=== PATIENT | female | born 1945 | race Caucasian/White ===

== ENCOUNTER 2018-02-26 21:07 | Inpatient (IN) ==
--- NOTE | 2018-02-26 21:30 | Emergency Department Note ---
Disposition Clinical Impression: Atrial fibrillation with RVR, Diaphoresis, Weakness Vomiting Qualifiers: Vomiting type: unspecified Vomiting Intractability: non-intractable Nausea presence: with nausea Qualified Code(s): R11.2 - Nausea with vomiting, unspecified Disposition: Admitted As Inpatient Condition: Fair Time of Disposition: 22:34 General Adult HPI - General Time Seen by Provider: 02/26/18 21:10 Source: EMS Nursing Notes Reviewed: Yes Vital Signs Reviewed: Yes - History of Present Illness HPI Narrative: 72-year-old female presents from home via EMS for evaluation of weakness, dizziness, and palpitations. Symptom onset 17:30. Associated with diaphoresis and vomiting. On EMS arrival, patient had a heart rate in the 180s. Patient has no history of atrial fibrillation. PMH: Hypertension, hyperlipidemia, COPD, history of aortic graft Anticoagulant: None Antiplatelet: Aspirin, Plavix ROS: Excellent positive: As above Negative: Fever, chills, vomiting, chest pains, unusual back pains, abdominal pain, upper extremity weakness/numbness/tingling, changes in vision Pain Scale: 0 - Related Data Home Medications Medication Instructions Recorded Confirmed Albuterol Sulfate [Proair Hfa] 2 puff IH Q6H PRN 02/26/18 02/26/18 Aspirin [Lo-Dose Aspirin EC] 81 mg PO DAILY 02/26/18 02/26/18 Buspirone HCl [Buspar] 5 mg PO BID 02/26/18 02/26/18 Cholecalciferol (D-3) [Vitamin D] 2,000 unit PO DAILY 02/26/18 02/26/18 Clopidogrel [Plavix] 75 mg PO DAILY 02/26/18 02/26/18 Docusate Sodium [Dok] 100 mg PO BID 02/26/18 02/26/18 Estradiol 1.5 mg PO DAILY 02/26/18 02/26/18 Fluticasone/Salmeterol [Advair 1 puff IH BID 02/26/18 02/26/18 250-50 Diskus] Lisinopril [Zestril] 10 mg PO DAILY 02/26/18 02/26/18 Loratadine [Allergy Relief] 10 mg PO DAILY 02/26/18 02/26/18 Meloxicam [Mobic] 15 mg PO DAILY PRN 02/26/18 02/26/18 Metoprolol [Lopressor] 12.5 mg PO DAILY 02/26/18 02/26/18 Montelukast [Singulair] 10 mg PO DAILY 02/26/18 02/26/18 Nitroglycerin [Nitrostat] 0.4 mg SL Q5M PRN 02/26/18 02/26/18 Ranitidine HCl [Zantac] 300 mg PO DAILY 02/26/18 02/26/18 Sertraline [Zoloft] 200 mg PO DAILY 02/26/18 02/26/18 Simvastatin [Zocor] 40 mg PO HS 02/26/18 02/26/18 Umeclidinium [place] [Incruse 62.5 mcg IH DAILY 02/26/18 02/26/18 Ellipta] hydroCHLOROthiazide 25 mg PO DAILY PRN 02/26/18 02/26/18 [Hydrochlorothiazide] Allergies Allergy/AdvReac Type Severity Reaction Status Date / Time ciprofloxacin [From Cipro] Allergy Rash Verified 02/26/18 21:21 codeine Allergy Fatigued Verified 02/26/18 21:21 diphenhydramine Allergy Rash Verified 02/26/18 21:21 [From Benadryl] egg Allergy Nausea Verified 02/26/18 21:21 gabapentin Allergy Anxiety Verified 02/26/18 21:21 Iodinated Contrast- Oral and Allergy Rash Verified 02/26/18 21:21 IV Dye [Iodinated Contrast Media - IV Dye] Penicillins Allergy Rash Verified 02/26/18 21:21 propoxyphene Allergy Rash Verified 02/26/18 21:21 Sulfa (Sulfonamide Allergy Rash Verified 02/26/18 21:21 Antibiotics) All systems ED: reviewed and negative except as stated. Review of Systems: As Per HPI Past Medical History - Past Medical History Medical history: Reports: COPD, DVT, hyperlipidemia, hypertension Psychiatric history: Reports: anxiety - Social History Smoking Status: Current every day smoker Alcohol use: Reports: none Drug use: Reports: none Physical Exam Vital Signs Reviewed General: Patient is alert, oriented, and in no acute distress. Head: atraumatic, normocephalic Eye: normal appearance, no scleral icterus, no conjunctival injection ENT: mucous membranes moist, normal external ear exam Neck: normal inspection, trachea midline, full ROM Chest: normal inspection, symmetric chest rise Respiratory: Good respiratory effort. Bilateral breath sounds are clear without wheezing, crackles, or rhonchi. Cardiovascular: Tachycardic rate and irregular rhythm. No clicks, rubs, gallops , or murmors. Normal heart sounds. Bilateral posterior tibial pulses 2/4 and irregular. Abdomen: Bowel sounds present normoactive x-4 quadrants. Abdomen is soft, nondistended, and nontender. No guarding or rebound. No organomegaly noted. Musculoskeletal: Spontaneously moving all extremities. Skin: warm, dry, intact. Neuro: Alert and oriented x4. Sensation light touch intact. Psych: Patient's affect is appropriate for situation. - General General appearance: alert, in no apparent distress Course Course Narrative: Patient presents atrophic fibrillation with rapid ventricular rate 190. Blood Pressure 130s systolic. Concern as she was diaphoretic, vomiting, and has new onset A. Fib. Will provide 10 mg Cardizem bolus with drip starting at 10 mg/h. 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 All of her medications are managed by her primary care physician. EKG #1 EKG dated at 21:19 interpreted as atrial fibrillation with rapid ventricular rate; rate of 190. QTC 404. Normal axis. Nonspecific ST-T changes. Compared to previous EKG dated 01/16/2013 showing A. fib RVR is new. EKG #2 EKG dated 02/26/18 at 21:46 shows atrial fibrillation with RVR with a heart rate of 126. Concerning with ST depressions in leads V2 and V3 ST elevations in leads 3 and aVR. EKG #3 EKG dated 02/26/18 at 22:07 interpreted as atrial fibrillation with RVR; rate of 121. Redemonstrates concerning findings of leads V2 and V3 ST depression with leads [address] elevation. Discussed the patient with on-call cardiology, Dr. Fabian. Discussed the patient's clinical presentation, history, EKG findings, laboratory workup. In addition to rate control, he recommends a speak with on-call interventional cardiology. Discussed the patient with on-call interventional cardiology, Dr. Joshi. Discussed the patient's clinical presentation, history, EKG findings, laboratory workup. He suspect this is demand ischemia. Recommends starting ACS heparin given that patient's A. fib is been ongoing for an unknown duration. He anticipates that it will take some additional time for her heart rate to settle below 100. Will provide IV bolus to maintain blood pressure greater than 100. Discussed the patient with the admitting hospitalist. He agrees to accept the patient for A. fib RVR with cardiology following. Vital Signs Temperature 98.3 F 02/26/18 21:13 Pulse Rate 183 02/26/18 21:13 Respiratory Rate 24 02/26/18 21:13 Blood Pressure 133/102 02/26/18 21:13 O2 Sat by Pulse Oximetry 94 02/26/18 21:13 Temperature 98.3 F 02/26/18 21:13 Pulse Rate 124 02/26/18 22:08 Respiratory Rate 22 02/26/18 22:08 Blood Pressure 99/80 02/26/18 22:08 O2 Sat by Pulse Oximetry 97 02/26/18 22:08 Oxygen Delivery Oxygen Delivery Nasal Cannula Medical Decision Making - Lab Data Result diagrams: 02/26/18 21:30 02/26/18 21:30 Lab Results 02/26/18 02/26/18 02/26/18 Range/Units 21:30 21:30 21:30 WBC 9.2 (4.3-11.1) K/mcL RBC 4.49 (3.82-4.97) M/mcL Hgb 13.4 (11.5-15.4) g/dL Hct 41.4 (35.3-44.9) % MCV 92.2 (83.0-100.0) fL MCH 29.8 (28.0-33.3) pg MCHC 32.4 (31.6-35.5) g/dL RDW 12.7 (11.5-14.5) % Plt Count 206 (140-400) K/mcL MPV 11.0 (9.4-12.4) fL Immature Gran % 0.3 (0-4) % Seg Neutrophils % 54.2 % Lymphocytes % 33.2 % Monocytes % 7.7 % Eosinophils % 3.6 % Basophils % 1.0 % Neutrophils # 5.0 (1.6-8.9) K/mcL Lymphocytes # 3.1 (0.6-4.6) K/mcL Monocytes # 0.7 (0.0-1.3) K/mcL Eosinophils # 0.3 (0.0-0.6) K/mcL Basophils # 0.1 (0.0-0.2) K/mcL PT 11.1 (9.4-12.1) Seconds INR 1.0 APTT 30.5 (26.0-36.0) Seconds D-Dimer 235 (0-500) ng/mLFEU Heparin Anti-Xa, Unfract 0.02 L (0.30-0.70) IU/mL Sodium 140 (136-145) mEq/L Potassium 3.5 (3.5-5.1) mEq/L Chloride 109 H (98-107) mEq/L Carbon Dioxide 20 L (23-29) mEq/L BUN 13 (8-23) mg/dL Creatinine 0.79 (0.60-1.20) mg/dL Est GFR ( Amer) > 60 (> 60) Est GFR (Non-Af Amer) > 60 (> 60) BUN/Creatinine Ratio 16 (6-26) Glucose 118 H (70-105) mg/dL Calculated Osmolality 291 (280-300) Calcium 9.3 (8.6-10.3) mg/dL Magnesium 1.7 (1.6-2.6) mg/dL Troponin I < 0.03 (< 0.04) ng/mL TSH 4.362 (0.340-5.600) mcIU/mL
[2018-02-26] MEDS ORDERED: 0.9 % Sodium Chloride 1,000 ML ONE (21:33)
[2018-02-26] MEDS ORDERED: Ondansetron 4 MG/2 ML VIAL IVP ONE (21:34)
[2018-02-26 21:40] LABS: Basophils # 0.1 K/mcL (0.0-0.2); Eosinophils # 0.3 K/mcL (0.0-0.6); Eosinophils % 3.6 %; Hematocrit 41.4 % (35.3-44.9); Hemoglobin 13.4 g/dL (11.5-15.4); Immature Granulocytes % 0.3 % (0-4); Lymphocytes # 3.1 K/mcL (0.6-4.6); Lymphocytes % 33.2 %; Mean Corpuscular HGB Conc 32.4 g/dL (31.6-35.5); Mean Corpuscular Hemoglobin 29.8 pg (28.0-33.3); Mean Corpuscular Volume 92.2 fL (83.0-100.0); Monocytes # 0.7 K/mcL (0.0-1.3); Monocytes % 7.7 %; Platelet Count 206 K/mcL (140-400); Red Blood Count 4.49 M/mcL (3.82-4.97); Red Cell Distribution Width 12.7 % (11.5-14.5); Segmented Neutrophils % 54.2 %
[2018-02-26 21:49] LABS: Prothrombin Time 11.1 Seconds (9.4-12.1)
[2018-02-26 21:51] LABS: Activated Partial Thrombo Time 30.5 Seconds (26.0-36.0)
[2018-02-26 22:01] LABS: BUN/Creatinine Ratio 16 (6-26); Blood Urea Nitrogen 13 mg/dL (8-23); Calcium 9.3 mg/dL (8.6-10.3); Carbon Dioxide 20 mEq/L (23-29); Chloride 109 mEq/L (98-107); Glucose 118 mg/dL (70-105); Magnesium 1.7 mg/dL (1.6-2.6); Osmolality,Calculated 291 (280-300); Potassium 3.5 mEq/L (3.5-5.1); Sodium 140 mEq/L (136-145); eGFR For Non-African Americans > 60 (> 60)
[2018-02-26 22:02] LABS: Troponin I < 0.03 ng/mL (< 0.04)
[2018-02-26] MEDS ORDERED: 0.9 % Sodium Chloride 1,000 ML IVC ONE (22:12)
[2018-02-26 22:15] LABS: Thyroid Stimulating Hormone 4.362 mcIU/mL (0.340-5.600)
[2018-02-26] MEDS ORDERED: *HR* Heparin 5,000 UNIT/ML VIAL IVP PRN ×2 (22:15)
[2018-02-26] MEDS ORDERED: *HR* Heparin 5,000 UNIT/ML VIAL IVP ONE (22:15)
[2018-02-26 22:25] LABS: Heparin anti-factor XA UFH 0.02 IU/mL (0.30-0.70)
--- NOTE | 2018-02-26 22:37 | Emergency Department Note ---
Disposition Clinical Impression: Atrial fibrillation with RVR, Diaphoresis, Weakness Vomiting Qualifiers: Vomiting type: unspecified Vomiting Intractability: non-intractable Nausea presence: with nausea Qualified Code(s): R11.2 - Nausea with vomiting, unspecified Disposition: Admitted As Inpatient Referrals: Cynthia Woo MD [Primary Care Provider] - General Adult HPI - General Chief complaint: ED Arrhythmia/Palpitations Stated complaint: AFIB Time Seen by Provider: 02/26/18 21:10 Source: EMS - History of Present Illness Pain Scale: 0 - Related Data Home Medications Medication Instructions Recorded Confirmed Albuterol Sulfate [Proair Hfa] 2 puff IH Q6H PRN 02/26/18 02/26/18 Aspirin [Lo-Dose Aspirin EC] 81 mg PO DAILY 02/26/18 02/26/18 Buspirone HCl [Buspar] 5 mg PO BID 02/26/18 02/26/18 Cholecalciferol (D-3) [Vitamin D] 2,000 unit PO DAILY 02/26/18 02/26/18 Clopidogrel [Plavix] 75 mg PO DAILY 02/26/18 02/26/18 Docusate Sodium [Dok] 100 mg PO BID 02/26/18 02/26/18 Estradiol 1.5 mg PO DAILY 02/26/18 02/26/18 Fluticasone/Salmeterol [Advair 1 puff IH BID 02/26/18 02/26/18 250-50 Diskus] Lisinopril [Zestril] 10 mg PO DAILY 02/26/18 02/26/18 Loratadine [Allergy Relief] 10 mg PO DAILY 02/26/18 02/26/18 Meloxicam [Mobic] 15 mg PO DAILY PRN 02/26/18 02/26/18 Metoprolol [Lopressor] 12.5 mg PO DAILY 02/26/18 02/26/18 Montelukast [Singulair] 10 mg PO DAILY 02/26/18 02/26/18 Nitroglycerin [Nitrostat] 0.4 mg SL Q5M PRN 02/26/18 02/26/18 Ranitidine HCl [Zantac] 300 mg PO DAILY 02/26/18 02/26/18 Sertraline [Zoloft] 200 mg PO DAILY 02/26/18 02/26/18 Simvastatin [Zocor] 40 mg PO HS 02/26/18 02/26/18 Umeclidinium [place] [Incruse 62.5 mcg IH DAILY 02/26/18 02/26/18 Ellipta] hydroCHLOROthiazide 25 mg PO DAILY PRN 02/26/18 02/26/18 [Hydrochlorothiazide] Allergies Allergy/AdvReac Type Severity Reaction Status Date / Time ciprofloxacin [From Cipro] Allergy Rash Verified 02/26/18 21:21 codeine Allergy Fatigued Verified 02/26/18 21:21 diphenhydramine Allergy Rash Verified 02/26/18 21:21 [From Benadryl] egg Allergy Nausea Verified 02/26/18 21:21 gabapentin Allergy Anxiety Verified 02/26/18 21:21 Iodinated Contrast- Oral and Allergy Rash Verified 02/26/18 21:21 IV Dye [Iodinated Contrast Media - IV Dye] Penicillins Allergy Rash Verified 02/26/18 21:21 propoxyphene Allergy Rash Verified 02/26/18 21:21 Sulfa (Sulfonamide Allergy Rash Verified 02/26/18 21:21 Antibiotics) Past Medical History - Past Medical History Medical history: Reports: COPD, DVT, hyperlipidemia, hypertension Psychiatric history: Reports: anxiety - Social History Smoking Status: Current every day smoker Alcohol use: Reports: none Drug use: Reports: none Physical Exam - General General appearance: alert, in no apparent distress Course Vital Signs Temperature 98.3 F 02/26/18 21:13 Pulse Rate 183 02/26/18 21:13 Respiratory Rate 24 02/26/18 21:13 Blood Pressure 133/102 02/26/18 21:13 O2 Sat by Pulse Oximetry 94 02/26/18 21:13 Temperature 98.3 F 02/26/18 21:13 Pulse Rate 124 02/26/18 22:08 Respiratory Rate 22 02/26/18 22:08 Blood Pressure 99/80 02/26/18 22:08 O2 Sat by Pulse Oximetry 97 02/26/18 22:08 Oxygen Delivery Oxygen Delivery Nasal Cannula Medical Decision Making - Lab Data Result diagrams: 02/26/18 21:30 02/26/18 21:30 Lab Results 02/26/18 02/26/18 02/26/18 Range/Units 21:30 21:30 21:30 WBC 9.2 (4.3-11.1) K/mcL RBC 4.49 (3.82-4.97) M/mcL Hgb 13.4 (11.5-15.4) g/dL Hct 41.4 (35.3-44.9) % MCV 92.2 (83.0-100.0) fL MCH 29.8 (28.0-33.3) pg MCHC 32.4 (31.6-35.5) g/dL RDW 12.7 (11.5-14.5) % Plt Count 206 (140-400) K/mcL MPV 11.0 (9.4-12.4) fL Immature Gran % 0.3 (0-4) % Seg Neutrophils % 54.2 % Lymphocytes % 33.2 % Monocytes % 7.7 % Eosinophils % 3.6 % Basophils % 1.0 % Neutrophils # 5.0 (1.6-8.9) K/mcL Lymphocytes # 3.1 (0.6-4.6) K/mcL Monocytes # 0.7 (0.0-1.3) K/mcL Eosinophils # 0.3 (0.0-0.6) K/mcL Basophils # 0.1 (0.0-0.2) K/mcL PT 11.1 (9.4-12.1) Seconds INR 1.0 APTT 30.5 (26.0-36.0) Seconds D-Dimer 235 (0-500) ng/mLFEU Heparin Anti-Xa, Unfract 0.02 L (0.30-0.70) IU/mL Sodium 140 (136-145) mEq/L Potassium 3.5 (3.5-5.1) mEq/L Chloride 109 H (98-107) mEq/L Carbon Dioxide 20 L (23-29) mEq/L BUN 13 (8-23) mg/dL Creatinine 0.79 (0.60-1.20) mg/dL Est GFR ( Amer) > 60 (> 60) Est GFR (Non-Af Amer) > 60 (> 60) BUN/Creatinine Ratio 16 (6-26) Glucose 118 H (70-105) mg/dL Calculated Osmolality 291 (280-300) Calcium 9.3 (8.6-10.3) mg/dL Magnesium 1.7 (1.6-2.6) mg/dL Troponin I < 0.03 (< 0.04) ng/mL TSH 4.362 (0.340-5.600) mcIU/mL Critical Care Time Critical Care Time: Yes Total Critical Care Time: 35 Attestation: Total critical care time 35 minutes spent in medical management of A. fib with RVR Attestation Statement - Attestation Attestation: I examined this patient and my medical decision-making was reviewed with the Resident Physician. I agree with the documented findings, disposition and treatment plan as described except to the extent set forth below. 72-year-old female in presented to the emergency room with nausea vomiting diaphoresis shortness of breath and palpitations. She was brought in via EMS. She was found to be in A. fib with RVR. Her heart rate was running in the 180s. Initial EKG showed A. fib with RVR. It appeared as though she had rate demand ischemia. We gave her a bolus of 10 mg of Cardizem. This did bring her heart rate down slightly. She started feel better. We will start her on a Cardizem drip. She was also given a liter fluid bolus. She improved after these measures. We consulted with cardiology in regards to her psychiatric EKG which showed a possible ST elevation in aVR as well as in lead 3. She still was in A. fib with RVR. She had some ST depressions in the anterior septal leads. She remained chest pain-free her entire ER stay. We consulted with interventional cardiology as well. Okay with a Cardizem drip and start her on a heparin drip. Her troponin came back negative. Chest x-ray shows possible early pulmonary edema. I feel this is likely secondary to her heart rate being so elevated. I feel that this will likely improve after her heart rate improves. patient will be admitted. Critical care time of 35 minutes spent in medical management of A. fib with RVR.
[2018-02-26] MEDS ORDERED: Nitroglycerin 0.4 MG TAB.SUBL SL PRN (23:48)
[2018-02-26] MEDS: Heparin 25,000 UNIT/500 ML D5W 25,000 UNIT/500 ML BAG IVC SCH (23:50)
--- NOTE | 2018-02-27 00:25 | Internal Med History&Physical ---
Date of Encounter: 02/27/18 Time of Encounter: 23:15 Internal Medicine - H&P: HPI Chief complaint: palpitations Admitted From: Home Plans for Post Hospital Care: Home History of present illness: Ms. Maloney is a 72 year old woman with a history of hypertension, hyperlipidemia, anxiety disorder and COPD who presents to the ER with the complaint of acute onset palpitations accompanied by diaphoresis, nausea and vomiting. She states that it commenced while at rest and has not happened to her before. She denies illicit drug use but she continues to smoke. She denies having chest pain at any time. On arrival to the ER she was seen to have Afib with RVR to the 190s and systolic BP 130s. She was diaphoretic and vomiting with what appeared to be new onset afib. 10 mg bolus of diltiazem was administered with a subsequent drip at 10 mg per hour. As reported by the ER her EKG showed A. fib with RVR at a rate of [address] T-segment changes and a repeat EKG with the heart rate of [address] depressions in V2 and V3 leading to suspicion for ACS. Discussion was held cardiology based on the clinical presentation, history, EKG findings and lab workup and recommended rate control only and likely due to demand ischemia due to the elevated heart rate. Cardiology has been consulted and will be seen in the morning but recommend starting heparin therapy in the interim while continuing the diltiazem drip to control heart rate. Her initial troponin came back negative. He remained chest pain-free during her entire ER stay. On my assessment the patient was sitting up in bed but notably anxious and fidgety. She states that she has an anxiety issue and takes medications for this. She will just states that she continues to smoke and she is somewhat wheezy. On my review of the telemetry strip and a subsequent EKG done the patient had reverted to normal sinus rhythm with a heart rate in the 70s. Of note, the patient states that she is on dual antiplatelet therapy because of a stent placed through her groin into her aorta for a blockage some years ago although she cannot specify where. Past Med Surg Social Fam HX - Past Medical History Medical history: COPD, DVT, hyperlipidemia, hypertension Psychiatric history: anxiety - Past Surgical History Additional surgical history: cardiac stent x 1 - Social History Smoking Status: Current every day smoker Alcohol use: none Drug use: none Internal Medicine - H&P: Meds Albuterol Sulfate [Proair Hfa] 2 puff IH Q6H PRN 02/26/18 [History] Aspirin [Lo-Dose Aspirin EC] 81 mg PO DAILY 02/26/18 [History] Buspirone HCl [Buspar] 5 mg PO BID 02/26/18 [History] Cholecalciferol (D-3) [Vitamin D] 2,000 unit PO DAILY 02/26/18 [History] Clopidogrel [Plavix] 75 mg PO DAILY 02/26/18 [History] Docusate Sodium [Dok] 100 mg PO BID 02/26/18 [History] Estradiol 1.5 mg PO DAILY 02/26/18 [History] Fluticasone/Salmeterol [Advair 250-50 Diskus] 1 puff IH BID 02/26/18 [History] Lisinopril [Zestril] 10 mg PO DAILY 02/26/18 [History] Loratadine [Allergy Relief] 10 mg PO DAILY 02/26/18 [History] Meloxicam [Mobic] 15 mg PO DAILY PRN 02/26/18 [History] Metoprolol [Lopressor] 12.5 mg PO DAILY 02/26/18 [History] Montelukast [Singulair] 10 mg PO DAILY 02/26/18 [History] Nitroglycerin [Nitrostat] 0.4 mg SL Q5M PRN 02/26/18 [History] Ranitidine HCl [Zantac] 300 mg PO DAILY 02/26/18 [History] Sertraline [Zoloft] 200 mg PO DAILY 02/26/18 [History] Simvastatin [Zocor] 40 mg PO HS 02/26/18 [History] Umeclidinium [place] [Incruse Ellipta] 62.5 mcg IH DAILY 02/26/18 [History] hydroCHLOROthiazide [Hydrochlorothiazide] 25 mg PO DAILY PRN 02/26/18 [History] 3 Allergy/AdvReac Type Severity Reaction Status Date / Time ciprofloxacin [From Cipro] Allergy Rash Verified 02/26/18 21:21 codeine Allergy Fatigued Verified 02/26/18 21:21 diphenhydramine Allergy Rash Verified 02/26/18 21:21 [From Benadryl] egg Allergy Nausea Verified 02/26/18 21:21 gabapentin Allergy Anxiety Verified 02/26/18 21:21 Iodinated Contrast- Oral and Allergy Rash Verified 02/26/18 21:21 IV Dye [Iodinated Contrast Media - IV Dye] Penicillins Allergy Rash Verified 02/26/18 21:21 propoxyphene Allergy Rash Verified 02/26/18 21:21 Sulfa (Sulfonamide Allergy Rash Verified 02/26/18 21:21 Antibiotics) All Systems PM: A 10-system review of systems was performed and is negative for pertinent findings except as documented above in the HPI. - Constitutional Vitals: Temp Pulse Resp BP Pulse Ox 98.3 F 68 16 105/92 94 02/26/18 21:13 02/26/18 23:52 02/26/18 23:52 02/26/18 23:52 02/26/18 23:52 Exam: Vitals: Reviewed General: Well developed, NAD Skin: Warm and supple HEENT: Moist mucous membranes. No conjunctivae pallor. Neck: No lymphadenopathy. No JVD. No carotid bruits. No palpable thyroid. Chest: Normal thoracic expansion. Scattered wheezes in both lung butcher. Heart: Normal S1 & S2; rhythmic. No rubs or murmurs. Abdomen: Non-distended, soft and non-tender to palpation. No peritoneal reaction. Extremities: No clubbing, cyanosis or edema. No calf tenderness. Normal distal pulses. Neurological: Awake, alert and oriented to person, place and time. No focal deficits. Psych: Affect appropriate. Internal Med - H&P Results - Labs CBC & Chem 7: 02/26/18 21:30 02/26/18 21:30 - Assessment and plan (1) Atrial fibrillation with RVR Current Visit: Yes Status: Acute Assessment and plan: New onset however appears to have reverted to sinus rhythm with adequate rate control. [id number] score of 3 which indicates need for anticoagulation. The patient is currently on dual antiplatelet therapy with ASA and clopidogrel for a "stent placed somewhere in her aorta". -Will keep on heparin and diltiazem gtt overnight. -Can transition to PO rate control agents once stable. -Discussion on form of anticoagulation once cardiology has evaluated. -Obtain TSH and another troponin. -Monitor on telemetry. (2) COPD (chronic obstructive pulmonary disease) Current Visit: Yes Status: Acute Assessment and plan: Mild symptoms for now. Complicated by ongoing tobacco use. Will place on levalbuterol prn and continue LABA/ICS daily. Qualifiers: COPD type: emphysema Emphysema type: panlobular Qualified Code(s): J43.1 - Panlobular emphysema (3) Hypertension Current Visit: Yes Status: Chronic Assessment and plan: Will continue home medications. Currently well controlled. Qualifiers: Hypertension type: essential hypertension Qualified Code(s): I10 - Essential (primary) hypertension (4) Hyperlipidemia Current Visit: Yes Status: Acute Assessment and plan: Currently on simvastatin 40mg daily. Will continue. Qualifiers: Hyperlipidemia type: mixed hyperlipidemia Qualified Code(s): E78.2 - Mixed hyperlipidemia (5) Anxiety Current Visit: Yes Status: Chronic Assessment and plan: Notable on physical assessment. Will continue daily sertraline. - Time Spent With Patient Total time spent is greater than 50% in coordination of care (as documented) at patient's floor/unit and/or counseling patient: Greater than 35 minutes
[2018-02-27] MEDS ORDERED: Levalbuterol Neb 0.63 MG/3 ML IH PRN (00:43)
[2018-02-27 04:34] LABS: Basophils # 0.1 K/mcL (0.0-0.2); Basophils % 0.9 %; Eosinophils # 0.2 K/mcL (0.0-0.6); Hematocrit 38.6 % (35.3-44.9); Hemoglobin 12.5 g/dL (11.5-15.4); Immature Granulocytes % 0.3 % (0-4); Lymphocytes # 3.2 K/mcL (0.6-4.6); Lymphocytes % 36.5 %; Mean Corpuscular HGB Conc 32.4 g/dL (31.6-35.5); Mean Corpuscular Hemoglobin 30.6 pg (28.0-33.3); Mean Corpuscular Volume 94.4 fL (83.0-100.0); Mean Platelet Volume 11.1 fL (9.4-12.4); Monocytes # 0.5 K/mcL (0.0-1.3); Monocytes % 5.7 %; Neutrophils # 4.7 K/mcL (1.6-8.9); Platelet Count 192 K/mcL (140-400); Red Blood Count 4.09 M/mcL (3.82-4.97); Red Cell Distribution Width 12.7 % (11.5-14.5); Segmented Neutrophils % 54.6 %
[2018-02-27 04:52] LABS: Alanine Aminotransferase 8 Units/L (7-52); Albumin 3.4 g/dL (3.5-5.7); Albumin/Globulin Ratio 1.7 (1.1-2.2); Alkaline Phosphatase 44 Units/L (34-104); Aspartate Amino Transferase 13 Units/L (13-39); BUN/Creatinine Ratio 13 (6-26); Bilirubin,Direct 0.1 mg/dL (0.0-0.2); Bilirubin,Indirect 0.3 mg/dL (0.0-1.2); Bilirubin,Total 0.4 mg/dL (0.3-1.0); Blood Urea Nitrogen 10 mg/dL (8-23); Calcium 8.8 mg/dL (8.6-10.3); Carbon Dioxide 25 mEq/L (23-29); Chloride 110 mEq/L (98-107); Glucose 120 mg/dL (70-105); Osmolality,Calculated 290 (280-300); Potassium 4.1 mEq/L (3.5-5.1); Sodium 140 mEq/L (136-145); Total Protein 5.4 g/dL (6.4-8.9); eGFR For Non-African Americans > 60 (> 60)
[2018-02-27 04:55] LABS: Troponin I 0.05 ng/mL (< 0.04)
[2018-02-27] MEDS: Budesonide/Formoterol 80/4.5 MDI IH SCH ×2 (08:43→20:34)
[2018-02-27] MEDS: hydroCHLOROthiazide 25 MG TABLET PO SCH (09:00)
[2018-02-27] MEDS: Famotidine 20 MG TABLET PO SCH (09:00)
[2018-02-27] MEDS: Aspirin Enteric Coated 81 MG Tablet PO SCH (09:00)
[2018-02-27] MEDS: Loratadine 10 MG TABLET PO SCH (09:00)
[2018-02-27] MEDS: Cholecalciferol (D-3) 1,000 UNIT TABLET PO SCH (09:00)
--- NOTE | 2018-02-27 11:49 | Cardiology Consult Note ---
Date of Encounter: 02/27/18 Time of Encounter: 11:47 Assessment and Plan (1) PAF (paroxysmal atrial fibrillation) Current Visit: Yes Status: Acute Paroxysmal atrial fibrillation, currently in sinus rhythm. Elevated CHADS-VASc score. Currently on heparin drip. We will need transition to oral anticoagulation prior to discharge. Remote PCI , still on Plavix, which can be discontinued to avoid triple therapy. Home Lopressor increased to 25 mg twice daily. Okay to stop Cardizem drip. We will continue to increase beta tiffany as needed. TTE pending. Given history of CAD, poor risk factor modification, and newly diagnosed atrial fibrillation - recommend ischemic evaluation. We will plan for stress test. (2) CAD in [place] artery Current Visit: Yes Status: Acute History of CAD, describes remote PCI. No recent cardiac testing. She is not currently following with a accounts payables clerk. Recommend continue aspirin, beta tiffany therapy. Start low-dose statin. Risk factor modification, especially tobacco cessation emphasized. Discussion w patient/family: The assessment and plan as outlined above was discussed with the patient and/or family members who expressed understanding and agreement. All questions were answered. Thank you for involving us in the care of your patient. Please call with any questions. History of Present Illness Consult date: 02/27/18 Requesting physician: Kyung Santizo Consult reason: AF Chief complaint: AF History of present illness: Ms. Maloney is a 72 year old female with a remote history of CAD, prior PCI per patient report. She has not recently seen a accounts payables clerk. Presents with complaints of palpitations. Also reported nausea, vomiting, and diaphoresis. ER ECG demonstrated atrial fibrillation. Patient started on Cardizem and heparin drip. She spontaneously converted to sinus rhythm overnight. No recent cardiac testing. Troponin 0.03, 0.05. TSH normal. Past Med Surg Social Fam HX - Past Medical History Medical history: COPD, DVT, hyperlipidemia, hypertension Psychiatric history: anxiety, depression - Past Surgical History Surgical History: angioplasty/stent, , cholecystectomy, hysterectomy Additional surgical history: cardiac stent x 1. c section x2 - Social History Smoking Status: Current every day smoker Packs per day: 1/2 Alcohol use: none Drug use: none - Family History Mother Living Status: Age at : 73 Hx Family Cardiac Disorders: Yes Hx Family Respiratory Disorders: Yes (COPD, Trach) Hx Family Musculoskeletal Disorders: Yes (arthritis) Father Living Status: Age at : 81 Hx Family Cardiac Disorders: Yes (stroke x2) Medications and Allergies Albuterol Sulfate [Proair Hfa] 2 puff IH Q6H PRN 02/26/18 [History] Aspirin [Lo-Dose Aspirin EC] 81 mg PO DAILY 02/26/18 [History] Buspirone HCl [Buspar] 5 mg PO BID 02/26/18 [History] Cholecalciferol (D-3) [Vitamin D] 2,000 unit PO DAILY 02/26/18 [History] Clopidogrel [Plavix] 75 mg PO DAILY 02/26/18 [History] Docusate Sodium [Dok] 100 mg PO BID 02/26/18 [History] Estradiol 1.5 mg PO DAILY 02/26/18 [History] Fluticasone/Salmeterol [Advair 250-50 Diskus] 1 puff IH BID 02/26/18 [History] Lisinopril [Zestril] 10 mg PO DAILY 02/26/18 [History] Loratadine [Allergy Relief] 10 mg PO DAILY 02/26/18 [History] Meloxicam [Mobic] 15 mg PO DAILY PRN 02/26/18 [History] Metoprolol [Lopressor] 12.5 mg PO DAILY 02/26/18 [History] Montelukast [Singulair] 10 mg PO DAILY 02/26/18 [History] Nitroglycerin [Nitrostat] 0.4 mg SL Q5M PRN 02/26/18 [History] Ranitidine HCl [Zantac] 300 mg PO DAILY 02/26/18 [History] Sertraline [Zoloft] 200 mg PO DAILY 02/26/18 [History] Simvastatin [Zocor] 40 mg PO HS 02/26/18 [History] Umeclidinium [place] [Incruse Ellipta] 62.5 mcg IH DAILY 02/26/18 [History] hydroCHLOROthiazide [Hydrochlorothiazide] 25 mg PO DAILY PRN 02/26/18 [History] 3 Allergy/AdvReac Type Severity Reaction Status Date / Time ciprofloxacin [From Cipro] Allergy Rash Verified 02/26/18 21:21 codeine Allergy Fatigued Verified 02/26/18 21:21 diphenhydramine Allergy Rash Verified 02/26/18 21:21 [From Benadryl] egg Allergy Nausea Verified 02/26/18 21:21 gabapentin Allergy Anxiety Verified 02/26/18 21:21 Iodinated Contrast- Oral and Allergy Rash Verified 02/26/18 21:21 IV Dye [Iodinated Contrast Media - IV Dye] Penicillins Allergy Rash Verified 02/26/18 21:21 propoxyphene Allergy Rash Verified 02/26/18 21:21 Sulfa (Sulfonamide Allergy Rash Verified 02/26/18 21:21 Antibiotics) All Systems Review: The remainder of the systems were reviewed and are negative Physical Examination Vital Signs, Last 4 Hours Temp Pulse Resp BP Pulse Ox 02/27/18 07:55 98.9 F 62 18 117/65 95 General: Conversant, No Apparent Distress HEENT: Atraumatic, Normocephaly, Mucus Membranes Moist Neck: No JVD, Normal carotid pulses Cardiac: Reg Rate and Rhythm, Normal S1 and S2, No Murmur Lungs: Normal Breath Sounds, No Wheeze, Rales, Rhonchi Neuro: Alert and responsive, No focal deficits noted Abdomen: Soft, Non-Tender Skin: No rashes noted on visualized skin Musculoskeletal: No Chest Wall Tenderness Extremities: No Clubbing, No Cyanosis, No Edema Results 02/27/18 04:00 02/27/18 04:00 Lab Results 02/27/18 02/27/18 04:00 04:00 WBC 8.6 Hgb 12.5 Hct 38.6 Plt Count 192 Sodium 140 Potassium 4.1 Chloride 110 H Carbon Dioxide 25 BUN 10 Creatinine 0.76 Glucose 120 H Calcium 8.8 Total Bilirubin 0.4 AST 13 ALT 8 Alkaline Phosphatase 44 Troponin I 0.05 H* - EKG Interpretation EKG results cardiology: personally reviewed Consult Discharge Plan - Plan Referrals: Cynthia Woo MD [Primary Care Provider] -
[2018-02-27] MEDS: (Incruse Ellipta] 62.5 MCG) IH SCH (13:42)
--- NOTE | 2018-02-27 14:54 | Event Note ---
Date of Encounter: 02/27/18 Time of Encounter: 14:44 Ms. Maloney is a 72 year old woman with a history of hypertension, hyperlipidemia, anxiety disorder and COPD who presents to the ER with the complaint of acute onset palpitations accompanied by diaphoresis, nausea and vomiting. She states that it commenced while at rest and has not happened to her before. She denies illicit drug use but she continues to smoke. She denies having chest pain at any time. On arrival to the ER she was seen to have Afib with RVR to the 190s and systolic BP 130s. She was diaphoretic and vomiting with what appeared to be new onset afib. 10 mg bolus of diltiazem was administered with a subsequent drip at 10 mg per hour. Patient HR converted to sinus She is off cardiazem drip, add BB. cardiology is going to do stress test tomorrow. she has COPD on 2 L NC at home she wants to have nicotine patch, but has to wait for tomorrow after stress test.
[2018-02-28] MEDS: Heparin 25,000 UNIT/500 ML D5W 25,000 UNIT/500 ML BAG IVC SCH (01:33)
[2018-02-28] MEDS ORDERED: Regadenoson 0.4 MG/5 ML SYRINGE IVP ONE (06:21)
[2018-02-28 06:56] LABS: Basophils # 0.1 K/mcL (0.0-0.2); Basophils % 1.1 %; Eosinophils # 0.3 K/mcL (0.0-0.6); Eosinophils % 4.3 %; Hematocrit 39.2 % (35.3-44.9); Hemoglobin 12.4 g/dL (11.5-15.4); Immature Granulocytes % 0.2 % (0-4); Lymphocytes # 2.2 K/mcL (0.6-4.6); Lymphocytes % 33.4 %; Mean Corpuscular HGB Conc 31.6 g/dL (31.6-35.5); Mean Corpuscular Hemoglobin 29.8 pg (28.0-33.3); Mean Corpuscular Volume 94.2 fL (83.0-100.0); Monocytes # 0.5 K/mcL (0.0-1.3); Monocytes % 6.9 %; Neutrophils # 3.5 K/mcL (1.6-8.9); Platelet Count 188 K/mcL (140-400); Red Blood Count 4.16 M/mcL (3.82-4.97); Red Cell Distribution Width 12.8 % (11.5-14.5); Segmented Neutrophils % 54.1 %
[2018-02-28] MEDS ORDERED: Nicotine 21 MG PATCH.TD24 TD SCH (09:00)
[2018-02-28 09:27] LABS: BUN/Creatinine Ratio 11 (6-26); Blood Urea Nitrogen 8 mg/dL (8-23); Calcium 9.1 mg/dL (8.6-10.3); Carbon Dioxide 29 mEq/L (23-29); Chloride 105 mEq/L (98-107); Glucose 103 mg/dL (70-105); Osmolality,Calculated 291 (280-300); Potassium 4.1 mEq/L (3.5-5.1); Sodium 141 mEq/L (136-145); eGFR For Non-African Americans > 60 (> 60)
[2018-02-28] MEDS: Cholecalciferol (D-3) 1,000 UNIT TABLET PO SCH (11:09)
[2018-02-28] MEDS: Aspirin Enteric Coated 81 MG Tablet PO SCH (11:10)
[2018-02-28] MEDS: Loratadine 10 MG TABLET PO SCH (11:11)
[2018-02-28] MEDS: hydroCHLOROthiazide 25 MG TABLET PO SCH (11:11)
[2018-02-28] MEDS: Famotidine 20 MG TABLET PO SCH (11:11)
[2018-02-28] MEDS: (Incruse Ellipta] 62.5 MCG) IH SCH (11:19)
[2018-02-28] MEDS: Budesonide/Formoterol 80/4.5 MDI IH SCH (11:51)
[2018-02-28 11:52] VITALS: BP 94/50
--- NOTE | 2018-02-28 14:04 | Internal Med Progress Note ---
Hospitalist Progress Note - Encounter Date of Encounter: 02/28/18 Time of Encounter: 14:01 - Subjective Interval History: Ms. Maloney is a 72 year old woman with a history of hypertension, hyperlipidemia, anxiety disorder and COPD who presents to the ER with the complaint of acute onset palpitations accompanied by diaphoresis, nausea and vomiting. She states that it commenced while at rest and has not happened to her before. She denies illicit drug use but she continues to smoke. She denies having chest pain at any time. On arrival to the ER she was seen to have Afib with RVR to the 190s and systolic BP 130s. She was diaphoretic and vomiting with what appeared to be new onset afib. 10 mg bolus of diltiazem was administered with a subsequent drip at 10 mg per hour. Patient HR converted to sinus. She is off cardiazem drip, add BB. had negative stress test today with EF 70%. she has COPD on 2 L NC at home she wants to have nicotine patch Patient is doing well, denies palpation chest pain. She torn to stress test. Currently still heparin drip. Await for intervention nurse further recommendations - Exam Vitals: Temp Pulse Resp BP Pulse Ox 98.6 F 56 16 94/50 95 02/28/18 11:42 02/28/18 11:42 02/28/18 11:53 02/28/18 11:42 02/28/18 11:53 Exam: CONSTITUTIONAL: patient appears as an age appropriate female in no acute distress. EYES Clear sclerae, bilateral pupils are equal, reactive to light. EMOI. RESPIRATORY: No accessory muscle use, bilateral diminished breath sounds to auscultation, no wheezing, no crackles/rales. CARDIOVASCULAR: Regular heart rate, normal S1 and S2, no murmurs GASTROINTESTINAL: bowel sounds present, soft, no tenderness. MUSCULOSKELETAL: Joints in normal range of motion, no clubbing, no edema, no cyanosis. Bilateral peripheral pulses 2+. NEUROLOGIC: CN II to XII are grossly intact, no focal neurological deficit. - Assessment and Plan (1) Atrial fibrillation with RVR Current Visit: Yes Status: Acute Assessment and Plan: New onset a-fib with RVR, converted to sinus rhythma [id number] score of 3 , on heparin drip now will need transition to oral anticoagulation prior to discharge. Remote PCI, still on Plavix, which can be discontinued to avoid triple therapy. Home Lopressor increased to 25 mg twice daily. pending TTE await for cardiology further recommendation (2) COPD (chronic obstructive pulmonary disease) Current Visit: Yes Status: Acute Assessment and Plan: stable, on 2 l NC at home (3) Hypertension Current Visit: Yes Status: Chronic (4) Hyperlipidemia Current Visit: Yes Status: Chronic (5) CAD in [place] artery Current Visit: Yes Status: Chronic Assessment and Plan: conitinue ASA, plavix, statin - Time Spent with Patient Total time spent is greater than 50% in coordination of care (as documented) at patient's floor/unit and/or counseling patient: 25 - 35 minutes Internal Medicine: Result - Labs CBC & Chem 7: 02/28/18 06:41 02/28/18 06:41 Labs: Short CBC 02/28/18 Range/Units 06:41 WBC 6.5 (4.3-11.1) K/mcL Hgb 12.4 (11.5-15.4) g/dL Hct 39.2 (35.3-44.9) % Plt Count 188 (140-400) K/mcL Neutrophils # 3.5 (1.6-8.9) K/mcL BMP 02/28/18 06:41 Sodium 141 Potassium 4.1 Chloride 105 Carbon Dioxide 29 BUN 8 Creatinine 0.74 Glucose 103 Calcium 9.1 - ABG Interpretation ABG results: PT/INR, D-dimer PT 11.1 Seconds (9.4-12.1) 02/26/18 21:30 D-Dimer 235 ng/mLFEU (0-500) 02/26/18 21:30 Consult Discharge Plan - Plan Referrals: Cynthia Woo MD [Primary Care Provider] - (2) COPD (chronic obstructive pulmonary disease) Qualifiers: COPD type: emphysema Emphysema type: panlobular Qualified Code(s): J43.1 - Panlobular emphysema (3) Hypertension Qualifiers: Hypertension type: essential hypertension Qualified Code(s): I10 - Essential (primary) hypertension (4) Hyperlipidemia Qualifiers: Hyperlipidemia type: mixed hyperlipidemia Qualified Code(s): E78.2 - Mixed hyperlipidemia
--- NOTE | 2018-02-28 14:29 | Cardiology Progress Note ---
Date of Encounter: 02/28/18 Time of Encounter: 14:26 Assessment and Plan (1) PAF (paroxysmal atrial fibrillation) Current Visit: Yes Status: Acute Paroxysmal atrial fibrillation, currently in sinus rhythm. Elevated CHADS-VASc score. Stress test negative. LVEF normal. Stop Heparin drip. Start Xarelto 20 mg daily. Continue BB therapy. Outpatient followup. No further inpatient cardiology recommendations necessary at this time. Message sent to office to call her and arrange followup. Thanks. (2) CAD in [place] artery Current Visit: Yes Status: Chronic History of CAD, describes remote PCI. Plavix stopped given need for full anticoagulation for AF. Recommend continue aspirin, beta tiffany therapy. Start low-dose statin. Risk factor modification, especially tobacco cessation emphasized. Discussion w patient/family: The assessment and plan as outlined above was discussed with the patient and/or family members who expressed understanding and agreement. All questions were answered. Thank you for involving us in the care of your patient. Please call with any questions. Subjective Interval history: Overall, doing well. No further palpitations reported. No further AF. Stress test performed today - negative for ischemia. LVEF normal. Objective Vital Signs, Last 4 Hours Temp Pulse Resp BP Pulse Ox 02/28/18 11:53 16 95 02/28/18 11:42 98.6 F 56 18 94/50 93 General: Conversant, No Apparent Distress HEENT: Atraumatic, Normocephaly, Mucus Membranes Moist Neck: No JVD, Normal carotid pulses Cardiac: Reg Rate and Rhythm, Normal S1 and S2, No Murmur Lungs: Normal Breath Sounds, No Wheeze, Rales, Rhonchi Neuro: Alert and responsive, No focal deficits noted Abdomen: Soft, Non-Tender Skin: No rashes noted on visualized skin Musculoskeletal: No Chest Wall Tenderness Extremities: No Clubbing, No Cyanosis, No Edema Results 02/28/18 06:41 02/28/18 06:41 Lab Results 02/28/18 02/28/18 06:41 06:41 WBC 6.5 Hgb 12.4 Hct 39.2 Plt Count 188 Sodium 141 Potassium 4.1 Chloride 105 Carbon Dioxide 29 BUN 8 Creatinine 0.74 Glucose 103 Calcium 9.1 - Imaging and Cardiology Stress Test: report reviewed Echo: report reviewed - EKG Interpretation EKG results cardiology: personally reviewed Consult Discharge Plan - Plan Referrals: Cynthia Woo MD [Primary Care Provider] -
--- NOTE | 2018-02-28 15:36 | Discharge Summary ---
Orders not resulted at time of discharge: Pending orders 03/01/18 04:00 Chem 7 [Basic Metabolic Panel] AM 0400 Magnesium AM 0400 Date of Encounter: 02/28/18 Time of Encounter: 15:29 - Discharge Diagnosis (1) Atrial fibrillation with RVR Priority: Primary Status: Resolved (2) COPD (chronic obstructive pulmonary disease) Priority: Secondary Status: Acute Qualifiers: COPD type: emphysema Emphysema type: panlobular Qualified Code(s): J43.1 - Panlobular emphysema (3) Hypertension Priority: Secondary Status: Chronic Qualifiers: Hypertension type: essential hypertension Qualified Code(s): I10 - Essential (primary) hypertension (4) Hyperlipidemia Priority: Secondary Status: Chronic Qualifiers: Hyperlipidemia type: mixed hyperlipidemia Qualified Code(s): E78.2 - Mixed hyperlipidemia (5) CAD in [place] artery Priority: Secondary Status: Chronic Hospital course: Ms. Maloney is a 72 year old woman with a history of hypertension, hyperlipidemia , anxiety disorder and COPD who presents to the ER with the complaint of acute onset palpitations accompanied by diaphoresis, nausea and vomiting. She states that it commenced while at rest and has not happened to her before. She denies illicit drug use but she continues to smoke. She denies having chest pain at any time. On arrival to the ER she was seen to have Afib with RVR to the 190s and systolic BP 130s. She was diaphoretic and vomiting with what appeared to be new onset afib. 10 mg bolus of diltiazem was administered with a subsequent drip at 10 mg per hour. Patient HR converted to sinus. She is off cardiazem drip, add BB. had negative stress test today with EF 70%. she has COPD on 2 L NC at home she wants to have nicotine patch Patient is doing well, denies palpation chest pain. cardiology recommended Elevated CHADS-VASc score. Start Xarelto 20 mg daily, stop plavix Continue BB therapy. Outpatient followup. No further inpatient cardiology recommendations necessary at this time. Discharge discussed with: patient Time spent discussing smoking cessation with patient: more than 10 minutes - Time Spent with Patient Total time spent providing and/or coordinating discharge services: Greater than 30 minutes - Discharge Medications Prescriptions: Metoprolol [Lopressor] 25 mg PO BID 30 Days #30 tablet Rivaroxaban [Xarelto] 20 mg PO 1700 90 Days #90 tablet Home Medications: Albuterol Sulfate [Proair Hfa] 2 puff IH Q6H PRN 02/26/18 [History] Aspirin [Lo-Dose Aspirin EC] 81 mg PO DAILY 02/26/18 [History] Buspirone HCl [Buspar] 5 mg PO BID 02/26/18 [History] Cholecalciferol (D-3) [Vitamin D] 2,000 unit PO DAILY 02/26/18 [History] Docusate Sodium [Dok] 100 mg PO BID 02/26/18 [History] Estradiol 1.5 mg PO DAILY 02/26/18 [History] Fluticasone/Salmeterol [Advair 250-50 Diskus] 1 puff IH BID 02/26/18 [History] Lisinopril [Zestril] 10 mg PO DAILY 02/26/18 [History] Loratadine [Allergy Relief] 10 mg PO DAILY 02/26/18 [History] Meloxicam [Mobic] 15 mg PO DAILY PRN 02/26/18 [History] Montelukast [Singulair] 10 mg PO DAILY 02/26/18 [History] Nitroglycerin [Nitrostat] 0.4 mg SL Q5M PRN 02/26/18 [History] Ranitidine HCl [Zantac] 300 mg PO DAILY 02/26/18 [History] Sertraline [Zoloft] 200 mg PO DAILY 02/26/18 [History] Simvastatin [Zocor] 40 mg PO HS 02/26/18 [History] Umeclidinium [place] [Incruse Ellipta] 62.5 mcg IH DAILY 02/26/18 [History] hydroCHLOROthiazide [Hydrochlorothiazide] 25 mg PO DAILY PRN 02/26/18 [History] Metoprolol [Lopressor] 25 mg PO BID 30 Days #30 tablet 02/28/18 [Rx] Rivaroxaban [Xarelto] 20 mg PO 1700 90 Days #90 tablet 02/28/18 [Rx] Allergies/Adverse Reactions: 3 Allergy/AdvReac Type Severity Reaction Status Date / Time ciprofloxacin [From Cipro] Allergy Rash Verified 02/26/18 21:21 codeine Allergy Fatigued Verified 02/26/18 21:21 diphenhydramine Allergy Rash Verified 02/26/18 21:21 [From Benadryl] egg Allergy Nausea Verified 02/26/18 21:21 gabapentin Allergy Anxiety Verified 02/26/18 21:21 Iodinated Contrast- Oral and Allergy Rash Verified 02/26/18 21:21 IV Dye [Iodinated Contrast Media - IV Dye] Penicillins Allergy Rash Verified 02/26/18 21:21 propoxyphene Allergy Rash Verified 02/26/18 21:21 Sulfa (Sulfonamide Allergy Rash Verified 02/26/18 21:21 Antibiotics) Date of admission: 02/27/18 18:53 Primary care physician: Cynthia Woo MD Anticipated date of discharge: 02/28/18 - Constitutional Vitals: Temp Pulse Resp BP Pulse Ox 98.6 F 56 16 94/50 95 02/28/18 11:42 02/28/18 11:42 02/28/18 11:53 02/28/18 11:42 02/28/18 11:53 General appearance: Present: A&O X 3, pleasant Exam: CONSTITUTIONAL: patient appears as an age appropriate female in no acute distress. EYES Clear sclerae, bilateral pupils are equal, reactive to light. EMOI. RESPIRATORY: No accessory muscle use, bilateral diminished breath sounds to auscultation, no wheezing, no crackles/rales. CARDIOVASCULAR: Regular heart rate, normal S1 and S2, no murmurs GASTROINTESTINAL: bowel sounds present, soft, no tenderness. MUSCULOSKELETAL: Joints in normal range of motion, no clubbing, no edema, no cyanosis. Bilateral peripheral pulses 2+. NEUROLOGIC: CN II to XII are grossly intact, no focal neurological deficit. - Patient Status Disposition: Home, Self-Care Condition: Good Overall status at discharge: patient is back to baseline - Discharge Instructions Follow Up With: Cynthia Woo MD [Primary Care Provider] -
[2018-02-28] MEDS ORDERED: *HR* Rivaroxaban 10 MG TABLET PO SCH (17:00)
--- NOTE | 2018-03-02 09:16 | Electrocardiograph Report ---
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
--- NOTE | 2018-03-02 21:22 | Electrocardiograph Report ---
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
== END 2018-02-28 17:07 | disposition home or self-care (01) | DRG 309 ==
LOC: 2NNU 21:07 → EMEROOARM 21:07 → SUATTDRO 22:42 → 2NNU 02-27 00:48
PROVIDERS: ADMIT Internal Medicine; ATTEND Hospitalist

== ENCOUNTER 2018-05-21 08:49 | Inpatient (IN) ==
[2018-05-21] MEDS ORDERED: Aspirin 81 MG TAB.CHEW PO ONE (08:58)
[2018-05-21] MEDS ORDERED: Isovue-370 500 ML INFUS..BTL IV ONE (08:58)
[2018-05-21] MEDS ORDERED: dilTIAZem HCl 60 MG TABLET PO STA (09:00)
[2018-05-21] MEDS ORDERED: 0.9 % Sodium Chloride 1,000 ML IVC ONE (09:01)
[2018-05-21] MEDS ORDERED: Ondansetron 4 MG/2 ML VIAL IVP ONE (09:03)
[2018-05-21 09:12] LABS: Basophils # 0.1 K/mcL (0.0-0.2); Basophils % 1.2 %; Eosinophils # 0.3 K/mcL (0.0-0.6); Eosinophils % 3.2 %; Hematocrit 45.2 % (35.3-44.9); Hemoglobin 14.5 g/dL (11.5-15.4); Immature Granulocytes % 0.3 % (0-4); Immature Platelets 3.7 % (1.1-6.1); Lymphocytes # 2.2 K/mcL (0.6-4.6); Lymphocytes % 28.7 %; Mean Corpuscular HGB Conc 32.1 g/dL (31.6-35.5); Mean Corpuscular Hemoglobin 29.4 pg (28.0-33.3); Mean Corpuscular Volume 91.5 fL (83.0-100.0); Mean Platelet Volume 10.7 fL (9.4-12.4); Monocytes # 0.6 K/mcL (0.0-1.3); Monocytes % 7.7 %; Neutrophils # 4.5 K/mcL (1.6-8.9); Platelet Count 272 K/mcL (140-400); Red Blood Count 4.94 M/mcL (3.82-4.97); Segmented Neutrophils % 58.9 %
--- NOTE | 2018-05-21 09:13 | Emergency Department Note ---
Disposition Clinical Impression: Atrial fibrillation Qualifiers: Atrial fibrillation type: unspecified Qualified Code(s): I48.91 - Unspecified atrial fibrillation Disposition: Admitted As Inpatient Referrals: Cynthia Woo MD [Primary Care Provider] - General Adult HPI - General Chief complaint: ED Chest Pain Stated complaint: Chest Pain Time Seen by Provider: 05/21/18 08:58 Source: patient, EMS Limitations: no limitations - History of Present Illness Pain Scale: 9 - Related Data Home Medications Medication Instructions Recorded Confirmed Albuterol Sulfate [Proair Hfa] 2 puff IH Q6H PRN 02/26/18 02/26/18 Aspirin [Lo-Dose Aspirin EC] 81 mg PO DAILY 02/26/18 02/26/18 Buspirone HCl [Buspar] 5 mg PO BID 02/26/18 02/26/18 Cholecalciferol (D-3) [Vitamin D] 2,000 unit PO DAILY 02/26/18 02/26/18 Docusate Sodium [Dok] 100 mg PO BID 02/26/18 02/26/18 Estradiol 1.5 mg PO DAILY 02/26/18 02/26/18 Fluticasone/Salmeterol [Advair 1 puff IH BID 02/26/18 02/26/18 250-50 Diskus] Lisinopril [Zestril] 10 mg PO DAILY 02/26/18 02/26/18 Loratadine [Allergy Relief] 10 mg PO DAILY 02/26/18 02/26/18 Meloxicam [Mobic] 15 mg PO DAILY PRN 02/26/18 02/26/18 Montelukast [Singulair] 10 mg PO DAILY 02/26/18 02/26/18 Nitroglycerin [Nitrostat] 0.4 mg SL Q5M PRN 02/26/18 02/26/18 Ranitidine HCl [Zantac] 300 mg PO DAILY 02/26/18 02/26/18 Sertraline [Zoloft] 200 mg PO DAILY 02/26/18 02/26/18 Simvastatin [Zocor] 40 mg PO HS 02/26/18 02/26/18 Umeclidinium [place] [Incruse 62.5 mcg IH DAILY 02/26/18 02/26/18 Ellipta] hydroCHLOROthiazide 25 mg PO DAILY PRN 02/26/18 02/26/18 [Hydrochlorothiazide] Previous Rx's Medication Instructions Recorded Metoprolol [Lopressor] 25 mg PO BID 30 Days #30 tablet 02/28/18 Rivaroxaban [Xarelto] 20 mg PO 1700 90 Days #90 tablet 02/28/18 Allergies Allergy/AdvReac Type Severity Reaction Status Date / Time ciprofloxacin [From Cipro] Allergy Rash Verified 02/26/18 21:21 codeine Allergy Fatigued Verified 02/26/18 21:21 diphenhydramine Allergy Rash Verified 02/26/18 21:21 [From Benadryl] egg Allergy Nausea Verified 02/26/18 21:21 gabapentin Allergy Anxiety Verified 02/26/18 21:21 Iodinated Contrast- Oral and Allergy Rash Verified 02/26/18 21:21 IV Dye [Iodinated Contrast Media - IV Dye] Penicillins Allergy Rash Verified 02/26/18 21:21 propoxyphene Allergy Rash Verified 02/26/18 21:21 Sulfa (Sulfonamide Allergy Rash Verified 02/26/18 21:21 Antibiotics) Past Medical History - Past Medical History Medical history: Reports: atrial fibrillation, COPD, coronary artery disease, DVT, hyperlipidemia, hypertension Surgical history: Reports: angioplasty/stent, , cholecystectomy, hysterectomy Psychiatric history: Reports: anxiety, depression - Social History Smoking Status: Current every day smoker Alcohol use: Reports: none Drug use: Reports: none Physical Exam - General Limitations: no limitations General appearance: alert, in no apparent distress Course Vital Signs Temperature 98.0 F 05/21/18 08:51 Pulse Rate 163 05/21/18 08:51 Respiratory Rate 20 05/21/18 08:51 Blood Pressure 115/75 05/21/18 08:51 O2 Sat by Pulse Oximetry 93 05/21/18 08:51 Temperature 98.0 F 05/21/18 08:51 Pulse Rate 163 05/21/18 08:51 Respiratory Rate 20 05/21/18 08:51 Blood Pressure 115/75 05/21/18 08:51 O2 Sat by Pulse Oximetry 95 05/21/18 09:05 Oxygen Delivery Oxygen Delivery Nasal Cannula Attestation Statement - Attestation Attestation: I examined this patient and my medical decision-making was reviewed with the Resident Physician. I agree with the documented findings, disposition and treatment plan as described except to the extent set forth below. 72 year old female with history of atrial fibrillation wokeup from sleep today with chest pain and hypoxia with a inital pulse of 88% and a HR of 180 per EMS. Sarkis on our initial EKG appears to be aitral fibrillation with RVR in 160s and she is hypoxic to 90% on RA and placed on 2LNC she is now 94%. Sarkis will be treated with cardizem and evlauted for a PE with D-dimer. We will contineu with CT chest without contrast and VQ scan as necessary although I do believe that this is lkely due to her atrial firillation and we will likley consult cards in addition if it is diffiult to bring the heart rate down as she transittiosn between 120-160s
--- NOTE | 2018-05-21 09:16 | Emergency Department Note ---
Disposition Clinical Impression: Abnormal CT of the chest Atrial fibrillation Qualifiers: Atrial fibrillation type: unspecified Qualified Code(s): I48.91 - Unspecified atrial fibrillation Disposition: Admitted As Inpatient Condition: Fair Referrals: Cynthia Woo MD [Primary Care Provider] - Forms: ED Satisfaction Letter Time of Disposition: 11:07 General Adult HPI - General Chief complaint: ED Chest Pain Stated complaint: Chest Pain Time Seen by Provider: 05/21/18 08:58 Source: patient, EMS Mode of arrival: EMS Limitations: no limitations Nursing Notes Reviewed: Yes Vital Signs Reviewed: Yes - History of Present Illness HPI Narrative: 72-year-old female with significant past medical history of atrial fibrillation currently on Eliquis presenting to the emergency department chief complaint of chest pain and high heart rate. According to the patient she woke up this morning and felt palpitations in her chest. She then started having pinpoint chest pain in her substernal area. She became concerned and called EMS. When EMS arrived she was extremely tachycardic in the 180s. Patient states she takes metoprolol for her atrial fibrillation. When EMS arrived they state she was also hypoxic at 76%. They placed on 2 L nasal cannula which brought her up to upper 90s. Patient states she is post were 2 L nasal cannula at night but does not like it because it barnett her nose. Patient denies any chest pain at this time. Pain Scale: 3 - Related Data Home Medications Medication Instructions Recorded Confirmed Albuterol Sulfate [Proair Hfa] 2 puff IH Q6H PRN 02/26/18 02/26/18 Aspirin [Lo-Dose Aspirin EC] 81 mg PO DAILY 02/26/18 02/26/18 Buspirone HCl [Buspar] 5 mg PO BID 02/26/18 02/26/18 Cholecalciferol (D-3) [Vitamin D] 2,000 unit PO DAILY 02/26/18 02/26/18 Docusate Sodium [Dok] 100 mg PO BID 02/26/18 02/26/18 Estradiol 1.5 mg PO DAILY 02/26/18 02/26/18 Fluticasone/Salmeterol [Advair 1 puff IH BID 02/26/18 02/26/18 250-50 Diskus] Lisinopril [Zestril] 10 mg PO DAILY 02/26/18 02/26/18 Loratadine [Allergy Relief] 10 mg PO DAILY 02/26/18 02/26/18 Meloxicam [Mobic] 15 mg PO DAILY PRN 02/26/18 02/26/18 Montelukast [Singulair] 10 mg PO DAILY 02/26/18 02/26/18 Nitroglycerin [Nitrostat] 0.4 mg SL Q5M PRN 02/26/18 02/26/18 Ranitidine HCl [Zantac] 300 mg PO DAILY 02/26/18 02/26/18 Sertraline [Zoloft] 200 mg PO DAILY 02/26/18 02/26/18 Simvastatin [Zocor] 40 mg PO HS 02/26/18 02/26/18 Umeclidinium [place] [Incruse 62.5 mcg IH DAILY 02/26/18 02/26/18 Ellipta] hydroCHLOROthiazide 25 mg PO DAILY PRN 02/26/18 02/26/18 [Hydrochlorothiazide] Clopidogrel [Plavix] 75 mg PO DAILY 05/21/18 Previous Rx's Medication Instructions Recorded Metoprolol [Lopressor] 25 mg PO BID 30 Days #30 tablet 02/28/18 Rivaroxaban [Xarelto] 20 mg PO 1700 90 Days #90 tablet 02/28/18 Allergies Allergy/AdvReac Type Severity Reaction Status Date / Time ciprofloxacin [From Cipro] Allergy Rash Verified 02/26/18 21:21 codeine Allergy Fatigued Verified 02/26/18 21:21 diphenhydramine Allergy Rash Verified 02/26/18 21:21 [From Benadryl] egg Allergy Nausea Verified 02/26/18 21:21 gabapentin Allergy Anxiety Verified 02/26/18 21:21 Iodinated Contrast- Oral and Allergy Rash Verified 02/26/18 21:21 IV Dye [Iodinated Contrast Media - IV Dye] Penicillins Allergy Rash Verified 02/26/18 21:21 propoxyphene Allergy Rash Verified 02/26/18 21:21 Sulfa (Sulfonamide Allergy Rash Verified 02/26/18 21:21 Antibiotics) All systems ED: reviewed and negative except as stated. Constitutional: Denies: fever, chills Eyes: Reports: as per HPI ENT ED: Reports: as per HPI Cardiovascular: Reports: chest pain, palpitations Respiratory: Reports: dyspnea. Denies: wheezes, hemoptysis Gastrointestinal: Reports: nausea. Denies: abdominal pain, vomiting Genitourinary: Reports: as per HPI Musculoskeletal: Reports: as per HPI Integumentary: Reports: as per HPI Neurological: Denies: numbness, paresthesias Psychiatric: Reports: as per HPI Endocrine: Reports: as per HPI Hematological/Lymphatic: Reports: as per HPI Allergic/Immunologic: Reports: as per HPI Past Medical History - Past Medical History Attestation: Yes The following information was validated with the patient. Medical history: Reports: atrial fibrillation, COPD, coronary artery disease, DVT, hyperlipidemia, hypertension Surgical history: Reports: angioplasty/stent, , cholecystectomy, hysterectomy Psychiatric history: Reports: anxiety, depression - Social History Smoking Status: Current every day smoker Alcohol use: Reports: none Drug use: Reports: none Physical Exam - General Limitations: no limitations General appearance: alert, in no apparent distress - Head Head exam: atraumatic, normocephalic, normal inspection - Eye Eye exam: Present: normal appearance. Absent: scleral icterus, conjunctival injection - ENT ENT exam: normal exam, mucous membranes moist - Neck Neck exam: Present: normal inspection, full ROM. Absent: tenderness, meningismus - Chest Chest inspection: Present: normal inspection, symmetric chest wall rise. Absent: tenderness, rash - Respiratory Respiratory exam: Present: normal lung sounds bilaterally. Absent: respiratory distress, wheezes - Cardiovascular Cardiovascular exam: Present: tachycardia, irregular rhythm - Abdominal Exam Abdominal exam: Present: soft, Non-Tender. Absent: distention, guarding, rebound - Extremities Exam Extremities exam: Present: normal inspection, full ROM - Neurological Exam Neurological exam: Present: alert, oriented X3 - Psychiatric Psychiatric exam: Present: anxious - Skin Skin exam: Present: warm Course Course Narrative: 72-year-old female presenting for tachycardia and chest pain. When patient first arrived she was placed on cardiac monitors an EKG was obtained. This show ed patient was in atrial fibrillation with RVR. Patient's oxygen saturation in the upper 90s on 2 L nasal cannula. Systolic blood pressure 108 upon arrival. At this time will obtain basic laboratory analysis along with providing the patient with 10 mg of IV Cardizem and oral Cardizem. We will provide the patient with a liter of fluids and reassess. Disposition will be admission pending laboratory results and patient's stabilization. Patient agrees with this plan. - Reevaluation(s) Reevaluation #1: Patient's laboratory analysis shows no acute abnormality. Age-adjusted d-dimer within normal limits. CT of the chest does show mediastinal lymph nodes. Concern for malignancy. Patient responded appropriately to oral and IV Cardizem. At this time will plan to admit the patient for A. fib with RVR along with further workup for her mediastinal lymph nodes. Patient remains alert and oriented 3 and hemodynamically stable. Patient agrees with this plan. I spoke with the hospitalist on-call who agrees to accept the patient at this time. Vital Signs Temperature 98.0 F 05/21/18 08:51 Pulse Rate 163 05/21/18 08:51 Respiratory Rate 20 05/21/18 08:51 Blood Pressure 115/75 05/21/18 08:51 O2 Sat by Pulse Oximetry 93 05/21/18 08:51 Temperature 98.0 F 05/21/18 08:51 Pulse Rate 111 05/21/18 09:30 Respiratory Rate 22 05/21/18 09:10 Blood Pressure 102/70 05/21/18 09:30 O2 Sat by Pulse Oximetry 95 05/21/18 09:10 Oxygen Delivery Oxygen Delivery Nasal Cannula Medical Decision Making - Lab Data Result diagrams: 05/21/18 08:52 05/21/18 Unknown Lab Results 05/21/18 05/21/18 05/21/18 Range/Units 08:52 08:58 Unknown WBC 7.7 (4.3-11.1) K/mcL RBC 4.94 (3.82-4.97) M/mcL Hgb 14.5 (11.5-15.4) g/dL Hct 45.2 H (35.3-44.9) % MCV 91.5 (83.0-100.0) fL MCH 29.4 (28.0-33.3) pg MCHC 32.1 (31.6-35.5) g/dL RDW 13.0 (11.5-14.5) % Plt Count 272 (140-400) K/mcL MPV 10.7 (9.4-12.4) fL Immature Gran % 0.3 (0-4) % Seg Neutrophils % 58.9 % Lymphocytes % 28.7 % Monocytes % 7.7 % Eosinophils % 3.2 % Basophils % 1.2 % Neutrophils # 4.5 (1.6-8.9) K/mcL Lymphocytes # 2.2 (0.6-4.6) K/mcL Monocytes # 0.6 (0.0-1.3) K/mcL Eosinophils # 0.3 (0.0-0.6) K/mcL Basophils # 0.1 (0.0-0.2) K/mcL Immature Plt Fraction 3.7 (1.1-6.1) % PT 14.6 H (9.4-12.1) Seconds INR 1.3 APTT 36.7 H (26.0-36.0) Seconds D-Dimer 540 H (0-500) ng/mLFEU Sodium 136 (136-145) mEq/L Potassium 4.0 (3.5-5.1) mEq/L Chloride 100 (98-107) mEq/L Carbon Dioxide 27 (23-29) mEq/L BUN 10 (8-23) mg/dL Creatinine 0.82 (0.60-1.20) mg/dL Est GFR ( Amer) > 60 (> 60) Est GFR (Non-Af Amer) > 60 (> 60) BUN/Creatinine Ratio 12 (6-26) Glucose 108 H (70-105) mg/dL Calculated Osmolality 282 (280-300) Calcium 9.6 (8.6-10.3) mg/dL Troponin I < 0.03 (< 0.04) ng/mL - EKG Data EKG #1 EKG attestation: Yes I reviewed and interpreted this EKG. EKG results narrative: Itchy fibrillation with RVR. 169 beats for minute. QRS 90, QTC 502. Compared to previous EKG completed on 02/26/2018 new atrial fibrillation with RVR.
[2018-05-21 09:23] LABS: INR 1.3; Prothrombin Time 14.6 Seconds (9.4-12.1)
[2018-05-21 09:25] LABS: Activated Partial Thrombo Time 36.7 Seconds (26.0-36.0)
[2018-05-21 09:34] LABS: BUN/Creatinine Ratio 12 (6-26); Blood Urea Nitrogen 10 mg/dL (8-23); Calcium 9.6 mg/dL (8.6-10.3); Carbon Dioxide 27 mEq/L (23-29); Chloride 100 mEq/L (98-107); Glucose 108 mg/dL (70-105); Osmolality,Calculated 282 (280-300); Sodium 136 mEq/L (136-145); eGFR For Non-African Americans > 60 (> 60)
[2018-05-21 09:45] LABS: Troponin I < 0.03 ng/mL (< 0.04)
--- NOTE | 2018-05-21 10:07 | Electrocardiograph Report ---
[address] [place], [place] [address] Test Date: 2018-05-21 Pat Name: Briseida Maloney Department: [id number] Room: Gender: F Physical Therapist: : [id number] Requested By: Shayla Xiong Order Number: [id number] Reading MD: Burt Lanza Measurements Intervals [place] Rate: 169 P: ME: QRS: 71 QRSD: 90 T: -38 QT: 299 QTc: 502 Interpretive Statements Atrial fibrillation with rapid V-rate NONSPECIFIC ST CHANGES Electronically Signed On 05-21-2018 10:05:42 EST by Burt Lanza
--- NOTE | 2018-05-21 11:02 | Internal Med History&Physical ---
<Tono Martinez - Last Filed: 05/21/18 11:19> Date of Encounter: 05/21/18 Time of Encounter: 11:02 Internal Medicine - H&P: HPI Chief complaint: chest pain and palpitations Admitted From: Home Plans for Post Hospital Care: Home History of present illness: Ms. Maloney is a 72 year old female with known hx of copd, HTN, A-fib (diagnosed 02/2018) on Xarelto presented to the emergency department this morning with palpitations bilateral chest pain and increasing shortness of breath. She says that since her diagnosis of atrial fibrillation she has had episodes of racing heart but takes her medications as prescribed. She has known COPD and is supposed to use oxygen at night when sleeping but usually does not because of irritation. She notes that over the past 3 weeks she has had episodes of coughin g up blood but not frequent enough to have evaluated. She noted that her shortness of breath continued to worsen from her baseline and her heart rate increased early this morning without resolution. This was associated with chest pain described as sharp and localized to the upper chest on either side of her sternum. She presented to the emergency department and with control of her heart rate her chest pain resolved and slight improvement in her breathing. She had similar symptoms in February and was diagnosed with a-fib for which she was started on rate control and anticoagulation. She denies any recent illness, fevers, chills or GI symptoms. Past Med Surg Social Fam HX - Past Medical History Medical history: atrial fibrillation, COPD, coronary artery disease, DVT, hyperlipidemia, hypertension Psychiatric history: anxiety, depression - Past Surgical History Surgical History: angioplasty/stent, , cholecystectomy, hysterectomy Additional surgical history: cardiac stent x 1. c section x2. partial hysterectomy - Social History Smoking Status: Current every day smoker Alcohol use: none Drug use: none - Family History Mother Living Status: Hx Family Cardiac Disorders: Yes Hx Family Respiratory Disorders: Yes (COPD, Trach) Father Living Status: Hx Family Cardiac Disorders: Yes (stroke x2) Son Cause of : colon cancer Hx Family Cancer: Yes Internal Medicine - H&P: Meds Albuterol Sulfate [Proair Hfa] 2 puff IH Q6H PRN 02/26/18 [History] Aspirin [Lo-Dose Aspirin EC] 81 mg PO DAILY 02/26/18 [History] Buspirone HCl [Buspar] 5 mg PO BID 02/26/18 [History] Cholecalciferol (D-3) [Vitamin D] 2,000 unit PO DAILY 02/26/18 [History] Docusate Sodium [Dok] 100 mg PO BID PRN 02/26/18 [History] Estradiol 1.5 mg PO DAILY 02/26/18 [History] Fluticasone/Salmeterol [Advair 250-50 Diskus] 1 puff IH BID 02/26/18 [History] Lisinopril [Zestril] 10 mg PO DAILY 02/26/18 [History] Loratadine [Allergy Relief] 10 mg PO DAILY 02/26/18 [History] Meloxicam [Mobic] 15 mg PO DAILY PRN 02/26/18 [History] Montelukast [Singulair] 10 mg PO DAILY 02/26/18 [History] Nitroglycerin [Nitrostat] 0.4 mg SL Q5M PRN 02/26/18 [History] Ranitidine HCl [Zantac] 300 mg PO DAILY 02/26/18 [History] Sertraline [Zoloft] 200 mg PO DAILY 02/26/18 [History] Simvastatin [Zocor] 40 mg PO HS 02/26/18 [History] Umeclidinium Orgas [Incruse Ellipta] 1 puff IH DAILY 02/26/18 [History] hydroCHLOROthiazide [Hydrochlorothiazide] 25 mg PO DAILY PRN 02/26/18 [History] Metoprolol [Lopressor] 25 mg PO BID 30 Days #30 tablet 02/28/18 [Rx] Rivaroxaban [Xarelto] 20 mg PO 1700 90 Days #90 tablet 02/28/18 [Rx] Allergy/AdvReac Type Severity Reaction Status Date / Time ciprofloxacin [From Cipro] Allergy Rash Verified 05/21/18 11:58 codeine Allergy Fatigued Verified 05/21/18 11:58 diphenhydramine Allergy Rash Verified 05/21/18 11:58 [From Benadryl] egg Allergy Nausea Verified 05/21/18 11:58 gabapentin Allergy Anxiety Verified 05/21/18 11:58 Iodinated Contrast- Oral and Allergy Rash Verified 05/21/18 11:58 IV Dye [Iodinated Contrast Media - IV Dye] Penicillins Allergy Rash Verified 05/21/18 11:58 propoxyphene Allergy Rash Verified 05/21/18 11:58 Sulfa (Sulfonamide Allergy Rash Verified 05/21/18 11:58 Antibiotics) All Systems PM: A 10-system review of systems was performed and is negative for pertinent findings except as documented above in the HPI. - Constitutional Constitutional: fatigue, no chills, no excessive sweating, no night sweats, no weight gain, no weight loss - EENT Eyes: no change in vision, no loss of vision Nose, mouth and throat: no mouth lesions, no neck mass, no neck pain, no nose pain - Cardiovascular Cardiovascular ROS IM: chest pain, dyspnea, dyspnea on exertion, irregular heart rhythm, palpitations, no diaphoresis, no lightheadedness, no orthopnea - Respiratory Respiratory: cough, dyspnea, hemoptysis, dyspnea on exertion, wheezing - Gastrointestinal Gastrointestinal: no belching, no constipation, no cramping, no diarrhea, no dyspepsia, no fecal incontinence, no melena, no nausea, no vomiting - Genitourinary Genitourinary: no dysuria, no flank pain - Neurological Neurological ROS: no confusion, no dizziness - Constitutional Vitals: Temp Pulse Resp BP Pulse Ox 98.0 F 111 22 102/70 95 05/21/18 08:51 05/21/18 09:30 05/21/18 09:10 05/21/18 09:30 05/21/18 09:10 Internal Med - H&P Results - Labs CBC & Chem 7: 05/21/18 08:52 05/21/18 Unknown Labs: Short CBC 05/21/18 Range/Units 08:52 WBC 7.7 (4.3-11.1) K/mcL Hgb 14.5 (11.5-15.4) g/dL Hct 45.2 H (35.3-44.9) % Plt Count 272 (140-400) K/mcL Neutrophils # 4.5 (1.6-8.9) K/mcL BMP 05/21/18 Unknown Sodium 136 Potassium 4.0 Chloride 100 Carbon Dioxide 27 BUN 10 Creatinine 0.82 Glucose 108 H Calcium 9.6 Cardiac Enzymes 05/21/18 Range/Units Unknown Troponin I < 0.03 (< 0.04) ng/mL - Impressions ITS Impressions Chest CT 05/21/18 09:11 IMPRESSION: 1. Obstructive pneumonitis of the left lower lobe with abrupt cut off of the left lower lobe bronchus. Possible causes include endobronchial lesion versus extrinsic compression by left hilar adenopathy. 2. Extensive mediastinal and left hilar lymphadenopathy. This is a malignancy until proven otherwise. Recommend PET-CT and/or tissue diagnosis. 3. Small left pleural effusion. 4. Enlarged pulmonary artery suggestive of pulmonary hypertension. 5. Coronary artery disease. 6. Mild cardiomegaly. D/ / 05/21/2018 10:08:12 Bo Hunt MD / sophia Interpreting Provider: Bo Hunt MD - Assessment and plan (1) Atrial fibrillation with RVR Current Visit: No Status: Resolved Assessment and plan: Patient presented with A-fib RVR while on home regement of Metoprolol 25mg BID. She was treated with Cardizem in the emergency department with conversion to Sinus Rhythm. - With current lung pathology and COPD exacerbation as likely contributing exacerbation of her RVR. Troponin x1 <0.03 [id number]: 4 points Plan: - Increase Metoprolol to 50mg PO BID - Echocardiogram - Treat COPDE - continue cardiac monitoring during observation - Hold patients Xarelto as she requires broncoscopy and possible EBUS per pulmonology. (2) Chest pain at rest Current Visit: Yes Status: Acute Assessment and plan: Patient presented with atypical Chest pain with A-fib RVR. Recent work up for chest pain in February this year. ER work up: EKG with a-fib RVR with ST depression in leads V4 and V5 which resolved with rate control and conversion to SR. Initial Trop <0.03 Heart Score: 6 [id number]: 4 points Hx of CAD and remote hx of PCI with stent, Plavix held in February as no longer necessary and patient starting Xarelto for A-fib, Stress test negative in February Echocardiogram: LVEF normal. No pulmonary HTN Suspect secondary to A-Fib RVR, COPDE and lung pathology - Patient has risk factors for PE, patient has allergies for contrast Dye and non contrast dye CT did not show PE, lung pathology and condition would not give adequate VQ scan. Will obtain Echo. Plan: - Telemetry - Trend Troponins - Lipid panel - Echocardiogram (repeat after discussion with driller and broacher) (3) Lung mass Current Visit: Yes Status: Acute Assessment and plan: lung mass and extensive lymphadenopathy found on Chest CT this morning in the emergency department. Obstructive pneumonitis of the left lower lobe with abrupt cut off of the left lower lobe bronchus. Extensive mediastinal and left hilar lymphadenopathy. - Possibly contributing to patients shortness of breath and may have been initiating cause or exacerbation of patients Atrial Fibrillation. - Patient has an extensive smoking history and current smoker, COPD and denies any lung cancer screening prior. Plan: - Pulmonary Consultation: Discussed with examination grader driller and broacher. Possible EBUS on Thursday if patient stays inpatient or Thursday if discharged prior to procedure - Holding Xarelto prior to procedure. Risks discussed with patient. - IV Solu-medrol and Doxycycline on board for possible COPD exacerbation. (4) Tobacco abuse Current Visit: Yes Status: Acute Assessment and plan: Long standing hx of Tobacco abuse, now presenting with lung mass and lymphadenopathy - Recommend smoking cessation (5) Pleural effusion Current Visit: Yes Status: Acute Assessment and plan: Small left sided pleural effusion, secondary to lung process (obstuctive mass) - may benefit from Thorocentesis for diagnosis but patient to be stabilized first. (6) COPD (chronic obstructive pulmonary disease) Current Visit: No Status: Acute Assessment and plan: COPD exacerbation with increased oxygen demands and hypoxia in ED - IV solu-medrol 125mg once - Solu-medrol 60mg Q8hrs - Duo-nebs PRN - Starting Doxycycline PO 100mg BID - Continue with oxygen and wean as tolerated. Qualifiers: COPD type: emphysema Emphysema type: panlobular Qualified Code(s): J43.1 - Panlobular emphysema (7) Hypertension Current Visit: No Status: Chronic Assessment and plan: Known hx of HTN. Blood pressure stable. Will continue Beta tiffany - hold other meds at this time. Qualifiers: Hypertension type: essential hypertension Qualified Code(s): I10 - Essential (primary) hypertension (8) DVT prophylaxis Current Visit: Yes Status: Acute Assessment and plan: SCDs Holding patients Xarelto - Time Spent With Patient Total time spent is greater than 50% in coordination of care (as documented) at patient's floor/unit and/or counseling patient: <Boubacar Washington - Last Filed: 05/24/18 19:46> Date of Encounter: 05/24/18 Internal Medicine - H&P: [facility] History of present illness: Ms. Maloney is a 72 year old female All Systems PM: A 10-system review of systems was performed and is negative for pertinent findings except as documented above in the HPI. - Constitutional Vitals: Temp Pulse Resp BP Pulse Ox 98.2 F 63 16 150/80 92 05/22/18 07:11 05/22/18 07:11 05/22/18 07:11 05/22/18 07:11 05/22/18 07:11 Exam: As above Internal Med - H&P Results - Labs CBC & Chem 7: 05/24/18 04:31 05/24/18 04:31 Labs: Short CBC 05/22/18 Range/Units 03:39 WBC 5.6 (4.3-11.1) K/mcL Hgb 13.3 (11.5-15.4) g/dL Hct 42.2 (35.3-44.9) % Plt Count 206 (140-400) K/mcL Neutrophils # 4.7 (1.6-8.9) K/mcL BMP 05/21/18 05/22/18 Unknown 03:39 Sodium 136 138 Potassium 4.0 4.1 Chloride 100 105 Carbon Dioxide 27 26 BUN 10 15 Creatinine 0.82 0.72 Glucose 108 H 148 H Calcium 9.6 9.4 Cardiac Enzymes 05/21/18 05/21/18 05/21/18 Range/Units 15:33 21:33 Unknown Troponin I < 0.03 < 0.03 < 0.03 (< 0.04) ng/mL 05/22/18 Range/Units 03:39 Troponin I < 0.03 (< 0.04) ng/mL Liver Function 05/22/18 Range/Units 03:39 Total Bilirubin 0.5 (0.3-1.0) mg/dL AST 11 L (13-39) Units/L ALT 8 (7-52) Units/L Alkaline Phosphatase 50 (34-104) Units/L Albumin 4.2 (3.5-5.7) g/dL - Impressions ITS Impressions Chest CT 05/21/18 09:11 IMPRESSION: 1. Obstructive pneumonitis of the left lower lobe with abrupt cut off of the left lower lobe bronchus. Possible causes include endobronchial lesion versus extrinsic compression by left hilar adenopathy. 2. Extensive mediastinal and left hilar lymphadenopathy. This is a malignancy until proven otherwise. Recommend PET-CT and/or tissue diagnosis. 3. Small left pleural effusion. 4. Enlarged pulmonary artery suggestive of pulmonary hypertension. 5. Coronary artery disease. 6. Mild cardiomegaly. D/ / 05/21/2018 10:08:12 Bo Hunt MD / sophia Interpreting Provider: Bo Hunt MD Echocardiogram 05/21/18 11:03 Impressions: LVEF 60-65%. Normal LV chamber size, wall thickness and function. Mild left ventricular diastolic dysfunction. Normal right ventricular structure and function. No evidence of pulmonary hypertension. No significant valvular dysfunction. Left Ventricular Wall Motion: Rest Echo Findings All wall segments showed normal motion. Findings: Study Quality * Technically adequate exam. ECG Findings * Sinus bradycardia. Left Ventricle * LVEF 60-65%. * Normal LV chamber size, wall thickness and function. * Mild left ventricular diastolic dysfunction. Right Ventricle * Normal right ventricular structure and function. Left Atrium * Mildly dilated left atrium. Right Atrium * Normal right atrial size. Aortic Valve * Aortic valve not well visualized. * No aortic regurgitation. * No aortic stenosis. Mitral Valve * Mild mitral annular calcification. * Normal mitral valve structure and function. * No mitral regurgitation. * No mitral stenosis. Tricuspid Valve * Normal tricuspid valve structure and function. * Trace tricuspid regurgitation. * No evidence of pulmonary hypertension. Pulmonic Valve * Pulmonic valve is not well visualized. * No pulmonic regurgitation. Aorta * Normally sized aortic root. Pericardium * There is a trivial pericardial effusion present. IVC * Normal IVC dimensions and inspiratory collapse. Pulmonary Artery * Normal visualized portions of the main pulmonary artery. Brain MRI 05/21/18 14:08 IMPRESSION: 1. No evidence of intracranial metastases. 2. No evidence of acute intracranial ischemia, edema, or hemorrhage. D/ / Edwardo Marrero / Edwardo Marrero Interpreting Provider: Edwardo Marrero - Assessment and plan (1) COPD (chronic obstructive pulmonary disease) Current Visit: No Status: Chronic Qualifiers: COPD type: emphysema Emphysema type: panlobular Qualified Code(s): J43.1 - Panlobular emphysema (2) Hypertension Current Visit: No Status: Chronic Qualifiers: Hypertension type: essential hypertension Qualified Code(s): I10 - Essential (primary) hypertension (3) Lung mass Current Visit: Yes Status: Acute (4) Tobacco abuse Current Visit: Yes Status: Chronic (5) Pleural effusion Current Visit: Yes Status: Acute (6) DVT prophylaxis Current Visit: Yes Status: Acute (7) Chest pain at rest Current Visit: Yes Status: Acute - Time Spent With Patient Total time spent is greater than 50% in coordination of care (as documented) at patient's floor/unit and/or counseling patient: - Attending Attestation Discussed with resident and agree with assessment and plan as above. Patient is a 72-year-old female who presented with chest pain and palpitations found to have atrial fibrillation with RVR in addition to lung mass with extensive lymphadenopathy on chest CT. Atrial fibrillation resolved after arriving to the floor and first set of troponins negative; will monitor on telemetry. Pulmonology consulted with plans for possible bronchoscopy or CT chest findings; holding oral anticoagulation for A. fib for potential bronchoscopy. Patient also with acute on chronic hypoxic respiratory failure suspect secondary to COPD exacerbation with management as above.
[2018-05-21] MEDS ORDERED: Naloxone 0.4 MG/ML INJ IVP PRN (11:03)
--- NOTE | 2018-05-21 11:05 | Pulmonology Consult Note ---
<ConnorVictorino S - Last Filed: 05/21/18 12:44> Date of Encounter: 05/21/18 Time of Encounter: 11:04 Assessment and Plan (1) Lung mass Current Visit: Yes Status: Acute Chest CT on admission (05/21) showed extensive LAD of the mediastinal/left hilar area - obstructive pneumonitis of the left lower lobe with abrupt cut off of the LLL bronchus - Possibly contributing to patients shortness of breath and may have been initiating cause or exacerbation of patients Atrial Fibrillation. - Patient has an extensive smoking history and current smoker, COPD and denies any lung cancer screening prior. Plan: - Discussed plan with Dr. Albarado If pt stays through until Thursday, EBUS with Dr. Martinez. If discharged then EBUS as outpatient for tissue diagnosis of lung cancer - xarelto held for procedure - continue IV solumedrol - continue doxycycline PO BID day 1 - continue duonebs (2) COPD (chronic obstructive pulmonary disease) Current Visit: No Status: Acute Acute exacerbation of COPD - was given solumedrol 125mg IVP in the ER CT scan - Obstructive pneumonitis of the left lower lobe with abrupt cut off of the left lower lobe bronchus. - Possible causes include endobronchial lesion versus extrinsic compression by left hilar adenopathy. - Extensive mediastinal and left hilar lymphadenopathy Plan: - solumedrol 60mg q8hr - duonebs prn - doxycycline 100mg PO BID to cover atypicals - keep O2 sat >88% Qualifiers: COPD type: emphysema Emphysema type: panlobular Qualified Code(s): J43.1 - Panlobular emphysema (3) Tobacco abuse Current Visit: Yes Status: Acute Smoker almost 60 yrs - recommend smoking cessation (4) Atrial fibrillation with RVR Current Visit: No Status: Resolved Pt presented in A fib RVR, was recently diagnosed and started on Xarelto - on home dose of Lopressor 25mg PO BID - in the ER, the pt was given cardizem and converted to NSR EKG showed A fi with RVR, ST depression Troponin <0.03 ECHO (02/2018) showed LVEF 65-70%, mild LV diastolic dysfxn, no significant valvular dysfxn Stress test negative in Feb 2018 A fib RVR episode likely secondary to underlying lung pathology Plan: - telemetry monitoring - trend troponins - ECHO pending - Xarelto held for procedure next week, possible EBUS with bx - Lopressor increased to 50mg PO BID as per primary (5) Pleural effusion Current Visit: Yes Status: Acute Small left sided pleural effusion, most likely secondary to lung mass - will defer thoracentesis at this time , not needed for diagnosis as most likely will do EBUS History of Present Illness Consult date: 05/21/18 Requesting physician: Tono Martinez Reason for consult: COPD, abnormal CXR/CT Chief complaint: "SOB" History of present illness: Ms. Maloney is a 72yo female with PMH a fib on anticoagulation, COPD on oxygen, CHF, HTN, and depression. She presents with SOB that has worsened from baseline over the last few days but has had SOB for months. She states there has been some bloody sputum when she coughs but has been putting it off because she wa sn't very concerned. She states she is unable to complete her ADL's and cannot walk from the couch to the bathroom without getting SOB. She states she is supposed to be on home oxygen at night but she isn't compliant. She denies any recent weight loss, fevers/chills, or night sweats. She does have some chest pain and palpiltations, which is why she presented to the hospital. She had one episode of emesis in the ER. 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 She states that she is a jail smoker for almost 60 yrs but currently smokes 5 cigs/day. In the ER the pt was found to be in A fib with RVR, she was given cardizem and converted to NSR. The pt had a D-dimer of 540. CT scan of the chest showed obstructive pneumonitis of the LLL, mediastinal/left hilar adenopathy, and an enlarged pulmonary artery secondary to pHTN. The pt is consulted for abnormal CT scan, likely showing lung cancer. Past Med Surg Social Fam HX - Past Medical History Medical history: atrial fibrillation, COPD, coronary artery disease, DVT, hyperlipidemia, hypertension Psychiatric history: anxiety, depression - Past Surgical History Surgical History: angioplasty/stent, , cholecystectomy, hysterectomy Additional surgical history: cardiac stent x 1. c section x2. partial hysterectomy - Social History Smoking Status: Current every day smoker Alcohol use: none Drug use: none - Family History Mother Living Status: Hx Family Cardiac Disorders: Yes Hx Family Respiratory Disorders: Yes (COPD, Trach) Father Living Status: Hx Family Cardiac Disorders: Yes (stroke x2) Son Cause of : colon cancer Hx Family Cancer: Yes Medications and Allergies Albuterol Sulfate [Proair Hfa] 2 puff IH Q6H PRN 02/26/18 [History] Aspirin [Lo-Dose Aspirin EC] 81 mg PO DAILY 02/26/18 [History] Buspirone HCl [Buspar] 5 mg PO BID 02/26/18 [History] Cholecalciferol (D-3) [Vitamin D] 2,000 unit PO DAILY 02/26/18 [History] Docusate Sodium [Dok] 100 mg PO BID PRN 02/26/18 [History] Estradiol 1.5 mg PO DAILY 02/26/18 [History] Fluticasone/Salmeterol [Advair 250-50 Diskus] 1 puff IH BID 02/26/18 [History] Lisinopril [Zestril] 10 mg PO DAILY 02/26/18 [History] Loratadine [Allergy Relief] 10 mg PO DAILY 02/26/18 [History] Meloxicam [Mobic] 15 mg PO DAILY PRN 02/26/18 [History] Montelukast [Singulair] 10 mg PO DAILY 02/26/18 [History] Nitroglycerin [Nitrostat] 0.4 mg SL Q5M PRN 02/26/18 [History] Ranitidine HCl [Zantac] 300 mg PO DAILY 02/26/18 [History] Sertraline [Zoloft] 200 mg PO DAILY 02/26/18 [History] Simvastatin [Zocor] 40 mg PO HS 02/26/18 [History] Umeclidinium Sunspot [Incruse Ellipta] 1 puff IH DAILY 02/26/18 [History] hydroCHLOROthiazide [Hydrochlorothiazide] 25 mg PO DAILY PRN 02/26/18 [History] Metoprolol [Lopressor] 25 mg PO BID 30 Days #30 tablet 02/28/18 [Rx] Rivaroxaban [Xarelto] 20 mg PO 1700 90 Days #90 tablet 02/28/18 [Rx] Allergy/AdvReac Type Severity Reaction Status Date / Time ciprofloxacin [From Cipro] Allergy Rash Verified 05/21/18 11:58 codeine Allergy Fatigued Verified 05/21/18 11:58 diphenhydramine Allergy Rash Verified 05/21/18 11:58 [From Benadryl] egg Allergy Nausea Verified 05/21/18 11:58 gabapentin Allergy Anxiety Verified 05/21/18 11:58 Iodinated Contrast- Oral and Allergy Rash Verified 05/21/18 11:58 IV Dye [Iodinated Contrast Media - IV Dye] Penicillins Allergy Rash Verified 05/21/18 11:58 propoxyphene Allergy Rash Verified 05/21/18 11:58 Sulfa (Sulfonamide Allergy Rash Verified 05/21/18 11:58 Antibiotics) All Systems: The remainder of the systems were reviewed and are negative - Constitutional Constitutional: fever(s), no chills, no fatigue, no weight loss - Cardiovascular Cardiovascular: chest pain, chest pain at rest, dyspnea, dyspnea on exertion, palpitations - Respiratory Respiratory: cough, dyspnea, hemoptysis, dyspnea on exertion - Gastrointestinal Gastrointestinal: no diarrhea, no melena, no vomiting - Musculoskeletal Musculoskeletal: no arthralgias, no numbness, no tingling - Integumentary Integumentary: no erythema, no rash - Neurological Neurological: no dizziness, no focal weakness, no syncope, no weakness Physical Examination Vital Signs: Vital Signs, Last 4 Hours Temp Pulse Resp BP Pulse Ox 05/21/18 09:30 111 102/70 05/21/18 09:12 97 108/58 05/21/18 09:10 173 22 122/72 95 05/21/18 09:05 95 05/21/18 08:51 98.0 F 163 20 115/75 93 General appearance: no acute distress Eyes: nonicteric Mallampati (class): 3 Neck: supple, no lymphadenopathy Effort: mildly labored Auscultation: bilateral: diminished breath sounds, wheezes Cardiovascular: irregular rhythm Gastrointestinal: normoactive bowel sounds, soft, non-tender, non-distended Integumentary: normal Extremities: no cyanosis Musculoskeletal: no deformities Gait: normal gait normal mental status, non-focal exam mood appropriate, affect normal Results - Laboratory Findings CBC and BMP: 05/21/18 08:52 05/21/18 Unknown PT/INR, D-dimer PT 14.6 Seconds (9.4-12.1) H 05/21/18 08:58 D-Dimer 540 ng/mLFEU (0-500) H 05/21/18 08:58 Abnormal lab findings: Abnormal lab results Hct 45.2 % (35.3-44.9) H 05/21/18 08:52 PT 14.6 Seconds (9.4-12.1) H 05/21/18 08:58 APTT 36.7 Seconds (26.0-36.0) H 05/21/18 08:58 D-Dimer 540 ng/mLFEU (0-500) H 05/21/18 08:58 Glucose 108 mg/dL (70-105) H 05/21/18 Unknown - Clinical Findings Intake & Output: Intake & Output 05/20/18 05/21/18 05/21/18 23:59 07:59 15:59 Weight 85.956 kg Consult Discharge Plan - Plan Referrals: Cynthia Woo MD [Primary Care Provider] - <Hiro Albarado - Last Filed: 05/21/18 15:04> Date of Encounter: 05/21/18 All Systems: The remainder of the systems were reviewed and are negative Physical Examination Vital Signs: Vital Signs, Last 4 Hours Temp Pulse Resp BP Pulse Ox 05/21/18 11:45 97.5 F L 61 18 97/63 95 05/21/18 11:12 61 18 96 Results - Laboratory Findings CBC and BMP: 05/21/18 08:52 05/21/18 Unknown PT/INR, D-dimer PT 14.6 Seconds (9.4-12.1) H 05/21/18 08:58 D-Dimer 540 ng/mLFEU (0-500) H 05/21/18 08:58 Abnormal lab findings: Abnormal lab results Hct 45.2 % (35.3-44.9) H 05/21/18 08:52 PT 14.6 Seconds (9.4-12.1) H 05/21/18 08:58 APTT 36.7 Seconds (26.0-36.0) H 05/21/18 08:58 D-Dimer 540 ng/mLFEU (0-500) H 05/21/18 08:58 Glucose 108 mg/dL (70-105) H 05/21/18 Unknown - Clinical Findings Intake & Output: Intake & Output 05/20/18 05/21/18 05/21/18 23:59 07:59 15:59 Intake Total 1000 / 1000 Balance 1000 / 1000 Weight 85.389 kg - Attending Attestation I saw and evaluated this patient and my medical decision-making was reviewed with the Resident Physician. I agree with the documented findings, disposition and treatment plan as described except to the extent set forth below. We independently had [id number] contact with the patient Patient seen and examined at bedside Labs, radiology, chart personally reviewed. Patient presenting with chest pain and atrial fibrillation with rapid ventricular response CTA showed negative for pulmonary embolism but showed extensive mediastinal lymphadenopathy possible left lower lobe mass with postobstructive pneumonia. We will start her on broad-spectrum antibiotics will add vancomycin and Cefepime to Doxycycline . Explained to the patient high suspicion for lung malignancy we will need endobronchial ultrasound under genera l anesthesia will Schedule him Thursday once her atrial fibrillation with RVR and COPD exacerbations is adequately controlled . Patient is complaining of headache need to rule out brain metastasis order MRI brain with contrast.
[2018-05-21] MEDS ORDERED: methylPREDNISolone 125 MG/2 ML VIAL IVP ONE (11:17)
[2018-05-21 11:34] LABS: Chol/HDL Ratio 2.3 (0-4.9); Cholesterol 118 mg/dL (< 200); HDL Cholesterol 52 mg/dL (40-59); LDL Cholesterol,Calculated 46 mg/dL (0-99); Triglycerides 102 mg/dL (< 150)
[2018-05-21] MEDS ORDERED: Ipratropium/Albuterol Neb 3 ML IH PRN (11:39)
[2018-05-21] MEDS: Doxycycline 100 MG CAPSULE PO SCH ×2 (12:16→21:30)
[2018-05-21] MEDS: MethylPREDNISolone 40 MG/ML VIAL IVP SCH ×3 (12:16→23:49)
[2018-05-21] MEDS ORDERED: Perflutren Lipid Microsphere 1.3 ML in 0.9 % Sodium Chloride 8.7 ML IVP ONE (12:30)
[2018-05-21] MEDS ORDERED: Gadolinium Contrast Agent (WT Based) IV PRN (14:08)
[2018-05-21] MEDS: Cefepime HCl 2,000 MG in 0.9 % Sodium Chloride Mini Bag 100 ML IVPB SCH ×2 (16:08→23:49)
[2018-05-21] MEDS: Acetaminophen 325 MG TABLET PO PRN ×2 (16:09→21:29)
[2018-05-22 04:34] LABS: Basophils % 0.2 %; Hematocrit 42.2 % (35.3-44.9); Hemoglobin 13.3 g/dL (11.5-15.4); Immature Granulocytes % 0.9 % (0-4); Lymphocytes # 0.8 K/mcL (0.6-4.6); Lymphocytes % 13.9 %; Mean Corpuscular HGB Conc 31.5 g/dL (31.6-35.5); Mean Corpuscular Hemoglobin 29.2 pg (28.0-33.3); Mean Corpuscular Volume 92.5 fL (83.0-100.0); Mean Platelet Volume 12.1 fL (9.4-12.4); Monocytes # 0.1 K/mcL (0.0-1.3); Monocytes % 1.1 %; Neutrophils # 4.7 K/mcL (1.6-8.9); Platelet Count 206 K/mcL (140-400); Red Blood Count 4.56 M/mcL (3.82-4.97); Red Cell Distribution Width 12.7 % (11.5-14.5); Segmented Neutrophils % 83.9 %
[2018-05-22 04:55] LABS: Alanine Aminotransferase 8 Units/L (7-52); Albumin 4.2 g/dL (3.5-5.7); Albumin/Globulin Ratio 1.6 (1.1-2.2); Alkaline Phosphatase 50 Units/L (34-104); Aspartate Amino Transferase 11 Units/L (13-39); BUN/Creatinine Ratio 21 (6-26); Bilirubin,Total 0.5 mg/dL (0.3-1.0); Blood Urea Nitrogen 15 mg/dL (8-23); Calcium 9.4 mg/dL (8.6-10.3); Carbon Dioxide 26 mEq/L (23-29); Chloride 105 mEq/L (98-107); Globulin 2.6 g/dL (2.4-3.5); Glucose 148 mg/dL (70-105); Osmolality,Calculated 290 (280-300); Potassium 4.1 mEq/L (3.5-5.1); Sodium 138 mEq/L (136-145); Total Protein 6.8 g/dL (6.4-8.9); eGFR For Non-African Americans > 60 (> 60)
[2018-05-22] MEDS: Doxycycline 100 MG CAPSULE PO SCH ×2 (07:18→21:25)
[2018-05-22] MEDS: Cefepime HCl 2,000 MG in 0.9 % Sodium Chloride Mini Bag 100 ML IVPB SCH ×3 (07:19→23:57)
[2018-05-22] MEDS: MethylPREDNISolone 40 MG/ML VIAL IVP SCH ×3 (07:19→23:53)
[2018-05-22] MEDS: Aspirin Enteric Coated 81 MG Tablet PO SCH (07:19)
[2018-05-22] MEDS ORDERED: Aminoglycoside Consult 1 EACH MC ONE (09:12)
--- NOTE | 2018-05-22 10:10 | Pulmonology Progress Note ---
Date of Encounter: 05/22/18 Time of Encounter: 09:30 Assessment and Plan (1) Lung mass Current Visit: Yes Status: Acute Most likely looks like a primary lung malignancy with hilar lymphadenopathy admitted mediastinal lymphadenopathy with some volume loss due to endobronchial lesion or hilar lymphadenopathy obstructing left lower lobe bronchus. Patient agreed for tissue biopsy patient on schedule for Thursday for EBUS with keep NPO after midnight tomorrow . (2) Mediastinal lymphadenopathy Current Visit: Yes Status: Acute More consistent with metastatic lung cancer awaiting for EBUS on Thursday keep NPO after midnight. (3) Atrial fibrillation with RVR Current Visit: No Status: Resolved Rate is controlled management according to primary team please dont anticoagulate till EBUS patient can be anticoagulated after that . (4) Tobacco abuse Current Visit: Yes Status: Acute Nicotine patch ordered (5) Pneumonia Current Visit: Yes Status: Acute Post obstructive pneumonia to continue broad spectrum antibiotics will descalate antibiotics according to clinical response Qualifiers: Pneumonia type: due to unspecified organism Laterality: left Lung location: lower lobe of lung Qualified Code(s): J18.1 - Lobar pneumonia, unspecified organism Subjective Principal diagnosis: Lung mass with mediatinal LN with pneumonia Interval history: Patient is feeling a lot better denies any chest pain, chest tightness shortness of breath is lot better yesterday she had MRI with brain which did not show any evidence of intracranial metastasis. Her cough is lot better. Objective PUL Vital signs: Last Vital Signs Temp 98.2 F 05/22/18 07:11 Pulse 63 05/22/18 07:11 Resp 16 05/22/18 07:11 BP 150/80 05/22/18 07:11 Pulse Ox 92 05/22/18 07:11 Auscultation: bilateral: diminished breath sounds (more on the left side) Cardiovascular: regular rate and rhythm, irregular rhythm Results - Laboratory Findings CBC and BMP: 05/22/18 03:39 05/22/18 03:39 PT/INR, D-dimer PT 14.6 Seconds (9.4-12.1) H 05/21/18 08:58 D-Dimer 540 ng/mLFEU (0-500) H 05/21/18 08:58 Abnormal lab findings: Abnormal lab results MCHC 31.5 g/dL (31.6-35.5) L 05/22/18 03:39 PT 14.6 Seconds (9.4-12.1) H 05/21/18 08:58 APTT 36.7 Seconds (26.0-36.0) H 05/21/18 08:58 D-Dimer 540 ng/mLFEU (0-500) H 05/21/18 08:58 Glucose 148 mg/dL (70-105) H 05/22/18 03:39 AST 11 Units/L (13-39) L 05/22/18 03:39 - Clinical Findings Intake & Output: Intake & Output 05/21/18 05/22/18 05/22/18 23:59 07:59 15:59 Intake Total 350 / 350 1050 / 1050 360 / 360 Output Total 400 / 400 Balance 350 / 350 650 / 650 360 / 360 Weight 84.8 kg - VTE Documentation of Mechanical Device: Intermittent pneumatic compression device Consult Discharge Plan - Plan Referrals: Cynthia Woo MD [Primary Care Provider] -
--- NOTE | 2018-05-22 13:33 | Internal Med Progress Note ---
Hospitalist Progress Note - Encounter Date of Encounter: 05/22/18 Time of Encounter: 13:33 - Subjective Interval History: Patient was seen and examined at bedside currently states that her breathing is much improved however continues to have shortness of breath on exertion. Denies any hemoptysis at this time continues to have nonproductive cough - Exam Vitals: Temp Pulse Resp BP Pulse Ox 98.4 F 74 16 116/69 90 05/22/18 10:44 05/22/18 10:44 05/22/18 10:44 05/22/18 10:44 05/22/18 10:44 Exam: CONSTITUTIONAL: patient appears as an age appropriate female in no acute distress. EYES Clear sclerae, bilateral pupils are equal, reactive to light. EMOI. RESPIRATORY: No accessory muscle use, bilateral diminished breath sounds to auscultation, no wheezing, no crackles/rales. CARDIOVASCULAR: Regular heart rate, normal S1 and S2, no murmurs GASTROINTESTINAL: bowel sounds present, soft, no tenderness. MUSCULOSKELETAL: Joints in normal range of motion, no clubbing, no edema, no cyanosis. Bilateral peripheral pulses 2+. NEUROLOGIC: CN II to XII are grossly intact, no focal neurological deficit. - Assessment and Plan (1) COPD (chronic obstructive pulmonary disease) Current Visit: No Status: Acute Assessment and Plan: COPD exacerbation with increased oxygen demands and hypoxia in ED - IV solu-medrol 125mg once - Solu-medrol 60mg Q8hrs - Duo-nebs PRN - Starting Doxycycline PO 100mg BID - Continue with oxygen and wean as tolerated. 05/22 Patient continues to experience dyspnea on exertion-continue with oxygen titrated maintain SPO2 greater than 88% We will stepdown Solu-Medrol 40 mg IV Continue with DuoNeb's Continue with doxycycline 100 mg twice a day vancomycin and cefepime day 2 (2) Hypertension Current Visit: No Status: Chronic Assessment and Plan: Known hx of HTN. Blood pressure stable. Will continue Beta tiffany - hold other meds at this time. 05/22 Blood pressure continues to remain stable continue with home medications (3) Lung mass Current Visit: Yes Status: Acute Assessment and Plan: lung mass and extensive lymphadenopathy found on Chest CT this morning in the emergency department. Obstructive pneumonitis of the left lower lobe with abrupt cut off of the left lower lobe bronchus. Extensive mediastinal and left hilar lymphadenopathy. - Possibly contributing to patients shortness of breath and may have been initiating cause or exacerbation of patients Atrial Fibrillation. - Patient has an extensive smoking history and current smoker, COPD and denies any lung cancer screening prior. Plan: - Pulmonary Consultation: Discussed with operations boardman reclaimer. Possible EBUS on Thursday if patient stays inpatient or Thursday if discharged prior to procedure - Holding Xarelto prior to procedure. Risks discussed with patient. - IV Solu-medrol and Doxycycline on board for possible COPD exacerbation. 05/22 Continue IV Solu-Medrol/doxycycline/vancomycin and cefepime -If patient stays through until Thursday, E BUS with Dr. Martinez-discharged in E BUS as outpatient for tissue diagnosis of lung cancer -Hold Xarelto prior procedure (4) Tobacco abuse Current Visit: Yes Status: Acute Assessment and Plan: Long standing hx of Tobacco abuse, now presenting with lung mass and lymphadenopathy - Recommend smoking cessation 05/22 Nicotine patch (5) Pleural effusion Current Visit: Yes Status: Acute Assessment and Plan: Small left sided pleural effusion, secondary to lung process (obstuctive mass) - may benefit from Thorocentesis for diagnosis but patient to be stabilized first. 05/22 -Thoracentesis once stable, for diagnosis continue with oxygen (6) DVT prophylaxis Current Visit: Yes Status: Acute Assessment and Plan: SCDs Holding patients Xarelto (7) Chest pain at rest Current Visit: Yes Status: Acute Assessment and Plan: Patient presented with atypical Chest pain with A-fib RVR. Recent work up for chest pain in February this year. ER work up: EKG with a-fib RVR with ST depression in leads V4 and V5 which resolved with rate control and conversion to SR. Initial Trop <0.03 Heart Score: 6 [id number]: 4 points Hx of CAD and remote hx of PCI with stent, Plavix held in February as no longer necessary and patient starting Xarelto for A-fib, Stress test negative in February Echocardiogram: LVEF normal. No pulmonary HTN Suspect secondary to A-Fib RVR, COPDE and lung pathology - Patient has risk factors for PE, patient has allergies for contrast Dye and non contrast dye CT did not show PE, lung pathology and condition would not give adequate VQ scan. Will obtain Echo. Plan: - Telemetry - Trend Troponins - Lipid panel - Echocardiogram (repeat after discussion with reclaimer) 05/22 No chest pain at this time Continue cardiac monitoring Troponins are negative 3 Echo pending -Stress test was negative in February history of CAD remote history of PCI with stent started on Xarelto for A. fib - Time Spent with Patient Total time spent is greater than 50% in coordination of care (as documented) at patient's floor/unit and/or counseling patient: Internal Medicine: Result - Labs CBC & Chem 7: 05/22/18 03:39 05/22/18 03:39 Labs: Short CBC 05/22/18 Range/Units 03:39 WBC 5.6 (4.3-11.1) K/mcL Hgb 13.3 (11.5-15.4) g/dL Hct 42.2 (35.3-44.9) % Plt Count 206 (140-400) K/mcL Neutrophils # 4.7 (1.6-8.9) K/mcL BMP 05/22/18 03:39 Sodium 138 Potassium 4.1 Chloride 105 Carbon Dioxide 26 BUN 15 Creatinine 0.72 Glucose 148 H Calcium 9.4 Cardiac Enzymes 05/21/18 05/21/18 05/22/18 Range/Units 15:33 21:33 03:39 Troponin I < 0.03 < 0.03 < 0.03 (< 0.04) ng/mL Liver Function 05/22/18 Range/Units 03:39 Total Bilirubin 0.5 (0.3-1.0) mg/dL AST 11 L (13-39) Units/L ALT 8 (7-52) Units/L Alkaline Phosphatase 50 (34-104) Units/L Albumin 4.2 (3.5-5.7) g/dL - ABG Interpretation ABG results: PT/INR, D-dimer PT 14.6 Seconds (9.4-12.1) H 05/21/18 08:58 D-Dimer 540 ng/mLFEU (0-500) H 05/21/18 08:58 - Impressions Impressions Chest CT 05/21/18 09:11 IMPRESSION: 1. Obstructive pneumonitis of the left lower lobe with abrupt cut off of the left lower lobe bronchus. Possible causes include endobronchial lesion versus extrinsic compression by left hilar adenopathy. 2. Extensive mediastinal and left hilar lymphadenopathy. This is a malignancy until proven otherwise. Recommend PET-CT and/or tissue diagnosis. 3. Small left pleural effusion. 4. Enlarged pulmonary artery suggestive of pulmonary hypertension. 5. Coronary artery disease. 6. Mild cardiomegaly. D/ / 05/21/2018 10:08:12 Bo Hunt MD / sophia Interpreting Provider: Bo Hunt MD Echocardiogram 05/21/18 11:03 Impressions: LVEF 60-65%. Normal LV chamber size, wall thickness and function. Mild left ventricular diastolic dysfunction. Normal right ventricular structure and function. No evidence of pulmonary hypertension. No significant valvular dysfunction. Left Ventricular Wall Motion: Rest Echo Findings All wall segments showed normal motion. Findings: Study Quality * Technically adequate exam. ECG Findings * Sinus bradycardia. Left Ventricle * LVEF 60-65%. * Normal LV chamber size, wall thickness and function. * Mild left ventricular diastolic dysfunction. Right Ventricle * Normal right ventricular structure and function. Left Atrium * Mildly dilated left atrium. Right Atrium * Normal right atrial size. Aortic Valve * Aortic valve not well visualized. * No aortic regurgitation. * No aortic stenosis. Mitral Valve * Mild mitral annular calcification. * Normal mitral valve structure and function. * No mitral regurgitation. * No mitral stenosis. Tricuspid Valve * Normal tricuspid valve structure and function. * Trace tricuspid regurgitation. * No evidence of pulmonary hypertension. Pulmonic Valve * Pulmonic valve is not well visualized. * No pulmonic regurgitation. Aorta * Normally sized aortic root. Pericardium * There is a trivial pericardial effusion present. IVC * Normal IVC dimensions and inspiratory collapse. Pulmonary Artery * Normal visualized portions of the main pulmonary artery. Brain MRI 05/21/18 14:08 IMPRESSION: 1. No evidence of intracranial metastases. 2. No evidence of acute intracranial ischemia, edema, or hemorrhage. D/ / Edwardo Marrero / Edwardo Marrero Interpreting Provider: Edwardo Marrero - VTE Documentation of Mechanical Device: Intermittent pneumatic compression device Consult Discharge Plan - Plan Referrals: Cynthia Woo MD [Primary Care Provider] - (1) COPD (chronic obstructive pulmonary disease) Qualifiers: COPD type: emphysema Emphysema type: panlobular Qualified Code(s): J43.1 - Panlobular emphysema (2) Hypertension Qualifiers: Hypertension type: essential hypertension Qualified Code(s): I10 - Essential (primary) hypertension
[2018-05-22] MEDS: Nicotine 21 MG PATCH.TD24 TD SCH (13:56)
[2018-05-22] MEDS: Acetaminophen 325 MG TABLET PO PRN ×2 (17:29→23:51)
[2018-05-23] MEDS ORDERED: Ondansetron 4 MG/2 ML VIAL IVP PRN (00:09)
[2018-05-23 02:02] LABS: Basophils % 0.1 %; Eosinophils % 0.2 %; Hematocrit 37.1 % (35.3-44.9); Hemoglobin 11.8 g/dL (11.5-15.4); Immature Granulocytes % 0.5 % (0-4); Lymphocytes % 9.2 %; Mean Corpuscular HGB Conc 31.8 g/dL (31.6-35.5); Mean Corpuscular Hemoglobin 29.4 pg (28.0-33.3); Mean Corpuscular Volume 92.5 fL (83.0-100.0); Mean Platelet Volume 10.7 fL (9.4-12.4); Monocytes # 0.4 K/mcL (0.0-1.3); Monocytes % 3.3 %; Neutrophils # 9.6 K/mcL (1.6-8.9); Platelet Count 245 K/mcL (140-400); Red Blood Count 4.01 M/mcL (3.82-4.97); Red Cell Distribution Width 12.7 % (11.5-14.5); Segmented Neutrophils % 86.7 %
[2018-05-23 02:21] LABS: BUN/Creatinine Ratio 28 (6-26); Blood Urea Nitrogen 20 mg/dL (8-23); Calcium 9.3 mg/dL (8.6-10.3); Carbon Dioxide 25 mEq/L (23-29); Chloride 106 mEq/L (98-107); Glucose 160 mg/dL (70-105); Osmolality,Calculated 290 (280-300); Potassium 4.2 mEq/L (3.5-5.1); Sodium 137 mEq/L (136-145); eGFR For Non-African Americans > 60 (> 60)
[2018-05-23] MEDS: MethylPREDNISolone 40 MG/ML VIAL IVP SCH ×2 (08:15→16:33)
[2018-05-23] MEDS: Cefepime HCl 2,000 MG in 0.9 % Sodium Chloride Mini Bag 100 ML IVPB SCH ×3 (08:15→23:59)
[2018-05-23] MEDS: Doxycycline 100 MG CAPSULE PO SCH ×2 (08:20→21:14)
[2018-05-23] MEDS: Aspirin Enteric Coated 81 MG Tablet PO SCH (08:21)
--- NOTE | 2018-05-23 10:07 | Pulmonology Progress Note ---
Date of Encounter: 05/23/18 Time of Encounter: 10:00 Assessment and Plan (1) Lung mass Current Visit: Yes Status: Acute Most likely looks like a primary lung malignancy with hilar lymphadenopathy admitted mediastinal lymphadenopathy with some volume loss due to endobronchial lesion or hilar lymphadenopathy obstructing left lower lobe bronchus. Patient agreed for tissue biopsy patient on schedule for Thursday for EBUS with Dr. Baker . NPO after Midnight to start on oral anticoagulation before discharge after biopsy . (2) Mediastinal lymphadenopathy Current Visit: Yes Status: Acute More consistent with metastatic lung cancer awaiting for EBUS on Thursday keep NPO after midnight. (3) Atrial fibrillation with RVR Current Visit: No Status: Resolved Patient is in Sinus Rhythm management according to primary team please dont anticoagulate till EBUS patient can be anticoagulated after that . (4) Tobacco abuse Current Visit: Yes Status: Acute Nicotine patch ordered (5) Pneumonia Current Visit: Yes Status: Acute Post obstructive pneumonia to continue broad spectrum antibiotics will descalate antibiotics on discharge to Doxycycline for 10 days . Qualifiers: Pneumonia type: due to unspecified organism Laterality: left Lung location: lower lobe of lung Qualified Code(s): J18.1 - Lobar pneumonia, unspecified organism Subjective Principal diagnosis: Lung mass with mediatinal LN with pneumonia Interval history: Patient is feeling a lot better denies any chest pain, chest tightness shortness of breath is lot better yesterday she had MRI with brain which did not show any evidence of intracranial metastasis. Her cough is lot better. Objective PUL Vital signs: Last Vital Signs Temp 97.9 F 05/23/18 06:57 Pulse 62 05/23/18 06:57 Resp 18 05/23/18 06:57 BP 133/97 05/23/18 06:57 Pulse Ox 94 05/23/18 06:57 Auscultation: left: wheezes (minimal scattered wheezes ) Cardiovascular: regular rate and rhythm Results - Laboratory Findings CBC and BMP: 05/23/18 01:48 05/23/18 01:48 PT/INR, D-dimer PT 14.6 Seconds (9.4-12.1) H 05/21/18 08:58 D-Dimer 540 ng/mLFEU (0-500) H 05/21/18 08:58 Abnormal lab findings: Abnormal lab results Neutrophils # 9.6 K/mcL (1.6-8.9) H 05/23/18 01:48 PT 14.6 Seconds (9.4-12.1) H 05/21/18 08:58 APTT 36.7 Seconds (26.0-36.0) H 05/21/18 08:58 D-Dimer 540 ng/mLFEU (0-500) H 05/21/18 08:58 BUN/Creatinine Ratio 28 (6-26) H 05/23/18 01:48 Glucose 160 mg/dL (70-105) H 05/23/18 01:48 AST 11 Units/L (13-39) L 05/22/18 03:39 Vancomycin Trough 16 mcg/mL (5-10) H 05/23/18 01:48 - Clinical Findings Intake & Output: Intake & Output 05/22/18 05/23/18 05/23/18 23:59 07:59 15:59 Intake Total 250 / 250 100 / 100 360 / 360 Output Total 400 / 400 Balance 250 / 250 100 / 100 -40 / -40 Weight 85 kg - VTE Documentation of Mechanical Device: Intermittent pneumatic compression device Consult Discharge Plan - Plan Referrals: Cynthia Woo MD [Primary Care Provider] - Tono Mccoy MD [Partnered Physician] - 05/25/18 9:00 am
--- NOTE | 2018-05-23 11:21 | Internal Med Progress Note ---
Hospitalist Progress Note - Encounter Date of Encounter: 05/23/18 Time of Encounter: 11:21 - Subjective Interval History: Patient was seen and examined at bedside currently states breathing has improved however does have dyspnea on exertion does not appear to be respiratory distress. - Exam Vitals: Temp Pulse Resp BP Pulse Ox 97.9 F 62 18 133/97 94 05/23/18 06:57 05/23/18 06:57 05/23/18 06:57 05/23/18 06:57 05/23/18 06:57 Exam: CONSTITUTIONAL: patient appears as an age appropriate female in no acute distress. EYES Clear sclerae, bilateral pupils are equal, reactive to light. EMOI. RESPIRATORY: Lung sounds are clear No accessory muscle use, bilateral diminished breath sounds to auscultation, no wheezing, no crackles/rales. CARDIOVASCULAR: Regular heart rate, normal S1 and S2, no murmurs GASTROINTESTINAL: bowel sounds present, soft, no tenderness. MUSCULOSKELETAL: Joints in normal range of motion, no clubbing, no edema, no cyanosis. Bilateral peripheral pulses 2+. NEUROLOGIC: CN II to XII are grossly intact, no focal neurological deficit. - Assessment and Plan (1) COPD (chronic obstructive pulmonary disease) Current Visit: No Status: Acute Assessment and Plan: COPD exacerbation with increased oxygen demands and hypoxia in ED - IV solu-medrol 125mg once - Solu-medrol 60mg Q8hrs - Duo-nebs PRN - Starting Doxycycline PO 100mg BID - Continue with oxygen and wean as tolerated. 05/22 Patient continues to experience dyspnea on exertion-continue with oxygen titrated maintain SPO2 greater than 88% We will stepdown Solu-Medrol 40 mg IV Continue with DuoNeb's Continue with doxycycline 100 mg twice a day vancomycin and cefepime day 2 05/23 Continue with oxygen titrated maintain SPO2 greater than 88% Continue with Solu-Medrol 40 mg IV-we will decrease to every 12 hours Continue duo nebs Continue with doxycycline vancomycin and cefepime day 3-per pulmonology's recommendations (2) Hypertension Current Visit: No Status: Chronic Assessment and Plan: Known hx of HTN. Blood pressure stable. Will continue Beta tiffany - hold other meds at this time. 05/22 Blood pressure continues to remain stable continue with home medications 05/23 Blood pressure stable cont to home meds (3) Lung mass Current Visit: Yes Status: Acute Assessment and Plan: lung mass and extensive lymphadenopathy found on Chest CT this morning in the emergency department. Obstructive pneumonitis of the left lower lobe with abrupt cut off of the left lower lobe bronchus. Extensive mediastinal and left hilar lymphadenopathy. - Possibly contributing to patients shortness of breath and may have been initiating cause or exacerbation of patients Atrial Fibrillation. - Patient has an extensive smoking history and current smoker, COPD and denies any lung cancer screening prior. Plan: - Pulmonary Consultation: Discussed with continuous improvement facilitator quality control representative. Possible EBUS on Thursday if patient stays inpatient or Thursday if discharged prior to procedure - Holding Xarelto prior to procedure. Risks discussed with patient. - IV Solu-medrol and Doxycycline on board for possible COPD exacerbation. 05/22 Continue IV Solu-Medrol/doxycycline/vancomycin and cefepime -If patient stays through until Thursday, E BUS with Dr. Martinez-discharged in E BUS as outpatient for tissue diagnosis of lung cancer -Hold Xarelto prior procedure 05/23 Continue IV Solu-Medrol doxycycline become I's and cefepime per pulmonology recommendations She will undergo E BUS on Thursday patient will be nothing by mouth after midnight continue to hold Xarelto until after procedure (4) Tobacco abuse Current Visit: Yes Status: Acute Assessment and Plan: Long standing hx of Tobacco abuse, now presenting with lung mass and lymphadenopathy - Recommend smoking cessation 05/22 Nicotine patch 05/23 Cont with nicotine patch (5) Pleural effusion Current Visit: Yes Status: Acute Assessment and Plan: Small left sided pleural effusion, secondary to lung process (obstuctive mass) - may benefit from Thorocentesis for diagnosis but patient to be stabilized first. 05/22 -Thoracentesis once stable, for diagnosis continue with oxygen 05/23 Thoracentesis once stable continue with oxygen (6) DVT prophylaxis Current Visit: Yes Status: Acute Assessment and Plan: SCDs Holding patients Xarelto (7) Chest pain at rest Current Visit: Yes Status: Acute Assessment and Plan: Patient presented with atypical Chest pain with A-fib RVR. Recent work up for chest pain in February this year. ER work up: EKG with a-fib RVR with ST depression in leads V4 and V5 which resolved with rate control and conversion to SR. Initial Trop <0.03 Heart Score: 6 [id number]: 4 points Hx of CAD and remote hx of PCI with stent, Plavix held in February as no longer necessary and patient starting Xarelto for A-fib, Stress test negative in February Echocardiogram: LVEF normal. No pulmonary HTN Suspect secondary to A-Fib RVR, COPDE and lung pathology - Patient has risk factors for PE, patient has allergies for contrast Dye and non contrast dye CT did not show PE, lung pathology and condition would not give adequate VQ scan. Will obtain Echo. Plan: - Telemetry - Trend Troponins - Lipid panel - Echocardiogram (repeat after discussion with quality control representative) 05/22 No chest pain at this time Continue cardiac monitoring Troponins are negative 3 Echo pending -Stress test was negative in February history of CAD remote history of PCI with stent started on Xarelto for A. fib 05/23 A chest pain at this time Continue cardiac monitoring Dependence are negative 3 TTE LVEF 60-65% Normal LV chamber size and function wall thickness Mild left ventricular diastolic dysfunction Normal right ventricular structure and function No evidence of pulmonary hypertension No significant valvular dysfunction - Time Spent with Patient Total time spent is greater than 50% in coordination of care (as documented) at patient's floor/unit and/or counseling patient: Internal Medicine: Result - Labs CBC & Chem 7: 05/23/18 01:48 05/23/18 01:48 Labs: Short CBC 05/23/18 Range/Units 01:48 WBC 11.1 D (4.3-11.1) K/mcL Hgb 11.8 D (11.5-15.4) g/dL Hct 37.1 (35.3-44.9) % Plt Count 245 (140-400) K/mcL Neutrophils # 9.6 H (1.6-8.9) K/mcL BMP 05/23/18 01:48 Sodium 137 Potassium 4.2 Chloride 106 Carbon Dioxide 25 BUN 20 Creatinine 0.72 Glucose 160 H Calcium 9.3 - ABG Interpretation ABG results: PT/INR, D-dimer PT 14.6 Seconds (9.4-12.1) H 05/21/18 08:58 D-Dimer 540 ng/mLFEU (0-500) H 05/21/18 08:58 - VTE Documentation of Mechanical Device: Intermittent pneumatic compression device Consult Discharge Plan - Plan Referrals: Cynthia Woo MD [Primary Care Provider] - (1) COPD (chronic obstructive pulmonary disease) Qualifiers: COPD type: emphysema Emphysema type: panlobular Qualified Code(s): J43.1 - Panlobular emphysema (2) Hypertension Qualifiers: Hypertension type: essential hypertension Qualified Code(s): I10 - Essential (primary) hypertension
[2018-05-23] MEDS: Nicotine 21 MG PATCH.TD24 TD SCH (11:53)
[2018-05-23] MEDS: Acetaminophen 325 MG TABLET PO PRN ×2 (13:46→21:12)
--- NOTE | 2018-05-23 15:21 | Internal Med Progress Note ---
Hospitalist Progress Note - Encounter Date of Encounter: 05/23/18 Time of Encounter: 15:21 - Subjective Interval History: Patient was seen and examined at bedside currently states that her breathing is much improved however continues to have shortness of breath on exertion. Denies any hemoptysis at this time continues to have nonproductive cough - Exam Vitals: Temp Pulse Resp BP Pulse Ox 98.0 F 61 16 124/70 92 05/23/18 14:34 05/23/18 14:34 05/23/18 14:34 05/23/18 14:34 05/23/18 14:34 - Assessment and Plan (1) COPD (chronic obstructive pulmonary disease) Current Visit: No Status: Acute (2) Hypertension Current Visit: No Status: Chronic (3) Lung mass Current Visit: Yes Status: Acute (4) Tobacco abuse Current Visit: Yes Status: Acute (5) Pleural effusion Current Visit: Yes Status: Acute (6) DVT prophylaxis Current Visit: Yes Status: Acute (7) Chest pain at rest Current Visit: Yes Status: Acute - Time Spent with Patient Total time spent is greater than 50% in coordination of care (as documented) at patient's floor/unit and/or counseling patient: Internal Medicine: Result - Labs CBC & Chem 7: 05/23/18 01:48 05/23/18 01:48 Labs: Short CBC 05/23/18 Range/Units 01:48 WBC 11.1 D (4.3-11.1) K/mcL Hgb 11.8 D (11.5-15.4) g/dL Hct 37.1 (35.3-44.9) % Plt Count 245 (140-400) K/mcL Neutrophils # 9.6 H (1.6-8.9) K/mcL BMP 05/23/18 01:48 Sodium 137 Potassium 4.2 Chloride 106 Carbon Dioxide 25 BUN 20 Creatinine 0.72 Glucose 160 H Calcium 9.3 - ABG Interpretation ABG results: PT/INR, D-dimer PT 14.6 Seconds (9.4-12.1) H 05/21/18 08:58 D-Dimer 540 ng/mLFEU (0-500) H 05/21/18 08:58 - VTE Documentation of Mechanical Device: Intermittent pneumatic compression device Consult Discharge Plan - Plan Referrals: Woo,Cynthia [place], MD [Primary Care Provider] - (1) COPD (chronic obstructive pulmonary disease) Qualifiers: COPD type: emphysema Emphysema type: panlobular Qualified Code(s): J43.1 - Panlobular emphysema (2) Hypertension Qualifiers: Hypertension type: essential hypertension Qualified Code(s): I10 - Essential (primary) hypertension
[2018-05-24] MEDS: MethylPREDNISolone 40 MG/ML VIAL IVP SCH ×2 (05:24→17:40)
[2018-05-24 05:45] LABS: Hematocrit 37.6 % (35.3-44.9); Hemoglobin 11.7 g/dL (11.5-15.4); Immature Granulocytes % 0.7 % (0-4); Lymphocytes # 1.3 K/mcL (0.6-4.6); Lymphocytes % 14.9 %; Mean Corpuscular HGB Conc 31.1 g/dL (31.6-35.5); Mean Corpuscular Hemoglobin 29.3 pg (28.0-33.3); Mean Platelet Volume 10.9 fL (9.4-12.4); Monocytes # 0.7 K/mcL (0.0-1.3); Monocytes % 7.4 %; Neutrophils # 6.8 K/mcL (1.6-8.9); Platelet Count 238 K/mcL (140-400); Red Cell Distribution Width 12.9 % (11.5-14.5)
[2018-05-24 05:53] LABS: Prothrombin Time 11.6 Seconds (9.4-12.1)
[2018-05-24 05:56] LABS: Activated Partial Thrombo Time 26.2 Seconds (26.0-36.0)
[2018-05-24 06:01] LABS: BUN/Creatinine Ratio 27 (6-26); Blood Urea Nitrogen 23 mg/dL (8-23); Calcium 9.1 mg/dL (8.6-10.3); Carbon Dioxide 30 mEq/L (23-29); Chloride 106 mEq/L (98-107); Glucose 112 mg/dL (70-105); Osmolality,Calculated 294 (280-300); Potassium 4.2 mEq/L (3.5-5.1); Sodium 140 mEq/L (136-145); eGFR For Non-African Americans > 60 (> 60)
[2018-05-24] MEDS: Acetaminophen 325 MG TABLET PO PRN ×2 (09:40→20:25)
[2018-05-24] MEDS: Cefepime HCl 2,000 MG in 0.9 % Sodium Chloride Mini Bag 100 ML IVPB SCH ×3 (09:41→23:17)
[2018-05-24] MEDS: Doxycycline 100 MG CAPSULE PO SCH ×3 (09:44→20:25)
[2018-05-24] MEDS: Aspirin Enteric Coated 81 MG Tablet PO SCH ×2 (09:44→12:12)
--- NOTE | 2018-05-24 11:54 | Internal Med Progress Note ---
Hospitalist Progress Note - Encounter Date of Encounter: 05/24/18 Time of Encounter: 11:52 - Subjective Interval History: Patient was seen and examined at bedside currently states breathing has improved however does have dyspnea on exertion does not appear to be respiratory distress.-Currently unchanged from yesterday assessment - Exam Vitals: Temp Pulse Resp BP Pulse Ox 98.2 F 66 16 146/72 96 05/24/18 10:29 05/24/18 10:29 05/24/18 10:29 05/24/18 10:29 05/24/18 10:29 Exam: CONSTITUTIONAL: patient appears as an age appropriate female in no acute distress. EYES Clear sclerae, bilateral pupils are equal, reactive to light. EMOI. RESPIRATORY: Lung sounds are clear No accessory muscle use, bilateral diminished breath sounds to auscultation, no wheezing, no crackles/rales. CARDIOVASCULAR: Regular heart rate, normal S1 and S2, no murmurs GASTROINTESTINAL: bowel sounds present, soft, no tenderness. MUSCULOSKELETAL: Joints in normal range of motion, no clubbing, no edema, no cyanosis. Bilateral peripheral pulses 2+. NEUROLOGIC: CN II to XII are grossly intact, no focal neurological deficit. - Assessment and Plan (1) COPD (chronic obstructive pulmonary disease) Current Visit: No Status: Acute Assessment and Plan: COPD exacerbation with increased oxygen demands and hypoxia in ED - IV solu-medrol 125mg once - Solu-medrol 60mg Q8hrs - Duo-nebs PRN - Starting Doxycycline PO 100mg BID - Continue with oxygen and wean as tolerated. 05/22 Patient continues to experience dyspnea on exertion-continue with oxygen titrated maintain SPO2 greater than 88% We will stepdown Solu-Medrol 40 mg IV Continue with DuoNeb's Continue with doxycycline 100 mg twice a day vancomycin and cefepime day 2 05/23 Continue with oxygen titrated maintain SPO2 greater than 88% Continue with Solu-Medrol 40 mg IV-we will decrease to every 12 hours Continue duo nebs Continue with doxycycline vancomycin and cefepime day 3-per pulmonology's recommendations 05/24 Continues with dyspnea on exertion continue with oxygen titrated maintain SPO2 greater than 80% No wheezing noted at this time we will be able stepped-down steroid to oral in a.m. Continue with DuoNeb's Continue with doxycycline vancomycin and cefepime day for her pulmonology recommendations (2) Hypertension Current Visit: No Status: Chronic Assessment and Plan: Known hx of HTN. Blood pressure stable. Will continue Beta tiffany - hold other meds at this time. 05/22 Blood pressure continues to remain stable continue with home medications 05/23 Blood pressure stable cont to home meds 05/24 Continue with home medications (3) Lung mass Current Visit: Yes Status: Acute Assessment and Plan: lung mass and extensive lymphadenopathy found on Chest CT this morning in the emergency department. Obstructive pneumonitis of the left lower lobe with abrupt cut off of the left lower lobe bronchus. Extensive mediastinal and left hilar lymphadenopathy. - Possibly contributing to patients shortness of breath and may have been initiating cause or exacerbation of patients Atrial Fibrillation. - Patient has an extensive smoking history and current smoker, COPD and denies any lung cancer screening prior. Plan: - Pulmonary Consultation: Discussed with in service education teacher secondary spanish teacher. Possible EBUS on Thursday if patient stays inpatient or Thursday if discharged prior to procedure - Holding Xarelto prior to procedure. Risks discussed with patient. - IV Solu-medrol and Doxycycline on board for possible COPD exacerbation. 05/22 Continue IV Solu-Medrol/doxycycline/vancomycin and cefepime -If patient stays through until Thursday, E BUS with Dr. Martinez-discharged in E BUS as outpatient for tissue diagnosis of lung cancer -Hold Xarelto prior procedure 05/23 Continue IV Solu-Medrol doxycycline become I's and cefepime per pulmonology recommendations She will undergo E BUS on Thursday patient will be nothing by mouth after midnight continue to hold Xarelto until after procedure 05/24 Continue with IV Solu-Medrol doxycycline vancomycin and cefepime per pulmonology's recommendations She is scheduled for EBUS this a.m. however Pulmonoogy report no pathology, anesthesia available to do case-pulmonology did discuss patient possible outpatient however patient would like it done while she is here she will be added on for the a.m. She will be nothing by mouth after midnight continue to hold Xarelto and resume after procedure (4) Tobacco abuse Current Visit: Yes Status: Acute Assessment and Plan: Long standing hx of Tobacco abuse, now presenting with lung mass and lymphadenopathy - Recommend smoking cessation 05/22 Nicotine patch 05/23 Cont with nicotine patch (5) Pleural effusion Current Visit: Yes Status: Acute Assessment and Plan: Small left sided pleural effusion, secondary to lung process (obstuctive mass) - may benefit from Thorocentesis for diagnosis but patient to be stabilized first. 05/22 -Thoracentesis once stable, for diagnosis continue with oxygen 05/23 Thoracentesis once stable continue with oxygen 05/24 Most likely secondary to lung mass-pulmonology deferring thoracentesis at this time does not needed for diagnosis -EBUS will be completed in the a.m. (6) DVT prophylaxis Current Visit: Yes Status: Acute Assessment and Plan: SCDs Holding patients Xarelto (7) Chest pain at rest Current Visit: Yes Status: Acute Assessment and Plan: Patient presented with atypical Chest pain with A-fib RVR. Recent work up for chest pain in February this year. ER work up: EKG with a-fib RVR with ST depression in leads V4 and V5 which resolved with rate control and conversion to SR. Initial Trop <0.03 Heart Score: 6 [id number]: 4 points Hx of CAD and remote hx of PCI with stent, Plavix held in February as no longer necessary and patient starting Xarelto for A-fib, Stress test negative in February Echocardiogram: LVEF normal. No pulmonary HTN Suspect secondary to A-Fib RVR, COPDE and lung pathology - Patient has risk factors for PE, patient has allergies for contrast Dye and non contrast dye CT did not show PE, lung pathology and condition would not give adequate VQ scan. Will obtain Echo. Plan: - Telemetry - Trend Troponins - Lipid panel - Echocardiogram (repeat after discussion with secondary spanish teacher) 05/22 No chest pain at this time Continue cardiac monitoring Troponins are negative 3 Echo pending -Stress test was negative in February history of CAD remote history of PCI with stent started on Xarelto for A. fib 05/23 A chest pain at this time Continue cardiac monitoring Dependence are negative 3 TTE LVEF 60-65% Normal LV chamber size and function wall thickness Mild left ventricular diastolic dysfunction Normal right ventricular structure and function No evidence of pulmonary hypertension No significant valvular dysfunction 05/24 No chest pain continue cardiac monitoring troponins are negative 3 TTE as above - Time Spent with Patient Total time spent is greater than 50% in coordination of care (as documented) at patient's floor/unit and/or counseling patient: Internal Medicine: Result - Labs CBC & Chem 7: 05/24/18 04:31 05/24/18 04:31 Labs: Short CBC 05/24/18 Range/Units 04:31 WBC 8.8 (4.3-11.1) K/mcL Hgb 11.7 (11.5-15.4) g/dL Hct 37.6 (35.3-44.9) % Plt Count 238 (140-400) K/mcL Neutrophils # 6.8 (1.6-8.9) K/mcL BMP 05/24/18 04:31 Sodium 140 Potassium 4.2 Chloride 106 Carbon Dioxide 30 H BUN 23 Creatinine 0.85 Glucose 112 H Calcium 9.1 - ABG Interpretation ABG results: PT/INR, D-dimer PT 11.6 Seconds (9.4-12.1) 05/24/18 04:31 D-Dimer 540 ng/mLFEU (0-500) H 05/21/18 08:58 - VTE Documentation of Mechanical Device: Intermittent pneumatic compression device Consult Discharge Plan - Plan Referrals: Cynthia Woo MD [Primary Care Provider] - Tono Mccoy MD [Partnered Physician] - 05/25/18 9:00 am (1) COPD (chronic obstructive pulmonary disease) Qualifiers: COPD type: emphysema Emphysema type: panlobular Qualified Code(s): J43.1 - Panlobular emphysema (2) Hypertension Qualifiers: Hypertension type: essential hypertension Qualified Code(s): I10 - Essential (primary) hypertension
[2018-05-24] MEDS: Nicotine 21 MG PATCH.TD24 TD SCH (12:13)
[2018-05-24] MEDS ORDERED: *HR* Midazolam HCl 5 MG/5 ML VIAL IVP ONE (12:20)
[2018-05-24] MEDS ORDERED: *HR* FentaNYL (PF) 100 MCG/2 ML VIAL ONE (12:21)
--- NOTE | 2018-05-24 16:26 | Pulmonology Progress Note ---
Date of Encounter: 05/24/18 Time of Encounter: 08:00 Assessment and Plan (1) Mediastinal lymphadenopathy Current Visit: Yes Status: Acute I have explained to patient bronchoscopy and all the risks, alternative, benefits explained to her. I have called endoscopy team, unfortunately anesthesia not available and a cold anesthesiologist and they did not have staff for that reason this is will be rescheduled for tomorrow and this is explained to the patient in the presence of the nurse and also primary team. I have offered outpatient if there is no time for tomorrow, patient preferred to stay in the hospital until the procedure done. Unfortunately pathology will not be available after 4:30 PM to have this procedure done late. I have answered all patient's questions. (2) COPD (chronic obstructive pulmonary disease) Current Visit: No Status: Chronic Continue bronchodilators. Qualifiers: COPD type: emphysema Emphysema type: panlobular Qualified Code(s): J43.1 - Panlobular emphysema (3) Tobacco abuse Current Visit: Yes Status: Chronic Advised patient to quit smoking and she has nicotine patch. Subjective Principal diagnosis: Lung mass with mediatinal LN with pneumonia Interval history: Patient is waiting for bronchoscopy and she is worried about result and this is a cancer. She denies any significant changes. Objective PUL Vital signs: Last Vital Signs Temp 98.2 F 05/24/18 10:29 Pulse 66 05/24/18 10:29 Resp 16 05/24/18 10:29 BP 146/72 05/24/18 10:29 Pulse Ox 96 05/24/18 10:29 General: Patient is in no acute distress. HEENT: Normocephalic atraumatic, pupils are equal round and reactive to light and accommodation, anicteric sclera, nares is patent, mucous membranes moist, no JVD, trachea is midline Cardiovascular: Normal sinus rhythm, S1 and S2 audible, no murmur or rubs Respiratory: Wheezing to auscultation bilaterally. No acute distress. No wheezing. Patient not using accessory muscles. Abdomen: Soft, nontender, nondistended, positive bowel sounds in all 4 quadrants Extremities: Warm, dry, trace lower extremity edema. Normal capillary refill. Neuro: Alert and oriented and follows commands. Grossly no neuro deficits. Skin: Warm to touch : No obvious abnormalities. Psych: Normal Results - Laboratory Findings CBC and BMP: 05/24/18 04:31 05/24/18 04:31 PT/INR, D-dimer PT 11.6 Seconds (9.4-12.1) 05/24/18 04:31 D-Dimer 540 ng/mLFEU (0-500) H 05/21/18 08:58 Abnormal lab findings: Abnormal lab results MCHC 31.1 g/dL (31.6-35.5) L 05/24/18 04:31 D-Dimer 540 ng/mLFEU (0-500) H 05/21/18 08:58 Carbon Dioxide 30 mEq/L (23-29) H 05/24/18 04:31 BUN/Creatinine Ratio 27 (6-26) H 05/24/18 04:31 Glucose 112 mg/dL (70-105) H 05/24/18 04:31 AST 11 Units/L (13-39) L 05/22/18 03:39 Vancomycin Trough 16 mcg/mL (5-10) H 05/23/18 01:48 - Clinical Findings Intake & Output: Intake & Output 05/24/18 05/24/18 05/24/18 07:59 15:59 23:59 Intake Total 100 / 100 100 / 100 Output Total 600 / 600 Balance -500 / -500 100 / 100 Weight 86.6 kg - VTE Documentation of Mechanical Device: Intermittent pneumatic compression device Consult Discharge Plan - Plan Referrals: Cynthia Woo MD [Primary Care Provider] - Tono Mccoy MD [Partnered Physician] - 05/25/18 9:00 am
[2018-05-24] MEDS: Budesonide/Formoterol 160/4.5 1 PUFF INH IH SCH (22:02)
--- NOTE | 2018-05-24 23:04 | Anesthesia Evaluation PreOp ---
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: Other (ANXIETY, DEPRESSION) Anesthesia History: No Prior Anesthetic Complications, Past Anesthesia Alcohol Use: none Drug use: none Medications and Allergies Albuterol Sulfate [Proair Hfa] 2 puff IH Q6H PRN 02/26/18 [History] Aspirin [Lo-Dose Aspirin EC] 81 mg PO DAILY 02/26/18 [History] Buspirone HCl [Buspar] 5 mg PO BID 02/26/18 [History] Cholecalciferol (D-3) [Vitamin D] 2,000 unit PO DAILY 02/26/18 [History] Docusate Sodium [Dok] 100 mg PO BID PRN 02/26/18 [History] Estradiol 1.5 mg PO DAILY 02/26/18 [History] Fluticasone/Salmeterol [Advair 250-50 Diskus] 1 puff IH BID 02/26/18 [History] Lisinopril [Zestril] 10 mg PO DAILY 02/26/18 [History] Loratadine [Allergy Relief] 10 mg PO DAILY 02/26/18 [History] Meloxicam [Mobic] 15 mg PO DAILY PRN 02/26/18 [History] Montelukast [Singulair] 10 mg PO DAILY 02/26/18 [History] Nitroglycerin [Nitrostat] 0.4 mg SL Q5M PRN 02/26/18 [History] Ranitidine HCl [Zantac] 300 mg PO DAILY 02/26/18 [History] Sertraline [Zoloft] 200 mg PO DAILY 02/26/18 [History] Simvastatin [Zocor] 40 mg PO HS 02/26/18 [History] Umeclidinium [place] [Incruse Ellipta] 1 puff IH DAILY 02/26/18 [History] hydroCHLOROthiazide [Hydrochlorothiazide] 25 mg PO DAILY PRN 02/26/18 [History] Metoprolol [Lopressor] 25 mg PO BID 30 Days #30 tablet 02/28/18 [Rx] Rivaroxaban [Xarelto] 20 mg PO 1700 90 Days #90 tablet 02/28/18 [Rx] Allergy/AdvReac Type Severity Reaction Status Date / Time ciprofloxacin [From Cipro] Allergy Rash Verified 05/21/18 11:58 codeine Allergy Fatigued Verified 05/21/18 11:58 diphenhydramine Allergy Rash Verified 05/21/18 11:58 [From Benadryl] egg Allergy Nausea Verified 05/21/18 11:58 gabapentin Allergy Anxiety Verified 05/21/18 11:58 Iodinated Contrast- Oral and Allergy Rash Verified 05/21/18 11:58 IV Dye [Iodinated Contrast Media - IV Dye] Penicillins Allergy Rash Verified 05/21/18 11:58 propoxyphene Allergy Rash Verified 05/21/18 11:58 Sulfa (Sulfonamide Allergy Rash Verified 05/21/18 11:58 Antibiotics) - Meds/Allergy Pre-op Review Medications Reviewed: Yes Allergies Reviewed: Yes Beta Blockers on Current Med List: Yes If Beta Blockers taken, Date/Time (Last Dose taken): SEE MAR Anesthesia Results - Labs 05/24/18 04:31 05/24/18 04:31 Laboratory Tests 05/22/18 05/24/18 05/24/18 03:39 04:31 04:31 PT 11.6 INR 1.0 APTT 26.2 Calcium 9.1 Serum Total Protein 6.8 Albumin 4.2 - Imaging Additional studies: TTE 05/21/2018: LVEF 60-65%. Normal LV chamber size, wall thickness and function. Mild left ventricular diastolic dysfunction. Normal right ventricular structure and function. No evidence of pulmonary hypertension. No significant valvular dysfunction. CHEST CT 05/21/2018: 1. Obstructive pneumonitis of the left lower lobe with abrupt cut off of the left lower lobe bronchus. Possible causes include endobronchial lesion versus extrinsic compression by left hilar adenopathy. 2. Extensive mediastinal and left hilar lymphadenopathy. This is a malignancy until proven otherwise. Recommend PET-CT and/or tissue diagnosis. 3. Small left pleural effusion. 4. Enlarged pulmonary artery suggestive of pulmonary hypertension. 5. Coronary artery disease. 6. Mild cardiomegaly. Anesthesia Exam Vital Signs/O2 Sat/Glucose, Most Recent Temp Pulse Resp BP Pulse Ox 98.6 F 56 18 138/73 96 05/24/18 19:42 05/24/18 19:42 05/24/18 22:05 05/24/18 19:42 05/24/18 22:05 Weight: 87 KG - BMI 30 NPO (# of Hours): NPO >MN - HEENT Mallampati: II Teeth: Edentulous Denture Type: Upper: Complete, Lower: Complete - Cardiac Rhythm: Irregular - Pulmonary Breath Sounds: bilateral Rhonchi Respiratory Effort: Symmetrical Anesthesia Assess/Plan ASA Score: 4 Anesthetic Plan: General Monitoring Plan: Standard Monitors Recovery Plan: PACU
[2018-05-25] MEDS: MethylPREDNISolone 40 MG/ML VIAL IVP SCH (05:30)
[2018-05-25] MEDS: Cefepime HCl 2,000 MG in 0.9 % Sodium Chloride Mini Bag 100 ML IVPB SCH ×3 (07:54→23:57)
[2018-05-25] MEDS: Doxycycline 100 MG CAPSULE PO SCH ×2 (07:55→20:33)
[2018-05-25] MEDS: Acetaminophen 325 MG TABLET PO PRN ×2 (07:55→20:33)
[2018-05-25] MEDS: Aspirin Enteric Coated 81 MG Tablet PO SCH (07:55)
[2018-05-25] MEDS: Budesonide/Formoterol 160/4.5 1 PUFF INH IH SCH ×2 (10:42→22:18)
--- NOTE | 2018-05-25 11:36 | Internal Med Progress Note ---
Hospitalist Progress Note - Encounter Date of Encounter: 05/25/18 Time of Encounter: 10:36 - Subjective Interval History: Patient seen and examined this morning. No overnight events. Breathing improving. Denies new complaints. No fevers chills nausea vomiting or diarrhea. Currently nothing by mouth. - Exam Vitals: Temp Pulse Resp BP Pulse Ox 98.1 F 63 16 159/80 93 05/25/18 07:39 05/25/18 07:39 05/25/18 10:42 05/25/18 07:39 05/25/18 10:42 Exam: General: Patient is in no acute distress. Cardiovascular: Normal sinus rhythm, S1 and S2 audible, no murmur or rubs Respiratory: Wheezing bilaterally. No acute distress. not using accessory muscles. Abdomen: Soft, nontender, nondistended, + bowel sounds in all 4 quadrants Extremities: Warm, dry, trace lower extremity edema. Normal capillary refill. Neuro: Alert and oriented and follows commands. Grossly no neuro deficits. Skin: Warm to touch - Assessment and Plan (1) COPD (chronic obstructive pulmonary disease) Current Visit: No Status: Chronic (2) Hypertension Current Visit: No Status: Chronic (3) Lung mass Current Visit: Yes Status: Acute (4) Tobacco abuse Current Visit: Yes Status: Chronic (5) Pleural effusion Current Visit: Yes Status: Acute (6) DVT prophylaxis Current Visit: Yes Status: Acute (7) Chest pain at rest Current Visit: Yes Status: Acute - Summary of Assessment and Plan Summary of Assessment and Plan: Lung mass - Plan for EBUS today - Xarelto on hold. Will resume after biopsy - NPO COPD - c/w solumedrol 40 daily - Duo-nebs PRN - c/w Doxycycline PO 100mg BID - Continue with oxygen and wean as tolerated. Hypertension - Continue with home medications Pleural effusion - Most likely secondary to lung mass - pulmonology deferring thoracentesis at this time does not needed for diagnosis Chest pain at rest - [id number] of 4 - Suspect secondary to A-Fib RVR, COPDE and lung pathology - Stress test was negative in February history of CAD remote history of PCI with stent started on Xarelto for A. fib - TTE with LVEF 60-65%, NWM, no PHTN - trop negative x3 Plan for DC once procedure completed and ok with pulm. - Time Spent with Patient Total time spent is greater than 50% in coordination of care (as documented) at patient's floor/unit and/or counseling patient: Internal Medicine: Result - Labs CBC & Chem 7: 05/24/18 04:31 05/24/18 04:31 - ABG Interpretation ABG results: PT/INR, D-dimer PT 11.6 Seconds (9.4-12.1) 05/24/18 04:31 D-Dimer 540 ng/mLFEU (0-500) H 05/21/18 08:58 - VTE Documentation of Mechanical Device: Intermittent pneumatic compression device Consult Discharge Plan - Plan Referrals: Cynthia Woo MD [Primary Care Provider] - Tono Mccoy MD [Partnered Physician] - 05/25/18 9:00 am (1) COPD (chronic obstructive pulmonary disease) Qualifiers: COPD type: emphysema Emphysema type: panlobular Qualified Code(s): J43.1 - Panlobular emphysema (2) Hypertension Qualifiers: Hypertension type: essential hypertension Qualified Code(s): I10 - Essential (primary) hypertension
[2018-05-25] MEDS ORDERED: *HR* Propofol 200 MG/20 ML VIAL IVP ONE (13:41)
[2018-05-25] MEDS ORDERED: *HR* FentaNYL (PF) 100 MCG/2 ML VIAL ONE (13:42)
[2018-05-25] MEDS ORDERED: Lidocaine -MPF 2% 2 ML VIAL ONE (13:43)
[2018-05-25] MEDS ORDERED: *HR* Succinylcholine 200 MG/10 ML VIAL IVP ONE ×2 (13:43→13:44)
[2018-05-25] MEDS ORDERED: Ondansetron 4 MG/2 ML VIAL ONE (14:21)
[2018-05-25] MEDS ORDERED: Dexamethasone 4 MG/ML VIAL ONE (14:21)
[2018-05-25] MEDS ORDERED: Albuterol 2.5 MG/3 ML NEBULIZER ONE (15:05)
[2018-05-25] MEDS ORDERED: Albuterol 2.5 MG/3 ML NEBULIZER IH ONE (15:09)
[2018-05-25] MEDS ORDERED: *HR* Promethazine 25 MG/ML VIAL ONE (15:11)
[2018-05-25] MEDS: *HR* Promethazine 25 MG/ML VIAL IVP PRN ×2 (15:11→15:21)
--- NOTE | 2018-05-25 15:36 | Anesthesia Evaluation Post Op ---
Date of Encounter: 05/25/18 Time of Encounter: 15:35 - Vital Signs Vital Signs: Vital Signs/O2 Sat/Glucose, Most Current Temp Pulse Resp BP Pulse Ox 05/25/18 15:25 65 18 136/67 92 05/25/18 15:15 78 20 142/82 94 05/25/18 15:05 76 22 148/85 94 05/25/18 14:55 100.1 F H 77 16 147/87 95 05/25/18 13:36 98.0 F 60 18 166/76 93 05/25/18 11:48 98.3 F 113 18 158/82 92 - Lungs Lungs: Clear Ascult./Percussion - Airway Airway: Non-obstructed - Cardiovascular Regular Rate - Mental Status Mental Status: Alert & Oriented, Answers Appropriately - Pain Pain Scale: 0 - Nausea Vomiting Nausea Vomiting: Not Present - Hydration Hydration: Ice chips - Discharge PostOp Status: Transfer Patient to floor
[2018-05-25] MEDS: Nicotine 21 MG PATCH.TD24 TD SCH (16:25)
[2018-05-25] MEDS ORDERED: Isovue-370 500 ML INFUS..BTL IV ONE (17:06)
--- NOTE | 2018-05-25 17:53 | Oncology Inp Consult Note ---
<Samantha Nuñez L - Last Filed: 05/26/18 15:15> Date of Encounter: 05/26/18 Time of Encounter: 17:00 Assessment and Plan (1) Mediastinal lymphadenopathy Status: Acute Assessment and plan: CT of the chest without contrast revealed obstructive pneumonitis of the left lower lobe as well as extensive mediastinal left hilar lymphadenopathy and small left pleural effusion. CT of the abdomen/pelvis with IV and oral contrast reveals suspicious enlarged gastrophepatic ligament lymph node, no other findings concerning for metastatic disease on non-contrast exam. LDH-Normal S/P Bronchoscopy 05/25/2018 with friable mucosa in the left mainstem, and narrowing of the left mainstem bronchus with a malignant appearing lesion, FRANCES is suggestive of malignancy. Final pathology is pending. Plan: We discussed radiographic imaging which is concerning for lung cancer, particularly small cell lung cancer, although non small cell subtype still remains possibility. She will need outpatient PET scan next Thursday to determine limited versus extensive stage disease, prognosis and modality of treatment. If small cell carcinoma is confirmed and patient has evidence of limited stage disease we will plan for outpatient concurrent treatment with chemoradiotherapy If small cell carcinoma is confirmed and patient has evidence of distant metastasis or extensive stage disease will plan to initiate outpatient treatment with chemotherapy. Treatment options will change if pathology results with non-small lung cancer, patient is aware that no final pathology has been confirmed At this time, it does appear that patient may have limited stage disease, PET s can will ultimately determine this Further workup up and treatment will be explored on an outpatient basis, oncology is ok with d/c when cleared by medical team Patient will plan to follow up with Dr. Maloney as well as radiation oncology on Thursday, May 09 to initiate treatment She does live alone, still drives but is worried about having assistance from others for transportation to appointments, manager social services has been consulted for information on transportation assistance Patient is requesting that I call her sister in law Ambreen with an update on the above In addition to this, patient was given verbal as well as written education materials on chemotherapy education. Extensive education on carboplatin and etoposide was reviewed with patient. Side effects may include but are not limited to nausea, vomiting, diarrhea, constipation, myelosuppression and risk for infection, neuropathy, hair loss, fatigue, mucositis and mouth sores, nephrotoxicity, risk for potential reaction/anaphylactic shock and ototoxicity, among others. Logistics on chemotherapy clinic processes were discussed. Chemotherapy calendar will be provided on first day of treatment. Safe handling of body excretions were discussed. Patient was advised on serious risk for infection and need to call the office immediately for fever 100.4 or greater. Patient will be given chemotherapy education folder which includes potential symptoms patient may experience along with supportive measures and when to call for certain symptoms. - Data of Consult Patient: new to practice Consult date: 05/26/18 Requesting Physician: Nia Jimenez MD Primary Care Provider: Cynthia Woo MD - Consult Narrative Reason for consult: Left hilar/mediastinal lymphadenopathy History of present illness: Ms. Maloney is a 72 year old female who presented to [facility] ER on 05/21/2018 with report of increasing shortness of breath from baseline. He reports that she has had shortness of breath for years secondary to smoking and COPD but over the pa st month or two this has progressively worsened. She is unable to walk from her apartment to nearby laundry station within her complex without getting significantly short of breath. Her shortness of breath worsened to the point prior to her presentation when she was unable to walk from the couch to the bathroom without getting short of breath. She has noticed hemoptysis with bright red blood over the past 2 weeks. She was recently diagnosed with A. fib in February and has been on Xarelto. In the ER she was found to be in A. fib with RVR she was given Cardizem and converted to normal sinus rhythm. She had a CT of the chest which revealed obstructive pneumonitis of the left lower lobe as well as extensive mediastinal left hilar lymphadenopathy and small left pleural effusion. Pulmonology was consulted. She underwent bronchoscopy today which revealed friable mucosa in the left mainstem, and narrowing of the left mainstem bronchus with a malignant appearing lesion, FRANCES is suggestive of malignancy. Patient reports weight loss of about 7 pounds within the past 2-3 months despite good appetite. She reports significant fatigue and shortness of breath as discussed above. She denies fever, chills, night sweats, chest pain, palpitations, abdominal pain, nausea, vomiting, headache, visual changes, focal weakness, or calf pain/edema/erythema. She uses oxygen at night. She is a long-term smoker for almost 60 years currently smokes 5-10 cigarettes per day, at most smoked one pack per day. She has no personal history of cancer. Family history of cancer which includes son who recently earlier this year at the age of 41 from colon cancer, both of her daughters were diagnosed with cervical cancer in their 20s to 30s. She lives alone in an apartment complex in [place]. She still drives but states she does not have any other close family members who do not work, she does not have other reliable friends/family for assistance with transportation. Past Med Surg Social Fam HX - Past Medical History Medical history: atrial fibrillation, COPD, coronary artery disease, DVT, hyperlipidemia, hypertension Psychiatric history: anxiety, depression - Past Surgical History Surgical History: angioplasty/stent, , cholecystectomy, hysterectomy Additional surgical history: cardiac stent x 1. c section x2. partial hysterectomy - Social History Smoking Status: Current every day smoker Alcohol use: none Drug use: none - Family History Mother Living Status: Hx Family Cardiac Disorders: Yes Hx Family Respiratory Disorders: Yes (COPD, Trach) Father Living Status: Hx Family Cardiac Disorders: Yes (stroke x2) Son Cause of : colon cancer Hx Family Cancer: Yes Medications and Allergies Albuterol Sulfate [Proair Hfa] 2 puff IH Q6H PRN 02/26/18 [History] Aspirin [Lo-Dose Aspirin EC] 81 mg PO DAILY 02/26/18 [History] Buspirone HCl [Buspar] 5 mg PO BID 02/26/18 [History] Cholecalciferol (D-3) [Vitamin D] 2,000 unit PO DAILY 02/26/18 [History] Docusate Sodium [Dok] 100 mg PO BID PRN 02/26/18 [History] Estradiol 1.5 mg PO DAILY 02/26/18 [History] Fluticasone/Salmeterol [Advair 250-50 Diskus] 1 puff IH BID 02/26/18 [History] Lisinopril [Zestril] 10 mg PO DAILY 02/26/18 [History] Loratadine [Allergy Relief] 10 mg PO DAILY 02/26/18 [History] Meloxicam [Mobic] 15 mg PO DAILY PRN 02/26/18 [History] Montelukast [Singulair] 10 mg PO DAILY 02/26/18 [History] Nitroglycerin [Nitrostat] 0.4 mg SL Q5M PRN 02/26/18 [History] Ranitidine HCl [Zantac] 300 mg PO DAILY 02/26/18 [History] Sertraline [Zoloft] 200 mg PO DAILY 02/26/18 [History] Simvastatin [Zocor] 40 mg PO HS 02/26/18 [History] Umeclidinium [place] [Incruse Ellipta] 1 puff IH DAILY 02/26/18 [History] hydroCHLOROthiazide [Hydrochlorothiazide] 25 mg PO DAILY PRN 02/26/18 [History] Metoprolol [Lopressor] 25 mg PO BID 30 Days #30 tablet 02/28/18 [Rx] Rivaroxaban [Xarelto] 20 mg PO 1700 90 Days #90 tablet 02/28/18 [Rx] Allergy/AdvReac Type Severity Reaction Status Date / Time ciprofloxacin [From Cipro] Allergy Rash Verified 05/21/18 11:58 codeine Allergy Fatigued Verified 05/21/18 11:58 diphenhydramine Allergy Rash Verified 05/21/18 11:58 [From Benadryl] egg Allergy Nausea Verified 05/21/18 11:58 gabapentin Allergy Anxiety Verified 05/21/18 11:58 Iodinated Contrast- Oral and Allergy Rash Verified 05/21/18 11:58 IV Dye [Iodinated Contrast Media - IV Dye] Penicillins Allergy Rash Verified 05/21/18 11:58 propoxyphene Allergy Rash Verified 05/21/18 11:58 Sulfa (Sulfonamide Allergy Rash Verified 05/21/18 11:58 Antibiotics) Constitutional: Present: anorexia, fatigue, weakness, weight loss. Absent: chills, fever(s), headache(s) Eyes: Absent: change in vision Nose, mouth and throat: Absent: dysphagia, mouth lesions Cardiovascular: Absent: chest pain, palpitations Respiratory: Present: as per HPI, cough, dyspnea, hemoptysis Gastrointestinal: Absent: abdominal pain, change in bowel habits, hematemesis, hematochezia, melena, nausea, vomiting Genitourinary: Absent: dysuria Musculoskeletal: Present: muscle weakness Integumentary: Absent: rash, wounds Neurological: Absent: focal weakness, frequent falls Hematologic/Lymphatic: Present: as per HPI Oncology - Exam - Constitutional General appearance: cooperative, no acute distress, no febrile - Head Head exam: Present: atraumatic - ENT ENT exam: Present: mucous membranes moist, normal oropharynx - Neck Neck exam: Absent: lymphadenopathy - Respiratory Respiratory exam: Present: decreased breath sounds. Absent: respiratory distress - Cardiovascular Cardiovascular exam: Present: RRR, +S1, +S2, systolic murmur - GI/Abdominal GI/Abdominal exam: Present: normal bowel sounds, soft. Absent: guarding, rebound, tenderness - Extremities Exam Extremities exam: Present: normal inspection. Absent: calf tenderness - Neurological Exam Neurological exam: Present: alert, oriented X3, no focal deficits, strengths equal and symetr throughout - Psychiatric Psychiatric exam: Present: normal affect, normal mood - Skin Skin exam: Present: dry, intact, normal color, warm Consult Discharge Plan - Plan Referrals: Cynthia Woo MD [Primary Care Provider] - Tono Mccoy MD [Partnered Physician] - 05/25/18 9:00 am Inpatient Charges Provider: Dr. Michaela Maloney <Floyd Maloney - Last Filed: 05/26/18 21:49> Date of Encounter: 05/26/18 - Data of Consult Requesting Physician: Nia Jimenez MD Primary Care Provider: Cynthia Woo MD - Attending Attestation I have seen and examined Ms. Maloney and agree with Ms. Nuñez's assessment. Mr. 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 She initially presented with afib with RVR which is being medically managed. She is NSR. She has atelectasis of the LLL secondary to early obsruction. She is breathing and oxygenating well. MRI brain and CT A/P wi thout obvious evidence of metastatic disease. To complete staging, PET/CT has been arranged for next Thursday. I have tentatively scheduled her to start chemotherapy as an outpatient on Thursday with me. This was d/w the patient today and the plan will be finalized pending pathology and staging. F/U scheduled for Thursday. She may d/c from our perspective. Inpatient Charges Provider: Dr. Michaela Maloney Consult - Inpatient Medicare Only: [id number]
[2018-05-26] MEDS: Acetaminophen 325 MG TABLET PO PRN ×2 (07:16→21:28)
[2018-05-26] MEDS: Budesonide/Formoterol 160/4.5 1 PUFF INH IH SCH ×2 (07:57→20:23)
[2018-05-26] MEDS ORDERED: Isovue-370 500 ML INFUS..BTL IV ONE (07:59)
[2018-05-26 08:08] LABS: Source of Body Fluid LEFT LOWER LOBE LUNG
[2018-05-26 08:55] LABS: Appearance of Body Fluid Hazy (Clear); Volume of Body Fluid 16 mL
[2018-05-26] MEDS ORDERED: methylPREDNISolone 125 MG/2 ML VIAL IVP STA (09:00)
[2018-05-26] MEDS ORDERED: MethylPREDNISolone 40 MG/ML VIAL IVP SCH (09:00)
[2018-05-26] MEDS: Doxycycline 100 MG CAPSULE PO SCH ×2 (09:17→21:27)
[2018-05-26] MEDS: Aspirin Enteric Coated 81 MG Tablet PO SCH (09:17)
--- NOTE | 2018-05-26 10:20 | Internal Med Progress Note ---
Hospitalist Progress Note - Encounter Date of Encounter: 05/26/18 Time of Encounter: 10:18 - Subjective Interval History: Patient seen and examined this morning. No overnight events. Breathing improved. Denies new complaints. No fevers chills nausea vomiting or diarrhea. Appears anxious with depressed affect. - Exam Vitals: Temp Pulse Resp BP Pulse Ox 98.6 F 68 18 155/79 92 05/26/18 06:49 05/26/18 06:49 05/26/18 07:45 05/26/18 06:49 05/26/18 07:45 Exam: General: Patient is in no acute distress. CVS: Normal sinus rhythm, S1 and S2 audible, no murmur or rubs Respiratory: CTAB. No acute distress. not using accessory muscles. Abdomen: Soft, nontender, nondistended, + bowel sounds in all 4 quadrants Extremities: Warm, dry, trace lower extremity edema. Normal capillary refill. Neuro: Alert and oriented and follows commands. Grossly no neuro deficits. Psych: depressed affect and anxious. - Assessment and Plan (1) COPD (chronic obstructive pulmonary disease) Current Visit: No Status: Chronic (2) Hypertension Current Visit: No Status: Chronic (3) Lung mass Current Visit: Yes Status: Acute (4) Tobacco abuse Current Visit: Yes Status: Chronic (5) Pleural effusion Current Visit: Yes Status: Acute (6) DVT prophylaxis Current Visit: Yes Status: Acute (7) Chest pain at rest Current Visit: Yes Status: Acute - Summary of Assessment and Plan Summary of Assessment and Plan: Lt Lung mass - Had EBUS yesterday. Finding suggesting of malignancy. Final results pending - May start inpatient treatment by oncology. Awaiting final path report. - f/u CT abdomen/pelvis for staging COPD - change solumedrol to prednisone - Duo-nebs PRN and home singulair , symbicort - c/w Doxycycline PO 100mg BID Hypertension - Continue with home medications Pleural effusion - Most likely secondary to lung mass - pulmonology deferring thoracentesis at this time does not needed for diagnosis Chest pain at rest - [id number] of 4 - Suspect secondary to A-Fib RVR, COPDE and lung pathology - Stress test was negative in February history of CAD remote history of PCI with stent started on Xarelto for A. fib - TTE with LVEF 60-65%, NWM, no PHTN - trop negative x3. Now chest pain free - Resume xarelto. c/w lopressor BID. anxiety/depression - c/w zoloft, buspirone and temazepam. - Time Spent with Patient Total time spent is greater than 50% in coordination of care (as documented) at patient's floor/unit and/or counseling patient: Internal Medicine: Result - Labs CBC & Chem 7: 05/24/18 04:31 05/24/18 04:31 - ABG Interpretation ABG results: PT/INR, D-dimer PT 11.6 Seconds (9.4-12.1) 05/24/18 04:31 D-Dimer 540 ng/mLFEU (0-500) H 05/21/18 08:58 - VTE Documentation of Mechanical Device: Intermittent pneumatic compression device Consult Discharge Plan - Plan Referrals: Cynthia Woo MD [Primary Care Provider] - Tono Mccoy MD [Partnered Physician] - 05/25/18 9:00 am (1) COPD (chronic obstructive pulmonary disease) Qualifiers: COPD type: emphysema Emphysema type: panlobular Qualified Code(s): J43.1 - Panlobular emphysema (2) Hypertension Qualifiers: Hypertension type: essential hypertension Qualified Code(s): I10 - Essential (primary) hypertension
[2018-05-26] MEDS: Nicotine 21 MG PATCH.TD24 TD SCH (12:40)
[2018-05-27] MEDS: Budesonide/Formoterol 160/4.5 1 PUFF INH IH SCH (07:42)
[2018-05-27] MEDS: Aspirin Enteric Coated 81 MG Tablet PO SCH (08:39)
[2018-05-27] MEDS: Doxycycline 100 MG CAPSULE PO SCH (08:39)
[2018-05-27] MEDS ORDERED: predniSONE 20 MG TABLET PO SCH (09:00)
--- NOTE | 2018-05-27 09:50 | Discharge Summary ---
- NOTES TO OUTPATIENT PROVIDER Notes to Outpatient Provider: Patient would need PET scan and oncology follow-up for starting chemotherapy for newly diagnosed lung cancer.(? small cell). Follow-up pathology report. Orders not resulted at time of discharge: Pending orders 05/25/18 Culture,Respiratory [RM] Routine 05/25/18 14:40 Cytology [PTH] Routine Date of Encounter: 05/27/18 Time of Encounter: 09:49 - Discharge Diagnosis (1) COPD (chronic obstructive pulmonary disease) Priority: Primary Status: Chronic Qualifiers: COPD type: emphysema Emphysema type: panlobular Qualified Code(s): J43.1 - Panlobular emphysema (2) Hypertension Priority: Secondary Status: Chronic Qualifiers: Hypertension type: essential hypertension Qualified Code(s): I10 - [place] (primary) hypertension (3) Lung mass Priority: Primary Status: Acute (4) Tobacco abuse Priority: Secondary Status: Chronic (5) Pleural effusion Priority: Secondary Status: Acute (6) DVT prophylaxis Priority: Secondary Status: Acute (7) Chest pain at rest Priority: Primary Status: Acute (8) Atrial fibrillation Priority: Primary Status: Acute Qualifiers: Atrial fibrillation type: chronic Qualified Code(s): I48.2 - Chronic atrial fibrillation (9) Lung cancer Priority: Primary Status: Acute Qualifiers: Laterality: left Qualified Code(s): C34.92 - Malignant neoplasm of unspecified part of left bronchus or lung (10) Pneumonia Priority: Primary Status: Acute Qualifiers: Pneumonia type: due to unspecified organism Laterality: left Lung location: lower lobe of lung Qualified Code(s): J18.1 - Lobar pneumonia, unspecified organism (11) Anxiety Priority: Secondary Status: Chronic Hospital course: Ms. Maloney is a 72 year old female past medical history of COPD, A. fib, hypertension came in complaining of bilateral chest pain and palpitation. Patient was found to have lung mass on CT also associated with lymphadenopathy associated with postobstructive pneumonia. Patient was also noted to have A. fib with RVR which was controlled with Cardizem and resuming her home medication along with her xarelto. Patient was also treated for COPD exacerbation and pneumonia with breathing treatment cefepime and doxycycline. Patient underwent EBUS and had biopsy taken. Patient with chest pain was likely from pulmonary process. She remained chest pain-free after. Oncology was also consulted for lung cancer based on preliminary report on endoscopy concerning for possible small cell cancer. Patient was not started on any chemotherapy while inpatient. Patient stable and would be discharged today to finish 10 day course of doxycycline as well as steroids. Patient would follow up with oncology for PET scan as well as starting chemotherapy. Discharge discussed with: patient, nurse, social work - Time Spent with Patient Total time spent providing and/or coordinating discharge services: Greater than 30 minutes (42) - Discharge Medications Prescriptions: Doxycycline 100 mg PO BID 3 Days #6 capsule predniSONE [PredniSONE] 40 mg PO DAILY 3 Days #6 tablet Home Medications: Albuterol Sulfate [Proair Hfa] 2 puff IH Q6H PRN 02/26/18 [History] Aspirin [Lo-Dose Aspirin EC] 81 mg PO DAILY 02/26/18 [History] Buspirone HCl [Buspar] 5 mg PO BID 02/26/18 [History] Cholecalciferol (D-3) [Vitamin D] 2,000 unit PO DAILY 02/26/18 [History] Docusate Sodium [Dok] 100 mg PO BID PRN 02/26/18 [History] Estradiol 1.5 mg PO DAILY 02/26/18 [History] Fluticasone/Salmeterol [Advair 250-50 Diskus] 1 puff IH BID 02/26/18 [History] Lisinopril [Zestril] 10 mg PO DAILY 02/26/18 [History] Loratadine [Allergy Relief] 10 mg PO DAILY 02/26/18 [History] Montelukast [Singulair] 10 mg PO DAILY 02/26/18 [History] Nitroglycerin [Nitrostat] 0.4 mg SL Q5M PRN 02/26/18 [History] Ranitidine HCl [Zantac] 300 mg PO DAILY 02/26/18 [History] Sertraline [Zoloft] 200 mg PO DAILY 02/26/18 [History] Simvastatin [Zocor] 40 mg PO HS 02/26/18 [History] Umeclidinium [place] [Incruse Ellipta] 1 puff IH DAILY 02/26/18 [History] hydroCHLOROthiazide [Hydrochlorothiazide] 25 mg PO DAILY PRN 02/26/18 [History] Metoprolol [Lopressor] 25 mg PO BID 30 Days #30 tablet 02/28/18 [Rx] Rivaroxaban [Xarelto] 20 mg PO 1700 90 Days #90 tablet 02/28/18 [Rx] Doxycycline 100 mg PO BID 3 Days #6 capsule 05/27/18 [Rx] predniSONE [PredniSONE] 40 mg PO DAILY 3 Days #6 tablet 05/27/18 [Rx] Allergies/Adverse Reactions: Allergy/AdvReac Type Severity Reaction Status Date / Time ciprofloxacin [From Cipro] Allergy Rash Verified 05/21/18 11:58 codeine Allergy Fatigued Verified 05/21/18 11:58 diphenhydramine Allergy Rash Verified 05/21/18 11:58 [From Benadryl] egg Allergy Nausea Verified 05/21/18 11:58 gabapentin Allergy Anxiety Verified 05/21/18 11:58 Iodinated Contrast- Oral and Allergy Rash Verified 05/21/18 11:58 IV Dye [Iodinated Contrast Media - IV Dye] Penicillins Allergy Rash Verified 05/21/18 11:58 propoxyphene Allergy Rash Verified 05/21/18 11:58 Sulfa (Sulfonamide Allergy Rash Verified 05/21/18 11:58 Antibiotics) Date of admission: 05/22/18 17:06 Primary care physician: Cynthia Woo MD Consults: 05/21/18 11:03 Consult to Pulmonology [CONS] Stat Consulting Provider: [facility] [place] Reason for Consult: mediastinal lymphnodes, broncial obstruction, likely mass Time Notified: 11:06 Call Completed: Yes 05/25/18 16:20 Consult to Oncology [CONS] Routine Consulting Provider: [facility] Reason for Consult: lung cancer Call Completed: Yes 05/26/18 15:18 Consult to [facility] [CONS] Routine Reason for SW Consult: lives alone in apartment complex, has transportation concerns-needing assistance with transportation to cancer tx appointments Discharging clinician: Nia Jimenez - Constitutional Vitals: Temp Pulse Resp BP Pulse Ox 98.6 F 63 18 159/82 91 05/27/18 06:56 05/27/18 06:56 05/27/18 07:48 05/27/18 06:56 05/27/18 07:48 Exam: General: Patient is in no acute distress. CVS: Normal sinus rhythm, S1 and S2 audible, no murmur or rubs Respiratory: CTAB. No acute distress. not using accessory muscles. Abdomen: Soft, nontender, nondistended, + bowel sounds in all 4 quadrants Extremities: Warm, dry, trace lower extremity edema. Normal capillary refill. Neuro: Alert and oriented and follows commands. Grossly no neuro deficits. Psych: depressed affect and anxious. - Patient Status Disposition: Home, Self-Care Condition: Fair - Ambulatory Orders Ambulatory Orders: PET CT skull to thigh DX/initi [PE] Time Frame: 06/02/18, Facility: [facility], Location: Radiology - Discharge Instructions Follow Up With: Cynthia Woo MD [Primary Care Provider] - Tono Mccoy MD [Partnered Physician] - 05/25/18 9:00 am - Diet and Activity Activity: increase activity as tolerated - VTE Documentation of Mechanical Device: Intermittent pneumatic compression device
[2018-05-27 11:07] VITALS: BP 104/45
[2018-05-27] MEDS: Nicotine 21 MG PATCH.TD24 TD SCH (11:45)
[2018-05-27] MEDS ORDERED: *HR* Rivaroxaban 10 MG TABLET PO SCH (17:00)
== END 2018-05-27 11:48 | disposition home or self-care (01) | DRG 166 ==
LOC: EMEROOARM 08:49 → 3BNU 08:49 → SUATTDRO 05-22 17:06 → 2ANU 05-24 17:11
PROVIDERS: ADMIT Hospitalist; ATTEND Internal Medicine

== ENCOUNTER 2018-08-04 07:44 | Observation (INO) ==
--- NOTE | 2018-08-04 07:58 | Emergency Department Note ---
Disposition Clinical Impression: Lung cancer Anemia Qualifiers: Anemia type: unspecified type Qualified Code(s): D64.9 - Anemia, unspecified Disposition: Admitted As Inpatient Referrals: NONE,PCP [Primary Care Provider] - Forms: ED Satisfaction Letter Time of Disposition: 13:04 Chest Pain HPI - General Chief Complaint: ED Chest Pain Stated Complaint: chest pain Time Seen by Provider: 08/04/18 07:48 Source: patient, EMS Mode of arrival: EMS Limitations: no limitations Vital Signs Reviewed: Yes Nursing Notes Reviewed: Yes - History of Present Illness HPI Narrative: 73 yo female with past medical history of lung cancer currently being treated by Dr. Maloney presents to the emergency department with chest pain that started this morning. She states she has been having increased shortness of breath over the last 4 days and this morning she got some right-sided chest tightness that woke her from sleep. She do not try to take anything at home to relieve this pain wishes waiting for her to go away. After a while she cannot stand the pain anymore and called EMS. She was given [address] the way over here and she said this decreased her chest tightness from an 8 out of 10 to a 6 out of 10. She states she is still feeling very uncomfortable at this time. She is no rmally on 2 L of oxygen at home for her COPD, and also has a history of atrial fibrillation and 1 cardiac stent. She had a blood clot in her groin after her heart catheter but has never had a spontaneous blood clot. She denies history of heart attack. - Related Data Home Medications Medication Instructions Recorded Confirmed Albuterol Sulfate [Proair Hfa] 2 puff IH Q6H PRN 02/26/18 07/14/18 Aspirin [Lo-Dose Aspirin EC] 81 mg PO DAILY 02/26/18 07/14/18 Buspirone HCl [Buspar] 5 mg PO BID 02/26/18 07/14/18 Cholecalciferol (D-3) [Vitamin D] 2,000 unit PO DAILY 02/26/18 07/14/18 Docusate Sodium [Dok] 100 mg PO BID PRN 02/26/18 07/14/18 Estradiol 1.5 mg PO DAILY 02/26/18 07/14/18 Fluticasone/Salmeterol [Advair 1 puff IH BID 02/26/18 07/14/18 250-50 Diskus] Lisinopril [Zestril] 10 mg PO DAILY 02/26/18 07/14/18 Loratadine [Allergy Relief] 10 mg PO DAILY 02/26/18 07/14/18 Montelukast [Singulair] 10 mg PO DAILY 02/26/18 07/14/18 Nitroglycerin [Nitrostat] 0.4 mg SL Q5M PRN 02/26/18 07/14/18 Sertraline [Zoloft] 200 mg PO DAILY 02/26/18 07/14/18 Simvastatin [Zocor] 40 mg PO HS 02/26/18 07/14/18 Umeclidinium [place] [Incruse 1 puff IH DAILY 02/26/18 07/14/18 Ellipta] hydroCHLOROthiazide 25 mg PO DAILY PRN 02/26/18 07/14/18 [Hydrochlorothiazide] Previous Rx's Medication Instructions Recorded Metoprolol [Lopressor] 25 mg PO BID 30 Days #30 tablet 02/28/18 Rivaroxaban [Xarelto] 20 mg PO 1700 90 Days #90 tablet 02/28/18 Omeprazole [PriLOSEC] 20 mg PO DAILY 30 Days #30 cap 05/31/18 Promethazine [Phenergan] 25 mg PO Q6HR PRN #30 tablet 06/01/18 OLANZapine [Zyprexa] 10 mg PO DAILY #24 tablet 06/23/18 Allergies Allergy/AdvReac Type Severity Reaction Status Date / Time ciprofloxacin [From Cipro] Allergy Rash Verified 08/04/18 07:48 codeine Allergy Fatigued Verified 08/04/18 07:48 diphenhydramine Allergy Rash Verified 08/04/18 07:48 [From Benadryl] egg Allergy Nausea Verified 08/04/18 07:48 gabapentin Allergy Anxiety Verified 08/04/18 07:48 Iodinated Contrast- Oral and Allergy Rash Verified 08/04/18 07:48 IV Dye [Iodinated Contrast Media - IV Dye] Penicillins Allergy Rash Verified 08/04/18 07:48 propoxyphene Allergy Rash Verified 08/04/18 07:48 Sulfa (Sulfonamide Allergy Rash Verified 08/04/18 07:48 Antibiotics) All systems ED: reviewed and negative except as stated. Review of Systems: As Per HPI Constitutional: Denies: fever, chills, weakness Cardiovascular: Reports: chest pain, dyspnea on exertion. Denies: palpitations, orthopnea, edema, syncope Respiratory: Reports: cough, dyspnea. Denies: wheezes, hemoptysis, stridor Gastrointestinal: Reports: nausea. Denies: abdominal pain, vomiting, diarrhea, constipation Genitourinary: Denies: dysuria, hematuria Musculoskeletal: Denies: back pain, neck pain Integumentary: Denies: rash Neurological: Denies: headache Endocrine: Reports: fatigue Chest Pain PMH - Past Medical History Medical history: Reports: atrial fibrillation, COPD, coronary artery disease, DVT, hyperlipidemia, hypertension Surgical history: Reports: angioplasty/stent, , cholecystectomy, hysterectomy Psychiatric history: Reports: anxiety, depression - Social History Smoking Status: Former smoker Alcohol use: Reports: none Drug use: Reports: none Physical Exam - General Limitations: no limitations General appearance: alert, anxious - Head Head exam: atraumatic, normocephalic - Eye Eye exam: Present: normal appearance, PERRL, EOMI - ENT ENT exam: normal exam, normal oropharynx - Neck Neck exam: Present: normal inspection. Absent: tenderness, lymphadenopathy - Chest Chest inspection: Present: normal inspection, symmetric chest wall rise. Absent: tenderness, rash - Respiratory Respiratory exam: Present: normal lung sounds bilaterally - Cardiovascular Cardiovascular exam: Present: regular rate, normal rhythm - Abdominal Exam Abdominal exam: Present: soft, Non-Tender. Absent: distention, guarding, rebound, rigidity - Extremities Exam Extremities exam: Present: normal inspection, normal capillary refill, other (Pulses equal in all 4 extremities). Absent: pedal edema, calf tenderness - Neurological Exam Neurological exam: Present: alert, oriented X3 - Psychiatric Psychiatric exam: Present: anxious - Skin Skin exam: Present: warm, dry, intact Course Vital Signs Temperature 99 F 08/04/18 07:49 Pulse Rate 71 08/04/18 07:49 Respiratory Rate 08/04/18 07:49 Blood Pressure 126/94 08/04/18 07:49 O2 Sat by Pulse Oximetry 100 08/04/18 07:49 Temperature 99 F 08/04/18 07:49 Pulse Rate 63 08/04/18 11:13 Respiratory Rate 20 08/04/18 11:13 Blood Pressure 114/71 08/04/18 11:13 O2 Sat by Pulse Oximetry 99 08/04/18 11:13 Oxygen Delivery Oxygen Delivery Nasal Cannula Chest Pain - MDM Narrative Medical decision making narrative: This patient with history of lung cancer currently on chemotherapy presents to the emergency department with shortness of breath and right-sided chest pain. She has a risk for ACS versus PE versus pneumonia versus worsening lung cancer. We will do a chest pain workup and add on a CTA of her chest. 1300Patient's lab work shows anemia with a hemoglobin of 7.1. This is a drop from her previous CBC showing hemoglobin of 9.[address] scan showed worsening left-sided atelectasis without any evidence of pneumonia, pleural effusion, pulmonary embolus. Other lab work was within normal range. Dr. Maloney, oncologist was called and his nurse practitioner recommends transfusing her with a unit of blood and admitting her to the hospital to have further workup and treatment of her cancer done while she is here. Patient is agreeable with this plan of care. Dr. Jimenez, hospitalist, has accepted the patient at this time. - Medical Records Medical records reviewed: Yes I reviewed the patient's medical records. - Lab Data Lab results reviewed: Yes I reviewed the patient's lab results. Result diagrams: 08/04/18 09:07 08/04/18 09:07 Lab Results 08/04/18 08/04/18 08/04/18 Range/Units 08:08 08:08 08:08 WBC (4.3-11.1) K/mcL RBC (3.82-4.97) M/mcL Hgb (11.5-15.4) g/dL Hct (35.3-44.9) % MCV (83.0-100.0) fL MCH (28.0-33.3) pg MCHC (31.6-35.5) g/dL RDW (11.5-14.5) % Plt Count (140-400) K/mcL MPV (9.4-12.4) fL Immature Gran % (0-4) % Seg Neutrophils % % Lymphocytes % % Monocytes % % Eosinophils % % Basophils % % Neutrophils # (1.6-8.9) K/mcL Lymphocytes # (0.6-4.6) K/mcL Monocytes # (0.0-1.3) K/mcL Eosinophils # (0.0-0.6) K/mcL Basophils # (0.0-0.2) K/mcL PT 15.2 H (9.4-12.1) Seconds INR 1.4 APTT 29.9 (26.0-36.0) Seconds D-Dimer 367 (0-500) ng/mLFEU Sodium Cancelled Potassium Cancelled Chloride Cancelled Carbon Dioxide Cancelled BUN Cancelled Creatinine Cancelled Est GFR ( Amer) Cancelled Est GFR (Non-Af Amer) Cancelled BUN/Creatinine Ratio Cancelled Glucose Cancelled Calculated Osmolality Cancelled Calcium Cancelled Troponin I < 0.03 (< 0.04) ng/mL B-Natriuretic Peptide 182 H (Less than 100) pg/mL Specimen Rejected Blood Type Antibody Screen Crossmatch 08/04/18 08/04/18 08/04/18 Range/Units 08:08 08:08 09:07 WBC (4.3-11.1) K/mcL RBC (3.82-4.97) M/mcL Hgb (11.5-15.4) g/dL Hct (35.3-44.9) % MCV (83.0-100.0) fL MCH (28.0-33.3) pg MCHC (31.6-35.5) g/dL RDW (11.5-14.5) % Plt Count (140-400) K/mcL MPV (9.4-12.4) fL Immature Gran % (0-4) % Seg Neutrophils % % Lymphocytes % % Monocytes % % Eosinophils % % Basophils % % Neutrophils # (1.6-8.9) K/mcL Lymphocytes # (0.6-4.6) K/mcL Monocytes # (0.0-1.3) K/mcL Eosinophils # (0.0-0.6) K/mcL Basophils # (0.0-0.2) K/mcL PT (9.4-12.1) Seconds INR APTT (26.0-36.0) Seconds D-Dimer (0-500) ng/mLFEU Sodium 140 Potassium 4.1 Chloride 107 Carbon Dioxide 25 BUN 12 Creatinine 0.71 Est GFR ( Amer) > 60 Est GFR (Non-Af Amer) > 60 BUN/Creatinine Ratio 17 Glucose 103 Calculated Osmolality 290 Calcium 8.8 Troponin I (< 0.04) ng/mL B-Natriuretic Peptide (Less than 100) pg/mL Specimen Rejected Hemolyzed Clotted Blood Type Antibody Screen Crossmatch 08/04/18 08/04/18 Range/Units 09:07 10:43 WBC 6.6 (4.3-11.1) K/mcL RBC 2.35 L (3.82-4.97) M/mcL Hgb 7.1 L (11.5-15.4) g/dL Hct 22.5 L (35.3-44.9) % MCV 95.7 (83.0-100.0) fL MCH 30.2 (28.0-33.3) pg MCHC 31.6 (31.6-35.5) g/dL RDW 18.6 H (11.5-14.5) % Plt Count 171 (140-400) K/mcL MPV 10.1 (9.4-12.4) fL Immature Gran % 1.8 (0-4) % Seg Neutrophils % 74.5 % Lymphocytes % 16.6 % Monocytes % 5.9 % Eosinophils % 0.9 % Basophils % 0.3 % Neutrophils # 4.9 (1.6-8.9) K/mcL Lymphocytes # 1.1 (0.6-4.6) K/mcL Monocytes # 0.4 (0.0-1.3) K/mcL Eosinophils # 0.1 (0.0-0.6) K/mcL Basophils # 0.0 (0.0-0.2) K/mcL PT (9.4-12.1) Seconds INR APTT (26.0-36.0) Seconds D-Dimer (0-500) ng/mLFEU Sodium Potassium Chloride Carbon Dioxide BUN Creatinine Est GFR ( Amer) Est GFR (Non-Af Amer) BUN/Creatinine Ratio Glucose Calculated Osmolality Calcium Troponin I (< 0.04) ng/mL B-Natriuretic Peptide (Less than 100) pg/mL Specimen Rejected Blood Type O POSITIVE Antibody Screen NEGATIVE Crossmatch See Detail - Radiology Data Radiology results reviewed: Yes I reviewed the patient's radiology results. - EKG Data EKG attestation: Yes I reviewed and interpreted this EKG. EKG results narrative: EKG obtained at 17:57 on 08/04/2018 Heart rate 75 bpm, SC interval 157, QRS duration 95, QT 372, QTC 416 Sinus rhythm without any ST segment elevation or depressions. Nonspecific T- wave abnormalities in anterior leads. No old EKG for comparison. Heart Score - Score History: Slightly Suspicious EKG: Normal Age: Greater than 65 Risk Factors: Equal/Greater than 3 risk factor or history of atherosclerotic disease Troponin: Less than normal limit HEART Score Total: 4
[2018-08-04] MEDS ORDERED: Ipratropium/Albuterol Neb 3 ML IH ONE (08:29)
[2018-08-04] MEDS ORDERED: Isovue-370 500 ML BOTTLE IVP ONE (08:31)
--- NOTE | 2018-08-04 08:33 | Emergency Department Note ---
Disposition Clinical Impression: Anemia, Lung cancer Disposition: Admitted As Inpatient Forms: ED Satisfaction Letter General Adult HPI - General Chief complaint: ED Chest Pain Stated complaint: chest pain Time Seen by Provider: 08/04/18 07:48 Source: patient, EMS Mode of arrival: EMS Limitations: no limitations Nursing Notes Reviewed: Yes Vital Signs Reviewed: Yes - History of Present Illness Pain Scale: 7 - Related Data Home Medications Medication Instructions Recorded Confirmed Albuterol Sulfate [Proair Hfa] 2 puff IH Q6H PRN 02/26/18 07/14/18 Aspirin [Lo-Dose Aspirin EC] 81 mg PO DAILY 02/26/18 07/14/18 Buspirone HCl [Buspar] 5 mg PO BID 02/26/18 07/14/18 Cholecalciferol (D-3) [Vitamin D] 2,000 unit PO DAILY 02/26/18 07/14/18 Docusate Sodium [Dok] 100 mg PO BID PRN 02/26/18 07/14/18 Estradiol 1.5 mg PO DAILY 02/26/18 07/14/18 Fluticasone/Salmeterol [Advair 1 puff IH BID 02/26/18 07/14/18 250-50 Diskus] Lisinopril [Zestril] 10 mg PO DAILY 02/26/18 07/14/18 Loratadine [Allergy Relief] 10 mg PO DAILY 02/26/18 07/14/18 Montelukast [Singulair] 10 mg PO DAILY 02/26/18 07/14/18 Nitroglycerin [Nitrostat] 0.4 mg SL Q5M PRN 02/26/18 07/14/18 Sertraline [Zoloft] 200 mg PO DAILY 02/26/18 07/14/18 Simvastatin [Zocor] 40 mg PO HS 02/26/18 07/14/18 Umeclidinium [place] [Incruse 1 puff IH DAILY 02/26/18 07/14/18 Ellipta] hydroCHLOROthiazide 25 mg PO DAILY PRN 02/26/18 07/14/18 [Hydrochlorothiazide] Previous Rx's Medication Instructions Recorded Metoprolol [Lopressor] 25 mg PO BID 30 Days #30 tablet 02/28/18 Rivaroxaban [Xarelto] 20 mg PO 1700 90 Days #90 tablet 02/28/18 Omeprazole [PriLOSEC] 20 mg PO DAILY 30 Days #30 cap 05/31/18 Promethazine [Phenergan] 25 mg PO Q6HR PRN #30 tablet 06/01/18 OLANZapine [Zyprexa] 10 mg PO DAILY #24 tablet 06/23/18 Allergies Allergy/AdvReac Type Severity Reaction Status Date / Time ciprofloxacin [From Cipro] Allergy Rash Verified 08/04/18 07:48 codeine Allergy Fatigued Verified 08/04/18 07:48 diphenhydramine Allergy Rash Verified 08/04/18 07:48 [From Benadryl] egg Allergy Nausea Verified 08/04/18 07:48 gabapentin Allergy Anxiety Verified 08/04/18 07:48 Iodinated Contrast- Oral and Allergy Rash Verified 08/04/18 07:48 IV Dye [Iodinated Contrast Media - IV Dye] Penicillins Allergy Rash Verified 08/04/18 07:48 propoxyphene Allergy Rash Verified 08/04/18 07:48 Sulfa (Sulfonamide Allergy Rash Verified 08/04/18 07:48 Antibiotics) Constitutional: Denies: fever, chills, weakness Cardiovascular: Reports: chest pain, dyspnea on exertion. Denies: palpitations, orthopnea, edema, syncope Respiratory: Reports: cough, dyspnea. Denies: wheezes, hemoptysis, stridor Gastrointestinal: Reports: nausea. Denies: abdominal pain, vomiting, diarrhea, constipation Genitourinary: Denies: dysuria, hematuria Musculoskeletal: Denies: back pain, neck pain Integumentary: Denies: rash Neurological: Denies: headache Endocrine: Reports: fatigue Past Medical History - Past Medical History Medical history: Reports: atrial fibrillation, COPD, coronary artery disease, DV T, hyperlipidemia, hypertension Surgical history: Reports: angioplasty/stent, , cholecystectomy, hysterectomy Psychiatric history: Reports: anxiety, depression - Social History Smoking Status: Former smoker Smokeless Tobacco Status: No Alcohol use: Reports: none Drug use: Reports: none Physical Exam - General Limitations: no limitations General appearance: alert, anxious Course Vital Signs Temperature 99 F 08/04/18 07:49 Pulse Rate 71 08/04/18 07:49 Respiratory Rate 20 08/04/18 07:49 Blood Pressure 126/94 08/04/18 07:49 O2 Sat by Pulse Oximetry 100 08/04/18 07:49 Temperature 99 F 08/04/18 07:49 Pulse Rate 63 08/04/18 11:13 Respiratory Rate 20 08/04/18 11:13 Blood Pressure 114/71 08/04/18 11:13 O2 Sat by Pulse Oximetry 99 08/04/18 11:13 Oxygen Delivery Oxygen Delivery Nasal Cannula Medical Decision Making - Lab Data Result diagrams: 08/04/18 09:07 08/04/18 09:07 Lab Results 08/04/18 08/04/18 08/04/18 Range/Units 08:08 08:08 08:08 WBC (4.3-11.1) K/mcL RBC (3.82-4.97) M/mcL Hgb (11.5-15.4) g/dL Hct (35.3-44.9) % MCV (83.0-100.0) fL MCH (28.0-33.3) pg MCHC (31.6-35.5) g/dL RDW (11.5-14.5) % Plt Count (140-400) K/mcL MPV (9.4-12.4) fL Immature Gran % (0-4) % Seg Neutrophils % % Lymphocytes % % Monocytes % % Eosinophils % % Basophils % % Neutrophils # (1.6-8.9) K/mcL Lymphocytes # (0.6-4.6) K/mcL Monocytes # (0.0-1.3) K/mcL Eosinophils # (0.0-0.6) K/mcL Basophils # (0.0-0.2) K/mcL PT 15.2 H (9.4-12.1) Seconds INR 1.4 APTT 29.9 (26.0-36.0) Seconds D-Dimer 367 (0-500) ng/mLFEU Sodium Cancelled Potassium Cancelled Chloride Cancelled Carbon Dioxide Cancelled BUN Cancelled Creatinine Cancelled Est GFR ( Amer) Cancelled Est GFR (Non-Af Amer) Cancelled BUN/Creatinine Ratio Cancelled Glucose Cancelled Calculated Osmolality Cancelled Calcium Cancelled Troponin I < 0.03 (< 0.04) ng/mL B-Natriuretic Peptide 182 H (Less than 100) pg/mL Specimen Rejected Blood Type Antibody Screen Crossmatch 02/06/19 02/06/19 02/06/19 Range/Units 08:08 08:08 09:07 WBC (4.3-11.1) K/mcL RBC (3.82-4.97) M/mcL Hgb (11.5-15.4) g/dL Hct (35.3-44.9) % MCV (83.0-100.0) fL MCH (28.0-33.3) pg MCHC (31.6-35.5) g/dL RDW (11.5-14.5) % Plt Count (140-400) K/mcL MPV (9.4-12.4) fL Immature Gran % (0-4) % Seg Neutrophils % % Lymphocytes % % Monocytes % % Eosinophils % % Basophils % % Neutrophils # (1.6-8.9) K/mcL Lymphocytes # (0.6-4.6) K/mcL Monocytes # (0.0-1.3) K/mcL Eosinophils # (0.0-0.6) K/mcL Basophils # (0.0-0.2) K/mcL PT (9.4-12.1) Seconds INR APTT (26.0-36.0) Seconds D-Dimer (0-500) ng/mLFEU Sodium 140 Potassium 4.1 Chloride 107 Carbon Dioxide 25 BUN 12 Creatinine 0.71 Est GFR ( Amer) > 60 Est GFR (Non-Af Amer) > 60 BUN/Creatinine Ratio 17 Glucose 103 Calculated Osmolality 290 Calcium 8.8 Troponin I (< 0.04) ng/mL B-Natriuretic Peptide (Less than 100) pg/mL Specimen Rejected Hemolyzed Clotted Blood Type Antibody Screen Crossmatch 08/04/18 08/04/18 Range/Units 09:07 10:43 WBC 6.6 (4.3-11.1) K/mcL RBC 2.35 L (3.82-4.97) M/mcL Hgb 7.1 L (11.5-15.4) g/dL Hct 22.5 L (35.3-44.9) % MCV 95.7 (83.0-100.0) fL MCH 30.2 (28.0-33.3) pg MCHC 31.6 (31.6-35.5) g/dL RDW 18.6 H (11.5-14.5) % Plt Count 171 (140-400) K/mcL MPV 10.1 (9.4-12.4) fL Immature Gran % 1.8 (0-4) % Seg Neutrophils % 74.5 % Lymphocytes % 16.6 % Monocytes % 5.9 % Eosinophils % 0.9 % Basophils % 0.3 % Neutrophils # 4.9 (1.6-8.9) K/mcL Lymphocytes # 1.1 (0.6-4.6) K/mcL Monocytes # 0.4 (0.0-1.3) K/mcL Eosinophils # 0.1 (0.0-0.6) K/mcL Basophils # 0.0 (0.0-0.2) K/mcL PT (9.4-12.1) Seconds INR APTT (26.0-36.0) Seconds D-Dimer (0-500) ng/mLFEU Sodium Potassium Chloride Carbon Dioxide BUN Creatinine Est GFR ( Amer) Est GFR (Non-Af Amer) BUN/Creatinine Ratio Glucose Calculated Osmolality Calcium Troponin I (< 0.04) ng/mL B-Natriuretic Peptide (Less than 100) pg/mL Specimen Rejected Blood Type O POSITIVE Antibody Screen NEGATIVE Crossmatch See Detail Critical Care Time Critical Care Time: Yes Total Critical Care Time: 35 Attestation: Critical care performed: Time is exclusive of separately billable procedures. Time includes: direct patient care, patient reassessment, coordination of patient care, interpretation of data (laboratory data, radiology data, and respiratory data), review of patient's medical records, medical consultation and documentation of patient care. Procedures included in critical care time: Procedures excluded from critical care time: Attestation Statement - Attestation Attestation: I examined this patient and my medical decision-making was reviewed with the Resident Physician. I agree with the documented findings, disposition and treatment plan as described except to the extent set forth below. Patient presents to emergency department with a chief complaint of chest pain. She describes it as a pressure pain substernally. Nonradiating. Has been going on all through the night. Worse when she coughs. She does admit to some shortness of breath. Nonproductive cough. On examination she is in no acute distress. Decreased air exchange in the left lung base. Plan. Cardiac workup. Chest imaging to rule out PE. No PE. Collapse of the left lower lobe. Anemic at 7. We will transfuse. Discussed with oncology. Admitted to medicine. Chest X-Ray 08/04/18 07:55 IMPRESSION: 1. Left basilar consolidation. D/ / Dion Fu MD / Dion Fu MD Interpreting Provider: Dion Fu MD Chest CTA 08/04/18 10:50 IMPRESSION: No evidence of pulmonary embolism. Worsening mediastinal and left hilar adenopathy. Opacification of the left lower lobe compatible with lobar collapse which has slightly progressed. There remains opacification of the left lower lobe bronchus suspicious for endobronchial mass. Bronchoscopy is suggested to exclude malignancy. Small ground-glass nodule within the right upper lobe measuring 1.1 cm which may represent a small metastasis versus inflammatory/infectious process. Sclerotic changes within the T10, and T11 vertebral bodies which may be degenerative in nature. No interval change identified since 05/21/2018. Osseous metastatic disease is considered less likely. D/ / 08/04/2018 11:45:12 Milton Leach MD / ricki Interpreting Provider: Milton Leach MD
[2018-08-04 08:37] LABS: INR 1.4; Prothrombin Time 15.2 Seconds (9.4-12.1)
[2018-08-04 08:39] LABS: Activated Partial Thrombo Time 29.9 Seconds (26.0-36.0)
[2018-08-04 09:39] LABS: BUN/Creatinine Ratio 17 (6-26); Blood Urea Nitrogen 12 mg/dL (8-23); Calcium 8.8 mg/dL (8.6-10.3); Carbon Dioxide 25 mEq/L (23-29); Chloride 107 mEq/L (98-107); Glucose 103 mg/dL (70-105); Osmolality,Calculated 290 (280-300); Potassium 4.1 mEq/L (3.5-5.1); Sodium 140 mEq/L (136-145); eGFR For Non-African Americans > 60 (> 60)
[2018-08-04 09:46] LABS: Basophils % 0.3 %; Eosinophils # 0.1 K/mcL (0.0-0.6); Eosinophils % 0.9 %; Hematocrit 22.5 % (35.3-44.9); Hemoglobin 7.1 g/dL (11.5-15.4); Immature Granulocytes % 1.8 % (0-4); Lymphocytes # 1.1 K/mcL (0.6-4.6); Lymphocytes % 16.6 %; Mean Corpuscular HGB Conc 31.6 g/dL (31.6-35.5); Mean Corpuscular Hemoglobin 30.2 pg (28.0-33.3); Mean Corpuscular Volume 95.7 fL (83.0-100.0); Mean Platelet Volume 10.1 fL (9.4-12.4); Monocytes # 0.4 K/mcL (0.0-1.3); Monocytes % 5.9 %; Neutrophils # 4.9 K/mcL (1.6-8.9); Platelet Count 171 K/mcL (140-400); Red Blood Count 2.35 M/mcL (3.82-4.97); Red Cell Distribution Width 18.6 % (11.5-14.5); Segmented Neutrophils % 74.5 %
[2018-08-04] MEDS ORDERED: 0.9 % Sodium Chloride 250 ML ONE (13:06)
--- NOTE | 2018-08-04 13:48 | Internal Med History&Physical ---
Date of Encounter: 08/04/18 Time of Encounter: 13:44 Internal Medicine - H&P: HPI Chief complaint: shortness of breath, chest pain Admitted From: Home Plans for Post Hospital Care: Home History of present illness: Ms. Maloney is a 73 year old female with past medical history of COPD, A. 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 Barlow came in with complaint of difficulty breathing and chest pain. Patient came in with complain off 3 days history of shortness of breath. Candi diez has been on chemotherapy and received 3 cycles already. She denies any phlegm production but has mild cough. Has associated chest pain on Rt side which is exacerbated by deep breathing. Denies any abdominal pain, bowel or urinary complains. He has afib and is on xarelto. Patient was evaluated in ER. Lab showed hemoglobin of 7.1 from previous of 9.8. Patient was started on PRBC per oncology. Patient denies any bloody stool or urine. Patient had CTA which did not show any PE however showed progression of left lower lobe opacification compatible with lobar collapse, small external gr ove nodule in right upper lobe. Patient denies any fevers or chills. Past Med Surg Social Fam HX - Past Medical History Medical history: atrial fibrillation, cancer (lung cancer), COPD, coronary artery disease, DVT, hyperlipidemia, hypertension Psychiatric history: anxiety, depression - Past Surgical History Surgical History: angioplasty/stent, , cholecystectomy, hysterectomy Additional surgical history: cardiac stent x 1. c section x2. partial hysterectomy - Social History Smoking Status: Former smoker Smokeless Tobacco Status: No Alcohol use: none Drug use: none - Family History Mother Living Status: Hx Family Cardiac Disorders: Yes Hx Family Respiratory Disorders: Yes (COPD, Trach) Father Living Status: Hx Family Cardiac Disorders: Yes (stroke x2) Son Hx Family Cancer: Yes Internal Medicine - H&P: Meds Albuterol Sulfate [Proair Hfa] 2 puff IH Q6H PRN 02/26/18 [History] Aspirin [Lo-Dose Aspirin EC] 81 mg PO DAILY 02/26/18 [History] Buspirone HCl [Buspar] 5 mg PO BID 02/26/18 [History] Cholecalciferol (D-3) [Vitamin D] 2,000 unit PO DAILY 02/26/18 [History] Docusate Sodium [Dok] 100 mg PO BID PRN 02/26/18 [History] Estradiol 1.5 mg PO DAILY 02/26/18 [History] Fluticasone/Salmeterol [Advair 250-50 Diskus] 1 puff IH BID 02/26/18 [History] Lisinopril [Zestril] 10 mg PO DAILY 02/26/18 [History] Loratadine [Allergy Relief] 10 mg PO DAILY 02/26/18 [History] Montelukast [Singulair] 10 mg PO DAILY 02/26/18 [History] Nitroglycerin [Nitrostat] 0.4 mg SL Q5M PRN 02/26/18 [History] Sertraline [Zoloft] 200 mg PO DAILY 02/26/18 [History] Simvastatin [Zocor] 40 mg PO HS 02/26/18 [History] Umeclidinium [place] [Incruse Ellipta] 1 puff IH DAILY 02/26/18 [History] hydroCHLOROthiazide [Hydrochlorothiazide] 25 mg PO DAILY PRN 02/26/18 [History] Metoprolol [Lopressor] 25 mg PO BID 30 Days #30 tablet 02/28/18 [Rx] Rivaroxaban [Xarelto] 20 mg PO 1700 90 Days #90 tablet 02/28/18 [Rx] Omeprazole [PriLOSEC] 20 mg PO DAILY 30 Days #30 cap 05/31/18 [Rx] Promethazine [Phenergan] 25 mg PO Q6HR PRN #30 tablet 06/01/18 [Rx] OLANZapine [Zyprexa] 10 mg PO DAILY #24 tablet 06/23/18 [Rx] Allergy/AdvReac Type Severity Reaction Status Date / Time ciprofloxacin [From Cipro] Allergy Rash Verified 08/04/18 07:48 codeine Allergy Fatigued Verified 08/04/18 07:48 diphenhydramine Allergy Rash Verified 08/04/18 07:48 [From Benadryl] egg Allergy Nausea Verified 08/04/18 07:48 gabapentin Allergy Anxiety Verified 08/04/18 07:48 Iodinated Contrast- Oral and Allergy Rash Verified 08/04/18 07:48 IV Dye [Iodinated Contrast Media - IV Dye] Penicillins Allergy Rash Verified 08/04/18 07:48 propoxyphene Allergy Rash Verified 08/04/18 07:48 Sulfa (Sulfonamide Allergy Rash Verified 08/04/18 07:48 Antibiotics) All Systems PM: A 10-system review of systems was performed and is negative for pertinent findings except as documented above in the HPI. - Constitutional Vitals: Temp Pulse Resp BP Pulse Ox 98.8 F 63 22 125/73 99 08/04/18 13:37 08/04/18 13:37 08/04/18 13:37 08/04/18 13:37 08/04/18 13:36 Exam: Constitutional: Vitals as noted. Conversant. No Apparent Distress. Eyes : pale conjunctiva ENT : Grossly normal hearing. Oropharyngeal exam unremarkable. Respiratory : Clear to auscultation bilaterally. No accessory muscle use, rales, rhonchi or wheezes. Decreased air entry on left base. Cardiovascular : RRR, +S1, +S2. no murmur, gallop, rubs. No chest wall tenderness GI/Abdominal : Soft, Non-tender, Non-distended, normal bowel sounds, soft, no peritoneal signs. no orgenomegaly or mass appreciated. no hernia. Musculoskeletal: no deformity noted. no edema or cyanosis. warm extremities, pulses palpable and symmetrical in UE/LE. no calf tenderness. Neurological: AO X3, CN II-XII grossly intact, grossly normal motor and sensory exam. Skin: No skin rash, lesions or ulcers noted. Internal Med - H&P Results - Labs CBC & Chem 7: 08/04/18 09:07 08/04/18 09:07 Labs: Short CBC 08/04/18 Range/Units 09:07 WBC 6.6 (4.3-11.1) K/mcL Hgb 7.1 L (11.5-15.4) g/dL Hct 22.5 L (35.3-44.9) % Plt Count 171 (140-400) K/mcL Neutrophils # 4.9 (1.6-8.9) K/mcL BMP 08/04/18 08/04/18 08:08 09:07 Sodium Cancelled 140 Potassium Cancelled 4.1 Chloride Cancelled 107 Carbon Dioxide Cancelled 25 BUN Cancelled 12 Creatinine Cancelled 0.71 Glucose Cancelled 103 Calcium Cancelled 8.8 Cardiac Enzymes 08/04/18 Range/Units 08:08 Troponin I < 0.03 (< 0.04) ng/mL - EKG Data -: EKG Interpreted by Myself EKG shows normal: sinus rhythm Rate: normal - Impressions ITS Impressions Chest X-Ray 08/04/18 07:55 IMPRESSION: 1. Left basilar consolidation. D/ / Dion Fu MD / Dion Fu MD Interpreting Provider: Dion Fu MD Chest CTA 08/04/18 10:50 IMPRESSION: No evidence of pulmonary embolism. Worsening mediastinal and left hilar adenopathy. Opacification of the left lower lobe compatible with lobar collapse which has slightly progressed. There remains opacification of the left lower lobe bronchus suspicious for endobronchial mass. Bronchoscopy is suggested to exclude malignancy. Small ground-glass nodule within the right upper lobe measuring 1.1 cm which may represent a small metastasis versus inflammatory/infectious process. Sclerotic changes within the T10, and T11 vertebral bodies which may be degenerative in nature. No interval change identified since 05/21/2018. Osseous metastatic disease is considered less likely. D/ / 08/04/2018 11:45:12 Milton Leach MD / ricki Interpreting Provider: Milton Leach MD - Assessment and plan (1) Shortness of breath Current Visit: Yes Status: Acute Assessment and plan: - Likely multifactorial related to anemia and left lobar collapse - We will transfusion PRBC. - We will consult pulmonology for need for evaluation with bronchoscopy and oncology for lung cancer and anemia - Does not appear of infectious etiology. We will hold antibiotics as of now and monitor (2) Anemia Current Visit: Yes Status: Acute Assessment and plan: - Possibly related to cancer chemotherapy - No signs of active bleeding while in xarelto except mild epistaxis - We will monitor for now Qualifiers: Anemia type: unspecified type Qualified Code(s): D64.9 - Anemia, unspecified (3) Lung cancer Current Visit: Yes Status: Acute Assessment and plan: - On cancer chemotherapy as outpatient - Oncology consulted Qualifiers: Laterality: left Qualified Code(s): C34.32 - Malignant neoplasm of lower lobe, left bronchus or lung (4) Atrial fibrillation Current Visit: No Status: Acute Assessment and plan: - Currently rate controlled - Continue home xarelto and metoprolol Qualifiers: Atrial fibrillation type: chronic Qualified Code(s): I48.2 - Chronic atrial fibrillation (5) Hypertension Current Visit: No Status: Chronic Assessment and plan: - Continue home medication Qualifiers: Hypertension type: essential hypertension Qualified Code(s): I10 - Essential (primary) hypertension - Time Spent With Patient Total time spent is greater than 50% in coordination of care (as documented) at patient's floor/unit and/or counseling patient:
[2018-08-04] MEDS ORDERED: Naloxone 0.4 MG/ML INJ IVP PRN (14:15)
--- NOTE | 2018-08-04 16:53 | Pulmonology Consult Note ---
Date of Encounter: 08/04/18 Time of Encounter: 17:00 Assessment and Plan (1) Abnormal CT of the chest Current Visit: No Status: Acute I have reviewed CT chest personally and it seems to me there is progression of the disease and reviewed to her previous bronchoscopy that was done and clearly has evidence of tumor endobronchially which explain collapsing of her left lower lobe and lobar consolidation. Treating for postobstructive pneumonia would be r easonable and unfortunately other than chemotherapy and treatment of her underlying lung cancer, perhaps there is not much to offer. Discussed with oncology team and if need bronchoscopy done then we will be happy to arrange it for her. Thank you for the consultation (2) Shortness of breath Current Visit: Yes Status: Acute (3) COPD (chronic obstructive pulmonary disease) Current Visit: No Status: Chronic Qualifiers: COPD type: emphysema Emphysema type: panlobular Qualified Code(s): J43.1 - Panlobular emphysema History of Present Illness Consult date: 08/04/18 Requesting physician: Nia Jimenez Reason for consult: dyspnea, abnormal CXR/CT, other (Lung cancer) Chief complaint: Shortness of breath History of present illness: This is a very pleasant 73-year-old female who is known to me and she has diagnosis of COPD and I had done bronchoscopy before diagnosis of her advanced small cell lung cancer and she goes to cancer center for her treatment. Patient presented today with complaining of difficulty breathing and chest pain. Patient had CT chest which shows no evidence of pulmonary embolism, however there is a progression of the left lower lobe opacification with collapse. Patient has had chemotherapy and she is on anticoagulation and she has history of atrial fibrillation. There is no history of hemoptysis and she also has no significant cough or sputum production. Past Med Surg Social Fam HX - Past Medical History Medical history: atrial fibrillation, cancer, COPD, coronary artery disease, DVT, hyperlipidemia, hypertension Psychiatric history: anxiety, depression - Past Surgical History Surgical History: angioplasty/stent, , cholecystectomy, hysterectomy Additional surgical history: cardiac stent x 1. c section x2. partial hysterectomy - Social History Smoking Status: Former smoker Smokeless Tobacco Status: No Alcohol use: none Drug use: none - Family History Mother Living Status: Hx Family Cardiac Disorders: Yes Hx Family Respiratory Disorders: Yes (COPD, Trach) Father Living Status: Hx Family Cardiac Disorders: Yes (stroke x2) Son Hx Family Cancer: Yes Medications and Allergies Albuterol Sulfate [Proair Hfa] 2 puff IH Q6H PRN 02/26/18 [History] Aspirin [Lo-Dose Aspirin EC] 81 mg PO DAILY 02/26/18 [History] Buspirone HCl [Buspar] 7.5 mg PO BID 02/26/18 [History] Cholecalciferol (D-3) [Vitamin D] 2,000 unit PO DAILY 02/26/18 [History] Docusate Sodium [Dok] 100 mg PO BID PRN 02/26/18 [History] Estradiol 1.5 mg PO DAILY 02/26/18 [History] Fluticasone/Salmeterol [Advair 250-50 Diskus] 1 puff IH BID 02/26/18 [History] Lisinopril [Zestril] 10 mg PO DAILY 02/26/18 [History] Loratadine [Allergy Relief] 10 mg PO DAILY 02/26/18 [History] Montelukast [Singulair] 10 mg PO DAILY 02/26/18 [History] Nitroglycerin [Nitrostat] 0.4 mg SL Q5M PRN 02/26/18 [History] Sertraline [Zoloft] 200 mg PO DAILY 02/26/18 [History] Simvastatin [Zocor] 40 mg PO HS 02/26/18 [History] hydroCHLOROthiazide [Hydrochlorothiazide] 25 mg PO DAILY PRN 02/26/18 [History] Metoprolol [Lopressor] 25 mg PO BID 30 Days #30 tablet 02/28/18 [Rx] Rivaroxaban [Xarelto] 20 mg PO 1700 90 Days #90 tablet 02/28/18 [Rx] Omeprazole [PriLOSEC] 20 mg PO DAILY 30 Days #30 cap 05/31/18 [Rx] Promethazine [Phenergan] 25 mg PO Q6HR PRN #30 tablet 06/01/18 [Rx] Allergy/AdvReac Type Severity Reaction Status Date / Time ciprofloxacin [From Cipro] Allergy Rash Verified 08/04/18 07:48 codeine Allergy Fatigued Verified 08/04/18 07:48 diphenhydramine Allergy Rash Verified 08/04/18 07:48 [From Benadryl] egg Allergy Nausea Verified 08/04/18 07:48 gabapentin Allergy Anxiety Verified 08/04/18 07:48 Iodinated Contrast- Oral and Allergy Rash Verified 08/04/18 07:48 IV Dye [Iodinated Contrast Media - IV Dye] Penicillins Allergy Rash Verified 08/04/18 07:48 propoxyphene Allergy Rash Verified 08/04/18 07:48 Sulfa (Sulfonamide Allergy Rash Verified 08/04/18 07:48 Antibiotics) All Systems: The remainder of the systems were reviewed and are negative Physical Examination Vital Signs: Vital Signs, Last 4 Hours Temp Pulse Resp BP Pulse Ox 08/04/18 15:55 98.1 F 73 15 114/61 08/04/18 15:45 98.1 F 73 15 114/61 98 08/04/18 15:34 98.9 F 63 22 128/57 98 08/04/18 15:14 24 99 08/04/18 14:39 22 106/63 08/04/18 13:37 98.8 F 63 22 125/73 08/04/18 13:36 98.8 F 63 22 125/73 99 08/04/18 13:24 67 24 122/84 100 08/04/18 13:22 99.3 F 64 24 122/84 100 General: Patient is in no acute distress. HEENT: Normocephalic atraumatic, pupils are equal round and reactive to light and accommodation, anicteric sclera, nares is patent, mucous membranes moist, no JVD, trachea is midline Cardiovascular: Normal sinus rhythm, S1 and S2 audible, no murmur or rubs Respiratory: Diminished breath sounds in the left lower lobe to auscultation bilaterally. No acute distress. No wheezing. Patient not using accessory muscles. Abdomen: Soft, nontender, nondistended, positive bowel sounds in all 4 quadrants Extremities: Warm, dry, trace lower extremity edema. Normal capillary refill. Neuro: Alert and oriented and follows commands. Grossly no neuro deficits. Skin: Warm to touch : No obvious abnormalities. Psych: Normal Results - Laboratory Findings CBC and BMP: 08/04/18 09:07 08/04/18 09:07 PT/INR, D-dimer PT 15.2 Seconds (9.4-12.1) H 08/04/18 08:08 D-Dimer 367 ng/mLFEU (0-500) 08/04/18 08:08 Abnormal lab findings: Abnormal lab results RBC 2.35 M/mcL (3.82-4.97) L 08/04/18 09:07 Hgb 7.1 g/dL (11.5-15.4) L 08/04/18 09:07 Hct 22.5 % (35.3-44.9) L 08/04/18 09:07 RDW 18.6 % (11.5-14.5) H 08/04/18 09:07 PT 15.2 Seconds (9.4-12.1) H 08/04/18 08:08 B-Natriuretic Peptide 182 pg/mL (Less than 100) H 08/04/18 08:08 - Diagnostic Findings CT scan - chest: report reviewed, image reviewed - Clinical Findings Intake & Output: Intake & Output 08/04/18 08/04/18 08/04/18 07:59 15:59 23:59 Intake Total 625 / 625 Balance 625 / 625 Weight 84.686 kg Consult Discharge Plan - Plan Referrals: NONE,PCP [Primary Care Provider] -
[2018-08-04] MEDS: *HR* Rivaroxaban 10 MG TABLET PO SCH (16:58)
--- NOTE | 2018-08-04 18:10 | Oncology Inp Consult Note ---
<Floyd Maloney - Last Filed: 08/04/18 21:13> Date of Encounter: 08/04/18 - Data of Consult Requesting Physician: Nia Jimenez MD Primary Care Provider: PCP NONE Medications and Allergies Albuterol Sulfate [Proair Hfa] 2 puff IH Q6H PRN 02/26/18 [History] Aspirin [Lo-Dose Aspirin EC] 81 mg PO DAILY 02/26/18 [History] Buspirone HCl [Buspar] 7.5 mg PO BID 02/26/18 [History] Cholecalciferol (D-3) [Vitamin D] 2,000 unit PO DAILY 02/26/18 [History] Docusate Sodium [Dok] 100 mg PO BID PRN 02/26/18 [History] Estradiol 1.5 mg PO DAILY 02/26/18 [History] Fluticasone/Salmeterol [Advair 250-50 Diskus] 1 puff IH BID 02/26/18 [History] Lisinopril [Zestril] 10 mg PO DAILY 02/26/18 [History] Loratadine [Allergy Relief] 10 mg PO DAILY 02/26/18 [History] Montelukast [Singulair] 10 mg PO DAILY 02/26/18 [History] Nitroglycerin [Nitrostat] 0.4 mg SL Q5M PRN 02/26/18 [History] Sertraline [Zoloft] 200 mg PO DAILY 02/26/18 [History] Simvastatin [Zocor] 40 mg PO HS 02/26/18 [History] hydroCHLOROthiazide [Hydrochlorothiazide] 25 mg PO DAILY PRN 02/26/18 [History] Metoprolol [Lopressor] 25 mg PO BID 30 Days #30 tablet 02/28/18 [Rx] Rivaroxaban [Xarelto] 20 mg PO 1700 90 Days #90 tablet 02/28/18 [Rx] Omeprazole [PriLOSEC] 20 mg PO DAILY 30 Days #30 cap 05/31/18 [Rx] Promethazine [Phenergan] 25 mg PO Q6HR PRN #30 tablet 06/01/18 [Rx] Allergy/AdvReac Type Severity Reaction Status Date / Time ciprofloxacin [From Cipro] Allergy Rash Verified 08/04/18 07:48 codeine Allergy Fatigued Verified 08/04/18 07:48 diphenhydramine Allergy Rash Verified 08/04/18 07:48 [From Benadryl] egg Allergy Nausea Verified 08/04/18 07:48 gabapentin Allergy Anxiety Verified 08/04/18 07:48 Iodinated Contrast- Oral and Allergy Rash Verified 08/04/18 07:48 IV Dye [Iodinated Contrast Media - IV Dye] Penicillins Allergy Rash Verified 08/04/18 07:48 propoxyphene Allergy Rash Verified 08/04/18 07:48 Sulfa (Sulfonamide Allergy Rash Verified 08/04/18 07:48 Antibiotics) Consult Discharge Plan - Plan Referrals: NONE,PCP [Primary Care Provider] - - Attending Attestation I examined this patient and my medical decision-making was reviewed with the Advanced Practice Nurse. I agree with the documented findings, disposition and treatment plan as described except to the extent set forth below. On examination, she has decreased breath sounds left lung base which is stable, but there is an expiratory wheeze present. No reproducible chest pain on exam. Her pain has improved. She has modes progression vs pseudoprogression of her SCLC with enlarged mediastinal lymph nodes. No overt new disease. I do not think her pain is related to her mediastinal adenopathy or chronic atelectatic left lung. I would recommend prednisone taper, agressive pulmonary toilet and breathing treatments. I will review imaging with Rad/Onc to see about thoracic radiation. Inpatient Charges Provider: Dr. Michaela Maloney Consult - Inpatient Medicare Only: [id number] <Samantha Nuñez - Last Filed: 08/05/18 11:06> Date of Encounter: 08/04/18 Time of Encounter: 17:00 Assessment and Plan (1) Small cell lung cancer Status: Acute Assessment and plan: Stage IV (TXN2M1) small cell lung carcinoma of the left lower lobe diagnosed 05/26/2018. S/P cycle #3 of carboplatin, etoposide as well as atezolizumab, planned for cycle #4 today Plan: CT findings may represent pseudo-progression versus true progression, prior imaging does show initial response to therapy At this time recommend treating underlying symptoms and COPD exacerbation Agree with holding off on bronchoscopy We will discuss case with radiation oncology to to determine if radiation may be beneficial at this juncture vs. continuing with current systemic treatment - Data of Consult Patient: known to practice within the last 3 years Consult date: 08/04/18 Requesting Physician: Nia Jimenez MD Primary Care Provider: PCP NONE - Consult Narrative Reason for consult: Small cell lung cancer History of present illness: /Ms. Maloney is a 73 year old female with Stage IV (TXN2M1) small cell lung carcinoma of the left lower lobe diagnosed 05/26/2018. Carboplatin with etoposide initiated 06/01/2018. Atezolizumab added cycle #2. CT imaging 07/07/2018 with response to therapy with decrease in mediastinal lymphadenopathy. Left lower lobe collapse persisted at that time. History of Atrial fibrillation on xarelto as well as COPD.She is s/p cycle #3 carboplatin, etoposide as well as atezolizumab on 07/14/2018. She presented to [facility] ER on 08/04/2017 with report of increased SOB and chest tightness, exacerbated with breathing. Noted to be mildly anemic with hgb 7.1. CTA of the chest revealed no PE, some increase in mediastinal and left hilar adenopathy in comparison to most previous scan on 07/07/18, small ground glass opacities in the right upper lob, unchanged sclerotic lesion to T10, and T11 vertebral bodies. Past Med Surg Social Fam HX - Past Medical History Medical history: atrial fibrillation, cancer, COPD, coronary artery disease, DVT, hyperlipidemia, hypertension Psychiatric history: anxiety, depression - Past Surgical History Surgical History: angioplasty/stent, , cholecystectomy, hysterectomy Additional surgical history: cardiac stent x 1. c section x2. partial hysterectomy - Social History Smoking Status: Former smoker Smokeless Tobacco Status: No Alcohol use: none Drug use: none - Family History Mother Living Status: Hx Family Cardiac Disorders: Yes Hx Family Respiratory Disorders: Yes (COPD, Trach) Father Living Status: Hx Family Cardiac Disorders: Yes (stroke x2) Son Hx Family Cancer: Yes Constitutional: Present: anorexia, fatigue, weakness, weight loss. Absent: chills, fever(s) Eyes: Absent: change in vision Nose, mouth and throat: Absent: dysphagia, odynophagia Cardiovascular: Present: as per HPI Respiratory: Present: cough, dyspnea, hemoptysis, wheezing, pain on inspiration Gastrointestinal: Absent: abdominal pain, change in bowel habits, nausea, vomiting Genitourinary: Absent: dysuria, hematuria Musculoskeletal: Present: muscle weakness Integumentary: Absent: rash, wounds Neurological: Absent: focal weakness, frequent falls Endocrine: Present: as per HPI Hematologic/Lymphatic: Present: as per HPI Oncology - Exam - Constitutional General appearance: cooperative, no acute distress, no febrile - Head Head exam: Present: atraumatic - ENT ENT exam: Present: mucous membranes moist, normal oropharynx - Respiratory Respiratory exam: Present: decreased breath sounds, wheezes. Absent: respiratory distress - Cardiovascular Cardiovascular exam: Present: RRR, +S1, +S2 - GI/Abdominal GI/Abdominal exam: Present: normal bowel sounds, soft. Absent: tenderness - Extremities Exam Extremities exam: Absent: calf tenderness - Neurological Exam Neurological exam: Present: alert, oriented X3, no focal deficits, strengths equal and symetr throughout - Psychiatric Psychiatric exam: Present: normal affect, normal mood - Skin Skin exam: Present: dry, intact, normal color, warm Inpatient Charges Provider: Dr. Michaela Maloney
[2018-08-04] MEDS: Acetaminophen 325 MG TABLET PO PRN (19:37)
[2018-08-04] MEDS: Ipratropium/Albuterol Neb 3 ML IH SCH (21:40)
[2018-08-04] MEDS: methylPREDNISolone 125 MG/2 ML VIAL IVP SCH (23:54)
[2018-08-05] MEDS: Acetaminophen 325 MG TABLET PO PRN ×3 (02:22→20:16)
[2018-08-05 04:16] LABS: Basophils % 0.6 %; Eosinophils % 0.3 %; Hematocrit 26.9 % (35.3-44.9); Hemoglobin 8.7 g/dL (11.5-15.4); Immature Granulocytes % 1.8 % (0-4); Lymphocytes # 0.7 K/mcL (0.6-4.6); Lymphocytes % 9.1 %; Mean Corpuscular HGB Conc 32.3 g/dL (31.6-35.5); Mean Corpuscular Hemoglobin 30.5 pg (28.0-33.3); Mean Corpuscular Volume 94.4 fL (83.0-100.0); Mean Platelet Volume 9.9 fL (9.4-12.4); Monocytes # 0.1 K/mcL (0.0-1.3); Monocytes % 1.5 %; Neutrophils # 6.2 K/mcL (1.6-8.9); Platelet Count 183 K/mcL (140-400); Red Blood Count 2.85 M/mcL (3.82-4.97); Red Cell Distribution Width 18.5 % (11.5-14.5); Segmented Neutrophils % 86.7 %
[2018-08-05] MEDS: Ipratropium/Albuterol Neb 3 ML IH SCH ×4 (04:22→22:14)
[2018-08-05] MEDS: Budesonide/Formoterol 80/4.5 MDI IH SCH ×2 (07:31→15:06)
[2018-08-05] MEDS: methylPREDNISolone 125 MG/2 ML VIAL IVP SCH ×2 (08:13→16:35)
[2018-08-05] MEDS: Aspirin Enteric Coated 81 MG Tablet PO SCH (08:14)
[2018-08-05] MEDS: Cholecalciferol (D-3) 1,000 UNIT TABLET PO SCH (08:14)
[2018-08-05] MEDS: Loratadine 10 MG TABLET PO SCH (08:14)
--- NOTE | 2018-08-05 16:13 | Internal Med Progress Note ---
Hospitalist Progress Note - Encounter Date of Encounter: 08/05/18 Time of Encounter: 09:40 - Subjective Interval History: Patient is feeling much better today. She was ambulating in her room when I visited her. She is not requiring supplemental oxygen. She does report some trouble taking deep breaths. - Exam Vitals: Temp Pulse Resp BP Pulse Ox 98.6 F 71 16 107/61 92 08/05/18 14:52 08/05/18 14:52 08/05/18 14:52 08/05/18 14:52 08/05/18 14:52 Exam: General: Patient is alert, no acute distress, oriented x 3 ENT: Mucous membranes moist Respiratory: Decreased breath sounds at left base. Cardiovascular: Regular rate and rhythm. s1 and s2 normal No clicks, rubs, gallops, or murmurs. No pedal edema Abdomen: Abdomen is soft, nontender. Bowel sounds are present Musculoskeletal: Spontaneously moving all extremities Skin: warm, dry, intact. Neuro: Alert oriented x 3 normal cranial nerves, no focal deficits - Assessment and Plan (1) Shortness of breath Current Visit: Yes Status: Acute Assessment and Plan: Acute dyspnea most likely related to left lung cancer with left lower lobe consolidation/collapse. She may also have acute bronchitis given her prompt improvement in symptoms with steroids and bronchodilators. Will continue bronchodilators. Taper steroids. Pulmonology consult appreciated. As patient has significantly improved clinically, no indication for antibiotics at this time (2) Lung cancer Current Visit: Yes Status: Acute Assessment and Plan: CT of the chest done yesterday showed left lower lobe endobronchial lesion with collapse of the left lower lobe. Discussed with oncology. Patient is being evaluated for possible radiation therapy. We will follow recommendations. (3) Atrial fibrillation Current Visit: Yes Status: Chronic Assessment and Plan: Rate controlled. Continue metoprolol. Patient is on anticoagulation with Xa relto (4) Hypertension Current Visit: Yes Status: Chronic Assessment and Plan: blood pressure is well controlled. Continue metoprolol (5) Anemia Current Visit: Yes Status: Chronic Assessment and Plan: Hemoglobin 8.7. Status post 1 unit PRBC transfusion. - Time Spent with Patient Total time spent is greater than 50% in coordination of care (as documented) at patient's floor/unit and/or counseling patient: Internal Medicine: Result - Labs CBC & Chem 7: 08/05/18 03:56 08/04/18 09:07 Labs: Short CBC 08/05/18 Range/Units 03:56 WBC 7.2 (4.3-11.1) K/mcL Hgb 8.7 L D (11.5-15.4) g/dL Hct 26.9 L (35.3-44.9) % Plt Count 183 (140-400) K/mcL Neutrophils # 6.2 (1.6-8.9) K/mcL - ABG Interpretation ABG results: PT/INR, D-dimer PT 15.2 Seconds (9.4-12.1) H 08/04/18 08:08 D-Dimer 367 ng/mLFEU (0-500) 08/04/18 08:08 Consult Discharge Plan - Plan Referrals: NONE,PCP [Primary Care Provider] - (2) Lung cancer Qualifiers: Laterality: left Qualified Code(s): C34.32 - Malignant neoplasm of lower lobe, left bronchus or lung (3) Atrial fibrillation Qualifiers: Atrial fibrillation type: chronic Qualified Code(s): I48.2 - Chronic atrial fibrillation (4) Hypertension Qualifiers: Hypertension type: essential hypertension Qualified Code(s): I10 - Essential (primary) hypertension (5) Anemia Qualifiers: Anemia type: unspecified type Qualified Code(s): D64.9 - Anemia, unspecified
[2018-08-05] MEDS: *HR* Rivaroxaban 10 MG TABLET PO SCH (16:35)
--- NOTE | 2018-08-05 17:30 | Oncology Inp Progress Note ---
<Samantha Nuñez - Last Filed: 08/05/18 21:15> Date of Encounter: 08/05/18 Time of Encounter: 15:30 (1) Small cell lung cancer Current Visit: Yes Status: Acute Assessment and plan: Stage IV (TXN2M1) small cell lung carcinoma of the left lower lobe diagnosed 05/26/2018. S/P cycle #3 of carboplatin, etoposide as well as atezolizumab, planned for cycle #4 /---delayed secondary to hospital admission Plan: CT findings may represent pseudo-progression versus true progression, prior imaging does show initial response to therapy May be some component of COPD exacerbation/bronchitis contributing to her presentation, she is symptomatically improving with bronchodilators and steroid tx, anticipate tapering steroids with PO prednisone Further treatment to be pursued on outpatient basis, likely plan to continue with systemic treatment following further discussion with radiation oncology Ok to discharge from oncology standpoint when otherwise medically cleared, will arrange for follow up with treatment next week Oncology: Subj Interval history: Ms. Maloney is feeling much improved today. Her SOB is improved, she has been ambulating in room to bathroom, her chest discomfort/pleuritic pain she described yesterday has completely resolved. Maintaining adequate O2 saturations on room air. Denies pain, nausea, fevers or chills. NO s/s bleeding. - Constitutional General appearance: cooperative, no acute distress, no febrile - Head Head exam: Present: atraumatic - ENT ENT exam: Present: mucous membranes moist - Respiratory Respiratory exam: Present: decreased breath sounds, wheezes. Absent: respiratory distress - Cardiovascular Cardiovascular exam: Present: RRR, +S1, +S2 - GI/Abdominal GI/Abdominal exam: Present: normal bowel sounds, soft. Absent: tenderness - Extremities Exam Extremities exam: Absent: calf tenderness - Neurological Exam Neurological exam: Present: alert, oriented X3, strengths equal and symetr throughout - Psychiatric Psychiatric exam: Present: normal affect, normal mood - Skin Skin exam: Present: dry, normal color, warm Oncology: Obj Data - Labs CBC & Chem 7: 08/05/18 03:56 08/04/18 09:07 Consult Discharge Plan - Plan Referrals: Tono Mccoy MD [Partnered Physician] - Inpatient Charges Provider: Dr. Michaela Maloney <Floyd Maloney - Last Filed: 08/05/18 21:44> Date of Encounter: 08/05/18 Oncology: Obj Data - Labs CBC & Chem 7: 08/05/18 03:56 08/04/18 09:07 Inpatient Charges Provider: Dr. Michaela Maloney Follow up - Inpatient: [id number] - Attending Attestation I examined this patient and my medical decision-making was reviewed with the Advanced Practice Nurse. I agree with the documented findings, disposition and treatment plan as described except to the extent set forth below. Her chest pain has resolved and she is breathing much easier. On exam, still with expiratory [place] wheezing involving the left lower lobe the lung as well as decreased breath sounds in left lung base. We will plan to proceed with cycle #4 of palliative chemotherapy with atezolizumab this coming week. We will monitor her disease closely. If there is further progression in the near future, we will plan for radiation therapy to the chest. I would recommend continuation of a course of steroids, but hopefully she can be discharged tomorrow. We will sign off.
[2018-08-05 17:40] LABS: Adenovirus Not Detected (Not Detect); Bordetella Pertussis Not Detected (Not Detect); Chlamydophila pneumoniae Not Detected (Not Detect); Coronavirus 229E Not Detected (Not Detect); Coronavirus HKU1 Not Detected (Not Detect); Coronavirus NL63 Not Detected (Not Detect); Coronavirus OC43 Not Detected (Not Detect); Human Metapneumovirus Not Detected (Not Detect); Human Rhinovirus/Enterovirus Not Detected (Not Detect); Influenza A Subtype 2009 H1 Not Detected (Not Detect); Influenza A Untypeable Not Detected (Not Detect); Influenza B Not Detected (Not Detect); Mycoplasma pneumoniae Not Detected (Not Detect); Parainfluenza Virus 1 Not Detected (Not Detect); Parainfluenza Virus 2 Not Detected (Not Detect); Parainfluenza Virus 3 Not Detected (Not Detect); Parainfluenza Virus 4 Not Detected (Not Detect); Respiratory Syncytial Virus Not Detected (Not Detect)
--- NOTE | 2018-08-05 21:15 | Electrocardiograph Report ---
[address] [address] Test Date: 2018-08-04 Pat Name: Briseida Maloney Department: [id number] Room: 3A14 Gender: F Audit Specialist: : [id number] Requested By: Teresa Gordon Order Number: [id number] Reading MD: Daphne Roth Measurements Intervals [place] Rate: 75 P: 69 PA: 157 QRS: 51 QRSD: 95 T: 30 QT: 372 QTc: 416 Interpretive Statements Sinus rhythm Baseline wander Electronically Signed On 08-05-2018 21:14:06 EST by Daphne Roth
[2018-08-06 04:06] LABS: Basophils % 0.1 %; Hematocrit 25.3 % (35.3-44.9); Hemoglobin 7.9 g/dL (11.5-15.4); Immature Granulocytes % 1.1 % (0-4); Lymphocytes # 0.8 K/mcL (0.6-4.6); Lymphocytes % 9.3 %; Mean Corpuscular HGB Conc 31.2 g/dL (31.6-35.5); Mean Corpuscular Hemoglobin 29.7 pg (28.0-33.3); Mean Corpuscular Volume 95.1 fL (83.0-100.0); Monocytes # 0.4 K/mcL (0.0-1.3); Neutrophils # 7.4 K/mcL (1.6-8.9); Platelet Count 197 K/mcL (140-400); Red Blood Count 2.66 M/mcL (3.82-4.97); Red Cell Distribution Width 18.6 % (11.5-14.5); Segmented Neutrophils % 84.5 %
[2018-08-06 04:17] LABS: BUN/Creatinine Ratio 26 (6-26); Blood Urea Nitrogen 17 mg/dL (8-23); Carbon Dioxide 23 mEq/L (23-29); Chloride 108 mEq/L (98-107); Glucose 131 mg/dL (70-105); Osmolality,Calculated 291 (280-300); Sodium 139 mEq/L (136-145); eGFR For Non-African Americans > 60 (> 60)
[2018-08-06] MEDS: Ipratropium/Albuterol Neb 3 ML IH SCH ×2 (05:06→09:31)
[2018-08-06] MEDS: Aspirin Enteric Coated 81 MG Tablet PO SCH (08:21)
[2018-08-06] MEDS: Loratadine 10 MG TABLET PO SCH (08:22)
[2018-08-06] MEDS: Cholecalciferol (D-3) 1,000 UNIT TABLET PO SCH (08:22)
[2018-08-06] MEDS ORDERED: predniSONE 20 MG TABLET PO SCH (09:00)
--- NOTE | 2018-08-06 12:55 | Discharge Summary ---
- NOTES TO OUTPATIENT PROVIDER Notes to Outpatient Provider: Patient with a history of lung cancer was hospitalized here with acute onset shortness of breath . Initial workup in the ER showed consolidation and an endobronchial tumor in the left lower lobe bronchi with possible collapse of left lower lobe. Patient was treated with O2 supplementation, intravenous steroids, bronchodilators and also initially received antibiotic in the ER. She was evaluated by pulmonology and was not recommended bronchoscopy. Her symptoms improved significantly overnight much earlier than anticipated and patient is now back to baseline. She is clinically stable to be discharged home on a steroid taper and will continue to use bronchodilators as needed. She did not have an elevated WBC count and has not had any fevers here and so did not require further antibiotics. She will follow up with [facility] for further management of her lung cancer. Date of Encounter: 08/06/18 Time of Encounter: 09:15 - Discharge Diagnosis (1) Acute bronchitis Priority: Primary Status: Acute Qualifiers: Bronchitis organism: unspecified organism Qualified Code(s): J20.9 - Acute bronchitis, unspecified (2) Shortness of breath Priority: Secondary Status: Acute (3) Lung cancer Priority: Secondary Status: Acute Qualifiers: Laterality: left Qualified Code(s): C34.32 - Malignant neoplasm of lower lobe, left bronchus or lung (4) Atrial fibrillation Priority: Secondary Status: Chronic Qualifiers: Atrial fibrillation type: chronic Qualified Code(s): I48.2 - Chronic atrial fibrillation (5) Hypertension Priority: Secondary Status: Chronic Qualifiers: Hypertension type: essential hypertension Qualified Code(s): I10 - Essential (primary) hypertension (6) Anemia Priority: Secondary Status: Chronic Qualifiers: Anemia type: unspecified type Qualified Code(s): D64.9 - Anemia, unspecified Hospital course: Ms. Maloney is a 73 year old female Patient with a history of small cell lung cancer was hospitalized here with acute onset shortness of breath and respiratory failure. Initial workup in the ER showed consolidation and an endobronchial tumor in the left lower lobe bronchi with possible collapse of left lower lobe. Patient was treated with O2 supplementation, intravenous steroids, bronchodilators and also initially received antibiotic in the ER. She was evaluated by pulmonology and was not recommended bronchoscopy. Her symptoms improved significantly overnight much earlier than anticipated and patient is now back to baseline. She is clinically stable to be discharged home on a steroid taper and will continue to use bronchodilators as needed. She did not have an elevated WBC count and has not had any fevers here and so did not require further antibiotics. She will follow up with [facility] for further management of her lung cancer. Patient did receive 1 unit PRBC transfusion for anemia here. Anemia is due to chemotherapy. Discharge discussed with: patient, client care consultant - Time Spent with Patient Total time spent providing and/or coordinating discharge services: Less than 30 minutes (25 min) - Discharge Medications Prescriptions: Ipratropium/Albuterol Neb [Duoneb] 3 ml IH Q6HR PRN #60 vial.neb PRN Reason: Shortness Of Breath predniSONE [PredniSONE] 10 mg PO DAILY 8 Days #20 tablet Home Medications: Albuterol Sulfate [Proair Hfa] 2 puff IH Q6H PRN 02/26/18 [History] Aspirin [Lo-Dose Aspirin EC] 81 mg PO DAILY 02/26/18 [History] Buspirone HCl [Buspar] 7.5 mg PO BID 02/26/18 [History] Cholecalciferol (D-3) [Vitamin D] 2,000 unit PO DAILY 02/26/18 [History] Docusate Sodium [Dok] 100 mg PO BID PRN 02/26/18 [History] Estradiol 1.5 mg PO DAILY 02/26/18 [History] Fluticasone/Salmeterol [Advair 250-50 Diskus] 1 puff IH BID 02/26/18 [History] Lisinopril [Zestril] 10 mg PO DAILY 02/26/18 [History] Loratadine [Allergy Relief] 10 mg PO DAILY 02/26/18 [History] Montelukast [Singulair] 10 mg PO DAILY 02/26/18 [History] Nitroglycerin [Nitrostat] 0.4 mg SL Q5M PRN 02/26/18 [History] Sertraline [Zoloft] 200 mg PO DAILY 02/26/18 [History] Simvastatin [Zocor] 40 mg PO HS 02/26/18 [History] hydroCHLOROthiazide [Hydrochlorothiazide] 25 mg PO DAILY PRN 02/26/18 [History] Metoprolol [Lopressor] 25 mg PO BID 30 Days #30 tablet 02/28/18 [Rx] Rivaroxaban [Xarelto] 20 mg PO 1700 90 Days #90 tablet 02/28/18 [Rx] Omeprazole [PriLOSEC] 20 mg PO DAILY 30 Days #30 cap 05/31/18 [Rx] Promethazine [Phenergan] 25 mg PO Q6HR PRN #30 tablet 06/01/18 [Rx] Ipratropium/Albuterol Neb [Duoneb] 3 ml IH Q6HR PRN #60 vial.neb 08/06/18 [Rx] predniSONE [PredniSONE] 10 mg PO DAILY 8 Days #20 tablet 08/06/18 [Rx] Allergies/Adverse Reactions: Allergy/AdvReac Type Severity Reaction Status Date / Time ciprofloxacin [From Cipro] Allergy Rash Verified 08/04/18 07:48 codeine Allergy Fatigued Verified 08/04/18 07:48 diphenhydramine Allergy Rash Verified 08/04/18 07:48 [From Benadryl] gabapentin Allergy Anxiety Verified 08/04/18 07:48 Iodinated Contrast- Oral and Allergy Rash Verified 08/04/18 07:48 IV Dye [Iodinated Contrast Media - IV Dye] Penicillins Allergy Rash Verified 08/04/18 07:48 propoxyphene Allergy Rash Verified 08/04/18 07:48 Sulfa (Sulfonamide Allergy Rash Verified 08/04/18 07:48 Antibiotics) Date of admission: 08/04/18 13:41 Primary care physician: PCP NONE Consults: 08/04/18 12:38 Consult to Oncology [CONS] Stat Consulting Provider: Oncology [facility] Reason for Consult: Dr. Maloney pt for lung ca Time Notified: 12:39 Call Completed: Yes 08/04/18 14:23 Consult to Pulmonology [CONS] Routine Consulting Provider: [facility] [place] Reason for Consult: left lobe collapse Call Completed: Yes 08/04/18 16:05 Consult to Pastoral Services [CONS] Routine Comment: Discharging clinician: Mary Dominguez Anticipated date of discharge: 08/06/18 - Constitutional Vitals: Temp Pulse Resp BP Pulse Ox 97.9 F 79 16 121/61 94 08/06/18 06:48 08/06/18 06:48 08/06/18 09:33 08/06/18 06:48 08/06/18 09:33 General appearance: Present: cooperative, A&O X 3, pleasant, answers questions appropriately Exam: . - Respiratory Respiratory exam: Present: CTAB. Absent: accessory muscle use, rales, rhonchi, wheezes - Cardiovascular Cardiovascular exam: Present: RRR, +S1, +S2. Absent: diastolic murmur, gallop, rubs, systolic murmur - GI/Abdominal GI/Abdominal exam: Present: normal bowel sounds, soft, no peritoneal signs. Absent: distended, tenderness - Extremities Exam Extremities exam: Present: warm, radial pulses palpable and symmetrical. Absent: calf tenderness, cyanotic, pedal edema - Patient Status Disposition: Home, Self-Care Condition: Good Functional capacity at discharge: independent ambulation Overall status at discharge: patient is progressing back to baseline - Discharge Instructions Follow Up With: Tono Mccoy MD [Partnered Physician] - (in 1-2 weeks) - Diet and Activity Activity: increase activity as tolerated Diet: advance to your usual diet
[2018-08-06 13:12] VITALS: BP 112/75
--- NOTE | 2018-08-06 13:46 | Physician Discharge Referral ---
Home Health/Hosp Referral Info Transfer to: Home Health Provider in Charge Post Discharge: PCP - Diagnosis (1) Acute bronchitis Priority: Primary Status: Acute (2) Shortness of breath Priority: Secondary Status: Acute (3) Lung cancer Priority: Secondary Status: Acute (4) Atrial fibrillation Priority: Secondary Status: Chronic (5) Hypertension Priority: Secondary Status: Chronic (6) Anemia Priority: Secondary Status: Chronic - Respiratory Orders Smoking Cessation: Smoking cessation has been advised. For more information, call the [place] Tobacco Quit Line at 6-018-HDMX-NOW. - Activity Activity Orders: Up ad mercedes - Services Needed Following services are medically necessary services: Home Health Aide - Transfer Medications Prescriptions: Ipratropium/Albuterol Neb [Duoneb] 3 ml IH Q6HR PRN #60 vial.neb PRN Reason: Shortness Of Breath predniSONE [PredniSONE] 10 mg PO DAILY 8 Days #20 tablet Home Medications: Albuterol Sulfate [Proair Hfa] 2 puff IH Q6H PRN 02/26/18 [History] Aspirin [Lo-Dose Aspirin EC] 81 mg PO DAILY 02/26/18 [History] Buspirone HCl [Buspar] 7.5 mg PO BID 02/26/18 [History] Cholecalciferol (D-3) [Vitamin D] 2,000 unit PO DAILY 02/26/18 [History] Docusate Sodium [Dok] 100 mg PO BID PRN 02/26/18 [History] Estradiol 1.5 mg PO DAILY 02/26/18 [History] Fluticasone/Salmeterol [Advair 250-50 Diskus] 1 puff IH BID 02/26/18 [History] Lisinopril [Zestril] 10 mg PO DAILY 02/26/18 [History] Loratadine [Allergy Relief] 10 mg PO DAILY 02/26/18 [History] Montelukast [Singulair] 10 mg PO DAILY 02/26/18 [History] Nitroglycerin [Nitrostat] 0.4 mg SL Q5M PRN 02/26/18 [History] Sertraline [Zoloft] 200 mg PO DAILY 02/26/18 [History] Simvastatin [Zocor] 40 mg PO HS 02/26/18 [History] hydroCHLOROthiazide [Hydrochlorothiazide] 25 mg PO DAILY PRN 02/26/18 [History] Metoprolol [Lopressor] 25 mg PO BID 30 Days #30 tablet 02/28/18 [Rx] Rivaroxaban [Xarelto] 20 mg PO 1700 90 Days #90 tablet 02/28/18 [Rx] Omeprazole [PriLOSEC] 20 mg PO DAILY 30 Days #30 cap 05/31/18 [Rx] Promethazine [Phenergan] 25 mg PO Q6HR PRN #30 tablet 06/01/18 [Rx] Ipratropium/Albuterol Neb [Duoneb] 3 ml IH Q6HR PRN #60 vial.neb 08/06/18 [Rx] predniSONE [PredniSONE] 10 mg PO DAILY 8 Days #20 tablet 08/06/18 [Rx] Allergies/Adverse Reactions: Allergy/AdvReac Type Severity Reaction Status Date / Time ciprofloxacin [From Cipro] Allergy Rash Verified 08/04/18 07:48 codeine Allergy Fatigued Verified 08/04/18 07:48 diphenhydramine Allergy Rash Verified 08/04/18 07:48 [From Benadryl] gabapentin Allergy Anxiety Verified 08/04/18 07:48 Iodinated Contrast- Oral and Allergy Rash Verified 08/04/18 07:48 IV Dye [Iodinated Contrast Media - IV Dye] Penicillins Allergy Rash Verified 08/04/18 07:48 propoxyphene Allergy Rash Verified 08/04/18 07:48 Sulfa (Sulfonamide Allergy Rash Verified 08/04/18 07:48 Antibiotics) Certification: Further, I certify that my clinical findings support that this patient is homebound (i.e. absences from home require considerable and taxing effort and are for medical reasons or yarsani services or infrequently or short duration when for other reasons) because: Homebound Reason: Patient requires assistance of a person or device to safely leave home Attestation: My signature below is to certify that this patient is under my care and that I, or nurse practitioner, or a physician's student assistant working with me, has a [id number] encounter with this patient.
== END 2018-08-06 15:36 | disposition home health service (06) ==
LOC: 3ANU 07:44 → EMEROOARM 07:44 → SUATTDRO 13:41 → 3ANU 15:20
PROVIDERS: ADMIT Internal Medicine; ATTEND Internal Medicine

== ENCOUNTER 2018-08-20 06:08 | Inpatient (IN) ==
[2018-08-20] MEDS ORDERED: 0.9 % Sodium Chloride 1,000 ML IVC ONE (06:20)
--- NOTE | 2018-08-20 06:22 | Emergency Department Note ---
Disposition Clinical Impression: Atrial fibrillation with RVR, Small cell lung cancer, Shortness of breath, Pleural effusion, left Disposition: Still a Patient Condition: Undetermined Referrals: NONE,PCP [Non-Partnered Physician] - Forms: ED Satisfaction Letter, Work/School Release Time of Disposition: 06:50 General Adult HPI - General Chief complaint: ED General Medical Stated complaint: chest pain Time Seen by Provider: 08/20/18 06:20 Source: patient, EMS Mode of arrival: EMS Limitations: no limitations Nursing Notes Reviewed: Yes Vital Signs Reviewed: Yes - History of Present Illness HPI Narrative: 73-year-old female with history of lung cancer, recent admission to the hospital, arrives to the emergency department with complaint of generalized weakness, fast heart rate and shortness of breath. The patient was recently admitted to the hospital with a noted anemia of chronic disease regarding transfusion as well as a left large pleural effusion that had a pleura-cath that was placed for continuous drainage at nursing facility. The patient was recently discharged. She states that she is continued to feel weak and short of breath but she states this progressively worsened. The patient notes that she started expressing diarrhea this morning. The patient stated that she was on antibiotics at admission on the hospital. Patient denies any current abdominal pain, chest pain. She does admit to a large amount of palpitations and shortness of breath. EMS was called to the patient's residence was noted to have a heart rate in the mid 200s. The patient was given 18 mg of Adenocard. Patient was transported to the emergency department. Blood pressure remains stable with a systolic pressure 116. The patient is mentating appropriately. Upon arrival to the emergency department she was placed in the trauma bay where she was given 20 mg of IV Cardizem push. Patient's heart rate dropped very quickly into the mid 100s. She is still atrial fibrillation with RVR. Patient states she is feeling better at this time. She denies any other complaints. Patient on Xarelto. Pain Scale: 0 - Related Data Home Medications Medication Instructions Recorded Confirmed RX: Albuterol Sulfate [Proair Hfa] 2 puff IH Q6H PRN 02/26/18 08/10/18 RX: Aspirin [Lo-Dose Aspirin EC] 81 mg PO DAILY 02/26/18 08/10/18 RX: Buspirone HCl [Buspar] 7.5 mg PO BID 02/26/18 08/10/18 RX: Cholecalciferol (D-3) [Vitamin 2,000 unit PO DAILY 02/26/18 08/10/18 D] RX: Docusate Sodium [Dok] 100 mg PO BID PRN 02/26/18 08/10/18 RX: Estradiol 1.5 mg PO DAILY 02/26/18 08/10/18 RX: Fluticasone/Salmeterol [Advair 1 puff IH BID 02/26/18 08/10/18 250-50 Diskus] RX: Loratadine [Allergy Relief] 10 mg PO DAILY 02/26/18 08/10/18 RX: Montelukast [Singulair] 10 mg PO HS 02/26/18 08/10/18 RX: Nitroglycerin [Nitrostat] 0.4 mg SL Q5M PRN 02/26/18 08/10/18 RX: Sertraline [Zoloft] 200 mg PO DAILY 02/26/18 08/10/18 RX: Simvastatin [Zocor] 40 mg PO HS 02/26/18 08/10/18 RX: Omeprazole [PriLOSEC] 20 mg PO DAILY@0730 08/10/18 08/10/18 Previous Rx's Medication Instructions Recorded RX: Metoprolol [Lopressor] 25 mg PO BID 30 Days #30 tablet 02/28/18 RX: Rivaroxaban [Xarelto] 20 mg PO 1700 90 Days #90 tablet 02/28/18 RX: Promethazine [Phenergan] 25 mg PO Q6HR PRN #30 tablet 06/01/18 RX: Ipratropium/Albuterol Neb 3 ml IH Q6HR PRN #60 vial.neb 08/07/18 [Duoneb] RX: HYDROcodone/Acet 5/325 mg 1 tab PO Q6H PRN 7 Days #30 tab 08/15/18 [[place] 5-325 mg] Allergies Allergy/AdvReac Type Severity Reaction Status Date / Time ciprofloxacin [From Cipro] Allergy Rash Verified 08/04/18 07:48 codeine Allergy Fatigued Verified 08/04/18 07:48 diphenhydramine Allergy Rash Verified 08/04/18 07:48 [From Benadryl] gabapentin Allergy Anxiety Verified 08/04/18 07:48 Iodinated Contrast- Oral and Allergy Rash Verified 08/04/18 07:48 IV Dye [Iodinated Contrast Media - IV Dye] Penicillins Allergy Rash Verified 08/04/18 07:48 propoxyphene Allergy Rash Verified 08/04/18 07:48 Sulfa (Sulfonamide Allergy Rash Verified 08/04/18 07:48 Antibiotics) All systems ED: reviewed and negative except as stated. Constitutional: Reports: weakness. Denies: fever, chills ENT ED: Denies: dysphagia Cardiovascular: Reports: palpitations, dyspnea on exertion. Denies: chest pain, edema, syncope Respiratory: Reports: dyspnea. Denies: cough, sputum production Gastrointestinal: Reports: diarrhea. Denies: abdominal pain, nausea, vomiting, melena, hematochezia Genitourinary: Denies: urgency, dysuria Musculoskeletal: Denies: back pain, neck pain Integumentary: Denies: rash Neurological: Reports: weakness. Denies: headache Past Medical History - Past Medical History Attestation: Yes The following information was validated with the patient. Source: patient, old records reviewed Medical history: Reports: atrial fibrillation, cancer, COPD, coronary artery disease, DVT, hyperlipidemia, hypertension Surgical history: Reports: angioplasty/stent, , cholecystectomy, hysterectomy Psychiatric history: Reports: anxiety, depression [employer] history: Reports: no [employer] history - Social History Smoking Status: Former smoker Smokeless Tobacco Status: No Alcohol use: Reports: none Drug use: Reports: none Physical Exam - General Limitations: no limitations General appearance: alert, in distress - Head Head exam: atraumatic, normocephalic, normal inspection - Eye Eye exam: Present: normal appearance, PERRL, EOMI - ENT ENT exam: normal exam, normal oropharynx, mucous membranes moist - Neck Neck exam: Present: normal inspection, full ROM, trachea midline - Chest Chest inspection: Present: normal inspection, symmetric chest wall rise - Respiratory Respiratory exam: Present: other (coarse breath sounds). Absent: respiratory distress - Cardiovascular Cardiovascular exam: Present: tachycardia, irregular rhythm, normal heart sounds - Abdominal Exam Abdominal exam: Present: soft, Non-Tender. Absent: tenderness, distention, guarding, rebound, rigidity - Extremities Exam Extremities exam: Present: normal inspection, full ROM. Absent: tenderness, pedal edema - Neurological Exam Neurological exam: Present: alert, oriented X3, CN II-XII intact - Skin Skin exam: Present: warm, intact, normal color, other (diaphoretic) Course Vital Signs Temperature 97.6 F 08/20/18 06:09 Pulse Rate 233 08/20/18 06:09 Respiratory Rate 26 08/20/18 06:09 Blood Pressure 120/102 08/20/18 06:09 O2 Sat by Pulse Oximetry 96 08/20/18 06:09 Temperature 97.6 F 08/20/18 06:18 Pulse Rate 233 08/20/18 06:18 Respiratory Rate 26 08/20/18 06:18 Blood Pressure 120/102 08/20/18 06:18 O2 Sat by Pulse Oximetry 96 08/20/18 06:18 Oxygen Delivery Oxygen Delivery Nasal Cannula Medical Decision Making - EKG Data EKG #1 EKG attestation: Yes I reviewed and interpreted this EKG. EKG results narrative: Heart rate 20 5. Atrial fibrillation. Atrial fibrillation with RVR. No ST elevation or ST depression noted. EKG #2: Heart rate 131. Atrial fibrillation. No ST elevation or ST depression noted. EKG #3: Heart rate 87 beats for minute. Normal sinus rhythm. No ST elevation or ST depression noted. Inverted T waves noted in 3 and V1. No acute changes noted. Subsequent conversion out of atrial fibrillation into normal sinus rhythm. Critical Care Time Critical Care Time: Yes Total Critical Care Time: 35 Attestation: Acute atrial fibrillation with rapid ventricular response, hypotension, multiple rate control medications given IV to control the patient's tachycardia. Attestation Statement - Attestation Attestation: Dr. Chino note: Patient seen in conjunction with resident Dr. Tono Means. Please see his devin rting for complete documentation. I spent [id number] time with the patient and I agree with the patient's treatment and disposition. Patient arrives with rapid narrow complex irregular tachycardia consistent with atrial fibrillation for which she is on 02. Very elbow last 5 or 6 months with stage IV lung cancer for which she has been too ill to receive chemotherapy lately. Awoken with fast heart rate and chest pain tonight. Patient's rhythm converted to normal sinus between 80 and 90 beats a minute after IV Cardizem followed by IV Lopressor. Blood pressure stabilized improved. Blood work and final disposition pending at the time of my departure from shift at 7 AM and signout to attending physician Dr. Mccarthy;
[2018-08-20] MEDS ORDERED: *HR* Metoprolol 5 MG/5 ML VIAL IVP STA (06:23)
[2018-08-20 08:17] LABS: Basophils # 0.1 K/mcL (0.0-0.2); Basophils % 0.5 %; Eosinophils # 0.1 K/mcL (0.0-0.6); Eosinophils % 0.7 %; Hematocrit 26.5 % (35.3-44.9); Hemoglobin 8.2 g/dL (11.5-15.4); Immature Granulocytes % 2.4 % (0-4); Lymphocytes # 0.9 K/mcL (0.6-4.6); Lymphocytes % 7.9 %; Mean Corpuscular HGB Conc 30.9 g/dL (31.6-35.5); Mean Corpuscular Hemoglobin 30.1 pg (28.0-33.3); Mean Corpuscular Volume 97.4 fL (83.0-100.0); Monocytes # 0.4 K/mcL (0.0-1.3); Monocytes % 3.9 %; Neutrophils # 9.1 K/mcL (1.6-8.9); Platelet Count 343 K/mcL (140-400); Red Blood Count 2.72 M/mcL (3.82-4.97); Red Cell Distribution Width 17.4 % (11.5-14.5); Segmented Neutrophils % 84.6 %
[2018-08-20 08:18] LABS: Bilirubin,Urine Small (Negative); Blood,Urine Negative (Negative); Clarity,Urine Cloudy (Clear); Color,Urine Dark Yellow (Yellow); Glucose,Urine (UA) Normal (Normal); Ketones,Urine Negative (Negative); Leukocyte Esterase,Urine Negative (Negative); Nitrite,Urine Negative (Negative); Protein,Urine Negative (Neg-Trace); Specific Gravity,Urine 1.027 (1.010-1.025); Urobilinogen,Urine Normal (Normal)
[2018-08-20 08:19] LABS: Bacteria,Urine Moderate per hpf (None-Few); Squamous Epithelial Cell,Urine Many per lpf (None-Few)
[2018-08-20 08:24] LABS: INR 1.4; Prothrombin Time 16.2 Seconds (9.4-12.1)
[2018-08-20 08:33] LABS: Hyaline Casts,Urine Moderate per lpf (None-Few)
[2018-08-20 08:44] LABS: Troponin I < 0.03 ng/mL (< 0.04)
[2018-08-20 08:45] LABS: Alanine Aminotransferase 8 Units/L (7-52); Albumin 2.9 g/dL (3.5-5.7); Alkaline Phosphatase 48 Units/L (34-104); Aspartate Amino Transferase 11 Units/L (13-39); BUN/Creatinine Ratio 25 (6-26); Bilirubin,Direct 0.1 mg/dL (0.0-0.2); Bilirubin,Indirect 0.3 mg/dL (0.0-1.2); Bilirubin,Total 0.4 mg/dL (0.3-1.0); Blood Urea Nitrogen 17 mg/dL (8-23); Calcium 8.8 mg/dL (8.6-10.3); Carbon Dioxide 25 mEq/L (23-29); Chloride 103 mEq/L (98-107); Glucose 114 mg/dL (70-105); Magnesium 1.6 mg/dL (1.6-2.6); Osmolality,Calculated 286 (280-300); Potassium 3.9 mEq/L (3.5-5.1); Sodium 137 mEq/L (136-145); Total Protein 5.9 g/dL (6.4-8.9); eGFR For Non-African Americans > 60 (> 60)
--- NOTE | 2018-08-20 08:54 | Internal Med History&Physical ---
Date of Encounter: 08/20/18 Time of Encounter: 08:51 Internal Medicine - H&P: HPI Chief complaint: chest pain Admitted From: Home Plans for Post Hospital Care: Home History of present illness: Ms. 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 fib on several toe and COPD presented to the emergency department with complaint of palpitations and shortness of breath. She reports that she has been having palpitations and worsening shortness of breath for the past 3 or 4 days. Shortness of breath is both at rest and on exertion. She has been unable to ambulate as much as she used to due to the shortness of breath now she can only ambulate a few feet to the bathroom and back to her bed. Her shortness of breath is also associated with palpitations, she also reports some chest tightness associated with the shortness of breath and palpitations. she cannot recall aggravating factors and he r symptoms are only minimally relieved with her inhalers. She denies fever, chills, diaphoresis, cough, hemoptysis, nausea, vomiting or leg swelling or calf tenderness. In addition to above she is also complaining of diarrhea which she reports started since last admission and continues. She dressed describes her diarrhea as watery diarrhea denies any blood in her stools. She was recently admitted and discharged last week for similar symptoms and a pleural catheter was placed for the left-sided pleural effusion. She has had home health visit her house and the catheter has been draining. Last drainage was done on 08/19 she reports only a small amount of fluid was removed and the nurse had told her that "everything looks good." She was to follow-up with her oncologist on 08/18 however due to rather she canceled her appointment. She has missed her chemotherapy sessions since she is been in the hospital. She denies sick contacts, she is compliant with all her medications, currently chest pain and palpitations have resolved. As per ED physician documentation, " EMS was called to the patient's residence was noted to have a heart rate in the mid 200s. The patient was given 18 mg of Adenocard. Patient was transported to the emergency department. Blood pressure remains stable with a systolic pressure 116. The patient is mentating appropri ately. Upon arrival to the emergency department she was placed in the trauma bay where she was given 20 mg of IV Cardizem push. Patient's heart rate dropped very quickly into the mid 100s." Heart rate was controlled and in the 90s with blood pressure 123/81 so she was endorsed for admission and further management of the left-sided pleural effusion. IR was consulted by the ED physician and recommended CT angiogram of the chest and depending on the results of the CT angiogram of the chest able to sign on catheter replacement versus thoracocentesis. Past Med Surg Social Fam HX - Past Medical History Medical history: atrial fibrillation, cancer, COPD, coronary artery disease, DVT, hyperlipidemia, hypertension Psychiatric history: anxiety, depression - Past Surgical History Surgical History: angioplasty/stent, , cholecystectomy, hysterectomy Additional surgical history: cardiac stent x 1. c section x2. partial hysterectomy - Social History Smoking Status: Former smoker Smokeless Tobacco Status: No Alcohol use: none Drug use: none - Family History Mother Living Status: Hx Family Cardiac Disorders: Yes Hx Family Respiratory Disorders: Yes (COPD, Trach) Father Living Status: Hx Family Cardiac Disorders: Yes (stroke x2) Son Hx Family Cancer: Yes Internal Medicine - H&P: Meds Albuterol Sulfate [Proair Hfa] 2 puff IH Q6H PRN 02/26/18 [History] Aspirin [Lo-Dose Aspirin EC] 81 mg PO DAILY 02/26/18 [History] Buspirone HCl [Buspar] 7.5 mg PO BID 02/26/18 [History] Cholecalciferol (D-3) [Vitamin D] 2,000 unit PO DAILY 02/26/18 [History] Docusate Sodium [Dok] 100 mg PO BID PRN 02/26/18 [History] Estradiol 1.5 mg PO DAILY 02/26/18 [History] Fluticasone/Salmeterol [Advair 250-50 Diskus] 1 puff IH BID 02/26/18 [History] Loratadine [Allergy Relief] 10 mg PO DAILY 02/26/18 [History] Montelukast [Singulair] 10 mg PO HS 02/26/18 [History] Nitroglycerin [Nitrostat] 0.4 mg SL Q5M PRN 02/26/18 [History] Sertraline [Zoloft] 200 mg PO DAILY 02/26/18 [History] Simvastatin [Zocor] 40 mg PO HS 02/26/18 [History] Metoprolol [Lopressor] 25 mg PO BID 30 Days #30 tablet 02/28/18 [Rx] Rivaroxaban [Xarelto] 20 mg PO 1700 90 Days #90 tablet 02/28/18 [Rx] Promethazine [Phenergan] 25 mg PO Q6HR PRN #30 tablet 06/01/18 [Rx] Ipratropium/Albuterol Neb [Duoneb] 3 ml IH Q6HR PRN #60 vial.neb 08/07/18 [Rx] Omeprazole [PriLOSEC] 20 mg PO DAILY@0730 08/10/18 [History] HYDROcodone/Acet 5/325 mg [[place] 5-325 mg] 1 tab PO Q6H PRN 7 Days #30 tab 08/15/18 [Rx] Allergy/AdvReac Type Severity Reaction Status Date / Time ciprofloxacin [From Cipro] Allergy Rash Verified 08/04/18 07:48 codeine Allergy Fatigued Verified 08/04/18 07:48 diphenhydramine Allergy Rash Verified 08/04/18 07:48 [From Benadryl] gabapentin Allergy Anxiety Verified 08/04/18 07:48 Iodinated Contrast- Oral and Allergy Rash Verified 08/04/18 07:48 IV Dye [Iodinated Contrast Media - IV Dye] Penicillins Allergy Rash Verified 08/04/18 07:48 propoxyphene Allergy Rash Verified 08/04/18 07:48 Sulfa (Sulfonamide Allergy Rash Verified 08/04/18 07:48 Antibiotics) All Systems PM: A 10-system review of systems was performed and is negative for pertinent findings except as documented above in the HPI. - Constitutional Vitals: Temp Pulse Resp BP Pulse Ox 97.6 F 91 26 103/66 100 08/20/18 06:18 08/20/18 07:39 08/20/18 07:39 08/20/18 07:39 08/20/18 07:39 Exam: General: Patient is alert, oriented, no acute distress, speaks in full sentences, looks ill, pale, obese Head: atraumatic, normocephalic, hair loss Eye: normal appearance, PERRL, no scleral icterus, no conjunctival injection ENT: mucous membranes moist, normal external ear exam Neck: normal inspection, trachea midline, full ROM, no carotid bruits Chest: normal inspection, symmetric chest rise, has chest tube in the left posterior chest, dressing is clean Respiratory: Good respiratory effort. Decreased breath sounds secondary to body habitus, absent breath sounds in the left posterior lung field, occasional crackles in the right posterior lung field, no wheezing appreciated Cardiovascular: Irregular. s1 and s2 No clicks, rubs, gallops, or murmors. Abdomen: Bowel sounds present normoactive x-4 quadrants. Abdomen is soft, nondistended. no Epigastric tenderness. No guarding or rebound. No organomegaly noted, obese musculoskeletal: Spontaneously moving all extremities. no edema, no calf tenderness Skin: warm, dry, intact. Neuro: Alert and oriented x4. No focal deficit Psych: Patient's affect is normal Internal Med - H&P Results - Labs CBC & Chem 7: 08/20/18 07:49 08/20/18 07:49 Labs: Short CBC 08/20/18 Range/Units 07:49 WBC 10.7 (4.3-11.1) K/mcL Hgb 8.2 L (11.5-15.4) g/dL Hct 26.5 L (35.3-44.9) % Plt Count 343 (140-400) K/mcL Neutrophils # 9.1 H (1.6-8.9) K/mcL BMP 08/20/18 07:49 Sodium 137 Potassium 3.9 Chloride 103 Carbon Dioxide 25 BUN 17 Creatinine 0.67 Glucose 114 H Calcium 8.8 Cardiac Enzymes 08/20/18 Range/Units 07:49 Troponin I < 0.03 (< 0.04) ng/mL Liver Function 08/20/18 Range/Units 07:49 Total Bilirubin 0.4 (0.3-1.0) mg/dL Direct Bilirubin 0.1 (0.0-0.2) mg/dL AST 11 L (13-39) Units/L ALT 8 (7-52) Units/L Alkaline Phosphatase 48 (34-104) Units/L Albumin 2.9 L (3.5-5.7) g/dL Urine 08/20/18 Range/Units 08:00 Urine Color Dark Yellow (Yellow) Urine Clarity Cloudy A (Clear) Urine pH 5.0 (5.0-8.0) pH Units Ur Specific [place] 1.027 H (1.010-1.025) Urine Protein Negative (Neg-Trace) mg/dL Urine Glucose (UA) Normal (Normal) mg/dL - EKG Data -: EKG Interpreted by Myself (Atrial fibrillation, borderline repolarization abnormality) - EKG Data Prior EKG available for review: yes When compared to previous EKG: there are significant changes (Sinus rhythm has been changed to atrial fibrillation), there is no significant change - Impressions ITS Impressions Chest X-Ray 08/20/18 06:20 IMPRESSION: Complete opacification of the left hemithorax most consistent with large, increased pleural effusion. Underlying pulmonary consolidation at the left lung base is suspected as seen on the prior CT exam. The known left hilar mass is not appreciated. D/ / 08/20/2018 08:01:39 Marko Cadet MD / Consuelo Arguello Interpreting Provider: Marko Cadet MD - Assessment and plan (1) Atrial fibrillation with RVR Current Visit: Yes Status: Acute Assessment and plan: EMS was called to the patient's residence was noted to have a heart rate in the mid 200s. The patient was given 18 mg of Adenocard. most likley secondary to the large left sided pleural effusion and hypoxia was started on cardizem Drip in the ED ( never started) - ( HR controlled with metoprolol IV push along with 20 mg of IV Cardizem push. ) continue with Home metoprolol - consider cardizem drip if she develops AFib with RVR watch vitals closely ( HR 90 BP 123/81) troponin negative on xarelto - on hold for possible IR guided thoracocentesis vs catheter replacement (2) Pleural effusion, left Current Visit: Yes Status: Acute Assessment and plan: s/p catheter placement in jul 2018 - ? not functioning well since CXR showing increased effusion IR consulted by the ED physician who recommended CTA chest and further management as per CTA chest Cytoloy of fluid as per path report in 07/2018 "Atypical cells seen are suspicious for metastatic carcinoma." Doubt infectious etiology at this point since there is no leukocytosis and fever. was seen by pulmonology and onclology during admission in jul 2018 Continue Symbicort Continue DuoNeb (3) Small cell lung cancer Current Visit: Yes Status: Acute Assessment and plan: Stage IV (TXN2M1) small cell lung carcinoma of the left lower lobe diagnosed 05/26/2018. "S/P cycle #3 of carboplatin, etoposide as well as atezolizumab, planned for cycle #4 08/04---delayed secondary to hospital admission" as per oncology documentation oncology consulted- canceled appointment on 08/18 due to weather consult palliative medicine (4) COPD (chronic obstructive pulmonary disease) Current Visit: Yes Status: Acute Assessment and plan: was treated with azithromycin and steroids - recently finished course not in exacerbation at this time continue home inhalers and duo-nebs Qualifiers: COPD type: unspecified COPD Qualified Code(s): J44.9 - Chronic obstructive pulmonary disease, unspecified (5) Diarrhea Current Visit: Yes Status: Acute Assessment and plan: patient had 3 episodes of diarrhea yesterday- denies blood C-dif was ordered in the ED follow continue with IV hydration. Qualifiers: Diarrhea type: presumed infectious Qualified Code(s): R19.7 - Diarrhea, unspecified (6) Chronic anemia Current Visit: Yes Status: Acute Assessment and plan: H/H is stable as compared to last admission in 07/2018 continue to monitor H/H transfuse as needed Type and cross (7) Goals of care, counseling/discussion Current Visit: Yes Status: Acute Assessment and plan: i discussed code status with patient and family at bedside and she would like to be full code palliative consulted (8) DVT prophylaxis Current Visit: Yes Status: Acute Assessment and plan: scds for now as she is on xarelto pending IR guided procedure - Time Spent With Patient Total time spent is greater than 50% in coordination of care (as documented) at patient's floor/unit and/or counseling patient:
[2018-08-20 08:58] LABS: Thyroid Stimulating Hormone 2.328 mcIU/mL (0.340-5.600)
[2018-08-20] MEDS ORDERED: Isovue-370 500 ML BOTTLE IVP ONE (09:04)
[2018-08-20] MEDS ORDERED: methylPREDNISolone 125 MG/2 ML VIAL IVP ONE (09:04)
[2018-08-20] MEDS ORDERED: Nitroglycerin 0.4 MG TAB.SUBL SL PRN (09:18)
[2018-08-20] MEDS ORDERED: Ipratropium/Albuterol Neb 3 ML IH PRN (09:18)
[2018-08-20] MEDS ORDERED: Naloxone 0.4 MG/ML INJ IVP PRN (09:24)
--- NOTE | 2018-08-20 11:21 | Pulmonology Consult Note ---
<Patrica Davis - Last Filed: 08/20/18 15:05> Date of Encounter: 08/20/18 Time of Encounter: 09:00 Assessment and Plan (1) Shortness of breath Current Visit: No Status: Acute Ongoing shortness of breath for the past 1 month. Was admitted to the hospital on 08/10/18 40 shortness of breath and was noted to have pleural effusion. She had a Pleurx catheter placed on the left side of her chest. For the past 3 days her shortness of breath has been worsening. Shortness of breath is likely due to worsening of her small cell lung cancer versus atrial fibrillation. Continue supplemental oxygen Will repeat chest xray tomorrow to evaluate further pleural effusion (2) Pleural effusion Current Visit: No Status: Acute Ongoing pleural effusion for the past 1 month. Has a Pleurx catheter placed on left-sided chest. Likely secondary to malignancy, palliative consult pending. Last drainage was yesterday and only had around 150 mL of fluid drained. This afternoon she underwent drainage by interventional radiology and had around 800 mL drained. Will repeat chest xray tomorrow morning for continue evaluating the pleural effusion. (3) Small cell lung cancer Current Visit: Yes Status: Acute History of small cell lung cancer was diagnosed on 05/26/18. Has been unable to make her oncology appointments due to weakness and worsening shortness of breath. Other recommendations from oncology team. (4) COPD (chronic obstructive pulmonary disease) Current Visit: No Status: Chronic History of COPD does not appear to be in acute exacerbation. Denies any cough or sputum production. Qualifiers: COPD type: chronic bronchitis Chronic bronchitis type: unspecified Qualified Code(s): J42 - Unspecified chronic bronchitis History of Present Illness Consult date: 08/20/18 Requesting physician: Adyee Barney Reason for consult: dyspnea, pleural effusion Chief complaint: shortness of breath History of present illness: Cirrhosis 73-year-old female with past medical history of stage IV small cell lung cancer, CAD, hypertension, hyperlipidemia, atrial fibrillation who presented to the ED complaining of shortness of breath and palpitations. She was recently discharged on 08/15/18 after Pleurx catheter was placed and her symptoms were stable. She reports that for the past few days her shortness of breath has worsened she is also having severe back pain including left-sided chest pain that radiates to her left shoulder. Because of the pain and shortness of breath she is unable to ambulate. She noted that she missed her oncology appointment which was for this week due to her fatigue and weakness. She noted that a nurse drained fluid from her Pleurx catheter yesterday and per her [id number] fluid was around 150 mL. She had no relief after the drainage and due to worsening of the shortness of breath she decided to present to the hospital today. She was seen at bedside this afternoon, she complained of severe back pain and ongoing shortness of breath. She also noted pleuritic chest pain associated with shortness of breath. He noted that nothing has relieved her shortness of breath symptoms including her inhalers that she uses COPD. When discussing her diet she said she has not been following a fluid restricted diet because she is unable to tolerate solid food, she has been drinking liquids instead. She also complained that she had 3 bouts of watery diarrhea this morning and previously has constipation but yesterday she took stool softeners which may be associated with her watery diarrhea. He denied fever, chills, abdominal pain or lower extremity edema. As per documentation review prior to presenting to the ED any medicines was called and her heart rate was noted to be intact the mid 200s. She received total of 18 mg of adenosine. Upon arrival to the ED she received 20 mg IV Cardizem push. CTA of the chest showed moderate sized left pleural effusion primarily within the apex. Also the lung mass could not be evaluated due to consolidation of the left side of the lung. But it was noted in the CTA that mediastinal, axillary, upper abdominal lymphadenopathy has worsened in comparison to 08/09/18. Past Med Surg Social Fam HX - Past Medical History Medical history: atrial fibrillation, cancer, COPD, coronary artery disease, DVT, hyperlipidemia, hypertension Psychiatric history: anxiety, depression - Past Surgical History Surgical History: angioplasty/stent, , cholecystectomy, hysterectomy Additional surgical history: cardiac stent x 1. c section x2. partial hysterectomy - Social History Smoking Status: Former smoker Smokeless Tobacco Status: No Alcohol use: none Drug use: none - Family History Mother Living Status: Hx Family Cardiac Disorders: Yes Hx Family Respiratory Disorders: Yes (COPD, Trach) Father Living Status: Hx Family Cardiac Disorders: Yes (stroke x2) Son Hx Family Cancer: Yes Medications and Allergies Albuterol Sulfate [Proair Hfa] 2 puff IH Q6H PRN 02/26/18 [History] Aspirin [Lo-Dose Aspirin EC] 81 mg PO DAILY 02/26/18 [History] Buspirone HCl [Buspar] 7.5 mg PO BID 02/26/18 [History] Cholecalciferol (D-3) [Vitamin D] 2,000 unit PO DAILY 02/26/18 [History] Docusate Sodium [Dok] 100 mg PO BID PRN 02/26/18 [History] Estradiol 1.5 mg PO DAILY 02/26/18 [History] Fluticasone/Salmeterol [Advair 250-50 Diskus] 1 puff IH BID 02/26/18 [History] Loratadine [Allergy Relief] 10 mg PO DAILY 02/26/18 [History] Montelukast [Singulair] 10 mg PO HS 02/26/18 [History] Nitroglycerin [Nitrostat] 0.4 mg SL Q5M PRN 02/26/18 [History] Sertraline [Zoloft] 200 mg PO DAILY 02/26/18 [History] Simvastatin [Zocor] 40 mg PO HS 02/26/18 [History] Metoprolol [Lopressor] 25 mg PO BID 30 Days #30 tablet 02/28/18 [Rx] Rivaroxaban [Xarelto] 20 mg PO 1700 90 Days #90 tablet 02/28/18 [Rx] Promethazine [Phenergan] 25 mg PO Q6HR PRN #30 tablet 06/01/18 [Rx] Ipratropium/Albuterol Neb [Duoneb] 3 ml IH Q6HR PRN #60 vial.neb 08/07/18 [Rx] Omeprazole [PriLOSEC] 20 mg PO DAILY@0730 08/10/18 [History] HYDROcodone/Acet 5/325 mg [[place] 5-325 mg] 1 tab PO Q6H PRN 7 Days #30 tab 08/15/18 [Rx] Allergy/AdvReac Type Severity Reaction Status Date / Time ciprofloxacin [From Cipro] Allergy Rash Verified 08/04/18 07:48 codeine Allergy Fatigued Verified 08/04/18 07:48 diphenhydramine Allergy Rash Verified 08/04/18 07:48 [From Benadryl] gabapentin Allergy Anxiety Verified 08/04/18 07:48 Iodinated Contrast- Oral and Allergy Rash Verified 08/04/18 07:48 IV Dye [Iodinated Contrast Media - IV Dye] Penicillins Allergy Rash Verified 08/04/18 07:48 propoxyphene Allergy Rash Verified 08/04/18 07:48 Sulfa (Sulfonamide Allergy Rash Verified 08/04/18 07:48 Antibiotics) All Systems: The remainder of the systems were reviewed and are negative - Constitutional Constitutional: no chills, no fever(s), no weakness - EENT Nose, mouth and throat: no dysphagia, no nasal congestion, no sore throat - Cardiovascular Cardiovascular: chest pain at rest, dyspnea, dyspnea on exertion, orthopnea, palpitations - Respiratory Respiratory: dyspnea, no cough, no wheezing - Gastrointestinal Gastrointestinal: diarrhea, no hematemesis, no hematochezia - Genitourinary Genitourinary: no hematuria - Musculoskeletal Musculoskeletal: back pain, myalgias - Integumentary Integumentary: no erythema, no rash - Neurological Neurological: no numbness, no paresthesias, no syncope - Allergic/Immunologic Allergic/Immunologic: no tongue swelling, no wheezing Physical Examination Vital Signs: Vital Signs, Last 4 Hours Pulse Resp BP Pulse Ox 08/20/18 09:31 90 123/81 100 08/20/18 07:39 91 26 103/66 100 Results - Laboratory Findings CBC and BMP: 08/20/18 07:49 08/20/18 07:49 PT/INR, D-dimer PT 16.2 Seconds (9.4-12.1) H 08/20/18 07:49 Abnormal lab findings: Abnormal lab results RBC 2.72 M/mcL (3.82-4.97) L 08/20/18 07:49 Hgb 8.2 g/dL (11.5-15.4) L 08/20/18 07:49 Hct 26.5 % (35.3-44.9) L 08/20/18 07:49 MCHC 30.9 g/dL (31.6-35.5) L 08/20/18 07:49 RDW 17.4 % (11.5-14.5) H 08/20/18 07:49 Neutrophils # 9.1 K/mcL (1.6-8.9) H 08/20/18 07:49 PT 16.2 Seconds (9.4-12.1) H 08/20/18 07:49 Glucose 114 mg/dL (70-105) H 08/20/18 07:49 AST 11 Units/L (13-39) L 08/20/18 07:49 Serum Total Protein 5.9 g/dL (6.4-8.9) L 08/20/18 07:49 Albumin 2.9 g/dL (3.5-5.7) L 08/20/18 07:49 Albumin/Globulin Ratio 1.0 (1.1-2.2) L 08/20/18 07:49 Urine Clarity Cloudy (Clear) A 08/20/18 08:00 Ur Specific [place] 1.027 (1.010-1.025) H 08/20/18 08:00 Urine Bilirubin Small (Negative) H 08/20/18 08:00 Urine Microscopic RBC 5-15 per hpf (0-3) H 08/20/18 08:00 Urine Microscopic WBC 3-5 per hpf (0-3) H 08/20/18 08:00 Ur Squamous Epith Cells Many per lpf (None-Few) H 08/20/18 08:00 Urine Bacteria Moderate per hpf (None-Few) H 08/20/18 08:00 Hyaline Casts Moderate per lpf (None-Few) H 08/20/18 08:00 - Microbiology Findings Microbiology Findings: Microbiology, Last 48 Hours 08/20/18 07:49 Blood Culture - Preliminary Peripheral Venipuncture Culture is incubating and being continuously monitored for growth. Final report to follow. 08/20/18 06:41 Blood Culture - Preliminary Peripheral Venipuncture Culture is incubating and being continuously monitored for growth. Final report to follow. - Clinical Findings Intake & Output: Intake & Output 08/19/18 08/20/18 08/20/18 23:59 07:59 15:59 Intake Total 110 / 110 Balance 110 / 110 Weight 2.466 kg Consult Discharge Plan - Plan Referrals: Tono Mccoy MD [Primary Care Provider] - <Hiro Albarado - Last Filed: 08/20/18 15:14> Date of Encounter: 08/20/18 All Systems: The remainder of the systems were reviewed and are negative Physical Examination Vital Signs: Vital Signs, Last 4 Hours Temp Resp BP Pulse Ox 08/20/18 13:43 98.0 F 16 162/82 97 Results - Laboratory Findings CBC and BMP: 08/20/18 07:49 08/20/18 07:49 PT/INR, D-dimer PT 16.2 Seconds (9.4-12.1) H 08/20/18 07:49 Abnormal lab findings: Abnormal lab results RBC 2.72 M/mcL (3.82-4.97) L 08/20/18 07:49 Hgb 8.2 g/dL (11.5-15.4) L 08/20/18 07:49 Hct 26.5 % (35.3-44.9) L 08/20/18 07:49 MCHC 30.9 g/dL (31.6-35.5) L 08/20/18 07:49 RDW 17.4 % (11.5-14.5) H 08/20/18 07:49 Neutrophils # 9.1 K/mcL (1.6-8.9) H 08/20/18 07:49 PT 16.2 Seconds (9.4-12.1) H 08/20/18 07:49 Glucose 114 mg/dL (70-105) H 08/20/18 07:49 AST 11 Units/L (13-39) L 08/20/18 07:49 Serum Total Protein 5.9 g/dL (6.4-8.9) L 08/20/18 07:49 Albumin 2.9 g/dL (3.5-5.7) L 08/20/18 07:49 Albumin/Globulin Ratio 1.0 (1.1-2.2) L 08/20/18 07:49 Urine Clarity Cloudy (Clear) A 08/20/18 08:00 Ur Specific [place] 1.027 (1.010-1.025) H 08/20/18 08:00 Urine Bilirubin Small (Negative) H 08/20/18 08:00 Urine Microscopic RBC 5-15 per hpf (0-3) H 08/20/18 08:00 Urine Microscopic WBC 3-5 per hpf (0-3) H 08/20/18 08:00 Ur Squamous Epith Cells Many per lpf (None-Few) H 08/20/18 08:00 Urine Bacteria Moderate per hpf (None-Few) H 08/20/18 08:00 Hyaline Casts Moderate per lpf (None-Few) H 08/20/18 08:00 - Microbiology Findings Microbiology Findings: Microbiology, Last 48 Hours 08/20/18 07:49 Blood Culture - Preliminary Peripheral Venipuncture Culture is incubating and being continuously monitored for growth. Final report to follow. 08/20/18 06:41 Blood Culture - Preliminary Peripheral Venipuncture Culture is incubating and being continuously monitored for growth. Final report to follow. - Clinical Findings Intake & Output: Intake & Output 08/19/18 08/20/18 08/20/18 23:59 07:59 15:59 Intake Total 110 / 110 100 / 100 Output Total 0 / 0 Balance 110 / 110 100 / 100 Weight 2.466 kg 84.368 kg - Attending Attestation I saw and evaluated this patient and my medical decision-making was reviewed with the Resident Physician. I agree with the documented findings, disposition and treatment plan as described except to the extent set forth below. We independently had [id number] contact with the patient Patient seen and examined at bedside Labs, radiology, chart personally reviewed. Patient presenting with recurrent malignant pleural effusion had Pleurx catheter looks like a separate pocket of effusion has accumulated needing thoracentesis. IR guided thoracentesis at the request of the hospitalist. We will discuss with Dr. Baker regarding the Pleurx catheter management. Best agree with the management according to hospitalist. Thank you for the consultation pulmonary we will continue to follow
[2018-08-20] MEDS: 0.9 % Sodium Chloride 1,000 ML IVC SCH (12:03)
--- NOTE | 2018-08-20 12:39 | IR Procedure Note ---
Date of procedure: 08/20/18 Consent Obtained: Written consent Timeout: Correct patient and procedure verified, Correct site verified, Time out performed, Skin prep completed Local anesthetic: Lidocaine 1% Indications: Left pleural effusion with SOB Procedure Performed: Left thoracentesis Was there an assistant corporation counsel present: No Estimated blood loss (cc): 0 Complications: None; Tolerated procedure well Post Procedure Treatment Plan: Monitor on floor Specimen: None
[2018-08-20] MEDS: *HR* HYDROcodone/Acet 5/325 mg TABLET PO PRN (13:05)
--- NOTE | 2018-08-20 14:28 | Oncology Inp Consult Note ---
<Jordi Dukes - Last Filed: 08/20/18 15:09> Date of Encounter: 08/20/18 Time of Encounter: 15:09 - Data of Consult Requesting Physician: Aydee Barney MD Primary Care Provider: Tono Mccoy MD Medications and Allergies Promethazine [Phenergan] 25 mg PO Q6HR PRN #30 tablet 06/01/18 [Rx] Allergy/AdvReac Type Severity Reaction Status Date / Time ciprofloxacin [From Cipro] Allergy Rash Verified 08/04/18 07:48 codeine Allergy Fatigued Verified 08/04/18 07:48 diphenhydramine Allergy Rash Verified 08/04/18 07:48 [From Benadryl] gabapentin Allergy Anxiety Verified 08/04/18 07:48 Iodinated Contrast- Oral and Allergy Rash Verified 08/04/18 07:48 IV Dye [Iodinated Contrast Media - IV Dye] Penicillins Allergy Rash Verified 08/04/18 07:48 propoxyphene Allergy Rash Verified 08/04/18 07:48 Sulfa (Sulfonamide Allergy Rash Verified 08/04/18 07:48 Antibiotics) Consult Discharge Plan - Plan Referrals: Tono Mccoy MD [Primary Care Provider] - Inpatient Charges Provider: Dr. Tarah Dukes Consult - Inpatient: [id number] - Attending Attestation I examined this patient and my medical decision-making was reviewed with the Advanced Practice Nurse. I agree with the documented findings, disposition and treatment plan as described except to the extent set forth below. -Patient presenting with A. fib w/RVR, pleural effusion, and shortness of breath -She has received 3 cycles of chemotherapy for her extensive stage SCLC -Will allow patient to recover from acute event and then consider administering next cycle of chemotherapy on 08/23/18 if she is still inpatient and has improved clinically. <Samantha Nuñez - Last Filed: 08/21/18 08:29> Date of Encounter: 08/20/18 Assessment and Plan (1) Atrial fibrillation with RVR Status: Acute Assessment and plan: EMS was called to the patient's residence was noted to have a heart rate in the mid 200s. The patient was given 18 mg of Adenosine. Most likely secondary to the large left sided pleural effusion, hypoxia and tumor burden/lung CA HR controlled with metoprolol and cardizem push Continue Xarelto (on hold for IR thoracenteis) (2) Small cell lung cancer Status: Acute Assessment and plan: S/P cycle #3 carboplatin, etoposide as well as atezolizumab on 07/14/2018. Unable to make outpatient treatment appointments due to multiple admissions for SOB/A. Fib and appointment cancellations CTA chest today reveals no evidence of PE, Moderate left-sided pleural effusion which is primarily within the left upper chest/apex, Left lung mass is poorly evaluated due to adjacent consolidated lung, however mediastinal, axillary and upper abdominal lymphadenopathy has worsened compared to 08/09/2018. Patient has pleurx catheter, HH nurse drained only small amount ~150 ml yesterday. IR consulted and performed thoracentesis with 800 ml fluid removed Plan: Continue with respiratory and cardiac support per primary/pulmonology team We will continue to follow along and monitor patients clinical improvement, palliative care is on board, patient wishes to continue with treatment CTA as above does show progression since last exam, it has been 5 weeks since last treatment Dependant upon patients clinical improvement we may consider inpatient treatment on Thursday if patient is still in hospital vs. outpatient treatment Dependant upon her course of hospitalization, we may need to determine further goals of care and discuss risks vs. benefits of continuing treatment - Data of Consult Patient: known to practice within the last 3 years Consult date: 08/20/18 Requesting Physician: Aydee Barney MD Primary Care Provider: Tono Mccoy MD - Consult Narrative Reason for consult: Small cell lung cancer History of present illness: Ms. Maloney is a 73 year old female with Stage IV ([id number]) small cell lung carcinoma of the left lower lobe diagnosed 05/26/2018. Carboplatin with etoposide initiated 06/01/2018. Atezolizumab added cycle #2. CT imaging 07/07/2018 with response to therapy with decrease in mediastinal lymphadenopathy. Left lower lobe collapse persisted at that time. History of Atrial fibrillation on xarelto as well as COPD. She is s/p cycle #3 carboplatin, etoposide as well as atezolizumab on 07/14/2018. She presented to [facility] ER on 08/04/2017 with report of increased SOB and chest tightness, exacerbated with breathing. Noted to be mildly anemic with hgb 7.1. CTA of the chest revealed no PE, some increase in mediastinal and left hilar adenopathy in comparison to most previous scan on 07/07/18, small ground glass opacities in the right upper lob, unchanged sclerotic lesion to T10, and T11 vertebral bodies. Following optimization of her respiratory status and treatment of her underlying COPD, she was discharged with the plan to follow up as outpatient for further treatment. She was then re-admitted 08/09/2018 for increased SOB. In the emergency room, CT shows large left side pleural effusion. Pleurx catheter was placed by pulmonology. Cytology from pleural fluid revealed reactive mesothelial cells and atypical cells. She was discharged home with home health on 08/15/18. She presented to [facility] ED today 08/20/2018 with report of increased SOB, chest tightness and heart palpitations. EMS was called to patients house and she was noted to have a heart rate in the mid 200's, she was given adenosine and cardizem with response in HR to around 100. She denies fever, chills, diaphoresis, cough, hemoptysis, nausea, vomiting or leg swelling or calf tenderness. She is also experiencing water, diarrhea bowel movements. CTA of the chest reveals no evidence of PE, Moderate left-sided pleural effusion which is primarily within the left upper chest/apex, Left lung mass is poorly evaluated due to adjacent consolidated lung, however mediastinal, axillary and upper abdominal lymphadenopathy has worsened compared to 08/09/2018. Past Med Surg Social Fam HX - Past Medical History Medical history: atrial fibrillation, cancer, COPD, coronary artery disease, DVT, hyperlipidemia, hypertension Psychiatric history: anxiety, depression - Past Surgical History Surgical History: angioplasty/stent, , cholecystectomy, hysterectomy Additional surgical history: cardiac stent x 1. c section x2. partial hysterectomy - Social History Smoking Status: Former smoker Smokeless Tobacco Status: No Alcohol use: none Drug use: none - Family History Mother Living Status: Hx Family Cardiac Disorders: Yes Hx Family Respiratory Disorders: Yes (COPD, Trach) Father Living Status: Hx Family Cardiac Disorders: Yes (stroke x2) Son Hx Family Cancer: Yes Constitutional: Present: anorexia, fatigue, weakness, weight loss. Absent: chills, fever(s) Eyes: Absent: change in vision Nose, mouth and throat: Absent: dysphagia, odynophagia Cardiovascular: Present: chest pain, palpitations Respiratory: Present: cough, dyspnea. Absent: hemoptysis Gastrointestinal: Present: diarrhea, nausea. Absent: abdominal pain, hematochezia, melena, vomiting Genitourinary: Absent: dysuria Musculoskeletal: Present: muscle weakness. Absent: back pain Integumentary: Absent: rash, wounds Neurological: Absent: focal weakness, frequent falls Psychiatric: Present: as per HPI, anxiety Hematologic/Lymphatic: Present: as per HPI Oncology - Exam - Constitutional General appearance: cooperative, no acute distress, no febrile Exam: chronically ill appearing - Head Head exam: Present: atraumatic - ENT ENT exam: Present: mucous membranes moist, normal oropharynx - Respiratory Respiratory exam: Present: decreased breath sounds. Absent: respiratory distress - Cardiovascular Cardiovascular exam: Present: irregular rhythm - GI/Abdominal GI/Abdominal exam: Present: normal bowel sounds, soft. Absent: tenderness - Extremities Exam Extremities exam: Present: normal inspection. Absent: calf tenderness - Neurological Exam Neurological exam: Present: alert, oriented X3, no focal deficits, strengths equal and symetr throughout - Psychiatric Psychiatric exam: Present: normal affect, normal mood - Skin Skin exam: Present: dry, intact, pallor, warm
--- NOTE | 2018-08-20 15:30 | Palliative - Consult Note ---
Date of Encounter: 08/20/18 Time of Encounter: 11:00 - Assessment and Plan (1) Shortness of breath Current Visit: No Status: Acute Assessment and plan: Patient reports improved post thoracentesis. (2) Small cell lung cancer Current Visit: No Status: Acute Assessment and plan: Oncology recommendations appreciated. (3) Pleural effusion Current Visit: No Status: Acute Assessment and plan: IR consulted; thoracentesis 850 ml. (4) Goals of care, counseling/discussion Current Visit: Yes Status: Acute Assessment and plan: Conducted lengthy goals of care assessment with patient, patient's daughter in law Michelle, and Daughter Ximena. Patient reports Ximena is her decision maker if she is unable to make decisions for herself. Patient lives at home alone with assistance from [employer]. Patient's daughter Ximena works 10 hour shifts and is unable to be with patient all the time. Patient would like to return home and has all needed DME equipment at this time. Explained when the appropriate time to get hospice involved in the care of the patient, specifically when Cancer treatment completion occurs. Patient verbalized understanding that cancer treatment stops when no longer of benefit, no longer physically able, or at patient's discretion. Patient would like to continue Cancer treatment Cycle number 4 at this time. Gave contact information and brochure on [facility] for when patient is ready to daughter. Family previously had poor experience with Hospice in [place], interested in [facility]. Discussed CODE STATUS. Patient changed CODE STATUS to DNRCCA. Ok with short term intubation. Palliative will continue to follow patient for continued symptom management. (5) Pain Current Visit: Yes Status: Acute Assessment and plan: Patient reports increased pain in chest and abdomen prior to Thoracentesis. reports improved afterwards. Patient has [place] PRN, has received 1 dose in the last 24 hours. Continue to monitor for improved pain control. (6) Anxiety Current Visit: No Status: Chronic Assessment and plan: Patient reports increased anxiety. Takes Buspar and Zoloft at home. Will order PRN Ativan for control of anxiety while admitted. Palliative-CN HPI - Data of Consult Patient: new to practice Consult date: 08/20/18 Requesting Physician: Aydee Barney MD Primary Care Provider: Tono Mccoy MD - Consult Narrative Palliative Care/Comfort Measures: Palliative care Reason for consult: Stage 4 Lung Cancer with recurrent pleural effusions History of present illness: Ms. Maloney is a 73 year old female arrived to [facility] on 08/20/18 via EMS, whom was called for increased dyspnea over the last 3-4 days and heart palpitations. Upon arrival, patient found to be in Afib with RVR, Cardizem given and heart rate returned to 100s. Patient is known to cancer center with stage 4 SCLC. PMH: atrial fibrillation, Small Cell Lung cancer, COPD, coronary artery disease, DVT, hyperlipidemia, hypertension, anxiety, and depression. Initial X-ray showed complete opacification of Left hemithorax with large upper pleural effusion, despite Pleurx placement on last admission. CT showed Chest tube in place and new large left pleural effusion to left upper chest into mediastinal area. Consult to IR resulted with 850 ml thoracentesis. Pulmonary consult pending. Oncology consult complete, with recommendations to allow for recovery of acute event and restart cycle #4 of chemo therapy Thursday08/23/18. Palliative care consulted for Stage 4 lung cancer with recurrent pleural effusion, goals of care. Patient resting in bed, signs of anxiety present, upon arrival for assessment. No family present at bedside, patient reported daughter in law Michelle will be in this afternoon. Per patient/RN report patient to be going to CT soon, assured that upon CT arrival would depart and return at later time. Patient reports increased abdominal pain and anxiety. Denies dyspnea, nausea, and vomiting. Accessory muscles for respirations noted. Soon after assessment began, CT arrival, meeting adjourned and resumed later in afternoon. Upon return to patient's room for re-assessment. Patient's daughter Ximena and daughter in law Michelle present at bedside. Patient is alert and oriented times 3. Patient reports pain, anxiety, and dyspnea have improved. Upon entry, Oncology and Pulmonary departing from room. Reviewed meetings from Oncology and Pulmonary teams with patient. Patient reports Oncology plans to resume cancer treatment Thursday and Pulmonary visit to ensure understanding of risks related to intubation for patient; patient verbalized understanding. CC: Aydee Barney MD - Time Spent with Patient Time: Total time spent is greater than 50% in coordination of care (as documented) at patient's floor/unit and/or counseling patient: 5 minute chart review 15 minute meeting with patient discussing symptoms, goals of care, and hospice eligibility. 60 minute meeting with patient, daughter, daughter in law regarding goals of care, discharge planning, CODE STATUS. 5 minute review of goals of care with patient's care team, including SW, Pulmonary, Oncology, RN. 5 minute state form completion and filing. Time with patient: 75 minutes Past Med Surg Social Fam HX - Past Medical History Medical history: atrial fibrillation, cancer, COPD, coronary artery disease, DVT, hyperlipidemia, hypertension Psychiatric history: anxiety, depression - Past Surgical History Surgical History: angioplasty/stent, , cholecystectomy, hysterectomy Additional surgical history: cardiac stent x 1. c section x2. partial hysterectomy - Social History Smoking Status: Former smoker Smokeless Tobacco Status: No Alcohol use: none Drug use: none - Family History Mother Living Status: Hx Family Cardiac Disorders: Yes Hx Family Respiratory Disorders: Yes (COPD, Trach) Father Living Status: Hx Family Cardiac Disorders: Yes (stroke x2) Son Hx Family Cancer: Yes Medications and Allergies Albuterol Sulfate [Proair Hfa] 2 puff IH Q6H PRN 02/26/18 [History] Aspirin [Lo-Dose Aspirin EC] 81 mg PO DAILY 02/26/18 [History] Buspirone HCl [Buspar] 7.5 mg PO BID 02/26/18 [History] Cholecalciferol (D-3) [Vitamin D] 2,000 unit PO DAILY 02/26/18 [History] Docusate Sodium [Dok] 100 mg PO BID PRN 02/26/18 [History] Estradiol 1.5 mg PO DAILY 02/26/18 [History] Fluticasone/Salmeterol [Advair 250-50 Diskus] 1 puff IH BID 02/26/18 [History] Loratadine [Allergy Relief] 10 mg PO DAILY 02/26/18 [History] Montelukast [Singulair] 10 mg PO HS 02/26/18 [History] Nitroglycerin [Nitrostat] 0.4 mg SL Q5M PRN 02/26/18 [History] Sertraline [Zoloft] 200 mg PO DAILY 02/26/18 [History] Simvastatin [Zocor] 40 mg PO HS 02/26/18 [History] Metoprolol [Lopressor] 25 mg PO BID 30 Days #30 tablet 02/28/18 [Rx] Rivaroxaban [Xarelto] 20 mg PO 1700 90 Days #90 tablet 02/28/18 [Rx] Promethazine [Phenergan] 25 mg PO Q6HR PRN #30 tablet 06/01/18 [Rx] Ipratropium/Albuterol Neb [Duoneb] 3 ml IH Q6HR PRN #60 vial.neb 08/07/18 [Rx] Omeprazole [PriLOSEC] 20 mg PO DAILY@0730 08/10/18 [History] HYDROcodone/Acet 5/325 mg [[place] 5-325 mg] 1 tab PO Q6H PRN 7 Days #30 tab 08/15/18 [Rx] Allergy/AdvReac Type Severity Reaction Status Date / Time ciprofloxacin [From Cipro] Allergy Rash Verified 08/04/18 07:48 codeine Allergy Fatigued Verified 08/04/18 07:48 diphenhydramine Allergy Rash Verified 08/04/18 07:48 [From Benadryl] gabapentin Allergy Anxiety Verified 08/04/18 07:48 Iodinated Contrast- Oral and Allergy Rash Verified 08/04/18 07:48 IV Dye [Iodinated Contrast Media - IV Dye] Penicillins Allergy Rash Verified 08/04/18 07:48 propoxyphene Allergy Rash Verified 08/04/18 07:48 Sulfa (Sulfonamide Allergy Rash Verified 08/04/18 07:48 Antibiotics) - Constitutional Constitutional ROS PAL: fatigue, lethargy, malaise, no decreased appetite, no frequent falls - EENT Ears, nose, mouth, throat: dysphagia, hoarseness - Cardiovascular Cardiovascular ROS: chest pain, chest pain with activity, dyspnea on exertion, rapid heart rate, no chest pain at rest - Respiratory Respiratory: no cough - Gastrointestinal Gastrointestinal: abdominal pain, diarrhea, no nausea, no vomiting - Musculoskeletal Musculoskeletal ROS IM: no myalgias - Integumentary ROS Integumentary: no wounds - Neurological Neurological ROS: weakness - Psychiatric Psychiatric general PM: anxiety Palliative Care-Exam - Constitutional Vitals: Temp Pulse Resp BP Pulse Ox 98.0 F 90 16 162/82 97 08/20/18 13:43 08/20/18 09:31 08/20/18 13:43 08/20/18 13:43 08/20/18 13:43 General appearance: Present: cooperative, mild distress - Head Head Exam: Present: atraumatic, normal inspection - Eye Eye exam: Present: EOMI, normal appearance, PERRL Pupils: Present: normal accommodation, PERRL - ENT ENT exam: Present: mucous membranes dry - Expanded ENT Exam Mouth Exam: Present: dry mucosa. Absent: drooling - Neck Neck exam: Present: full ROM, normal inspection - Respiratory Respiratory exam: Present: accessory muscle use, respiratory distress, rhonchi (during initial exam. Less accessory muscle usage and improved air flow with some rhonchi on re-assessment.), tachypnea - Cardiovascular Cardiovascular exam: Present: +S1, +S2 - Expanded Cardiovascular Exam Peripheral pulses: 2+: Radial (L), Radial (R), Posterior Tibialis (L), Posterior Tibialis (R), Dorsalis Pedis (L) PM, Dorsalis Pedis (R) PM - GI/Abdominal Exam GI/Abdominal exam: Present: normal bowel sounds, soft. Absent: tenderness - Rectal Rectal exam: Present: deferred - Extremities Exam Extremities exam: Present: full ROM, normal inspection. Absent: pedal edema, tenderness - Back Exam Back exam: Present: full ROM, normal inspection - Neurological Exam Neurological exam: Present: alert, oriented X3, strengths equal and symetr throughout. Absent: altered - Expanded Neurological Exam Patient oriented to: Present: person, place, time Coma Scale Eye Opening: Spontaneous Coma Scale Motor Response: Obeys Commands Coma Scale Verbal Response: Oriented Coma Scale Total: 15 - Psychiatric Psychiatric exam: Present: anxious - Skin Skin exam: Present: dry, intact, warm Internal Medicine - CN: Reslt - Labs CBC & Chem 7: 08/20/18 07:49 08/20/18 07:49 Labs: Short CBC 08/20/18 Range/Units 07:49 WBC 10.7 (4.3-11.1) K/mcL Hgb 8.2 L (11.5-15.4) g/dL Hct 26.5 L (35.3-44.9) % Plt Count 343 (140-400) K/mcL Neutrophils # 9.1 H (1.6-8.9) K/mcL BMP 08/20/18 07:49 Sodium 137 Potassium 3.9 Chloride 103 Carbon Dioxide 25 BUN 17 Creatinine 0.67 Glucose 114 H Calcium 8.8 Cardiac Enzymes 08/20/18 Range/Units 07:49 Troponin I < 0.03 (< 0.04) ng/mL Liver Function 08/20/18 Range/Units 07:49 Total Bilirubin 0.4 (0.3-1.0) mg/dL Direct Bilirubin 0.1 (0.0-0.2) mg/dL AST 11 L (13-39) Units/L ALT 8 (7-52) Units/L Alkaline Phosphatase 48 (34-104) Units/L Albumin 2.9 L (3.5-5.7) g/dL Urine 08/20/18 Range/Units 08:00 Urine Color Dark Yellow (Yellow) Urine Clarity Cloudy A (Clear) Urine pH 5.0 (5.0-8.0) pH Units Ur Specific [place] 1.027 H (1.010-1.025) Urine Protein Negative (Neg-Trace) mg/dL Urine Glucose (UA) Normal (Normal) mg/dL - ABG Interpretation ABG results: PT/INR, D-dimer PT 16.2 Seconds (9.4-12.1) H 08/20/18 07:49 - Impressions Impressions Chest X-Ray 08/20/18 06:20 IMPRESSION: Complete opacification of the left hemithorax most consistent with large, increased pleural effusion. Underlying pulmonary consolidation at the left lung base is suspected as seen on the prior CT exam. The known left hilar mass is not appreciated. D/ / 08/20/2018 08:01:39 Marko Cadet MD / Consuelo Arguello Interpreting Provider: Marko Cadet MD Chest CTA 08/20/18 11:25 IMPRESSION: No evidence of pulmonary embolism. There is narrowing of multiple left-sided pulmonary arteries without filling defects. Left chest tube in place with the tip in the base. Moderate left-sided pleural effusion which is primarily within the left upper chest/apex. Consolidation of the entire left lung. Left lung mass is poorly evaluated due to adjacent consolidated lung, however mediastinal, axillary and upper abdominal lymphadenopathy has worsened compared to 08/09/2018. Increased size of the focal ground-glass opacity in the right upper lobe. D/ / Dion Resendez MD / Dion Resendez MD Interpreting Provider: Dion Resendez MD Thoracentesis 08/20/18 12:16 IMPRESSION: 1. Successful ultrasound guided left thoracentesis. D/ / Monroe Em MD / Monroe Em MD Interpreting Provider: Monroe Em MD Chest X-Ray 08/20/18 12:37 IMPRESSION: Decrease in left pleural effusion with no pneumothorax following left thoracentesis. Partial re-expansion of the left upper lobe. D/ / Frank Schwartz MD / Frank Schwartz MD Interpreting Provider: Frnak Schwartz MD Consult Discharge Plan - Plan Referrals: Tono Mccoy MD [Primary Care Provider] - Palliative Quality Palliative Quality: Screen for Code Status: Yes, Screen for Goals of Care: Yes, Screen for Pain: Yes, If Pain Regimen Started, Initiate Bowel Regimen: NA, Screen for Nausea/Vomitting: Yes Code Status: 08/20/18 09:24 Resuscitation Status: Active [RES] Routine Comment: Resuscitation Status: Full Code 08/20/18 15:21 DNR [Resuscitation Status: Active] [RES] Routine Comment: State form. Resuscitation Status: DNR-Comfort Care-Arrest Palliative Scale - Palliative Performance Scale How ambulatory is this patient?: Reduced What is patient's level of activity and evidence of disease?: Normal activity with effort, Some evidence of disease How much self-care assistance does patient require?: Occasional assistance necessary How much oral intake does the patient have?: Normal or reduced What is this patient's level of consciousness?: Full or confusion Palliative Performance Score: 80 %
--- NOTE | 2018-08-20 16:10 | Emergency Department Note ---
Disposition Clinical Impression: Atrial fibrillation with RVR, Small cell lung cancer, Shortness of breath, Pleural effusion, left Disposition: Admitted As Inpatient Condition: Undetermined General Adult HPI - General Chief complaint: ED General Medical Stated complaint: chest pain Time Seen by Provider: 08/20/18 06:20 Source: patient, EMS Mode of arrival: EMS Limitations: no limitations Nursing Notes Reviewed: Yes Vital Signs Reviewed: Yes - History of Present Illness Pain Scale: 3 - Related Data Home Medications Medication Instructions Recorded Confirmed Albuterol Sulfate [Proair Hfa] 2 puff IH Q6H PRN 02/26/18 08/10/18 Aspirin [Lo-Dose Aspirin EC] 81 mg PO DAILY 02/26/18 08/10/18 Buspirone HCl [Buspar] 7.5 mg PO BID 02/26/18 08/10/18 Cholecalciferol (D-3) [Vitamin D] 2,000 unit PO DAILY 02/26/18 08/10/18 Docusate Sodium [Dok] 100 mg PO BID PRN 02/26/18 08/10/18 Estradiol 1.5 mg PO DAILY 02/26/18 08/10/18 Fluticasone/Salmeterol [Advair 1 puff IH BID 02/26/18 08/10/18 250-50 Diskus] Loratadine [Allergy Relief] 10 mg PO DAILY 02/26/18 08/10/18 Montelukast [Singulair] 10 mg PO HS 02/26/18 08/10/18 Nitroglycerin [Nitrostat] 0.4 mg SL Q5M PRN 02/26/18 08/10/18 Sertraline [Zoloft] 200 mg PO DAILY 02/26/18 08/10/18 Simvastatin [Zocor] 40 mg PO HS 02/26/18 08/10/18 Omeprazole [PriLOSEC] 20 mg PO DAILY@0730 08/10/18 08/10/18 Previous Rx's Medication Instructions Recorded Metoprolol [Lopressor] 25 mg PO BID 30 Days #30 tablet 02/28/18 Rivaroxaban [Xarelto] 20 mg PO 1700 90 Days #90 tablet 02/28/18 Promethazine [Phenergan] 25 mg PO Q6HR PRN #30 tablet 06/01/18 Ipratropium/Albuterol Neb [Duoneb] 3 ml IH Q6HR PRN #60 vial.neb 08/07/18 HYDROcodone/Acet 5/325 mg [[place] 1 tab PO Q6H PRN 7 Days #30 tab 08/15/18 5-325 mg] Allergies Allergy/AdvReac Type Severity Reaction Status Date / Time ciprofloxacin [From Cipro] Allergy Rash Verified 08/04/18 07:48 codeine Allergy Fatigued Verified 08/04/18 07:48 diphenhydramine Allergy Rash Verified 08/04/18 07:48 [From Benadryl] gabapentin Allergy Anxiety Verified 08/04/18 07:48 Iodinated Contrast- Oral and Allergy Rash Verified 08/04/18 07:48 IV Dye [Iodinated Contrast Media - IV Dye] Penicillins Allergy Rash Verified 08/04/18 07:48 propoxyphene Allergy Rash Verified 08/04/18 07:48 Sulfa (Sulfonamide Allergy Rash Verified 08/04/18 07:48 Antibiotics) Constitutional: Reports: weakness. Denies: fever, chills ENT ED: Denies: dysphagia Cardiovascular: Reports: palpitations, dyspnea on exertion. Denies: chest pain, edema, syncope Respiratory: Reports: dyspnea. Denies: cough, sputum production Gastrointestinal: Reports: diarrhea. Denies: abdominal pain, nausea, vomiting, melena, hematochezia Genitourinary: Denies: urgency, dysuria Musculoskeletal: Denies: back pain, neck pain Integumentary: Denies: rash Neurological: Reports: weakness. 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 [employer]ATE history - Social History Smoking Status: Former smoker Smokeless Tobacco Status: No Alcohol use: Reports: none Drug use: Reports: none Physical Exam - General Limitations: no limitations General appearance: alert, in distress Course Vital Signs Temperature 97.6 F 08/20/18 06:09 Pulse Rate 233 08/20/18 06:09 Respiratory Rate 26 08/20/18 06:09 Blood Pressure 120/102 08/20/18 06:09 O2 Sat by Pulse Oximetry 96 08/20/18 06:09 Temperature 97.5 F L 08/20/18 16:39 Pulse Rate 75 08/20/18 16:39 Respiratory Rate 20 08/20/18 16:39 Blood Pressure 103/76 08/20/18 16:39 O2 Sat by Pulse Oximetry 96 08/20/18 16:39 Oxygen Delivery Oxygen Delivery Nasal Cannula Medical Decision Making - MDM Narrative Medical decision making narrative: Patient received in sign out at the start of my shift pending laboratory evaluation, imaging, disposition. She initially presented with A. fib with RVR which improved after a bolus of Lopressor and Cardizem. She is now in a sinus rhythm. BP is remaining stable during my evaluation. Patient is pale, has a history of small cell lung cancer. She has a large opacification of the left was not an x-ray had has a history of small cell lung cancer. Patient has a Pleurx catheter in place from recent large pleural effusion. Patient likely has worsening of her pleural effusion which caused her A. fib with RVR. I spoke with the interventional radiologist who will see the patient on the floor. He requested a CT of the chest to be performed and would see the patient on the floor. I spoke with the hospitalist who is comfortable with the plan for admission to the hospital. Patient has a history of IV contrast allergy however she is been able to obtain scans with contrast in the past when receiving Benadryl beforehand. - Medical Records Medical records reviewed: Yes I reviewed the patient's medical records. - Lab Data Lab results reviewed: Yes I reviewed the patient's lab results. Result diagrams: 08/20/18 07:49 08/20/18 07:49 Lab Results 08/20/18 08/20/18 08/20/18 Range/Units 06:41 07:49 07:49 WBC (4.3-11.1) K/mcL RBC (3.82-4.97) M/mcL Hgb (11.5-15.4) g/dL Hct (35.3-44.9) % MCV (83.0-100.0) fL MCH (28.0-33.3) pg MCHC (31.6-35.5) g/dL RDW (11.5-14.5) % Plt Count (140-400) K/mcL MPV (9.4-12.4) fL Immature Gran % (0-4) % Seg Neutrophils % % Lymphocytes % % Monocytes % % Eosinophils % % Basophils % % Neutrophils # (1.6-8.9) K/mcL Lymphocytes # (0.6-4.6) K/mcL Monocytes # (0.0-1.3) K/mcL Eosinophils # (0.0-0.6) K/mcL Basophils # (0.0-0.2) K/mcL PT 16.2 H (9.4-12.1) Seconds INR 1.4 APTT 30.0 (26.0-36.0) Seconds Sodium 137 (136-145) mEq/L Potassium 3.9 (3.5-5.1) mEq/L Chloride 103 (98-107) mEq/L Carbon Dioxide 25 (23-29) mEq/L BUN 17 (8-23) mg/dL Creatinine 0.67 (0.60-1.20) mg/dL Est GFR ( Amer) > 60 (> 60) Est GFR (Non-Af Amer) > 60 (> 60) BUN/Creatinine Ratio 25 (6-26) Glucose 114 H (70-105) mg/dL Calculated Osmolality 286 (280-300) Lactic Acid (0.5-2.2) mmol/L Calcium 8.8 (8.6-10.3) mg/dL Magnesium 1.6 (1.6-2.6) mg/dL Total Bilirubin 0.4 (0.3-1.0) mg/dL Direct Bilirubin 0.1 (0.0-0.2) mg/dL Indirect Bilirubin 0.3 (0.0-1.2) mg/dL AST 11 L (13-39) Units/L ALT 8 (7-52) Units/L Alkaline Phosphatase 48 (34-104) Units/L Troponin I < 0.03 (< 0.04) ng/mL Serum Total Protein 5.9 L (6.4-8.9) g/dL Albumin 2.9 L (3.5-5.7) g/dL Globulin 3.0 (2.4-3.5) g/dL Albumin/Globulin Ratio 1.0 L (1.1-2.2) TSH 2.328 (0.340-5.600) mcIU/mL Urine Color (Yellow) Urine Clarity (Clear) Urine pH (5.0-8.0) pH Units Ur Specific [place] (1.010-1.025) Urine Protein (Neg-Trace) mg/dL Urine Glucose (UA) (Normal) mg/dL Urine Ketones (Negative) mg/dL Urine Blood (Negative) Urine Nitrite (Negative) Urine Bilirubin (Negative) Urine Urobilinogen (Normal) mg/dL Ur Leukocyte Esterase (Negative) Urine Microscopic RBC (0-3) per hpf Urine Microscopic WBC (0-3) per hpf Ur Squamous Epith Cells (None-Few) per lpf Urine Bacteria (None-Few) per hpf Hyaline Casts (None-Few) per lpf Ur Culture Indicated? (NO) Specimen Rejected Hemolyzed 08/20/18 08/20/18 08/20/18 Range/Units 07:49 08:00 08:10 WBC 10.7 (4.3-11.1) K/mcL RBC 2.72 L (3.82-4.97) M/mcL Hgb 8.2 L (11.5-15.4) g/dL Hct 26.5 L (35.3-44.9) % MCV 97.4 (83.0-100.0) fL MCH 30.1 (28.0-33.3) pg MCHC 30.9 L (31.6-35.5) g/dL RDW 17.4 H (11.5-14.5) % Plt Count 343 (140-400) K/mcL MPV 10.0 (9.4-12.4) fL Immature Gran % 2.4 (0-4) % Seg Neutrophils % 84.6 % Lymphocytes % 7.9 % Monocytes % 3.9 % Eosinophils % 0.7 % Basophils % 0.5 % Neutrophils # 9.1 H (1.6-8.9) K/mcL Lymphocytes # 0.9 (0.6-4.6) K/mcL Monocytes # 0.4 (0.0-1.3) K/mcL Eosinophils # 0.1 (0.0-0.6) K/mcL Basophils # 0.1 (0.0-0.2) K/mcL PT (9.4-12.1) Seconds INR APTT (26.0-36.0) Seconds Sodium (136-145) mEq/L Potassium (3.5-5.1) mEq/L Chloride (98-107) mEq/L Carbon Dioxide (23-29) mEq/L BUN (8-23) mg/dL Creatinine (0.60-1.20) mg/dL Est GFR ( Amer) (> 60) Est GFR (Non-Af Amer) (> 60) BUN/Creatinine Ratio (6-26) Glucose (70-105) mg/dL Calculated Osmolality (280-300) Lactic Acid 1.2 (0.5-2.2) mmol/L Calcium (8.6-10.3) mg/dL Magnesium (1.6-2.6) mg/dL Total Bilirubin (0.3-1.0) mg/dL Direct Bilirubin (0.0-0.2) mg/dL Indirect Bilirubin (0.0-1.2) mg/dL AST (13-39) Units/L ALT (7-52) Units/L Alkaline Phosphatase (34-104) Units/L Troponin I (< 0.04) ng/mL Serum Total Protein (6.4-8.9) g/dL Albumin (3.5-5.7) g/dL Globulin (2.4-3.5) g/dL Albumin/Globulin Ratio (1.1-2.2) TSH (0.340-5.600) mcIU/mL Urine Color Dark Yellow (Yellow) Urine Clarity Cloudy A (Clear) Urine pH 5.0 (5.0-8.0) pH Units Ur Specific [place] 1.027 H (1.010-1.025) Urine Protein Negative (Neg-Trace) mg/dL Urine Glucose (UA) Normal (Normal) mg/dL Urine Ketones Negative (Negative) mg/dL Urine Blood Negative (Negative) Urine Nitrite Negative (Negative) Urine Bilirubin Small H (Negative) Urine Urobilinogen Normal (Normal) mg/dL Ur Leukocyte Esterase Negative (Negative) Urine Microscopic RBC 5-15 H (0-3) per hpf Urine Microscopic WBC 3-5 H (0-3) per hpf Ur Squamous Epith Cells Many H (None-Few) per lpf Urine Bacteria Moderate H (None-Few) per hpf Hyaline Casts Moderate H (None-Few) per lpf Ur Culture Indicated? NO (NO) Specimen Rejected - Radiology Data Radiology results reviewed: Yes I reviewed the patient's radiology results.
[2018-08-20] MEDS: *HR* Rivaroxaban 10 MG TABLET PO SCH (17:57)
[2018-08-20] MEDS: Budesonide/Formoterol 80/4.5 MDI IH SCH (21:37)
[2018-08-21] MEDS: *HR* HYDROcodone/Acet 5/325 mg TABLET PO PRN ×4 (03:35→22:38)
[2018-08-21 05:03] LABS: Basophils % 0.3 %; Eosinophils # 0.1 K/mcL (0.0-0.6); Eosinophils % 0.7 %; Hematocrit 25.7 % (35.3-44.9); Hemoglobin 7.7 g/dL (11.5-15.4); Immature Granulocytes % 1.1 % (0-4); Lymphocytes % 19.7 %; Mean Platelet Volume 10.1 fL (9.4-12.4); Monocytes # 0.5 K/mcL (0.0-1.3); Monocytes % 4.8 %; Neutrophils # 7.3 K/mcL (1.6-8.9); Platelet Count 364 K/mcL (140-400); Red Blood Count 2.57 M/mcL (3.82-4.97); Red Cell Distribution Width 17.5 % (11.5-14.5); Segmented Neutrophils % 73.4 %
[2018-08-21 05:22] LABS: BUN/Creatinine Ratio 26 (6-26); Blood Urea Nitrogen 16 mg/dL (8-23); Calcium 8.8 mg/dL (8.6-10.3); Carbon Dioxide 29 mEq/L (23-29); Chloride 104 mEq/L (98-107); Glucose 106 mg/dL (70-105); Magnesium 1.6 mg/dL (1.6-2.6); Osmolality,Calculated 288 (280-300); Phosphorous 2.5 mg/dL (2.7-4.5); Sodium 138 mEq/L (136-145); eGFR For Non-African Americans > 60 (> 60)
[2018-08-21] MEDS: Budesonide/Formoterol 80/4.5 MDI IH SCH ×2 (07:44→19:58)
[2018-08-21] MEDS: Aspirin Enteric Coated 81 MG Tablet PO SCH (09:32)
[2018-08-21] MEDS: Cholecalciferol (D-3) 1,000 UNIT TABLET PO SCH (09:32)
[2018-08-21] MEDS: Loratadine 10 MG TABLET PO SCH (09:33)
[2018-08-21] MEDS: 0.9 % Sodium Chloride 1,000 ML IVC SCH (10:00)
--- NOTE | 2018-08-21 10:53 | Internal Med Progress Note ---
Hospitalist Progress Note - Encounter Date of Encounter: 08/21/18 Time of Encounter: 09:10 - Subjective Interval History: Patient is lying down in bed. Feels somewhat better compared to yesterday with decreased shortness of breath. She is able to breathe better. Continues to have left lower chest pain which is chronic. Denies any fevers or chills ov ernight. Does continue to feel tired. CODE STATUS has been changed to DNR comfort care arrest per discussion with palliative care yesterday. Patient is okay with short-term intubation if needed. - Exam Vitals: Temp Pulse Resp BP Pulse Ox 97.5 F L 69 18 119/67 95 08/21/18 06:50 08/21/18 06:50 08/21/18 07:47 08/21/18 06:50 08/21/18 07:47 Exam: General: Patient is alert, mild distress, oriented x 3 Respiratory: Decreased breath sounds on the left side. Pleurx catheter in place on the left. Cardiovascular: Regular rate and rhythm. s1 and s2 normal No clicks, rubs, gallops, or murmurs. No pedal edema Abdomen: Abdomen is soft, nontender. Bowel sounds are present Musculoskeletal: Spontaneously moving all extremities Skin: warm, dry, intact. Neuro: Alert oriented x 3 normal cranial nerves, no focal deficits - Assessment and Plan (1) Small cell lung cancer Current Visit: Yes Status: Acute Assessment and Plan: With malignant pleural effusion. Status post paracentesis yesterday. Pleurx catheter in place. Pulmonology following. Will repeat chest x-ray to reevaluate for effusion. (2) Chronic anemia Current Visit: Yes Status: Acute Assessment and Plan: Hemoglobin 7.7 today. Decreased from 8.2 yesterday. Most likely dilutional. Patient does state Xarelto for anticoagulation for A. fib. Will monitor blood counts closely. If continues to decrease, we will hold Xarelto. (3) Atrial fibrillation with RVR Current Visit: Yes Status: Acute Assessment and Plan: Rate controlled currently. Patient is on Xarelto for anticoagulation. Continue metoprolol. (4) Pleural effusion, left Current Visit: Yes Status: Acute Assessment and Plan: Patient with malignant left pleural effusion. Status post thoracentesis. (5) COPD (chronic obstructive pulmonary disease) Current Visit: Yes Status: Chronic Assessment and Plan: Not in acute exacerbation. Continue Symbicort. Bronchodilators as needed. (6) DVT prophylaxis Current Visit: Yes Status: Acute Assessment and Plan: Patient is on Xarelto currently. (7) Goals of care, counseling/discussion Current Visit: Yes Status: Acute Assessment and Plan: Palliative care consult appreciated. We will follow recommendations. (8) Diarrhea Current Visit: Yes Status: Resolved Assessment and Plan: No new episodes of diarrhea since yesterday. - Time Spent with Patient Total time spent is greater than 50% in coordination of care (as documented) at patient's floor/unit and/or counseling patient: Internal Medicine: Result - Labs CBC & Chem 7: 08/21/18 04:03 08/21/18 04:03 Labs: Short CBC 08/21/18 Range/Units 04:03 WBC 9.9 (4.3-11.1) K/mcL Hgb 7.7 L (11.5-15.4) g/dL Hct 25.7 L (35.3-44.9) % Plt Count 364 (140-400) K/mcL Neutrophils # 7.3 (1.6-8.9) K/mcL BMP 08/21/18 04:03 Sodium 138 Potassium 4.0 Chloride 104 Carbon Dioxide 29 BUN 16 Creatinine 0.62 Glucose 106 H Calcium 8.8 - ABG Interpretation ABG results: PT/INR, D-dimer PT 16.2 Seconds (9.4-12.1) H 08/20/18 07:49 - Impressions Impressions Chest X-Ray 08/20/18 06:20 IMPRESSION: Complete opacification of the left hemithorax most consistent with large, increased pleural effusion. Underlying pulmonary consolidation at the left lung base is suspected as seen on the prior CT exam. The known left hilar mass is not appreciated. D/ / 08/20/2018 08:01:39 Marko Cadet MD / Consuelo Arguello Interpreting Provider: Marko Cadet MD Chest CTA 08/20/18 11:25 IMPRESSION: No evidence of pulmonary embolism. There is narrowing of multiple left-sided pulmonary arteries without filling defects. Left chest tube in place with the tip in the base. Moderate left-sided pleural effusion which is primarily within the left upper chest/apex. Consolidation of the entire left lung. Left lung mass is poorly evaluated due to adjacent consolidated lung, however mediastinal, axillary and upper abdominal lymphadenopathy has worsened compared to 08/09/2018. Increased size of the focal ground-glass opacity in the right upper lobe. D/ / Dion Resendez MD / Dion Resendez MD Interpreting Provider: Dion Resendez MD Thoracentesis 08/20/18 12:16 IMPRESSION: 1. Successful ultrasound guided left thoracentesis. D/ / Monroe Em MD / Monroe Em MD Interpreting Provider: Monroe Em MD Chest X-Ray 08/20/18 12:37 IMPRESSION: Decrease in left pleural effusion with no pneumothorax following left thoracentesis. Partial re-expansion of the left upper lobe. D/ / Frank Schwartz MD / Frank Schwartz MD Interpreting Provider: Frank Schwartz MD Consult Discharge Plan - Plan Referrals: Tono Mccoy MD [Primary Care Provider] - (5) COPD (chronic obstructive pulmonary disease) Qualifiers: COPD type: unspecified COPD Qualified Code(s): J44.9 - Chronic obstructive pulmonary disease, unspecified (8) Diarrhea Qualifiers: Diarrhea type: presumed infectious Qualified Code(s): R19.7 - Diarrhea, unspecified
[2018-08-21 13:52] LABS: Hematocrit 27.4 % (35.3-44.9); Hemoglobin 8.2 g/dL (11.5-15.4)
[2018-08-21 18:03] LABS: Hematocrit 26.3 % (35.3-44.9)
--- NOTE | 2018-08-21 20:37 | Electrocardiograph Report ---
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
--- NOTE | 2018-08-21 20:38 | Electrocardiograph Report ---
[address] [place], [place] [address] Test Date: 2018-08-20 Pat Name: Briseida Maloney Department: [id number] Room: [facility] Gender: F Cto: : 1945 Requested By: Tono Means Order Number: [id number] Reading MD: Carolann Stevens Measurements Intervals [place] Rate: 87 P: 60 VT: 143 QRS: 57 QRSD: 89 T: 28 QT: 349 QTc: 420 Interpretive Statements Sinus rhythm Low voltage, precordial leads Electronically Signed On 08-21-2018 20:36:33 EST by Carolann Stevens
--- NOTE | 2018-08-21 22:05 | Pulmonology Progress Note ---
Date of Encounter: 08/21/18 Time of Encounter: 11:00 Assessment and Plan (1) Pleural effusion, left Current Visit: Yes Status: Acute Patient has left-sided malignant pleural effusion supported by Pleurx catheter patient had as different pocket of left-sided pleural effusion which was drained on Thursday patient is feeling better. The last time Pleurx catheter drainage was attempted 150 mL was drained we will attempt once the fluid reaccumulate. (2) Small cell lung cancer Current Visit: No Status: Acute Patient has extensive stage small cell carcinoma oncology following.. (3) COPD (chronic obstructive pulmonary disease) Current Visit: No Status: Chronic Patient COPD symptoms are stable. To continue bronchodilators. Qualifiers: COPD type: chronic bronchitis Chronic bronchitis type: unspecified Qualified Code(s): J42 - Unspecified chronic bronchitis (4) Goals of care, counseling/discussion Current Visit: Yes Status: Acute Palliative care involvement patient is DNR CCA. Subjective Principal diagnosis: Malignant pleural effusion Interval history: Patient's says she is doing well her shortness of breath is lot better she can take a deep breath denies much chest pain ,pain is under control patient denies any fever or chills or denies any other constitutional symptoms. Objective PUL Vital signs: Last Vital Signs Temp 98.1 F 08/21/18 19:50 Pulse 82 08/21/18 19:50 Resp 16 08/21/18 19:58 BP 114/63 08/21/18 19:50 Pulse Ox 97 08/21/18 19:58 Auscultation: left: diminished breath sounds depressed Results - Laboratory Findings CBC and BMP: 08/21/18 17:53 08/21/18 04:03 PT/INR, D-dimer PT 16.2 Seconds (9.4-12.1) H 08/20/18 07:49 Abnormal lab findings: Abnormal lab results RBC 2.57 M/mcL (3.82-4.97) L 08/21/18 04:03 Hgb 8.0 g/dL (11.5-15.4) L 08/21/18 17:53 Hct 26.3 % (35.3-44.9) L 08/21/18 17:53 MCHC 30.0 g/dL (31.6-35.5) L 08/21/18 04:03 RDW 17.5 % (11.5-14.5) H 08/21/18 04:03 PT 16.2 Seconds (9.4-12.1) H 08/20/18 07:49 Glucose 106 mg/dL (70-105) H 08/21/18 04:03 Phosphorus 2.5 mg/dL (2.7-4.5) L 08/21/18 04:03 AST 11 Units/L (13-39) L 08/20/18 07:49 Serum Total Protein 5.9 g/dL (6.4-8.9) L 08/20/18 07:49 Albumin 2.9 g/dL (3.5-5.7) L 08/20/18 07:49 Albumin/Globulin Ratio 1.0 (1.1-2.2) L 08/20/18 07:49 Urine Clarity Cloudy (Clear) A 08/20/18 08:00 Ur Specific [place] 1.027 (1.010-1.025) H 08/20/18 08:00 Urine Bilirubin Small (Negative) H 08/20/18 08:00 Urine Microscopic RBC 5-15 per hpf (0-3) H 08/20/18 08:00 Urine Microscopic WBC 3-5 per hpf (0-3) H 08/20/18 08:00 Ur Squamous Epith Cells Many per lpf (None-Few) H 08/20/18 08:00 Urine Bacteria Moderate per hpf (None-Few) H 08/20/18 08:00 Hyaline Casts Moderate per lpf (None-Few) H 08/20/18 08:00 - Microbiology Findings Microbiology Findings: Microbiology, Last 48 Hours 08/20/18 07:49 Blood Culture - Preliminary Peripheral Venipuncture Culture is incubating and being continuously monitored for growth. Final report to follow. 08/20/18 06:41 Blood Culture - Preliminary Peripheral Venipuncture Culture is incubating and being continuously monitored for growth. Final report to follow. - Clinical Findings Intake & Output: Intake & Output 08/21/18 08/21/18 08/21/18 07:59 15:59 23:59 Intake Total 2290 / 2290 120 / 120 0 / 0 Output Total 250 / 250 Balance 2290 / 2290 120 / 120 -250 / -250 Weight 82.5 kg Consult Discharge Plan - Plan Referrals: Tono Mccoy MD [Primary Care Provider] -
[2018-08-22] MEDS: *HR* HYDROcodone/Acet 5/325 mg TABLET PO PRN ×3 (04:19→21:09)
[2018-08-22 05:04] LABS: Basophils # 0.1 K/mcL (0.0-0.2); Basophils % 0.5 %; Eosinophils # 0.2 K/mcL (0.0-0.6); Eosinophils % 2.2 %; Hematocrit 27.1 % (35.3-44.9); Lymphocytes # 2.2 K/mcL (0.6-4.6); Lymphocytes % 20.7 %; Mean Corpuscular HGB Conc 29.5 g/dL (31.6-35.5); Mean Corpuscular Volume 101.5 fL (83.0-100.0); Monocytes # 0.5 K/mcL (0.0-1.3); Monocytes % 4.7 %; Neutrophils # 7.4 K/mcL (1.6-8.9); Platelet Count 334 K/mcL (140-400); Red Blood Count 2.67 M/mcL (3.82-4.97); Red Cell Distribution Width 17.4 % (11.5-14.5); Segmented Neutrophils % 70.9 %
[2018-08-22 05:22] LABS: BUN/Creatinine Ratio 30 (6-26); Blood Urea Nitrogen 17 mg/dL (8-23); Calcium 8.6 mg/dL (8.6-10.3); Carbon Dioxide 27 mEq/L (23-29); Chloride 105 mEq/L (98-107); Glucose 94 mg/dL (70-105); Osmolality,Calculated 285 (280-300); Potassium 3.9 mEq/L (3.5-5.1); Sodium 137 mEq/L (136-145); eGFR For Non-African Americans > 60 (> 60)
[2018-08-22] MEDS: Budesonide/Formoterol 80/4.5 MDI IH SCH ×2 (07:23→21:25)
[2018-08-22] MEDS: Loratadine 10 MG TABLET PO SCH (09:23)
[2018-08-22] MEDS: Aspirin Enteric Coated 81 MG Tablet PO SCH (09:23)
[2018-08-22] MEDS: Cholecalciferol (D-3) 1,000 UNIT TABLET PO SCH (09:23)
--- NOTE | 2018-08-22 11:08 | Internal Med Progress Note ---
Hospitalist Progress Note - Encounter Date of Encounter: 08/22/18 Time of Encounter: 10:35 - Subjective Interval History: Patient reports worsening shortness of breath today and feels that she is retaining fluid around her left lung again. No fever or chills reported overnight. No nausea or vomiting. Tolerating diet well. Remains on 2 L nasal cannula. - Exam Vitals: Temp Pulse Resp BP Pulse Ox 97.7 F 73 18 128/81 98 08/22/18 10:30 08/22/18 10:30 08/22/18 10:30 08/22/18 10:30 08/22/18 10:30 Exam: General: Patient is alert, moderate distress, oriented x 3 ENT: Mucous membranes moist Respiratory: Decreased breath sounds in the left lung space. Pleurx catheter in place left side Cardiovascular: Regular rate and rhythm. s1 and s2 normal No clicks, rubs, gallops, or murmurs. No pedal edema Abdomen: Abdomen is soft, nontender. Bowel sounds are present Musculoskeletal: Spontaneously moving all extremities Skin: warm, dry, intact. Neuro: Alert oriented x 3 normal cranial nerves, no focal deficits - Assessment and Plan (1) Pleural effusion, left Current Visit: Yes Status: Acute Assessment and Plan: Malignant left pleural effusion. We will drain through Pleurx catheter today. Pulmonology following. Moderate risk for complications (2) Small cell lung cancer Current Visit: Yes Status: Acute Assessment and Plan: With malignant pleural effusion. Continue supportive care. We will drain pleural fluid through Pleurx catheter today. Repeat chest x-ray after draining. No signs of acute infection. Oncology following. (3) Chronic anemia Current Visit: Yes Status: Chronic Assessment and Plan: Hemoglobin levels are stable. No indication for transfusion at this time (4) Atrial fibrillation with RVR Current Visit: Yes Status: Chronic Assessment and Plan: Rate controlled. Continue metoprolol. On Xarelto for anticoagulation (5) COPD (chronic obstructive pulmonary disease) Current Visit: Yes Status: Chronic Assessment and Plan: Not in acute exacerbation. Continue bronchodilators as needed. Continue Symbicort (6) DVT prophylaxis Current Visit: Yes Status: Acute Assessment and Plan: On Xarelto (7) Goals of care, counseling/discussion Current Visit: Yes Status: Acute Assessment and Plan: Patient remains DNR (8) Diarrhea Current Visit: Yes Status: Resolved (9) Chronic respiratory failure with hypoxia Current Visit: Yes Status: Chronic Assessment and Plan: Continue O2 supplementation. - Time Spent with Patient Total time spent is greater than 50% in coordination of care (as documented) at patient's floor/unit and/or counseling patient: Internal Medicine: Result - Labs CBC & Chem 7: 08/22/18 04:17 08/22/18 04:17 Labs: Short CBC 08/21/18 08/21/18 08/22/18 Range/Units 13:06 17:53 04:17 WBC 10.5 (4.3-11.1) K/mcL Hgb 8.2 L 8.0 L 8.0 L (11.5-15.4) g/dL Hct 27.4 L 26.3 L 27.1 L (35.3-44.9) % Plt Count 334 (140-400) K/mcL Neutrophils # 7.4 (1.6-8.9) K/mcL BMP 08/22/18 04:17 Sodium 137 Potassium 3.9 Chloride 105 Carbon Dioxide 27 BUN 17 Creatinine 0.56 L Glucose 94 Calcium 8.6 - ABG Interpretation ABG results: PT/INR, D-dimer PT 16.2 Seconds (9.4-12.1) H 08/20/18 07:49 - Impressions Impressions Chest X-Ray 08/21/18 15:00 IMPRESSION: Increasing or shifting left pleural effusion with near complete volume loss of the left lung. D/ / 08/21/2018 16:09:40 Scott Yadav MD / thomas Interpreting Provider: Scott Yadav MD Consult Discharge Plan - Plan Referrals: Tono Mccoy MD [Primary Care Provider] - (5) COPD (chronic obstructive pulmonary disease) Qualifiers: COPD type: unspecified COPD Qualified Code(s): J44.9 - Chronic obstructive pulmonary disease, unspecified (8) Diarrhea Qualifiers: Diarrhea type: presumed infectious Qualified Code(s): R19.7 - Diarrhea, unspecified
[2018-08-22] MEDS ORDERED: OXYCODONE Oral CONC 10 MG/0.5 ML ORAL.SYG SL PRN (14:14)
[2018-08-22] MEDS: *HR* LORazepam Oral Conc 2 MG/ML SL PRN (14:20)
[2018-08-23] MEDS: *HR* HYDROcodone/Acet 5/325 mg TABLET PO PRN ×2 (04:28→17:08)
[2018-08-23] MEDS: *HR* LORazepam Oral Conc 2 MG/ML SL PRN ×2 (04:31→20:18)
[2018-08-23] MEDS: Aspirin Enteric Coated 81 MG Tablet PO SCH (07:59)
[2018-08-23] MEDS: Loratadine 10 MG TABLET PO SCH (07:59)
[2018-08-23] MEDS: Cholecalciferol (D-3) 1,000 UNIT TABLET PO SCH (07:59)
[2018-08-23] MEDS: Budesonide/Formoterol 80/4.5 MDI IH SCH ×2 (08:01→19:34)
--- NOTE | 2018-08-23 09:09 | Palliative Progress Note ---
Date of Encounter: 08/23/18 Time of Encounter: 08:40 - Assessment and plan (1) Shortness of breath Current Visit: No Status: Acute Assessment and plan: Patient experiencing increased dyspnea. Dr. Davis presented to bedside at end of assessment, inquired whether movement of pleurx versus additional pleurx an option; reported would be discussing with Dr. Martinez. Continue to utilize Oxygen therapy for supplementation. (2) Small cell lung cancer Current Visit: No Status: Acute Assessment and plan: Of note plan was to begin Chemo cycle #4 today if patient over acute episode, patient appears to be experiencing worsening symptoms at this time. Unsure if will be able to begin Chemo today, nor sure if patient would tolerate. Oncology recommendations appreciated. (3) Pleural effusion Current Visit: No Status: Acute Assessment and plan: Pleurx in place, removed 150 ml yesterday. Patient experiencing worsening dyspnea and chest x-ray. Pulmonary recommendations appreciated. (4) Goals of care, counseling/discussion Current Visit: Yes Status: Acute Assessment and plan: Met with patient regarding CODE STATUS, as noted CODE STATUS change in chart. Patient reports she was under impression she had to be FULL CODE for FULL treatment. Explained differences in types of DNRCCA versus DNRCC versus FULL Code again. Patient opted to return to DNRCCA status. Patient remains ok with intubation. Reports she does not want to live on a ventilator, nor as a vegetable. Reviewed with patient information twice with consistent answers, even when inquired in different ways. CODE STATUS changed in computer. Met with Dr. Dominguez at departure, explained patient's lack of understanding and decision. Informed would be changing CODE STATUS back in computer. Agreeable. Spoke with Dr. Dominguez regarding worsening dyspnea. (5) Pain Current Visit: Yes Status: Acute Assessment and plan: Patient reports pain 7/10 in back, chest, and abdomen. Patient has received 3 doses of [place] in the last 24 hours and 0 doses of Oxycodone. Continue [place] and Oxycodone PRN for pain. (6) Anxiety Current Visit: No Status: Chronic Assessment and plan: Patient reports increased anxiety. Patient has received 2 doses of Ativan in the last 24 hours; reports Ativan helping. Continue PRN. - Time Spent With Patient Total time spent is greater than 50% in coordination of care (as documented) at patient's floor/unit and/or counseling patient: 25 - 35 minutes - Subjective Interval history: Patient sitting up in bed, alert and oriented upon arrival for assessment. No family present at bedside. Patient reports back, left side of chest, abdominal radiating sharp pain, rated a 7/10 at this time. Patient reports had just received [place] and hadn't fully absorbed at this time. Patient has received 3 doses of [place] and 0 doses of Oxycodone in the last 24 hours. Patient reports increased anxiety and dyspnea; patient has received 2 doses of Ativan in the last 24 hours. Patient reports some nausea, denies vomiting; patient has received 0 doses of Phenergan in the last 24 hours. Patient utilizing accessory muscles and has audible lung sounds. Patient's oxygen saturation decreased with any type of movement. Oxygen saturation 84-95% during assessment. No cough appreciated. Patient reports increased dyspnea over the weekend. Patient has had 150 ml of fluid removed yesterday from pleurx; however, reports minimal improvement in dyspnea afterwards. - Constitutional Vitals: Abnormal lab results RBC 2.67 M/mcL (3.82-4.97) L 08/22/18 04:17 Hgb 8.0 g/dL (11.5-15.4) L 08/22/18 04:17 Hct 27.1 % (35.3-44.9) L 08/22/18 04:17 MCV 101.5 fL (83.0-100.0) H 08/22/18 04:17 MCHC 29.5 g/dL (31.6-35.5) L 08/22/18 04:17 RDW 17.4 % (11.5-14.5) H 08/22/18 04:17 PT 16.2 Seconds (9.4-12.1) H 08/20/18 07:49 Creatinine 0.56 mg/dL (0.60-1.20) L 08/22/18 04:17 BUN/Creatinine Ratio 30 (6-26) H 08/22/18 04:17 Phosphorus 2.5 mg/dL (2.7-4.5) L 08/21/18 04:03 AST 11 Units/L (13-39) L 08/20/18 07:49 Serum Total Protein 5.9 g/dL (6.4-8.9) L 08/20/18 07:49 Albumin 2.9 g/dL (3.5-5.7) L 08/20/18 07:49 Albumin/Globulin Ratio 1.0 (1.1-2.2) L 08/20/18 07:49 Urine Clarity Cloudy (Clear) A 08/20/18 08:00 Ur Specific [place] 1.027 (1.010-1.025) H 08/20/18 08:00 Urine Bilirubin Small (Negative) H 08/20/18 08:00 Urine Microscopic RBC 5-15 per hpf (0-3) H 08/20/18 08:00 Urine Microscopic WBC 3-5 per hpf (0-3) H 08/20/18 08:00 Ur Squamous Epith Cells Many per lpf (None-Few) H 08/20/18 08:00 Urine Bacteria Moderate per hpf (None-Few) H 08/20/18 08:00 Hyaline Casts Moderate per lpf (None-Few) H 08/20/18 08:00 General appearance: Present: cooperative, mild distress, obese - Head Head exam: Present: atraumatic, normal inspection - Eye Eye exam: Present: EOMI, normal appearance. Absent: periorbital swelling, periorbital tenderness Pupils: Present: normal accommodation, PERRL - ENT ENT exam: Present: mucous membranes dry, normal external ear exam - Neck Neck exam: Present: full ROM, normal inspection - Respiratory Respiratory exam: Present: accessory muscle use, respiratory distress, rhonchi, wheezes. Absent: tachypnea - Cardiovascular Cardiovascular exam: Present: +S1, +S2 - GI/Abdominal GI/Abdominal exam: Present: normal bowel sounds, soft. Absent: tenderness - Rectal Rectal exam: Present: deferred - Extremities Exam Extremities exam: Present: full ROM, normal inspection. Absent: calf tenderness, pedal edema - Back Exam Back exam: Present: normal inspection - Neurological Exam Neurological exam: Present: alert, oriented X3, strengths equal and symetr throughout. Absent: altered - Psychiatric Psychiatric exam: Present: anxious - Skin Skin exam: Present: intact, pallor, warm Palliative Quality Palliative Quality: Screen for Code Status: Yes, Screen for Goals of Care: Yes, Screen for Pain: Yes, If Pain Regimen Started, Initiate Bowel Regimen: NA, Screen for Nausea/Vomitting: Yes Code Status: 08/20/18 09:24 Resuscitation Status: Active [RES] Routine Comment: Resuscitation Status: Full Code 08/20/18 15:21 DNR [Resuscitation Status: Active] [RES] Routine Resuscitation Status: DNR-Comfort Care-Arrest Comment: State form. 08/23/18 09:02 DNR [Resuscitation Status: Active] [RES] Routine Comment: Ok with Intubation. Resuscitation Status: DNR-Comfort Care-Arrest - Labs CBC & Chem 7: 08/22/18 04:17 08/22/18 04:17 - ABG Interpretation ABG results: PT/INR, D-dimer PT 16.2 Seconds (9.4-12.1) H 08/20/18 07:49 Palliative Scale - Palliative Performance Scale How ambulatory is this patient?: Reduced What is patient's level of activity and evidence of disease?: Normal activity with effort, Some evidence of disease How much self-care assistance does patient require?: Occasional assistance necessary How much oral intake does the patient have?: Normal or reduced What is this patient's level of consciousness?: Full or confusion Palliative Performance Score: 80 % Consult Discharge Plan - Plan Referrals: Tono Mccoy MD [Primary Care Provider] -
--- NOTE | 2018-08-23 10:17 | Pulmonology Progress Note ---
<SamuelElisabet M - Last Filed: 08/23/18 13:55> Date of Encounter: 08/23/18 Objective PUL Vital signs: Last Vital Signs Temp 97.8 F 08/23/18 07:00 Pulse 89 08/23/18 07:00 Resp 16 08/23/18 08:01 BP 125/96 08/23/18 07:00 Pulse Ox 90 08/23/18 08:01 Results - Laboratory Findings CBC and BMP: 08/22/18 04:17 08/22/18 04:17 PT/INR, D-dimer PT 16.2 Seconds (9.4-12.1) H 08/20/18 07:49 Abnormal lab findings: Abnormal lab results RBC 2.67 M/mcL (3.82-4.97) L 08/22/18 04:17 Hgb 8.0 g/dL (11.5-15.4) L 08/22/18 04:17 Hct 27.1 % (35.3-44.9) L 08/22/18 04:17 MCV 101.5 fL (83.0-100.0) H 08/22/18 04:17 MCHC 29.5 g/dL (31.6-35.5) L 08/22/18 04:17 RDW 17.4 % (11.5-14.5) H 08/22/18 04:17 PT 16.2 Seconds (9.4-12.1) H 08/20/18 07:49 Creatinine 0.56 mg/dL (0.60-1.20) L 08/22/18 04:17 BUN/Creatinine Ratio 30 (6-26) H 08/22/18 04:17 Phosphorus 2.5 mg/dL (2.7-4.5) L 08/21/18 04:03 AST 11 Units/L (13-39) L 08/20/18 07:49 Serum Total Protein 5.9 g/dL (6.4-8.9) L 08/20/18 07:49 Albumin 2.9 g/dL (3.5-5.7) L 08/20/18 07:49 Albumin/Globulin Ratio 1.0 (1.1-2.2) L 08/20/18 07:49 Urine Clarity Cloudy (Clear) A 08/20/18 08:00 Ur Specific [place] 1.027 (1.010-1.025) H 08/20/18 08:00 Urine Bilirubin Small (Negative) H 08/20/18 08:00 Urine Microscopic RBC 5-15 per hpf (0-3) H 08/20/18 08:00 Urine Microscopic WBC 3-5 per hpf (0-3) H 08/20/18 08:00 Ur Squamous Epith Cells Many per lpf (None-Few) H 08/20/18 08:00 Urine Bacteria Moderate per hpf (None-Few) H 08/20/18 08:00 Hyaline Casts Moderate per lpf (None-Few) H 08/20/18 08:00 - Clinical Findings Intake & Output: Intake & Output 08/22/18 08/23/18 08/23/18 23:59 07:59 15:59 Intake Total 200 / 200 0 / 0 120 / 120 Output Total 150 / 150 0 / 0 Balance 50 / 50 0 / 0 120 / 120 Weight 82.6 kg Consult Discharge Plan - Plan Referrals: Tono Mccoy MD [Primary Care Provider] - - Attending Attestation I examined this patient and my medical decision-making was reviewed with the Resident Physician. I agree with the documented findings, disposition and treatment plan as described except to the extent set forth below. Patient seen and examined. Labs, radiology, chart personally reviewed. Agree with resident's history and physical, assessment, plan with following comments: FAMILY REUNIFICATION SPECIALIST: Patient follows commands, Pulmonary: I have reviewed her last CT chest and unfortunately with her tumor burden and even though Pleurx pleural catheter is in place, unfortunately its failing to drain her pleural effusion and this is due to advance lung cancer that she has. I have explained to her unfortunately at this time palliative care would be my recommendation and used to Pleurx catheter on when necessary based. She understand her condition is deteriorating and oncology has seen the patient. <Patrica Davis - Last Filed: 08/23/18 14:29> Date of Encounter: 08/23/18 Time of Encounter: 09:25 Assessment and Plan (1) Shortness of breath Current Visit: No Status: Acute Ongoing shortness of breath and noted recent chest congestion associated with cough. Due to underlying small cell lung cancer. -Noted her shortness of breath, did improve this morning when she received a "medication under the tongue" which was norco -Ordered Mucinex due to productive cough -Chest xray shows no improvement -Continue DuoNeb and Symbicort -Further recommendations from oncology and palliative (2) Pleural effusion Current Visit: No Status: Acute Underwent thoracentesis by IR 08/20/18 noted to have 850 mL fluid drained from the left upper pleural cavity. Chest xray continues to show complete left sided opacification Lungs are rhonchorous Pleurx catheter cannot be relocated due to anatomical structures impeding relocation Likely continues to quickly progressing pleural effusion due to her underlying malignancy Further recommendations from oncology (3) Small cell lung cancer Current Visit: Yes Status: Acute History of small cell lung cancer diagnosed on 05/26/18. Has missed her oncology appointment due to her worsening shortness of breath and weakness Palliative team is following Spoke with Oncology today and waiting for their final recommendations Her chest xray again shows left sided opacification unchanged since her admission. (4) COPD (chronic obstructive pulmonary disease) Current Visit: No Status: Chronic We appear to have worsening COPD exacerbation this morning due to productive cough and wheezing. Continue bronchodilators Continue Mucinex Continue supplemental oxygen and titrate as tolerated to keep oxygen saturation 88 pulse Qualifiers: COPD type: chronic bronchitis Chronic bronchitis type: unspecified Qualified Code(s): J42 - Unspecified chronic bronchitis Subjective Principal diagnosis: Malignant pleural effusion Interval history: Mr. Maloney was seen at bedside this morning. She reported ongoing shortness of breath as well as recent chest congestion. Her pleuritic chest pain has improved. But noted that she continues to have left-sided chest pain that is reproducible upon palpation. She denies fever, chills, nausea, emesis. Objective PUL Vital signs: Last Vital Signs Temp 97.8 F 08/23/18 07:00 Pulse 89 08/23/18 07:00 Resp 16 08/23/18 08:01 BP 125/96 08/23/18 07:00 Pulse Ox 90 08/23/18 08:01 General appearance: no acute distress, alert, appears uncomfortable Eyes: nonicteric ENT: oropharynx moist Neck: supple Auscultation: bilateral: rhonchi (All lung lobes) Cardiovascular: regular rate and rhythm Gastrointestinal: soft, non-tender, non-distended Extremities: no cyanosis, no edema Musculoskeletal: no deformities normal mental status, pupils equal and round mood appropriate, affect normal Results - Laboratory Findings CBC and BMP: 08/22/18 04:17 08/22/18 04:17 PT/INR, D-dimer PT 16.2 Seconds (9.4-12.1) H 08/20/18 07:49 Abnormal lab findings: Abnormal lab results RBC 2.67 M/mcL (3.82-4.97) L 08/22/18 04:17 Hgb 8.0 g/dL (11.5-15.4) L 08/22/18 04:17 Hct 27.1 % (35.3-44.9) L 08/22/18 04:17 MCV 101.5 fL (83.0-100.0) H 08/22/18 04:17 MCHC 29.5 g/dL (31.6-35.5) L 08/22/18 04:17 RDW 17.4 % (11.5-14.5) H 08/22/18 04:17 PT 16.2 Seconds (9.4-12.1) H 08/20/18 07:49 Creatinine 0.56 mg/dL (0.60-1.20) L 08/22/18 04:17 BUN/Creatinine Ratio 30 (6-26) H 08/22/18 04:17 Phosphorus 2.5 mg/dL (2.7-4.5) L 08/21/18 04:03 AST 11 Units/L (13-39) L 08/20/18 07:49 Serum Total Protein 5.9 g/dL (6.4-8.9) L 08/20/18 07:49 Albumin 2.9 g/dL (3.5-5.7) L 08/20/18 07:49 Albumin/Globulin Ratio 1.0 (1.1-2.2) L 08/20/18 07:49 Urine Clarity Cloudy (Clear) A 08/20/18 08:00 Ur Specific [place] 1.027 (1.010-1.025) H 08/20/18 08:00 Urine Bilirubin Small (Negative) H 08/20/18 08:00 Urine Microscopic RBC 5-15 per hpf (0-3) H 08/20/18 08:00 Urine Microscopic WBC 3-5 per hpf (0-3) H 08/20/18 08:00 Ur Squamous Epith Cells Many per lpf (None-Few) H 08/20/18 08:00 Urine Bacteria Moderate per hpf (None-Few) H 08/20/18 08:00 Hyaline Casts Moderate per lpf (None-Few) H 08/20/18 08:00 - Clinical Findings Intake & Output: Intake & Output 08/22/18 08/23/18 08/23/18 23:59 07:59 15:59 Intake Total 200 / 200 0 / 0 120 / 120 Output Total 150 / 150 0 / 0 Balance 50 / 50 0 / 0 120 / 120 Weight 82.6 kg
--- NOTE | 2018-08-23 14:42 | Oncology Inp Progress Note ---
<Jordi Dukes - Last Filed: 08/23/18 17:19> Date of Encounter: 08/23/18 Time of Encounter: 17:19 Oncology: Obj Data - Labs CBC & Chem 7: 08/22/18 04:17 08/22/18 04:17 Consult Discharge Plan - Plan Referrals: Tono Mccoy MD [Primary Care Provider] - Inpatient Charges Provider: Dr. Tarah Dukes Follow up - Inpatient: [id number] - Attending Attestation I examined this patient and my medical decision-making was reviewed with the Advanced Practice Nurse. I agree with the documented findings, disposition and treatment plan as described except to the extent set forth below. Patient with progression of disease on CT scans Had long discussion about palliative care and hospice. Patient states she would like to speak to her family before making a final decision. We will continue to follow along. <NuñezSamantha Marah - Last Filed: 08/23/18 18:07> Date of Encounter: 08/23/18 (1) Atrial fibrillation with RVR Current Visit: Yes Status: Chronic Assessment and plan: EMS was called to the patient's residence was noted to have a heart rate in the mid 200s. The patient was given 18 mg of Adenosine. Most likely secondary to the large left sided pleural effusion, hypoxia and tumor burden/lung CA HR controlled with metoprolol and cardizem push in ER Continue Xarelto Rate currently controlled (2) Small cell lung cancer Current Visit: Yes Status: Acute Assessment and plan: S/P cycle #3 carboplatin, etoposide as well as atezolizumab on 07/14/2018. Unable to make outpatient treatment appointments due to multiple admissions for SOB/A. Fib and appointment cancellations CTA chest today reveals no evidence of PE, Moderate left-sided pleural effusion which is primarily within the left upper chest/apex, Left lung mass is poorly evaluated due to adjacent consolidated lung, however mediastinal, axillary and upper abdominal lymphadenopathy has worsened compared to 08/09/2018. Patient has pleurx catheter, HH nurse drained only small amount ~150 ml yesterday. IR consulted and performed thoracentesis with 850 ml fluid removed Plan: Continue with respiratory and cardiac support per primary/pulmonology team CXR today with redemonstration of complete opacification of the left hemithorax similar to previous exam CTA as above does show progression since last exam, it has been over 5 weeks since last treatment on 07/14/2018 Discussed with patient today that it appears she has [place] refractory disease with now progression on recent CTA imaging. We could consider 2nd line treatment as outpatient, however, dependent upon her course of recovery this may not be an achievable goal given her overall decline. The hospice philosophy was introduced, she wishes to discuss further with family We will continue to follow along, appreciate continued discussions with palliative care, may need to arrange family discussion with her children (3) Shortness of breath Current Visit: Yes Status: Acute Assessment and plan: Small cell lung cancer with recent noted progression and underlying COPD Worsening pleural effusion on admission as noted Remains afebrile Blood cultures 08/20/18 no growth to date Plan: Pulmonology following, patient has worsening SOB/Cough today, she may be in exacerbation and may benefit from steroids if recommended by pulmonology Continue mucinex, duoneb and symbicort Oncology: Subj Interval history: Ms. Maloney is feeling an increase in SOB today along with chest congestion. She has a non productive cough. She reports diffuse pain. Denies chest pain, urinary or bowel complaint. No fevers or chills. She becomes hypoxic with ambulation to bathroom. - Constitutional General appearance: cooperative, no acute distress, no febrile Exam: chronically ill appearing - Head Head exam: Present: atraumatic - ENT ENT exam: Present: mucous membranes moist, normal oropharynx - Respiratory Respiratory exam: Present: decreased breath sounds, rhonchi. Absent: respiratory distress - Cardiovascular Cardiovascular exam: Present: RRR, +S1, +S2 - GI/Abdominal GI/Abdominal exam: Present: normal bowel sounds, soft. Absent: guarding, rebound, tenderness - Extremities Exam Extremities exam: Present: normal inspection. Absent: calf tenderness - Neurological Exam Neurological exam: Present: alert, oriented X3, no focal deficits, strengths equal and symetr throughout - Psychiatric Psychiatric exam: Present: normal affect, normal mood - Skin Skin exam: Present: dry, intact, pallor, warm Oncology: Obj Data - Labs CBC & Chem 7: 08/22/18 04:17 08/22/18 04:17
--- NOTE | 2018-08-23 14:53 | Internal Med Progress Note ---
Hospitalist Progress Note - Encounter Date of Encounter: 08/23/18 Time of Encounter: 09:25 - Subjective Interval History: Patient reports feeling congested. She is not as short of breath as yesterday. No fevers or chills reported overnight. No nausea or vomiting. Tolerating diet well. She did become anxious yesterday and received Ativan which seemed to improve her symptoms. This morning dose concern about her CODE STATUS as she describes wanting everything to be done. Been clarified by palliative care, she meant treatment up to the point of resuscitation. She did not want CPR but remained okay with short-term intubation if needed. - Exam Vitals: Temp Pulse Resp BP Pulse Ox 97.8 F 89 16 125/96 90 08/23/18 07:00 08/23/18 07:00 08/23/18 08:01 08/23/18 07:00 08/23/18 08:01 Exam: General: Patient is alert, mild distress, oriented x 3 Respiratory: Coarse breath sounds audible on the left side. Poor air entry. Normal breath sounds on the right Cardiovascular: Regular rate and rhythm. s1 and s2 normal No clicks, rubs, gallops, or murmurs. No pedal edema Abdomen: Abdomen is soft, nontender. Bowel sounds are present Musculoskeletal: Spontaneously moving all extremities Skin: warm, dry, intact. Neuro: Alert oriented x 3 normal cranial nerves, no focal deficits - Assessment and Plan (1) Pleural effusion, left Current Visit: Yes Status: Acute Assessment and Plan: With Pleurx catheter in place. Status post thoracentesis initially. Pulmonology following. Continue O2 supplementation. Follow pulmonary recommendations. (2) Small cell lung cancer Current Visit: Yes Status: Acute Assessment and Plan: Oncology following. We will follow recommendations. (3) Chronic anemia Current Visit: Yes Status: Chronic Assessment and Plan: Stable hemoglobin levels. We will resume Xarelto (4) Atrial fibrillation with RVR Current Visit: Yes Status: Chronic Assessment and Plan: Rate controlled. On Xarelto for anticoagulation (5) COPD (chronic obstructive pulmonary disease) Current Visit: Yes Status: Chronic Assessment and Plan: Continue bronchodilators as needed. O2 supplementation. Patient on Flonase for nasal congestion. (6) DVT prophylaxis Current Visit: Yes Status: Acute Assessment and Plan: On Xarelto (7) Goals of care, counseling/discussion Current Visit: Yes Status: Acute Assessment and Plan: Patient remains DNR comfort care arrest. Okay with short-term intubation. Palliative care following. (8) Diarrhea Current Visit: Yes Status: Resolved (9) Chronic respiratory failure with hypoxia Current Visit: Yes Status: Chronic Assessment and Plan: Continue O2 supplementation. - Time Spent with Patient Total time spent is greater than 50% in coordination of care (as documented) at patient's floor/unit and/or counseling patient: Internal Medicine: Result - Labs CBC & Chem 7: 08/22/18 04:17 08/22/18 04:17 - ABG Interpretation ABG results: PT/INR, D-dimer PT 16.2 Seconds (9.4-12.1) H 08/20/18 07:49 - Impressions Impressions Chest X-Ray 08/23/18 10:19 IMPRESSION: 1. Redemonstration of complete opacification of the left hemithorax similar to previous exam. D/ / Fitz Mcleod MD / Fitz Mcleod MD Interpreting Provider: Fitz Mcleod MD Consult Discharge Plan - Plan Referrals: Tono Mccoy MD [Primary Care Provider] - (5) COPD (chronic obstructive pulmonary disease) Qualifiers: COPD type: unspecified COPD Qualified Code(s): J44.9 - Chronic obstructive pulmonary disease, unspecified (8) Diarrhea Qualifiers: Diarrhea type: presumed infectious Qualified Code(s): R19.7 - Diarrhea, unspecified
[2018-08-23] MEDS: *HR* Rivaroxaban 10 MG TABLET PO SCH (17:08)
[2018-08-24] MEDS: *HR* HYDROcodone/Acet 5/325 mg TABLET PO PRN ×3 (01:42→14:36)
[2018-08-24 07:09] LABS: Basophils # 0.1 K/mcL (0.0-0.2); Basophils % 0.6 %; Eosinophils # 0.1 K/mcL (0.0-0.6); Eosinophils % 1.1 %; Hemoglobin 8.5 g/dL (11.5-15.4); Immature Granulocytes % 0.8 % (0-4); Lymphocytes # 1.3 K/mcL (0.6-4.6); Lymphocytes % 15.2 %; Mean Corpuscular HGB Conc 30.4 g/dL (31.6-35.5); Mean Corpuscular Hemoglobin 29.7 pg (28.0-33.3); Mean Corpuscular Volume 97.9 fL (83.0-100.0); Mean Platelet Volume 10.1 fL (9.4-12.4); Monocytes # 0.5 K/mcL (0.0-1.3); Monocytes % 5.8 %; Neutrophils # 6.8 K/mcL (1.6-8.9); Platelet Count 284 K/mcL (140-400); Red Blood Count 2.86 M/mcL (3.82-4.97); Red Cell Distribution Width 17.2 % (11.5-14.5); Segmented Neutrophils % 76.5 %
[2018-08-24 07:23] LABS: BUN/Creatinine Ratio 18 (6-26); Blood Urea Nitrogen 10 mg/dL (8-23); Carbon Dioxide 31 mEq/L (23-29); Chloride 96 mEq/L (98-107); Glucose 94 mg/dL (70-105); Osmolality,Calculated 283 (280-300); Potassium 3.9 mEq/L (3.5-5.1); Sodium 137 mEq/L (136-145); eGFR For Non-African Americans > 60 (> 60)
[2018-08-24] MEDS: Cholecalciferol (D-3) 1,000 UNIT TABLET PO SCH (08:05)
[2018-08-24] MEDS: Loratadine 10 MG TABLET PO SCH (08:05)
[2018-08-24] MEDS: Aspirin Enteric Coated 81 MG Tablet PO SCH (08:05)
[2018-08-24] MEDS ORDERED: Acetylcysteine 10% 2 ML INHSOL IH SCH (10:00)
--- NOTE | 2018-08-24 10:10 | Pulmonology Progress Note ---
<Patrica Davis - Last Filed: 08/24/18 15:35> Date of Encounter: 08/24/18 Time of Encounter: 08:40 Assessment and Plan (1) Shortness of breath Current Visit: No Status: Acute Ongoing shortness of breath and noted recent chest congestion associated with cough. Due to underlying small cell lung cancer. -Continues to report that the shortness of breath "improved after getting medication under her tongue" which is noted to be Purdys -Ordered Mucinex due to productive cough -Chest xray shows ongoing opacification of left lung region -Continue DuoNeb and Symbicort -Further recommendations from oncology and palliative (2) Pleural effusion Current Visit: No Status: Acute Underwent thoracentesis by IR 08/20/18 noted to have 850 mL fluid drained from the left upper pleural cavity. Chest xray continues to show complete left sided opacification Lungs are rhonchorous Pleurx catheter cannot be relocated due to anatomical structures impeding relocation Likely continues to have progressing pleural effusion due to her underlying malignancy Further recommendations from oncology (3) Small cell lung cancer Current Visit: Yes Status: Acute History of small cell lung cancer diagnosed on 05/26/18. Has missed her oncology appointment due to her worsening shortness of breath and weakness Spoke with oncology yesterday and palliative today Patient wants to discuss further hospice related options Further recommendations from Palliative team Her chest xray from yesterday continues to show left sided opacification unchanged since her admission. (4) COPD (chronic obstructive pulmonary disease) Current Visit: No Status: Chronic COPD exacerbation vs. worsening malignancy Continue bronchodilators Continue Mucinex Continue supplemental oxygen and titrate as tolerated to keep oxygen saturation 88 and above Qualifiers: COPD type: chronic bronchitis Chronic bronchitis type: unspecified Qualified Code(s): J42 - Unspecified chronic bronchitis Subjective Principal diagnosis: Malignant pleural effusion Interval history: Mr. Maloney was seen at bedside this morning. She continues to have shortness of breath and requiring nasal cannula. She also reports ongoing chest congestion. Her pleuritic chest pain has improved. But noted that she continues to have left-sided chest pain that is reproducible upon palpation. She denies fever, chills, nausea, emesis. Objective PUL Vital signs: Last Vital Signs Temp 98.6 F 08/24/18 07:48 Pulse 93 08/24/18 07:48 Resp 16 08/24/18 07:48 BP 137/80 08/24/18 07:48 Pulse Ox 92 08/24/18 07:48 General appearance: no acute distress, alert Eyes: nonicteric ENT: oropharynx moist Auscultation: bilateral: rhonchi (All lung lobes) Cardiovascular: regular rate and rhythm Gastrointestinal: normoactive bowel sounds, soft, non-tender, non-distended Integumentary: normal Extremities: no cyanosis, no edema Musculoskeletal: no deformities normal mental status, pupils equal and round mood appropriate, affect normal Results - Laboratory Findings CBC and BMP: 08/24/18 06:29 08/24/18 06:29 PT/INR, D-dimer PT 16.2 Seconds (9.4-12.1) H 08/20/18 07:49 Abnormal lab findings: Abnormal lab results RBC 2.86 M/mcL (3.82-4.97) L 08/24/18 06:29 Hgb 8.5 g/dL (11.5-15.4) L 08/24/18 06:29 Hct 28.0 % (35.3-44.9) L 08/24/18 06:29 MCHC 30.4 g/dL (31.6-35.5) L 08/24/18 06:29 RDW 17.2 % (11.5-14.5) H 08/24/18 06:29 PT 16.2 Seconds (9.4-12.1) H 08/20/18 07:49 Chloride 96 mEq/L (98-107) L 08/24/18 06:29 Carbon Dioxide 31 mEq/L (23-29) H 08/24/18 06:29 Creatinine 0.55 mg/dL (0.60-1.20) L 08/24/18 06:29 Phosphorus 2.5 mg/dL (2.7-4.5) L 08/21/18 04:03 AST 11 Units/L (13-39) L 08/20/18 07:49 Serum Total Protein 5.9 g/dL (6.4-8.9) L 08/20/18 07:49 Albumin 2.9 g/dL (3.5-5.7) L 08/20/18 07:49 Albumin/Globulin Ratio 1.0 (1.1-2.2) L 08/20/18 07:49 Urine Clarity Cloudy (Clear) A 08/20/18 08:00 Ur Specific [place] 1.027 (1.010-1.025) H 08/20/18 08:00 Urine Bilirubin Small (Negative) H 08/20/18 08:00 Urine Microscopic RBC 5-15 per hpf (0-3) H 08/20/18 08:00 Urine Microscopic WBC 3-5 per hpf (0-3) H 08/20/18 08:00 Ur Squamous Epith Cells Many per lpf (None-Few) H 08/20/18 08:00 Urine Bacteria Moderate per hpf (None-Few) H 08/20/18 08:00 Hyaline Casts Moderate per lpf (None-Few) H 08/20/18 08:00 - Clinical Findings Intake & Output: Intake & Output 08/23/18 08/24/18 08/24/18 23:59 07:59 15:59 Intake Total 320 / 320 0 / 0 360 / 360 Output Total 0 / 0 150 / 150 Balance 320 / 320 -150 / -150 360 / 360 Weight 82.2 kg Consult Discharge Plan - Plan Referrals: Tono Mccoy MD [Primary Care Provider] - <Elisabet Baker - Last Filed: 08/24/18 17:37> Date of Encounter: 08/24/18 Objective PUL Vital signs: Last Vital Signs Temp 97.8 F 08/24/18 16:22 Pulse 94 08/24/18 16:22 Resp 18 08/24/18 16:34 BP 112/89 08/24/18 16:22 Pulse Ox 95 08/24/18 16:34 Results - Laboratory Findings CBC and BMP: 08/24/18 06:29 08/24/18 06:29 PT/INR, D-dimer PT 16.2 Seconds (9.4-12.1) H 08/20/18 07:49 Abnormal lab findings: Abnormal lab results RBC 2.86 M/mcL (3.82-4.97) L 08/24/18 06:29 Hgb 8.5 g/dL (11.5-15.4) L 08/24/18 06:29 Hct 28.0 % (35.3-44.9) L 08/24/18 06:29 MCHC 30.4 g/dL (31.6-35.5) L 08/24/18 06:29 RDW 17.2 % (11.5-14.5) H 08/24/18 06:29 PT 16.2 Seconds (9.4-12.1) H 08/20/18 07:49 Chloride 96 mEq/L (98-107) L 08/24/18 06:29 Carbon Dioxide 31 mEq/L (23-29) H 08/24/18 06:29 Creatinine 0.55 mg/dL (0.60-1.20) L 08/24/18 06:29 Phosphorus 2.5 mg/dL (2.7-4.5) L 08/21/18 04:03 AST 11 Units/L (13-39) L 08/20/18 07:49 Serum Total Protein 5.9 g/dL (6.4-8.9) L 08/20/18 07:49 Albumin 2.9 g/dL (3.5-5.7) L 08/20/18 07:49 Albumin/Globulin Ratio 1.0 (1.1-2.2) L 08/20/18 07:49 Urine Clarity Cloudy (Clear) A 08/20/18 08:00 Ur Specific [place] 1.027 (1.010-1.025) H 08/20/18 08:00 Urine Bilirubin Small (Negative) H 08/20/18 08:00 Urine Microscopic RBC 5-15 per hpf (0-3) H 08/20/18 08:00 Urine Microscopic WBC 3-5 per hpf (0-3) H 08/20/18 08:00 Ur Squamous Epith Cells Many per lpf (None-Few) H 08/20/18 08:00 Urine Bacteria Moderate per hpf (None-Few) H 08/20/18 08:00 Hyaline Casts Moderate per lpf (None-Few) H 08/20/18 08:00 - Clinical Findings Intake & Output: Intake & Output 08/24/18 08/24/18 08/24/18 07:59 15:59 23:59 Intake Total 0 / 0 600 / 600 240 / 240 Output Total 150 / 150 Balance -150 / -150 600 / 600 240 / 240 Weight 82.2 kg - Attending Attestation I examined this patient and my medical decision-making was reviewed with the Resident Physician. I agree with the documented findings, disposition and t reatment plan as described except to the extent set forth below. Patient seen and examined. Labs, radiology, chart personally reviewed. 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 Oncology seeing the patient and I have recommended hospice would be the best option for the patient. Discussed with primary team and please call for any questions.
[2018-08-24] MEDS: Budesonide/Formoterol 80/4.5 MDI IH SCH ×2 (10:19→21:14)
--- NOTE | 2018-08-24 10:50 | Palliative Progress Note ---
Date of Encounter: 08/24/18 Time of Encounter: 09:45 - Assessment and plan (1) Anxiety Current Visit: No Status: Chronic Assessment and plan: Has utilized Lorazepam x2 last 24 hours. MOnitor (2) Pain Current Visit: Yes Status: Acute Assessment and plan: Has Oxycodone as well as [place] available. Has utilized [place] x3 las 24 hours. Has not required Oxycodone. (3) Goals of care, counseling/discussion Current Visit: Yes Status: Acute Assessment and plan: Will be meeting with pt family today at 1500. (4) Shortness of breath Current Visit: No Status: Acute (5) Small cell lung cancer Current Visit: No Status: Acute (6) Pleural effusion Current Visit: No Status: Acute Assessment and plan: Staff attempted drainage of cath last night per family request but little obtained. - Time Spent With Patient Total time spent is greater than 50% in coordination of care (as documented) at patient's floor/unit and/or counseling patient: - Subjective Interval history: Patient awake and alert. C/o increasing shortness of breath this am. States doesn't feel well. I assisted her up to bathroom. Vitals stable. Oncology visit from yesterday noted. She denies pain, nausea, anxiety. No family present at bedside. - Constitutional Vitals: Abnormal lab results RBC 2.86 M/mcL (3.82-4.97) L 08/24/18 06:29 Hgb 8.5 g/dL (11.5-15.4) L 08/24/18 06:29 Hct 28.0 % (35.3-44.9) L 08/24/18 06:29 MCHC 30.4 g/dL (31.6-35.5) L 08/24/18 06:29 RDW 17.2 % (11.5-14.5) H 08/24/18 06:29 PT 16.2 Seconds (9.4-12.1) H 08/20/18 07:49 Chloride 96 mEq/L (98-107) L 08/24/18 06:29 Carbon Dioxide 31 mEq/L (23-29) H 08/24/18 06:29 Creatinine 0.55 mg/dL (0.60-1.20) L 08/24/18 06:29 Phosphorus 2.5 mg/dL (2.7-4.5) L 08/21/18 04:03 AST 11 Units/L (13-39) L 08/20/18 07:49 Serum Total Protein 5.9 g/dL (6.4-8.9) L 08/20/18 07:49 Albumin 2.9 g/dL (3.5-5.7) L 08/20/18 07:49 Albumin/Globulin Ratio 1.0 (1.1-2.2) L 08/20/18 07:49 Urine Clarity Cloudy (Clear) A 08/20/18 08:00 Ur Specific [place] 1.027 (1.010-1.025) H 08/20/18 08:00 Urine Bilirubin Small (Negative) H 08/20/18 08:00 Urine Microscopic RBC 5-15 per hpf (0-3) H 08/20/18 08:00 Urine Microscopic WBC 3-5 per hpf (0-3) H 08/20/18 08:00 Ur Squamous Epith Cells Many per lpf (None-Few) H 08/20/18 08:00 Urine Bacteria Moderate per hpf (None-Few) H 08/20/18 08:00 Hyaline Casts Moderate per lpf (None-Few) H 08/20/18 08:00 - Respiratory Respiratory exam: Present: decreased breath sounds Additional comments: Breath sounds greatly diminished left lung butcher. Right lung butcher with scattered rhonchi throughout - Cardiovascular Cardiovascular exam: Present: +S1, +S2 - GI/Abdominal GI/Abdominal exam: Present: normal bowel sounds, soft - Extremities Exam Extremities exam: Present: normal capillary refill, normal inspection - Neurological Exam Neurological exam: Present: alert, oriented X3, strengths equal and symetr throughout - Skin Skin exam: Present: dry, pallor, warm Palliative Quality Palliative Quality: Screen for Code Status: Yes, Screen for Goals of Care: Yes, Screen for Pain: Yes, If Pain Regimen Started, Initiate Bowel Regimen: NA, Screen for Nausea/Vomitting: Yes Code Status: 08/20/18 09:24 Resuscitation Status: Active [RES] Routine Comment: Resuscitation Status: Full Code 08/20/18 15:21 DNR [Resuscitation Status: Active] [RES] Routine Comment: State form. Resuscitation Status: DNR-Comfort Care-Arrest 08/23/18 09:02 DNR [Resuscitation Status: Active] [RES] Routine Comment: Ok with Intubation. Resuscitation Status: DNR-Comfort Care-Arrest - Labs CBC & Chem 7: 08/24/18 06:29 08/24/18 06:29 Labs: Laboratory Results - last 24 hr 08/24/18 08/24/18 06:29 06:29 WBC 8.8 RBC 2.86 L Hgb 8.5 L Hct 28.0 L MCV 97.9 MCH 29.7 MCHC 30.4 L RDW 17.2 H Plt Count 284 MPV 10.1 Immature Gran % 0.8 Seg Neutrophils % 76.5 Lymphocytes % 15.2 Monocytes % 5.8 Eosinophils % 1.1 Basophils % 0.6 Neutrophils # 6.8 Lymphocytes # 1.3 Monocytes # 0.5 Eosinophils # 0.1 Basophils # 0.1 Sodium 137 Potassium 3.9 Chloride 96 L Carbon Dioxide 31 H BUN 10 Creatinine 0.55 L Est GFR ( Amer) > 60 Est GFR (Non-Af Amer) > 60 BUN/Creatinine Ratio 18 Glucose 94 Calculated Osmolality 283 Calcium 9.0 - Impressions Impressions Chest X-Ray 08/23/18 10:19 IMPRESSION: 1. Redemonstration of complete opacification of the left hemithorax similar to previous exam. D/ / Fitz Mcleod MD / Fitz Mcleod MD Interpreting Provider: Fitz Mcleod MD - ABG Interpretation ABG results: PT/INR, D-dimer PT 16.2 Seconds (9.4-12.1) H 08/20/18 07:49 Palliative Scale - Palliative Performance Scale How ambulatory is this patient?: Reduced What is patient's level of activity and evidence of disease?: Normal activity with effort, Some evidence of disease How much self-care assistance does patient require?: Occasional assistance necessary How much oral intake does the patient have?: Normal or reduced What is this patient's level of consciousness?: Full or confusion Palliative Performance Score: 80 % Consult Discharge Plan - Plan Referrals: Tono Mccoy MD [Primary Care Provider] -
[2018-08-24] MEDS: Levalbuterol Neb 1.25 MG/3 ML IH SCH ×3 (11:44→21:14)
[2018-08-24] MEDS: Acetylcysteine 10% 2 ML INHSOL IH SCH ×3 (11:45→21:14)
[2018-08-24] MEDS: *HR* LORazepam Oral Conc 2 MG/ML SL PRN (13:48)
--- NOTE | 2018-08-24 14:20 | Event Note ---
Date of Encounter: 08/24/18 Time of Encounter: 13:00 Met with patient and family. Ms. Maloney verbalizes that she would like oncology present at family meeting this afternoon with Palliative Care. She notes that her daughter will be at the hospital around 1500 for meeting. Verbalized understanding and will be available for patient meeting
--- NOTE | 2018-08-24 14:38 | Internal Med Progress Note ---
Hospitalist Progress Note - Encounter Date of Encounter: 08/24/18 Time of Encounter: 14:36 - Subjective Interval History: Patient evaluated earlier today. She feels tired. She has a gurgling noise when she is breathing. Mild wheezing reported. Dry cough. She reports intolerance to Mucinex. Attempted drain Pleurx catheter yesterday only resulted and 25ml fluid output. No new chest pain at this time. No palpitations. Remains on 2-3 L nasal cannula supplementation. - Exam Vitals: Temp Pulse Resp BP Pulse Ox 98.6 F 85 16 115/46 100 08/24/18 11:34 08/24/18 11:34 08/24/18 11:34 08/24/18 11:34 08/24/18 11:34 Exam: General: Patient is alert, mild distress, oriented x 3 Respiratory: Coarse breath sounds especially over the left lung butcher. Decreased breath sounds at left base. Cardiovascular: Regular rate and rhythm. s1 and s2 normal No clicks, rubs, gallops, or murmurs. Mild pedal edema Abdomen: Abdomen is soft, nontender. Bowel sounds are present Musculoskeletal: Spontaneously moving all extremities Skin: warm, dry, intact. Neuro: Alert oriented x 3 normal cranial nerves, no focal deficits - Assessment and Plan (1) Pleural effusion, left Current Visit: Yes Status: Acute Assessment and Plan: Malignant pleural effusion. With Pleurx catheter in place. Pulmonary following. Patient underwent thoracentesis earlier during this hospitalization. Chest x-ray done yesterday continued to show complete opacification of the left hemithorax. Patient remains on 2-3 L nasal cannula. Per pulmonology, unable to change site Pleurx catheter due to patient's anatomy. (2) Small cell lung cancer Current Visit: Yes Status: Acute Assessment and Plan: With malignant pleural effusion. Palliative care and oncology consulted to discuss goals of care. Patient currently DNR CCA. Okay with short term intubation. Family meeting scheduled for this afternoon. Will follow results. (3) Chronic anemia Current Visit: Yes Status: Chronic Assessment and Plan: Hemoglobin 8.5. Stable. Patient has been restarted on Xarelto. Will monitor blood counts (4) Atrial fibrillation with RVR Current Visit: Yes Status: Chronic Assessment and Plan: Rate controlled. Continue Xarelto for anticoagulation (5) COPD (chronic obstructive pulmonary disease) Current Visit: Yes Status: Chronic Assessment and Plan: Continue bronchodilators. Will add acetylcysteine to help with secretions. (6) DVT prophylaxis Current Visit: Yes Status: Acute (7) Goals of care, counseling/discussion Current Visit: Yes Status: Acute Assessment and Plan: Patient's CODE STATUS is DNR CCA. He with supplementation. Family meeting scheduled for this afternoon. (8) Diarrhea Current Visit: Yes Status: Resolved (9) Chronic respiratory failure with hypoxia Current Visit: Yes Status: Chronic Assessment and Plan: Continue O2 supplementation. - Time Spent with Patient Total time spent is greater than 50% in coordination of care (as documented) at patient's floor/unit and/or counseling patient: Internal Medicine: Result - Labs CBC & Chem 7: 08/24/18 06:29 08/24/18 06:29 Labs: Short CBC 08/24/18 Range/Units 06:29 WBC 8.8 (4.3-11.1) K/mcL Hgb 8.5 L (11.5-15.4) g/dL Hct 28.0 L (35.3-44.9) % Plt Count 284 (140-400) K/mcL Neutrophils # 6.8 (1.6-8.9) K/mcL BMP 08/24/18 06:29 Sodium 137 Potassium 3.9 Chloride 96 L Carbon Dioxide 31 H BUN 10 Creatinine 0.55 L Glucose 94 Calcium 9.0 - ABG Interpretation ABG results: PT/INR, D-dimer PT 16.2 Seconds (9.4-12.1) H 08/20/18 07:49 Consult Discharge Plan - Plan Referrals: Tono Mccoy MD [Primary Care Provider] - _ (5) COPD (chronic obstructive pulmonary disease) Qualifiers: COPD type: unspecified COPD Qualified Code(s): J44.9 - Chronic obstructive pulmonary disease, unspecified (8) Diarrhea Qualifiers: Diarrhea type: presumed infectious Qualified Code(s): R19.7 - Diarrhea, unspecified
[2018-08-24] MEDS: Scopolamine Patch 1.5 MG PATCH.TD72 TD SCH (16:25)
--- NOTE | 2018-08-24 16:25 | Event Note ---
Date of Encounter: 08/24/18 Time of Encounter: 16:20 Meeting with family including daughter Ximena, Sister n law Ambreen, Friend Courtney regarding current clinical status and goals of care. Dr. Dukes, and Kyleigh Barraza from oncology also attending. Patient cannot safely be alone - Ambreen does not think she can meet her needs to care for her, and Ximena unable as well as has son with TBI. They feel patient's best care would be nursing facility in the [place] area, where she is closest to most family. I discussed with patient at length, she is emotional and does not want to go to nursing facility, however, states that she "has no other choice". She asked about inpatient hospice facility, explained that she would need to have out of control symptoms for necessity of admission, but that may be option later in her disease. Patient at this time is agreeable to referral to [facility]. Geoff HARRISON, also attended part of this meeting and will make referral in am. Updated Dr. Dominguez.
[2018-08-24] MEDS: *HR* Rivaroxaban 10 MG TABLET PO SCH (16:27)
--- NOTE | 2018-08-24 16:34 | Oncology Inp Progress Note ---
<RoselineJordi - Last Filed: 08/24/18 16:49> Date of Encounter: 08/24/18 Oncology: Obj Data - Labs CBC & Chem 7: 08/24/18 06:29 08/24/18 06:29 Consult Discharge Plan - Plan Referrals: Tono Mccoy MD [Primary Care Provider] - Inpatient Charges Provider: Dr. Tarah Dukes Follow up - Inpatient: [id number] - Attending Attestation I examined this patient and my medical decision-making was reviewed with the Advanced Practice Nurse. I agree with the documented findings, disposition and treatment plan as described except to the extent set forth below. We had a long discussion with her family and palliative care today, and the family is leaning towards hospice care which is completely agreeable. The family is also determining whether to pursue home vs inpatient hospice. We will sign off at this time. Please call with any further questions. <MadiRosa Radha - Last Filed: 08/24/18 17:00> Date of Encounter: 08/24/18 Time of Encounter: 15:30 (1) Small cell lung cancer Current Visit: Yes Status: Acute Assessment and plan: Small cell lung cancer s/p C3 Carboplatin, Etoposide, and atezolizumab Patient has not received any chemotherapy since Jul 10, 2018. Progression noted on CT scan. Patient would likely not tolerate further treatment due to current condition. Plan: Recommend palliative care/hospice Oncology: Subj Interval history: Talia is awake and alert with family at bedside. She notes that they are planning a family meeting with palliative care this afternoon and is requesting oncology provider present to discuss family questions and concerns. She notes that she will be unable to go home by herself, but verbalizes that she does not want to go to a chcf. She voices concern about how she will receive care when her family all works. - Constitutional General appearance: cooperative, mild distress - Respiratory Respiratory exam: Present: decreased breath sounds, wheezes - Cardiovascular Cardiovascular exam: Present: irregular rhythm - GI/Abdominal GI/Abdominal exam: Present: normal bowel sounds, soft - Extremities Exam Extremities exam: Present: normal inspection - Neurological Exam Neurological exam: Present: alert, oriented X3, strengths equal and symetr throughout. Absent: facial droop, speech deficit - Skin Skin exam: Present: pallor Oncology: Obj Data - Labs CBC & Chem 7: 08/24/18 06:29 08/24/18 06:29 Inpatient Charges Provider: Dr. Tarah Dukes
[2018-08-24] MEDS: MORPHINE SUL Oral CONC 10 MG/0.5 ML ORAL.SYG SL PRN (19:49)
[2018-08-25] MEDS: *HR* HYDROcodone/Acet 5/325 mg TABLET PO PRN ×4 (01:35→20:52)
[2018-08-25] MEDS: Levalbuterol Neb 1.25 MG/3 ML IH SCH ×4 (03:40→21:25)
[2018-08-25] MEDS: Acetylcysteine 10% 2 ML INHSOL IH SCH ×4 (03:40→21:25)
[2018-08-25 04:22] LABS: Basophils % 0.4 %; Eosinophils # 0.1 K/mcL (0.0-0.6); Eosinophils % 1.3 %; Hematocrit 26.5 % (35.3-44.9); Hemoglobin 8.1 g/dL (11.5-15.4); Immature Granulocytes % 0.6 % (0-4); Lymphocytes # 1.2 K/mcL (0.6-4.6); Lymphocytes % 12.5 %; Mean Corpuscular HGB Conc 30.6 g/dL (31.6-35.5); Mean Corpuscular Hemoglobin 29.6 pg (28.0-33.3); Mean Corpuscular Volume 96.7 fL (83.0-100.0); Mean Platelet Volume 9.8 fL (9.4-12.4); Monocytes # 0.5 K/mcL (0.0-1.3); Monocytes % 5.2 %; Neutrophils # 7.5 K/mcL (1.6-8.9); Platelet Count 289 K/mcL (140-400); Red Blood Count 2.74 M/mcL (3.82-4.97); Red Cell Distribution Width 17.1 % (11.5-14.5)
[2018-08-25] MEDS: Aspirin Enteric Coated 81 MG Tablet PO SCH (07:50)
[2018-08-25] MEDS: Cholecalciferol (D-3) 1,000 UNIT TABLET PO SCH (07:51)
[2018-08-25] MEDS: Loratadine 10 MG TABLET PO SCH (07:52)
[2018-08-25] MEDS: Budesonide/Formoterol 80/4.5 MDI IH SCH ×2 (10:20→21:25)
--- NOTE | 2018-08-25 11:16 | Pulmonology Progress Note ---
<Patrica Davis - Last Filed: 08/25/18 11:13> Date of Encounter: 08/25/18 Time of Encounter: 09:10 Assessment and Plan (1) Shortness of breath Current Visit: No Status: Acute Ongoing shortness of breath and noted recent chest congestion associated with cough. Due to underlying small cell lung cancer. -Continues to report that the shortness of breath improves after getting her pain medication. -Unable to tolerate mucinex. -Ordered scopolamine patch to help dry out secretions -Chest xray shows ongoing opacification of left lung region -Continue DuoNeb and Symbicort -Further recommendations from oncology and palliative (2) Pleural effusion Current Visit: No Status: Acute Underwent thoracentesis by IR 08/20/18 noted to have 850 mL fluid drained from the left upper pleural cavity. Chest xray from two days ago continues to show complete left sided opacification Her oxygen requirement is unchanged Lungs are rhonchorous Pleurx catheter cannot be relocated due to anatomical structures impeding relocation Likely continues to have progressing pleural effusion due to her underlying malignancy Further recommendations from oncology (3) Small cell lung cancer Current Visit: Yes Status: Acute History of small cell lung cancer diagnosed on 05/26/18. Has missed her oncology appointment due to her worsening shortness of breath and weakness Spoke with oncology yesterday and palliative today Patient wants to discuss further hospice related options Further recommendations from Palliative and oncology team (4) COPD (chronic obstructive pulmonary disease) Current Visit: No Status: Chronic COPD exacerbation vs. worsening malignancy Continue bronchodilators Continue symbicort Continue supplemental oxygen and titrate as tolerated to keep oxygen saturation 88 and above Qualifiers: COPD type: chronic bronchitis Chronic bronchitis type: unspecified Qu alified Code(s): J42 - Unspecified chronic bronchitis Subjective Principal diagnosis: Malignant pleural effusion Interval history: Mr. Maloney was seen at bedside this morning. Her vitals remained stable overnight. This morning she reports her mucus secretion has improved. she continues to have shortness of breath which worsens with physical activity. She discussed the family meeting yesterday and feels unsure about her transition to a senior living. She denies fever, chills, nausea, emesis, or chest pain. Objective PUL Vital signs: Last Vital Signs Temp 98.4 F 08/25/18 06:30 Pulse 89 08/25/18 06:30 Resp 16 08/25/18 10:20 BP 117/78 08/25/18 06:30 Pulse Ox 98 08/25/18 10:20 General appearance: no acute distress, alert Eyes: nonicteric ENT: oropharynx moist Neck: supple Effort: normal Auscultation: bilateral: rhonchi (bilateral lower lobes) Cardiovascular: regular rate and rhythm Gastrointestinal: normoactive bowel sounds, soft, non-tender, non-distended Integumentary: normal Extremities: no cyanosis, no edema Musculoskeletal: no deformities Gait: normal gait normal mental status, pupils equal and round mood appropriate, affect normal Results - Laboratory Findings CBC and BMP: 08/25/18 04:04 08/24/18 06:29 PT/INR, D-dimer PT 16.2 Seconds (9.4-12.1) H 08/20/18 07:49 Abnormal lab findings: Abnormal lab results RBC 2.74 M/mcL (3.82-4.97) L 08/25/18 04:04 Hgb 8.1 g/dL (11.5-15.4) L 08/25/18 04:04 Hct 26.5 % (35.3-44.9) L 08/25/18 04:04 MCHC 30.6 g/dL (31.6-35.5) L 08/25/18 04:04 RDW 17.1 % (11.5-14.5) H 08/25/18 04:04 PT 16.2 Seconds (9.4-12.1) H 08/20/18 07:49 Chloride 96 mEq/L (98-107) L 08/24/18 06:29 Carbon Dioxide 31 mEq/L (23-29) H 08/24/18 06:29 Creatinine 0.55 mg/dL (0.60-1.20) L 08/24/18 06:29 Phosphorus 2.5 mg/dL (2.7-4.5) L 08/21/18 04:03 AST 11 Units/L (13-39) L 08/20/18 07:49 Serum Total Protein 5.9 g/dL (6.4-8.9) L 08/20/18 07:49 Albumin 2.9 g/dL (3.5-5.7) L 08/20/18 07:49 Albumin/Globulin Ratio 1.0 (1.1-2.2) L 08/20/18 07:49 Urine Clarity Cloudy (Clear) A 08/20/18 08:00 Ur Specific [place] 1.027 (1.010-1.025) H 08/20/18 08:00 Urine Bilirubin Small (Negative) H 08/20/18 08:00 Urine Microscopic RBC 5-15 per hpf (0-3) H 08/20/18 08:00 Urine Microscopic WBC 3-5 per hpf (0-3) H 08/20/18 08:00 Ur Squamous Epith Cells Many per lpf (None-Few) H 08/20/18 08:00 Urine Bacteria Moderate per hpf (None-Few) H 08/20/18 08:00 Hyaline Casts Moderate per lpf (None-Few) H 08/20/18 08:00 - Microbiology Findings Microbiology Findings: Microbiology, Last 48 Hours 08/20/18 07:49 Blood Culture - Final Peripheral Venipuncture No growth. Final report. 08/20/18 06:41 Blood Culture - Final Peripheral Venipuncture No growth. Final report. - Clinical Findings Intake & Output: Intake & Output 08/24/18 08/25/18 08/25/18 23:59 07:59 15:59 Intake Total 240 / 240 0 / 0 0 / 0 Output Total 0 / 0 Balance 240 / 240 0 / 0 0 / 0 Weight 84.7 kg Consult Discharge Plan - Plan Referrals: Tono Mccoy MD [Primary Care Provider] - <Elisabet Baker - Last Filed: 08/25/18 16:05> Date of Encounter: 08/25/18 Objective PUL Vital signs: Last Vital Signs Temp 97.9 F 08/25/18 13:00 Pulse 90 08/25/18 13:00 Resp 16 08/25/18 15:18 BP 129/77 08/25/18 13:00 Pulse Ox 100 08/25/18 15:18 Results - Laboratory Findings CBC and BMP: 08/25/18 04:04 08/24/18 06:29 PT/INR, D-dimer PT 16.2 Seconds (9.4-12.1) H 08/20/18 07:49 Abnormal lab findings: Abnormal lab results RBC 2.74 M/mcL (3.82-4.97) L 08/25/18 04:04 Hgb 8.1 g/dL (11.5-15.4) L 08/25/18 04:04 Hct 26.5 % (35.3-44.9) L 08/25/18 04:04 MCHC 30.6 g/dL (31.6-35.5) L 08/25/18 04:04 RDW 17.1 % (11.5-14.5) H 08/25/18 04:04 PT 16.2 Seconds (9.4-12.1) H 08/20/18 07:49 Chloride 96 mEq/L (98-107) L 08/24/18 06:29 Carbon Dioxide 31 mEq/L (23-29) H 08/24/18 06:29 Creatinine 0.55 mg/dL (0.60-1.20) L 08/24/18 06:29 Phosphorus 2.5 mg/dL (2.7-4.5) L 08/21/18 04:03 AST 11 Units/L (13-39) L 08/20/18 07:49 Serum Total Protein 5.9 g/dL (6.4-8.9) L 08/20/18 07:49 Albumin 2.9 g/dL (3.5-5.7) L 08/20/18 07:49 Albumin/Globulin Ratio 1.0 (1.1-2.2) L 08/20/18 07:49 Urine Clarity Cloudy (Clear) A 08/20/18 08:00 Ur Specific [place] 1.027 (1.010-1.025) H 08/20/18 08:00 Urine Bilirubin Small (Negative) H 08/20/18 08:00 Urine Microscopic RBC 5-15 per hpf (0-3) H 08/20/18 08:00 Urine Microscopic WBC 3-5 per hpf (0-3) H 08/20/18 08:00 Ur Squamous Epith Cells Many per lpf (None-Few) H 08/20/18 08:00 Urine Bacteria Moderate per hpf (None-Few) H 08/20/18 08:00 Hyaline Casts Moderate per lpf (None-Few) H 08/20/18 08:00 - Microbiology Findings Microbiology Findings: Microbiology, Last 48 Hours 08/20/18 07:49 Blood Culture - Final Peripheral Venipuncture No growth. Final report. 08/20/18 06:41 Blood Culture - Final Peripheral Venipuncture No growth. Final report. - Clinical Findings Intake & Output: Intake & Output 08/25/18 08/25/18 08/25/18 07:59 15:59 23:59 Intake Total 0 / 0 320 / 320 Output Total 0 / 0 0 / 0 Balance 0 / 0 320 / 320 Weight 84.7 kg - Attending Attestation I examined this patient and my medical decision-making was reviewed with the Resident Physician. I agree with the documented findings, disposition and treatment plan as described except to the extent set forth below. Patient seen and examined. Labs, radiology, chart personally reviewed. Agree with resident's history and physical, assessment, plan with following comments: PILATES INSTRUCTOR: Patient follows commands, Pulmonary: Acceptable oxygenation and ventilation Patient denies any significant changes in her breathing and she said that she wants to try to drain fluid tomorrow. As far as removing the catheter that can be done as outpatient or before discharge.
--- NOTE | 2018-08-25 12:53 | Internal Med Progress Note ---
Hospitalist Progress Note - Encounter Date of Encounter: 08/25/18 Time of Encounter: 09:00 - Subjective Interval History: Patient feels shortness of breath. Mild upper abdominal pain in the pain medication. Vitals are stable. - Exam Vitals: Temp Pulse Resp BP Pulse Ox 98.4 F 89 16 117/78 98 08/25/18 06:30 08/25/18 06:30 08/25/18 10:20 08/25/18 06:30 08/25/18 10:20 Exam: General: Patient is alert, mild distress, oriented x 3 Respiratory: Coarse breath sounds especially over the left lung butcher. Decreased breath sounds at left side. Cardiovascular: Regular rate and rhythm. s1 and s2 normal No clicks, rubs, gallops, or murmurs. Mild pedal edema Abdomen: Abdomen is soft, nontender. Bowel sounds are present Musculoskeletal: Spontaneously moving all extremities Skin: warm, dry, intact. Neuro: Alert oriented x 3 normal cranial nerves, no focal deficits - Assessment and Plan (1) Small cell lung cancer Current Visit: Yes Status: Acute Assessment and Plan: With malignant pleural effusion. Palliative care and oncology consulted to discuss goals of care. Patient currently DNR CCA. Okay with short term intubation. - Plan for hospice discharge. (2) Atrial fibrillation with RVR Current Visit: Yes Status: Chronic Assessment and Plan: Rate controlled. Continue Xarelto for anticoagulation (3) Pleural effusion, left Current Visit: Yes Status: Acute Assessment and Plan: Malignant pleural effusion. With Pleurx catheter in place. Pulmonary fol lowing. Patient underwent thoracentesis earlier during this hospitalization. Chest x-ray done yesterday continued to show complete opacification of the left hemithorax. Patient remains on 2-3 L nasal cannula. Per pulmonology, unable to change site Pleurx catheter due to patient's anatomy. (4) COPD (chronic obstructive pulmonary disease) Current Visit: Yes Status: Chronic Assessment and Plan: Continue bronchodilators. Added acetylcysteine to help with secretions. (5) DVT prophylaxis Current Visit: Yes Status: Acute Assessment and Plan: On Xarelto (6) Goals of care, counseling/discussion Current Visit: Yes Status: Acute Assessment and Plan: Patient's CODE STATUS is DNR CCA. Family meeting held. Plan for inpatient hospice discharge (7) Diarrhea Current Visit: Yes Status: Resolved Assessment and Plan: No new episodes of diarrhea since yesterday. Continue close monitoring (8) Chronic anemia Current Visit: Yes Status: Chronic Assessment and Plan: Hemoglobin 8.5. Stable. Patient has been restarted on Xarelto. Will monitor blood counts (9) Chronic respiratory failure with hypoxia Current Visit: Yes Status: Chronic Assessment and Plan: Most likely due to small cell lung cancer, pleural effusion, and left lower lobe collapse due to obstruction. Continue O2 supplementation and supportive treatment. - Time Spent with Patient Total time spent is greater than 50% in coordination of care (as documented) at patient's floor/unit and/or counseling patient: 30 minutes 25 - 35 minutes Plan of Care Discussed with: patient Internal Medicine: Result - Labs CBC & Chem 7: 08/25/18 04:04 08/24/18 06:29 Labs: Short CBC 08/25/18 Range/Units 04:04 WBC 9.4 (4.3-11.1) K/mcL Hgb 8.1 L (11.5-15.4) g/dL Hct 26.5 L (35.3-44.9) % Plt Count 289 (140-400) K/mcL Neutrophils # 7.5 (1.6-8.9) K/mcL - ABG Interpretation ABG results: PT/INR, D-dimer PT 16.2 Seconds (9.4-12.1) H 08/20/18 07:49 Consult Discharge Plan - Plan Referrals: Tono Mccoy MD [Primary Care Provider] - (4) COPD (chronic obstructive pulmonary disease) Qualifiers: COPD type: unspecified COPD Qualified Code(s): J44.9 - Chronic obstructive pulmonary disease, unspecified (7) Diarrhea Qualifiers: Diarrhea type: presumed infectious Qualified Code(s): R19.7 - Diarrhea, unspecified
--- NOTE | 2018-08-25 14:03 | Palliative Progress Note ---
Date of Encounter: 08/25/18 Time of Encounter: 12:00 - Assessment and plan (1) Pain Current Visit: Yes Status: Acute Assessment and plan: Utilized [place] approx every 6 hours. States that this is still effective for her discomfort. Has Roxanol if not effective. (2) Anxiety Current Visit: No Status: Chronic Assessment and plan: Continues with Lorazepam PRN - utilized x1 last 24 hours (3) Decreased appetite Current Visit: Yes Status: Acute Assessment and plan: Patient has had thrombus in past, will avoid Megace. She does not want to try Marinol at this time. She does complain of difficulty sleeping as well, will trial Remeron at for appetite/sleep. (4) Goals of care, counseling/discussion Current Visit: Yes Status: Acute Assessment and plan: Patient's daughter Ximena called this am. After speaking with family, they have changed what ECF they desire. They want to go to [facility]. SW notified and Geoff Stratton called referral and information has been faxed. May be a few days before bed is open for her. Patient is aware and agreeable with plan. [facility] hospice referral will be made prior to discharge. Updated Dr. Elliott - attending hospitalist. Patient daughter will be in tomorrow and advanced directives (POA) will be completed at that time. Will also readdress any change of code status and complete that paperwork as well. Palliative will continue to follow. (5) Shortness of breath Current Visit: No Status: Acute Assessment and plan: Added low dose Roxanol for dyspnea. Utilized x1 last pm. Did re-educate her today on the use of this for shortness of breath. (6) Small cell lung cancer Current Visit: No Status: Acute (7) Pleural effusion Current Visit: No Status: Acute - Time Spent With Patient Total time spent is greater than 50% in coordination of care (as documented) at patient's floor/unit and/or counseling patient: 25 - 35 minutes - Subjective Interval history: Patient awake and alert. Still short of breath with exertion, but more comfortable than yesterday. Spent time with her rediscussing plan of care for discharge, she knows she cannot be home alone, and family unable to care for her 19/01. She is apprehensive about going to ECF, but knows there is no other real option. Provided emotional support. Vitals stable. - Constitutional Vitals: Abnormal lab results RBC 2.74 M/mcL (3.82-4.97) L 08/25/18 04:04 Hgb 8.1 g/dL (11.5-15.4) L 08/25/18 04:04 Hct 26.5 % (35.3-44.9) L 08/25/18 04:04 MCHC 30.6 g/dL (31.6-35.5) L 08/25/18 04:04 RDW 17.1 % (11.5-14.5) H 08/25/18 04:04 PT 16.2 Seconds (9.4-12.1) H 08/20/18 07:49 Chloride 96 mEq/L (98-107) L 08/24/18 06:29 Carbon Dioxide 31 mEq/L (23-29) H 08/24/18 06:29 Creatinine 0.55 mg/dL (0.60-1.20) L 08/24/18 06:29 Phosphorus 2.5 mg/dL (2.7-4.5) L 08/21/18 04:03 AST 11 Units/L (13-39) L 08/20/18 07:49 Serum Total Protein 5.9 g/dL (6.4-8.9) L 08/20/18 07:49 Albumin 2.9 g/dL (3.5-5.7) L 08/20/18 07:49 Albumin/Globulin Ratio 1.0 (1.1-2.2) L 08/20/18 07:49 Urine Clarity Cloudy (Clear) A 08/20/18 08:00 Ur Specific [place] 1.027 (1.010-1.025) H 08/20/18 08:00 Urine Bilirubin Small (Negative) H 08/20/18 08:00 Urine Microscopic RBC 5-15 per hpf (0-3) H 08/20/18 08:00 Urine Microscopic WBC 3-5 per hpf (0-3) H 08/20/18 08:00 Ur Squamous Epith Cells Many per lpf (None-Few) H 08/20/18 08:00 Urine Bacteria Moderate per hpf (None-Few) H 08/20/18 08:00 Hyaline Casts Moderate per lpf (None-Few) H 08/20/18 08:00 General appearance: Present: no acute distress - Respiratory Additional comments: Breath sounds diminished on left..Pleurx remains in place. Rhonchi noted right lung butcher - Cardiovascular Cardiovascular exam: Present: +S1, +S2 - GI/Abdominal GI/Abdominal exam: Present: normal bowel sounds, soft - Extremities Exam Extremities exam: Present: normal capillary refill, normal inspection - Neurological Exam Neurological exam: Present: alert, oriented X3, strengths equal and symetr throughout - Skin Skin exam: Present: dry, pallor, warm Palliative Quality Palliative Quality: Screen for Code Status: Yes, Screen for Goals of Care: Yes, Screen for Pain: Yes, If Pain Regimen Started, Initiate Bowel Regimen: NA, Screen for Nausea/Vomitting: Yes Code Status: 08/20/18 09:24 Resuscitation Status: Active [RES] Routine Comment: Resuscitation Status: Full Code 08/20/18 15:21 DNR [Resuscitation Status: Active] [RES] Routine Comment: State form. Resuscitation Status: DNR-Comfort Care-Arrest 08/23/18 09:02 DNR [Resuscitation Status: Active] [RES] Routine Comment: Ok with Intubation. Resuscitation Status: DNR-Comfort Care-Arrest - Labs CBC & Chem 7: 08/25/18 04:04 08/24/18 06:29 Labs: Laboratory Results - last 24 hr 08/25/18 04:04 WBC 9.4 RBC 2.74 L Hgb 8.1 L Hct 26.5 L MCV 96.7 MCH 29.6 MCHC 30.6 L RDW 17.1 H Plt Count 289 MPV 9.8 Immature Gran % 0.6 Seg Neutrophils % 80.0 Lymphocytes % 12.5 Monocytes % 5.2 Eosinophils % 1.3 Basophils % 0.4 Neutrophils # 7.5 Lymphocytes # 1.2 Monocytes # 0.5 Eosinophils # 0.1 Basophils # 0.0 - ABG Interpretation ABG results: PT/INR, D-dimer PT 16.2 Seconds (9.4-12.1) H 08/20/18 07:49 Palliative Scale - Palliative Performance Scale How ambulatory is this patient?: Reduced What is patient's level of activity and evidence of disease?: Normal activity with effort, Some evidence of disease How much self-care assistance does patient require?: Occasional assistance necessary How much oral intake does the patient have?: Normal or reduced What is this patient's level of consciousness?: Full or confusion Palliative Performance Score: 80 % Consult Discharge Plan - Plan Referrals: Tono Mccoy MD [Primary Care Provider] -
--- NOTE | 2018-08-25 14:54 | Oncology Inp Consult Note ---
Date of Encounter: 08/25/18 Assessment and Plan (1) Atrial fibrillation with RVR Status: Chronic Assessment and plan: EMS was called to the patient's residence was noted to have a heart rate in the mid 200s. The patient was given 18 mg of Adenosine. Most likely secondary to the large left sided pleural effusion, hypoxia and tumor burden/lung CA HR controlled with metoprolol and cardizem push in ER Continue Xarelto Rate currently controlled (2) Small cell lung cancer Status: Acute Assessment and plan: S/P cycle #3 carboplatin, etoposide as well as atezolizumab on 07/14/2018. Unable to make outpatient treatment appointments due to multiple admissions for SOB/A. Fib and appointment cancellations CTA chest today reveals no evidence of PE, Moderate left-sided pleural effusion which is primarily within the left upper chest/apex, Left lung mass is poorly evaluated due to adjacent consolidated lung, however mediastinal, axillary and upper abdominal lymphadenopathy has worsened compared to 08/09/2018. Patient has pleurx catheter, HH nurse drained only small amount ~150 ml yesterday. IR consulted and performed thoracentesis with 850 ml fluid removed Plan: Continue with respiratory and cardiac support per primary/pulmonology team CXR today with redemonstration of complete opacification of the left hemithorax similar to previous exam CTA as above does show progression since last exam, it has been over 5 weeks since last treatment on 07/14/2018 Discussed with patient today that it appears she has [place] refractory disease with now progression on recent CTA imaging. We could consider 2nd line treatment as outpatient, however, dependent upon her course of recovery this may not be an achievable goal given her overall decline. The hospice philosophy was introduced, she wishes to discuss further with family We will continue to follow along, appreciate continued discussions with palliative care, may need to arrange family discussion with her children (3) Shortness of breath Status: Acute Assessment and plan: Small cell lung cancer with recent noted progression and underlying COPD Worsening pleural effusion on admission as noted Remains afebrile Blood cultures 08/20/18 no growth to date Plan: Pulmonology following, patient has worsening SOB/Cough today, she may be in exacerbation and may benefit from steroids if recommended by pulmonology Continue mucinex, duoneb and symbicort - Data of Consult Requesting Physician: Marcia Elliott MD Primary Care Provider: Tono Mccoy MD Past Med Surg Social Fam HX - Past Medical History Medical history: atrial fibrillation, cancer, COPD, coronary artery disease, DVT, hyperlipidemia, hypertension Psychiatric history: anxiety, depression - Past Surgical History Surgical History: angioplasty/stent, , cholecystectomy, hysterectomy Additional surgical history: cardiac stent x 1. c section x2. partial hysterectomy - Social History Smoking Status: Former smoker Smokeless Tobacco Status: No Alcohol use: none Drug use: none - Family History Mother Living Status: Hx Family Cardiac Disorders: Yes Hx Family Respiratory Disorders: Yes (COPD, Trach) Father Living Status: Hx Family Cardiac Disorders: Yes (stroke x2) Son Hx Family Cancer: Yes Medications and Allergies Albuterol Sulfate [Proair Hfa] 2 puff IH Q6H PRN 02/26/18 [History] Aspirin [Lo-Dose Aspirin EC] 81 mg PO DAILY 02/26/18 [History] Cholecalciferol (D-3) [Vitamin D] 2,000 unit PO DAILY 02/26/18 [History] Docusate Sodium [Dok] 100 mg PO BID PRN 02/26/18 [History] Estradiol 1.5 mg PO DAILY 02/26/18 [History] Fluticasone/Salmeterol [Advair 250-50 Diskus] 1 puff IH BID 02/26/18 [History] Loratadine [Allergy Relief] 10 mg PO DAILY 02/26/18 [History] Montelukast [Singulair] 10 mg PO HS 02/26/18 [History] Nitroglycerin [Nitrostat] 0.4 mg SL Q5M PRN 02/26/18 [History] Sertraline [Zoloft] 200 mg PO DAILY 02/26/18 [History] Simvastatin [Zocor] 40 mg PO HS 02/26/18 [History] Metoprolol [Lopressor] 25 mg PO BID 30 Days #30 tablet 02/28/18 [Rx] Promethazine [Phenergan] 25 mg PO Q6HR PRN #30 tablet 06/01/18 [Rx] Ipratropium/Albuterol Neb [Duoneb] 3 ml IH Q6HR PRN #60 vial.neb 08/07/18 [Rx] Omeprazole [PriLOSEC] 20 mg PO DAILY@0730 08/10/18 [History] HYDROcodone/Acet 5/325 mg [Lupton 5-325 mg] 1 tab PO Q6H PRN 7 Days #30 tab 08/15/18 [Rx] Buspirone HCl [Buspar] 7.5 mg PO BID 08/21/18 [History] Rivaroxaban [Xarelto] 20 mg PO HS 08/21/18 [History] hydrOXYzine pamoate [HydrOXYzine Pamoate] 50 mg PO Q8H PRN 08/21/18 [History] Allergy/AdvReac Type Severity Reaction Status Date / Time ciprofloxacin [From Cipro] Allergy Rash Verified 08/04/18 07:48 codeine Allergy Fatigued Verified 08/04/18 07:48 diphenhydramine Allergy Rash Verified 08/04/18 07:48 [From Benadryl] gabapentin Allergy Anxiety Verified 08/04/18 07:48 Iodinated Contrast- Oral and Allergy Rash Verified 08/04/18 07:48 IV Dye [Iodinated Contrast Media - IV Dye] Penicillins Allergy Rash Verified 08/04/18 07:48 propoxyphene Allergy Rash Verified 08/04/18 07:48 Sulfa (Sulfonamide Allergy Rash Verified 08/04/18 07:48 Antibiotics) guaifenesin [From Mucinex] AdvReac Unknown See Verified 08/23/18 11:29 Comments Consult Discharge Plan - Plan Referrals: Tono Mccoy MD [Primary Care Provider] -
[2018-08-25] MEDS: MORPHINE SUL Oral CONC 10 MG/0.5 ML ORAL.SYG SL PRN (15:44)
[2018-08-25] MEDS: *HR* Rivaroxaban 10 MG TABLET PO SCH (16:51)
--- NOTE | 2018-08-25 20:35 | Oncology Inp Progress Note ---
<Samantha Nuñez L - Last Filed: 08/25/18 20:38> Date of Encounter: 08/25/18 Time of Encounter: 13:30 (1) Small cell lung cancer Current Visit: Yes Status: Acute Assessment and plan: Cycle #3 carboplatin, etoposide as well as atezolizumab (added with cycle #2) with last treatment on 07/14/2018. Unable to make outpatient treatment appointments due to multiple admissions for SOB/A. Fib and appointment cancellations CTA chest today reveals no evidence of PE, Moderate left-sided pleural effusion which is primarily within the left upper chest/apex, Left lung mass is poorly evaluated due to adjacent consolidated lung, however mediastinal, axillary and upper abdominal lymphadenopathy has worsened compared to 08/09/2018. Patient has pleurx catheter, HH nurse drained only small amount ~150 ml prior to admission. IR consulted and performed thoracentesis with 850 ml fluid removed Plan: Continue with respiratory and cardiac support per primary/pulmonology team CXR 08/23/18 with redemonstration of complete opacification of the left hemithorax similar to previous exam CTA as above does show progression since last exam, it has been over 5 weeks since last treatment on 07/14/2018, she is considered to have [place] refractory disease due to progression s/p 3 cycles. Patient had a long family discussion with palliative care, Dr. Dukes and Rosa Barraza CNP yesterday regarding goals of care. It was decided at this discussion that the plan would be to pursue hospice, palliative care is helping to arrange logistics, likely planning for transfer to [facility] with Hospice in [place], this location would allow her to be closer to family. We again discussed aggressive treatment options today which would include pursuing 2nd line treatment vs. hospice. Patient agrees that she has declined significantly and would likely not tolerate an aggressive treatment approach/further systemic treatment at this time. At this time, we will plan to pursue discharge with hospice. We will arrange for a follow up with Dr. Maloney in 3-4 weeks time, if she has made strides and wishes to discuss further treatment she may attend appointment for further discussion, if she is comfortable with staying in hospice she may simply cancel her appointment. Oncology will plan to sign off, please feel free to reach out with any further questions or concerns. Oncology: Subj Interval history: Ms. Maloney is resting comfortably. At the time of her first assessment today, she is doing ok, denies pain currently. SOB continues, she breathes comfortably at rest but feels very weak and SOB with ambulation. Ambulating to the bathroom with assistance is now a difficult task. She endorses a poor appetite, nothing seems to taste good, she has had poor oral intake. Denies chest pain, bowel or urinary complaint. No fevers or chills. - Constitutional General appearance: average body habitus, cooperative, no acute distress, no febrile - Head Head exam: Present: atraumatic - ENT ENT exam: Present: mucous membranes moist, normal oropharynx - Respiratory Respiratory exam: Present: decreased breath sounds, rhonchi. Absent: respiratory distress - Cardiovascular Cardiovascular exam: Present: RRR, +S1, +S2 - GI/Abdominal GI/Abdominal exam: Present: normal bowel sounds, soft. Absent: tenderness - Extremities Exam Extremities exam: Present: normal inspection. Absent: calf tenderness - Neurological Exam Neurological exam: Present: alert, oriented X3, no focal deficits, strengths equal and symetr throughout - Psychiatric Psychiatric exam: Present: depressed, flat affect - Skin Skin exam: Present: dry, intact, normal color, warm Oncology: Obj Data - Labs CBC & Chem 7: 08/25/18 04:04 08/24/18 06:29 Consult Discharge Plan - Plan Referrals: Tono Mccoy MD [Primary Care Provider] - Inpatient Charges Provider: Dr. Michaela Maloney <Floyd Maloney - Last Filed: 08/26/18 08:06> Date of Encounter: 08/25/18 Oncology: Obj Data - Labs CBC & Chem 7: 08/25/18 04:04 08/24/18 06:29 Inpatient Charges Provider: Dr. Michaela Maloney Follow up - Inpatient: [id number] - Attending Attestation I examined this patient and my medical decision-making was reviewed with the Advanced Practice Nurse. I agree with the documented findings, disposition and treatment plan as described except to the extent set forth below. On exam, she is found to have a left-sided pleural effusion with diminished breath sounds. She has 1+ edema bilaterally. Heart is regular rate and rhythm. Ms. Maloney unfortunately has disease progression by personal review of her CT imaging. This would make her [place] refractory. In addition, performance status has declined. She has difficulty performing her ADLs. care home facility has been recommended at time of discharge. Palliative care has been following is also discussed hospice with her. I also discussed hospice care with her as well. I think this would be the best option for her at this juncture. However, I also explained that if her condition does improve, we can certainly repeat entertain the idea of chemotherapy or possibly immunotherapy. However given her overall performance status, I think this is unlikely. I did explain if her shortness of breath gets worse, therapeutic thoracentesis can be performed through hospice if necessary. He also requested follow-up with me after discharge which I think is reasonable as well will be scheduled in 3-4 weeks. She will likely be returning closer to home in [facility] to a fdc facility. I recommend hospice enrollment at time of admission to the fdc facility. She is DNR comfort care arrest. All questions rashes best my ability. Would continue with discharge planning and hopeful discharge in the near future.
[2018-08-25] MEDS: Mirtazapine 15 MG TABLET PO SCH (20:52)
[2018-08-26] MEDS: *HR* HYDROcodone/Acet 5/325 mg TABLET PO PRN ×4 (03:18→21:50)
[2018-08-26] MEDS: Levalbuterol Neb 1.25 MG/3 ML IH SCH ×4 (03:57→21:56)
[2018-08-26] MEDS: Acetylcysteine 10% 2 ML INHSOL IH SCH ×4 (03:58→21:56)
[2018-08-26] MEDS: Budesonide/Formoterol 80/4.5 MDI IH SCH ×2 (09:46→21:56)
[2018-08-26] MEDS: Aspirin Enteric Coated 81 MG Tablet PO SCH (09:58)
[2018-08-26] MEDS: Cholecalciferol (D-3) 1,000 UNIT TABLET PO SCH (09:59)
[2018-08-26] MEDS: Loratadine 10 MG TABLET PO SCH (09:59)
--- NOTE | 2018-08-26 11:15 | Palliative Progress Note ---
Date of Encounter: 08/26/18 Time of Encounter: 14:00 - Assessment and plan (1) Pain Current Visit: Yes Status: Acute Assessment and plan: Continues with [place] - has utilized x4 last 24 hours. Monitor (2) Anxiety Current Visit: No Status: Chronic Assessment and plan: Has not required any Lorazepam the last 24 hours. Monitor (3) Decreased appetite Current Visit: Yes Status: Acute Assessment and plan: Encourage po, Mirtazapine began yesterday. She has history of thrombus - will avoid Megace. (4) Goals of care, counseling/discussion Current Visit: Yes Status: Acute Assessment and plan: [facility] did not have bed available for patient. Patient next choice is [facility]. JUSTIN Bhakta notified and will call referral. Referral called to [facility] hospice. Met with daughter and patient and completed HPOA, she named daughter Ximena as primary agent and Terri as alternate. Copy placed on record and provided to POA. Rediscussed code status at length, patient decided that she would like DNRComfort care. Code status changed and DNR state form completed and signed by patient. Dr. Baker during this time, and attempted to drain pleurx - small amount of fluid removed. He discussed patient desire - to keep tube or discontinue prior to discharge. Kirby will be held today and Dr. Baker will see in am and address again with patient. D/W Dr Elliott as well. Prescriptions completed for Roxanol, [place], and Lorazepam to prepare for ECF transfer. [facility] will enroll patient at [facility] in [place]. (5) Shortness of breath Current Visit: No Status: Acute (6) Small cell lung cancer Current Visit: No Status: Acute (7) Pleural effusion Current Visit: No Status: Acute - Time Spent With Patient Total time spent is greater than 50% in coordination of care (as documented) at patient's floor/unit and/or counseling patient: - Subjective Interval history: Patient awake and alert. Vitals stable, appetite fair. + BM. Slept better last night. States [place] still controlling pain adequately. - Constitutional Vitals: Abnormal lab results RBC 2.74 M/mcL (3.82-4.97) L 08/25/18 04:04 Hgb 8.1 g/dL (11.5-15.4) L 08/25/18 04:04 Hct 26.5 % (35.3-44.9) L 08/25/18 04:04 MCHC 30.6 g/dL (31.6-35.5) L 08/25/18 04:04 RDW 17.1 % (11.5-14.5) H 08/25/18 04:04 PT 16.2 Seconds (9.4-12.1) H 08/20/18 07:49 Chloride 96 mEq/L (98-107) L 08/24/18 06:29 Carbon Dioxide 31 mEq/L (23-29) H 08/24/18 06:29 Creatinine 0.55 mg/dL (0.60-1.20) L 08/24/18 06:29 Phosphorus 2.5 mg/dL (2.7-4.5) L 08/21/18 04:03 AST 11 Units/L (13-39) L 08/20/18 07:49 Serum Total Protein 5.9 g/dL (6.4-8.9) L 08/20/18 07:49 Albumin 2.9 g/dL (3.5-5.7) L 08/20/18 07:49 Albumin/Globulin Ratio 1.0 (1.1-2.2) L 08/20/18 07:49 Urine Clarity Cloudy (Clear) A 08/20/18 08:00 Ur Specific [place] 1.027 (1.010-1.025) H 08/20/18 08:00 Urine Bilirubin Small (Negative) H 08/20/18 08:00 Urine Microscopic RBC 5-15 per hpf (0-3) H 08/20/18 08:00 Urine Microscopic WBC 3-5 per hpf (0-3) H 08/20/18 08:00 Ur Squamous Epith Cells Many per lpf (None-Few) H 08/20/18 08:00 Urine Bacteria Moderate per hpf (None-Few) H 08/20/18 08:00 Hyaline Casts Moderate per lpf (None-Few) H 08/20/18 08:00 General appearance: Present: no acute distress - Respiratory Additional comments: Left pleurx in place, breath sounds greatly diminished on left. Right lung butcher with scattered rhonchi - Cardiovascular Cardiovascular exam: Present: +S1, +S2 - GI/Abdominal GI/Abdominal exam: Present: normal bowel sounds, soft - Extremities Exam Extremities exam: Present: normal capillary refill, normal inspection - Neurological Exam Neurological exam: Present: alert, oriented X3, strengths equal and symetr throughout - Skin Skin exam: Present: dry, pallor ( ), warm Palliative Quality Palliative Quality: Screen for Code Status: Yes, Screen for Goals of Care: Yes, Screen for Pain: Yes, If Pain Regimen Started, Initiate Bowel Regimen: NA, Screen for Nausea/Vomitting: Yes Code Status: 08/20/18 09:24 Resuscitation Status: Active [RES] Routine Comment: Resuscitation Status: Full Code 08/20/18 15:21 DNR [Resuscitation Status: Active] [RES] Routine Comment: State form. Resuscitation Status: DNR-Comfort Care-Arrest 08/23/18 09:02 DNR [Resuscitation Status: Active] [RES] Routine Comment: Ok with Intubation. Resuscitation Status: DNR-Comfort Care-Arrest - Labs CBC & Chem 7: 08/25/18 04:04 08/24/18 06:29 - ABG Interpretation ABG results: PT/INR, D-dimer PT 16.2 Seconds (9.4-12.1) H 08/20/18 07:49 Palliative Scale - Palliative Performance Scale How ambulatory is this patient?: Reduced What is patient's level of activity and evidence of disease?: Normal activity with effort, Some evidence of disease How much self-care assistance does patient require?: Occasional assistance nec essary How much oral intake does the patient have?: Normal or reduced What is this patient's level of consciousness?: Full or confusion Palliative Performance Score: 80 % Consult Discharge Plan - Plan Referrals: Tono Mccoy MD [Primary Care Provider] - Prescriptions: HYDROcodone/Acet 5/325 mg [[place] 5-325 mg] 1 tab PO Q6H PRN 7 Days #30 tab PRN Reason: cancer associated pain LORazepam Oral Conc [Ativan Oral Conc] 0.5 mg PO Q4H PRN 7 Days #30 mls PRN Reason: Anxiety MORPHINE SUL Oral CONC [Roxanol Oral Conc] 5 mg PO Q4H PRN 7 Days #30 oral.syg PRN Reason: Dyspnea
--- NOTE | 2018-08-26 13:31 | Pulmonology Progress Note ---
<Patrica Davis - Last Filed: 08/26/18 13:28> Date of Encounter: 08/26/18 Time of Encounter: 09:00 Assessment and Plan (1) Shortness of breath Current Visit: No Status: Acute Ongoing shortness of breath and noted recent chest congestion associated with cough. Due to underlying small cell lung cancer. -Continues to have shortness of breath but notes she is comfortable with her analgesics -Unable to tolerate mucinex. -Ordered scopolamine patch to help dry out secretions -Chest xray shows ongoing opacification of left lung region -Continue DuoNeb and Symbicort -Further recommendations from oncology and palliative (2) Pleural effusion Current Visit: No Status: Acute Underwent thoracentesis by IR 08/20/18 noted to have 850 mL fluid drained from the left upper pleural cavity. Chest xray from two days ago continues to show complete left sided opacification Her oxygen requirement is unchanged, diminished lung sounds Pleurx catheter cannot be relocated due to anatomical structures impeding relocation Likely continues to have progressing pleural effusion due to her underlying malignancy Further recommendations from oncology Plan for drainage today (3) Small cell lung cancer Current Visit: Yes Status: Acute History of small cell lung cancer diagnosed on 05/26/18. Has missed her oncology appointment due to her worsening shortness of breath and weakness Pursuing not going forth with further oncology treatments Has decided to pursue hospice at this time Further recommendations from Palliative team (4) COPD (chronic obstructive pulmonary disease) Current Visit: No Status: Chronic COPD exacerbation vs. worsening malignancy Continue bronchodilators Continue symbicort Continue supplemental oxygen and titrate as tolerated to keep oxygen saturation 88 and above Qualifiers: COPD type: chronic bronchitis Chronic bronchitis type: unspecified Mehdi lified Code(s): J42 - Unspecified chronic bronchitis Subjective Principal diagnosis: Malignant pleural effusion Interval history: Mr. Maloney was seen at bedside this morning. Her vitals remained stable overnight. This morning she reports her mucus secretion has improved. Her shortness of breath remains at baseline. She denies fever, chills, nausea, emesis, or chest pain. Objective PUL Vital signs: Last Vital Signs Temp 97.4 F L 08/26/18 07:00 Pulse 78 08/26/18 07:00 Resp 16 08/26/18 09:47 BP 123/77 08/26/18 07:00 Pulse Ox 97 08/26/18 09:47 General appearance: no acute distress, alert Eyes: nonicteric ENT: oropharynx moist Auscultation: bilateral: diminished breath sounds (all lung lobes) Cardiovascular: regular rate and rhythm Gastrointestinal: normoactive bowel sounds, soft, non-distended Integumentary: normal Extremities: no cyanosis, no edema Musculoskeletal: no deformities Gait: normal gait normal mental status, pupils equal and round mood appropriate, affect normal Results - Laboratory Findings CBC and BMP: 08/25/18 04:04 08/24/18 06:29 PT/INR, D-dimer PT 16.2 Seconds (9.4-12.1) H 08/20/18 07:49 Abnormal lab findings: Abnormal lab results RBC 2.74 M/mcL (3.82-4.97) L 08/25/18 04:04 Hgb 8.1 g/dL (11.5-15.4) L 08/25/18 04:04 Hct 26.5 % (35.3-44.9) L 08/25/18 04:04 MCHC 30.6 g/dL (31.6-35.5) L 08/25/18 04:04 RDW 17.1 % (11.5-14.5) H 08/25/18 04:04 PT 16.2 Seconds (9.4-12.1) H 08/20/18 07:49 Chloride 96 mEq/L (98-107) L 08/24/18 06:29 Carbon Dioxide 31 mEq/L (23-29) H 08/24/18 06:29 Creatinine 0.55 mg/dL (0.60-1.20) L 08/24/18 06:29 Phosphorus 2.5 mg/dL (2.7-4.5) L 08/21/18 04:03 AST 11 Units/L (13-39) L 08/20/18 07:49 Serum Total Protein 5.9 g/dL (6.4-8.9) L 08/20/18 07:49 Albumin 2.9 g/dL (3.5-5.7) L 08/20/18 07:49 Albumin/Globulin Ratio 1.0 (1.1-2.2) L 08/20/18 07:49 Urine Clarity Cloudy (Clear) A 08/20/18 08:00 Ur Specific [place] 1.027 (1.010-1.025) H 08/20/18 08:00 Urine Bilirubin Small (Negative) H 08/20/18 08:00 Urine Microscopic RBC 5-15 per hpf (0-3) H 08/20/18 08:00 Urine Microscopic WBC 3-5 per hpf (0-3) H 08/20/18 08:00 Ur Squamous Epith Cells Many per lpf (None-Few) H 08/20/18 08:00 Urine Bacteria Moderate per hpf (None-Few) H 08/20/18 08:00 Hyaline Casts Moderate per lpf (None-Few) H 08/20/18 08:00 - Microbiology Findings Microbiology Findings: Microbiology, Last 48 Hours 08/20/18 07:49 Blood Culture - Final Peripheral Venipuncture No growth. Final report. 08/20/18 06:41 Blood Culture - Final Peripheral Venipuncture No growth. Final report. - Clinical Findings Intake & Output: Intake & Output 08/25/18 08/26/18 08/26/18 23:59 07:59 15:59 Intake Total 0 / 0 200 / 200 240 / 240 Output Total 100 / 100 0 / 0 400 / 400 Balance -100 / -100 200 / 200 -160 / -160 Weight 84.4 kg Consult Discharge Plan - Plan Referrals: Tono Mccoy MD [Primary Care Provider] - Prescriptions: HYDROcodone/Acet 5/325 mg [[place] 5-325 mg] 1 tab PO Q6H PRN 7 Days #30 tab PRN Reason: cancer associated pain RX: LORazepam Oral Conc [Ativan Oral Conc] 0.5 mg PO Q4H PRN 7 Days #30 mls PRN Reason: Anxiety MORPHINE SUL Oral CONC [Roxanol Oral Conc] 5 mg PO Q4H PRN 7 Days #30 oral.syg PRN Reason: Dyspnea <Saadlla,Haval M - Last Filed: 08/26/18 15:51> Date of Encounter: 08/26/18 Objective PUL Vital signs: Last Vital Signs Temp 97.4 F L 08/26/18 07:00 Pulse 78 08/26/18 07:00 Resp 16 08/26/18 15:27 BP 123/77 08/26/18 07:00 Pulse Ox 94 08/26/18 15:27 Results - Laboratory Findings CBC and BMP: 08/25/18 04:04 08/24/18 06:29 PT/INR, D-dimer PT 16.2 Seconds (9.4-12.1) H 08/20/18 07:49 Abnormal lab findings: Abnormal lab results RBC 2.74 M/mcL (3.82-4.97) L 08/25/18 04:04 Hgb 8.1 g/dL (11.5-15.4) L 08/25/18 04:04 Hct 26.5 % (35.3-44.9) L 08/25/18 04:04 MCHC 30.6 g/dL (31.6-35.5) L 08/25/18 04:04 RDW 17.1 % (11.5-14.5) H 08/25/18 04:04 PT 16.2 Seconds (9.4-12.1) H 08/20/18 07:49 Chloride 96 mEq/L (98-107) L 08/24/18 06:29 Carbon Dioxide 31 mEq/L (23-29) H 08/24/18 06:29 Creatinine 0.55 mg/dL (0.60-1.20) L 08/24/18 06:29 Phosphorus 2.5 mg/dL (2.7-4.5) L 08/21/18 04:03 AST 11 Units/L (13-39) L 08/20/18 07:49 Serum Total Protein 5.9 g/dL (6.4-8.9) L 08/20/18 07:49 Albumin 2.9 g/dL (3.5-5.7) L 08/20/18 07:49 Albumin/Globulin Ratio 1.0 (1.1-2.2) L 08/20/18 07:49 Urine Clarity Cloudy (Clear) A 08/20/18 08:00 Ur Specific [place] 1.027 (1.010-1.025) H 08/20/18 08:00 Urine Bilirubin Small (Negative) H 08/20/18 08:00 Urine Microscopic RBC 5-15 per hpf (0-3) H 08/20/18 08:00 Urine Microscopic WBC 3-5 per hpf (0-3) H 08/20/18 08:00 Ur Squamous Epith Cells Many per lpf (None-Few) H 08/20/18 08:00 Urine Bacteria Moderate per hpf (None-Few) H 08/20/18 08:00 Hyaline Casts Moderate per lpf (None-Few) H 08/20/18 08:00 - Microbiology Findings Microbiology Findings: Microbiology, Last 48 Hours 08/20/18 07:49 Blood Culture - Final Peripheral Venipuncture No growth. Final report. 08/20/18 06:41 Blood Culture - Final Peripheral Venipuncture No growth. Final report. - Clinical Findings Intake & Output: Intake & Output 08/25/18 08/26/18 08/26/18 23:59 07:59 15:59 Intake Total 0 / 0 200 / 200 360 / 360 Output Total 100 / 100 0 / 0 400 / 400 Balance -100 / -100 200 / 200 -40 / -40 Weight 84.4 kg - Attending Attestation I examined this patient and my medical decision-making was reviewed with the Resident Physician. I agree with the documented findings, disposition and treatment plan as described except to the extent set forth below. Patient seen and examined. Labs, radiology, chart personally reviewed. 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 I have changed the dressing and connected with Pleurx bottle with only draining minimal and we talked about removing fluid versus keeping it and at that this time she has not decided yet and I will visit her tomorrow if she wants the catheter to be removed then we will do that for her. Her anticoagulation needs to be on hold at least for 24 hours for now.
--- NOTE | 2018-08-26 15:26 | Internal Med Progress Note ---
Hospitalist Progress Note - Encounter Date of Encounter: 08/26/18 Time of Encounter: 09:00 - Subjective Interval History: Patient complaint of mild shortness of breath, no worsening. Has Pleurx catheter drained today by pulmonology, minimal drainage, plan for catheter removal tomorrow after hold xarelto for 24-hour - Exam Vitals: Temp Pulse Resp BP Pulse Ox 97.4 F L 78 16 123/77 97 08/26/18 07:00 08/26/18 07:00 08/26/18 09:47 08/26/18 07:00 08/26/18 09:47 Exam: General: Patient is alert, mild distress, oriented x 3 Respiratory: Coarse breath sounds especially over the left lung butcher. Decreased breath sounds at left side. Cardiovascular: Regular rate and rhythm. s1 and s2 normal No clicks, rubs, gallops, or murmurs. Mild pedal edema Abdomen: Abdomen is soft, nontender. Bowel sounds are present Musculoskeletal: Spontaneously moving all extremities Skin: warm, dry, intact. Neuro: Alert oriented x 3 normal cranial nerves, no focal deficits - Assessment and Plan (1) Small cell lung cancer Current Visit: Yes Status: Acute Assessment and Plan: With malignant pleural effusion. Palliative care and oncology consulted to discuss goals of care. Patient currently DNR CCA. Okay with short term intubation. - Plan for hospice discharge. (2) Atrial fibrillation with RVR Current Visit: Yes Status: Chronic Assessment and Plan: Rate controlled now. Continue Xarelto for anticoagulation (3) Pleural effusion, left Current Visit: Yes Status: Acute Assessment and Plan: Malignant pleural effusion. With Pleurx catheter in place. Pulmonary followin g. Patient underwent thoracentesis earlier during this hospitalization. Chest x-ray repeated continued to show complete opacification of the left hemithorax. Patient remains on 2-3 L nasal cannula. Per pulmonology, unable to change site Pleurx catheter due to patient's anatomy. Has minimal drainage from Pleurx catheter, plan to remove catheter before discharge patient to inpatient hospice. (4) COPD (chronic obstructive pulmonary disease) Current Visit: Yes Status: Chronic Assessment and Plan: Continue bronchodilators. Added acetylcysteine to help with secretions. (5) DVT prophylaxis Current Visit: Yes Status: Acute Assessment and Plan: On Xarelto (6) Goals of care, counseling/discussion Current Visit: Yes Status: Acute Assessment and Plan: Patient's CODE STATUS is DNR CCA. Family meeting held. Plan for inpatient hospice discharge (7) Diarrhea Current Visit: Yes Status: Resolved Assessment and Plan: No new episodes of diarrhea since yesterday. Continue close monitoring (8) Chronic anemia Current Visit: Yes Status: Chronic Assessment and Plan: Hemoglobin 8.5. Stable. Patient has been restarted on Xarelto (hold now for catheter removal). Will monitor blood counts (9) Chronic respiratory failure with hypoxia Current Visit: Yes Status: Chronic Assessment and Plan: Most likely due to small cell lung cancer, pleural effusion, and left lower lobe collapse due to obstruction. Continue O2 supplementation and supportive treatment. DVT Prophylaxis: On xarelto - Time Spent with Patient Total time spent is greater than 50% in coordination of care (as documented) at patient's floor/unit and/or counseling patient: 30 minutes 25 - 35 minutes Plan of Care Discussed with: patient Internal Medicine: Result - Labs CBC & Chem 7: 08/25/18 04:04 08/24/18 06:29 - ABG Interpretation ABG results: PT/INR, D-dimer PT 16.2 Seconds (9.4-12.1) H 08/20/18 07:49 Consult Discharge Plan - Plan Referrals: Tono Mccoy MD [Primary Care Provider] - Prescriptions: HYDROcodone/Acet 5/325 mg [[place] 5-325 mg] 1 tab PO Q6H PRN 7 Days #30 tab PRN Reason: cancer associated pain LORazepam Oral Conc [Ativan Oral Conc] 0.5 mg PO Q4H PRN 7 Days #30 mls PRN Reason: Anxiety MORPHINE SUL Oral CONC [Roxanol Oral Conc] 5 mg PO Q4H PRN 7 Days #30 oral.syg PRN Reason: Dyspnea (4) COPD (chronic obstructive pulmonary disease) Qualifiers: COPD type: unspecified COPD Qualified Code(s): J44.9 - Chronic obstructive pulmonary disease, unspecified (7) Diarrhea Qualifiers: Diarrhea type: presumed infectious Qualified Code(s): R19.7 - Diarrhea, unspecified
[2018-08-26] MEDS: Mirtazapine 15 MG TABLET PO SCH (21:50)
[2018-08-27] MEDS: Levalbuterol Neb 1.25 MG/3 ML IH SCH ×3 (03:48→15:20)
[2018-08-27] MEDS: Acetylcysteine 10% 2 ML INHSOL IH SCH ×3 (03:48→15:20)
[2018-08-27] MEDS: *HR* HYDROcodone/Acet 5/325 mg TABLET PO PRN ×3 (04:34→18:05)
[2018-08-27 07:35] VITALS: BP 120/61
[2018-08-27] MEDS: Cholecalciferol (D-3) 1,000 UNIT TABLET PO SCH (09:36)
[2018-08-27] MEDS: Aspirin Enteric Coated 81 MG Tablet PO SCH (09:36)
[2018-08-27] MEDS: Loratadine 10 MG TABLET PO SCH (09:36)
[2018-08-27] MEDS: Budesonide/Formoterol 80/4.5 MDI IH SCH (10:12)
--- NOTE | 2018-08-27 11:07 | Discharge Summary ---
Date of Encounter: 08/27/18 Time of Encounter: 10:00 - Discharge Diagnosis (1) Small cell lung cancer Priority: Primary Status: Acute (2) Atrial fibrillation with RVR Priority: Secondary Status: Chronic (3) Pleural effusion, left Priority: Primary Status: Acute (4) COPD (chronic obstructive pulmonary disease) Priority: Secondary Status: Chronic Qualifiers: COPD type: unspecified COPD Qualified Code(s): J44.9 - Chronic obstructive pulmonary disease, unspecified (5) DVT prophylaxis Priority: Secondary Status: Acute (6) Goals of care, counseling/discussion Priority: Primary Status: Acute (7) Diarrhea Priority: Secondary Status: Resolved Qualifiers: Diarrhea type: presumed infectious Qualified Code(s): R19.7 - Diarrhea, unspecified (8) Chronic anemia Priority: Secondary Status: Chronic (9) Chronic respiratory failure with hypoxia Priority: Primary Status: Chronic Hospital course: Ms. Maloney is a 73 year old female present to ER for shortness of breath. 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 Patient had thoracentesis by IR. However, her pleural effusion built-up quickly. Patient had Pleurx catheter previously during last admission. However, the drainage is minimal probably because blockaded. Pulmonology saw patient. Patient finally decided to pursue hospice service. Pulmonology recommend either remove the catheter or keep it to hospice. Patient decided to keep the catheter. Patient will discharge today to inpatient hospice. I have seen and examined patient today. Still in mild shortness of breath. SPO2 maintained by oxygen. No wheezing. Vitals are stable. Will DC patient to inpatient hospice today. Discharge discussed with: patient - Time Spent with Patient Total time spent providing and/or coordinating discharge services: 40 minutes Time spent: Greater than 30 minutes - Discharge Medications Prescriptions: New HYDROcodone/Acet 5/325 mg [[place] 5-325 mg] 1 tab PO Q6H PRN 7 Days #30 tab PRN Reason: cancer associated pain LORazepam Oral Conc [Ativan Oral Conc] 0.5 mg PO Q4H PRN 7 Days #30 mls PRN Reason: Anxiety MORPHINE SUL Oral CONC [Roxanol Oral Conc] 5 mg PO Q4H PRN 7 Days #30 oral.syg PRN Reason: Dyspnea Continue Nitroglycerin [Nitrostat] 0.4 mg SL Q5M PRN PRN Reason: Chest Pain Aspirin [Lo-Dose Aspirin EC] 81 mg PO DAILY Simvastatin [Zocor] 40 mg PO HS Sertraline [Zoloft] 200 mg PO DAILY Albuterol Sulfate [Proair Hfa] 2 puff IH Q6H PRN PRN Reason: Dyspnea Cholecalciferol (D-3) [Vitamin D] 2,000 unit PO DAILY Docusate Sodium [Dok] 100 mg PO BID PRN PRN Reason: Constipation Estradiol 1.5 mg PO DAILY Fluticasone/Salmeterol [Advair 250-50 Diskus] 1 puff IH BID Loratadine [Allergy Relief] 10 mg PO DAILY Montelukast [Singulair] 10 mg PO HS Metoprolol [Lopressor] 25 mg PO BID 30 Days #30 tablet Promethazine [Phenergan] 25 mg PO Q6HR PRN #30 tablet PRN Reason: Nausea Ipratropium/Albuterol Neb [Duoneb] 3 ml IH Q6HR PRN #60 vial.neb PRN Reason: Shortness Of Breath Omeprazole [PriLOSEC] 20 mg PO DAILY@0730 HYDROcodone/Acet 5/325 mg [[place] 5-325 mg] 1 tab PO Q6H PRN 7 Days #30 tab PRN Reason: Pain Buspirone HCl [Buspar] 7.5 mg PO BID Rivaroxaban [Xarelto] 20 mg PO HS hydrOXYzine pamoate [HydrOXYzine Pamoate] 50 mg PO Q8H PRN PRN Reason: Anxiety Home Medications: Albuterol Sulfate [Proair Hfa] 2 puff IH Q6H PRN 02/26/18 [History] Aspirin [Lo-Dose Aspirin EC] 81 mg PO DAILY 02/26/18 [History] Cholecalciferol (D-3) [Vitamin D] 2,000 unit PO DAILY 02/26/18 [History] Docusate Sodium [Dok] 100 mg PO BID PRN 02/26/18 [History] Estradiol 1.5 mg PO DAILY 02/26/18 [History] Fluticasone/Salmeterol [Advair 250-50 Diskus] 1 puff IH BID 02/26/18 [History] Loratadine [Allergy Relief] 10 mg PO DAILY 02/26/18 [History] Montelukast [Singulair] 10 mg PO HS 02/26/18 [History] Nitroglycerin [Nitrostat] 0.4 mg SL Q5M PRN 02/26/18 [History] Sertraline [Zoloft] 200 mg PO DAILY 02/26/18 [History] Simvastatin [Zocor] 40 mg PO HS 02/26/18 [History] Metoprolol [Lopressor] 25 mg PO BID 30 Days #30 tablet 02/28/18 [Rx] Promethazine [Phenergan] 25 mg PO Q6HR PRN #30 tablet 06/01/18 [Rx] Ipratropium/Albuterol Neb [Duoneb] 3 ml IH Q6HR PRN #60 vial.neb 08/07/18 [Rx] Omeprazole [PriLOSEC] 20 mg PO DAILY@0730 08/10/18 [History] HYDROcodone/Acet 5/325 mg [[place] 5-325 mg] 1 tab PO Q6H PRN 7 Days #30 tab 08/15/18 [Rx] Buspirone HCl [Buspar] 7.5 mg PO BID 08/21/18 [History] Rivaroxaban [Xarelto] 20 mg PO HS 08/21/18 [History] hydrOXYzine pamoate [HydrOXYzine Pamoate] 50 mg PO Q8H PRN 08/21/18 [History] HYDROcodone/Acet 5/325 mg [[place] 5-325 mg] 1 tab PO Q6H PRN 7 Days #30 tab 08/26/18 [Rx] LORazepam Oral Conc [Ativan Oral Conc] 0.5 mg PO Q4H PRN 7 Days #30 mls 08/26/18 [Rx] MORPHINE SUL Oral CONC [Roxanol Oral Conc] 5 mg PO Q4H PRN 7 Days #30 oral.syg 08/26/18 [Rx] Allergies/Adverse Reactions: Allergy/AdvReac Type Severity Reaction Status Date / Time ciprofloxacin [From Cipro] Allergy Rash Verified 08/04/18 07:48 codeine Allergy Fatigued Verified 08/04/18 07:48 diphenhydramine Allergy Rash Verified 08/04/18 07:48 [From Benadryl] gabapentin Allergy Anxiety Verified 08/04/18 07:48 Iodinated Contrast- Oral and Allergy Rash Verified 08/04/18 07:48 IV Dye [Iodinated Contrast Media - IV Dye] Penicillins Allergy Rash Verified 08/04/18 07:48 propoxyphene Allergy Rash Verified 08/04/18 07:48 Sulfa (Sulfonamide Allergy Rash Verified 08/04/18 07:48 Antibiotics) guaifenesin [From Mucinex] AdvReac Unknown See Verified 08/23/18 11:29 Comments Date of admission: 08/21/18 10:50 Primary care physician: Tono Mccoy MD Consults: 08/20/18 09:23 Consult to Interventional Radiology [CONS] Stat Consulting Provider: Radiology Interventional Cols Reason for Consult: was conatcted by Dr. maddox ED physician. 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 missed appointment with oncology on 08/18 Call Completed: Yes 08/20/18 09:33 Consult to Palliative Care [CONS] Routine Comment: Consulting Provider: Palliative [facility] [place] Reason for Consult: stage 4 lung cancer with recurrent pleural effusions Call Completed: No 08/20/18 10:58 Consult to Pulmonology [CONS] Routine Consulting Provider: [facility]m [facility] [place] Reason for Consult: left sided pleural effusion ( malignant) s/p catheter placement however cxr with worsening effusion Call Completed: Yes 08/20/18 11:22 Consult to Nutrition [CONS] Routine Comment: Consulting Provider: NUTRITION Reason for Dietary Consult: Other Consult to [employer] [CONS] Routine Reason for SW Consult: has home health new dx of lung cancer, home 02 thru [facility] Discharging clinician: Marcia Elliott Anticipated date of discharge: 08/27/18 - Constitutional Vitals: Temp Pulse Resp BP Pulse Ox 97.9 F 80 16 120/61 96 08/27/18 07:33 08/27/18 07:33 08/27/18 07:33 08/27/18 07:33 08/27/18 04:09 Exam: General: Patient is alert, mild distress, oriented x 3 Respiratory: Coarse breath sounds especially over the left lung butcher. Decreased breath sounds at left side. Cardiovascular: Regular rate and rhythm. s1 and s2 normal No clicks, rubs, gallops, or murmurs. Mild pedal edema Abdomen: Abdomen is soft, nontender. Bowel sounds are present Musculoskeletal: Spontaneously moving all extremities Skin: warm, dry, intact. Neuro: Alert oriented x 3 normal cranial nerves, no focal deficits - Patient Status Disposition: Hospice - Medical Facility Condition: Undetermined Functional capacity at discharge: wheelchair bound Overall status at discharge: patient is not back to baseline - Discharge Instructions Follow Up With: Tono Mccoy MD [Primary Care Provider] - - Diet and Activity Activity: as per physical therapy Diet: low fat, low cholesterol, low salt diet
[2018-08-27] MEDS ORDERED: Ondansetron 4 MG/2 ML VIAL IVP PRN (11:11)
--- NOTE | 2018-08-27 11:15 | Palliative Progress Note ---
Date of Encounter: 08/27/18 Time of Encounter: 09:00 - Assessment and plan (1) Shortness of breath Current Visit: No Status: Acute Assessment and plan: Patient found with oxygen off, reapplied. Reports this helped. (2) Small cell lung cancer Current Visit: No Status: Acute Assessment and plan: Patient desires no further treatment for cancer at this time. (3) Pleural effusion Current Visit: No Status: Acute Assessment and plan: Followed up with patient regarding plans for pleurx. Patient reports plans to leave intact, as some fluid removal is better than none. Patient reports she would be interested in repeat thoracentesis prior to discharge if Pulmonary thought would help breathing. Reports today is the best her breathing has been since admission. (4) Goals of care, counseling/discussion Current Visit: Yes Status: Acute Assessment and plan: Patient was to be discharged to [facility] with [facility] today; however, daughter Ximena notified [facility] Tellez that family evaluated facility and does not want patient to go there. Requested new referral be placed for [facility]. Patient will remain admitted while disposition is being finalized. Family also notified Palliative care team of desire to add Ambreen Justice to [facility] as 2nd alternate. New forms completed and signed. Patient given copies. (5) Pain Current Visit: Yes Status: Acute Assessment and plan: Patient reports pain 7/10 in back, chest, and abdomen. Patient has received 4 d oses of [place] in the last 24 hours and 0 doses of Roxanol. Continue [place] and Roxanol PRN for pain. (6) Anxiety Current Visit: No Status: Chronic Assessment and plan: Patient is the calmest since initial consult. 0 doses of Ativan in the last 24 hours. Continue PRN. (7) Nausea & vomiting Current Visit: Yes Status: Acute Assessment and plan: Patient reports continued pain with Phenergan. Added Zofran IVP PRN. Qualifiers: Vomiting type: unspecified Vomiting Intractability: unspecified Qualified Code(s): R11.2 - Nausea with vomiting, unspecified - Time Spent With Patient Total time spent is greater than 50% in coordination of care (as documented) at patient's floor/unit and/or counseling patient: 25 - 35 minutes - Subjective Interval history: Patient sitting up in bed, alert and oriented upon arrival for assessment. No family present at bedside. Patient reports pain is under control at this time; patient has received 4 doses of [place] in the last 24 hours, 0 doses of Roxanol. Patient appears calmed, 0 doses of Ativan in the last 24 hours. Patient reports continued nausea and vomiting. Patient has received 1 dose Phenergan in the last 24 hours, reports no improvement. Patient reports she is unsure if she is ready to go to [facility] today. Awaiting family to come to help pack up room. Patient also acknowledged family's notification of desires to add Ambreen to [facility]. Informed patient would return with forms to complete. Upon return assessment, patient reports continued abdominal pain and pain transitioning to bad. Reports cause from nausea, informed would add medication. - Constitutional Vitals: Abnormal lab results RBC 2.74 M/mcL (3.82-4.97) L 08/25/18 04:04 Hgb 8.1 g/dL (11.5-15.4) L 08/25/18 04:04 Hct 26.5 % (35.3-44.9) L 08/25/18 04:04 MCHC 30.6 g/dL (31.6-35.5) L 08/25/18 04:04 RDW 17.1 % (11.5-14.5) H 08/25/18 04:04 PT 16.2 Seconds (9.4-12.1) H 08/20/18 07:49 Chloride 96 mEq/L (98-107) L 08/24/18 06:29 Carbon Dioxide 31 mEq/L (23-29) H 08/24/18 06:29 Creatinine 0.55 mg/dL (0.60-1.20) L 08/24/18 06:29 Phosphorus 2.5 mg/dL (2.7-4.5) L 08/21/18 04:03 AST 11 Units/L (13-39) L 08/20/18 07:49 Serum Total Protein 5.9 g/dL (6.4-8.9) L 08/20/18 07:49 Albumin 2.9 g/dL (3.5-5.7) L 08/20/18 07:49 Albumin/Globulin Ratio 1.0 (1.1-2.2) L 08/20/18 07:49 Urine Clarity Cloudy (Clear) A 08/20/18 08:00 Ur Specific [place] 1.027 (1.010-1.025) H 08/20/18 08:00 Urine Bilirubin Small (Negative) H 08/20/18 08:00 Urine Microscopic RBC 5-15 per hpf (0-3) H 08/20/18 08:00 Urine Microscopic WBC 3-5 per hpf (0-3) H 08/20/18 08:00 Ur Squamous Epith Cells Many per lpf (None-Few) H 08/20/18 08:00 Urine Bacteria Moderate per hpf (None-Few) H 08/20/18 08:00 Hyaline Casts Moderate per lpf (None-Few) H 08/20/18 08:00 General appearance: Present: cooperative, mild distress, obese - Head Head exam: Present: atraumatic, normal inspection - Eye Eye exam: Present: normal appearance, PERRL. Absent: conjunctival injection, periorbital swelling, periorbital tenderness Pupils: Present: normal accommodation - ENT ENT exam: Present: mucous membranes dry, normal external ear exam - Neck Neck exam: Present: full ROM, normal inspection - Respiratory Respiratory exam: Present: wheezes. Absent: accessory muscle use, respiratory distress, tachypnea - Cardiovascular Cardiovascular exam: Present: +S1, +S2 - GI/Abdominal GI/Abdominal exam: Present: normal bowel sounds, soft. Absent: guarding, tenderness - Rectal Rectal exam: Present: deferred - Expanded Exam Female exam: Present: deferred - Extremities Exam Extremities exam: Present: full ROM, normal inspection. Absent: pedal edema - Back Exam Back exam: Present: normal inspection. Absent: tenderness - Neurological Exam Neurological exam: Present: alert, oriented X3, strengths equal and symetr t hroughout. Absent: altered - Psychiatric Psychiatric exam: Present: normal affect, normal mood - Skin Skin exam: Present: dry, intact, pallor, warm Palliative Quality Palliative Quality: Screen for Code Status: Yes, Screen for Goals of Care: Yes, Screen for Pain: Yes, If Pain Regimen Started, Initiate Bowel Regimen: NA, Screen for Nausea/Vomitting: Yes Code Status: 08/20/18 09:24 Resuscitation Status: Active [RES] Routine Comment: Resuscitation Status: Full Code 08/20/18 15:21 DNR [Resuscitation Status: Active] [RES] Routine Comment: State form. Resuscitation Status: DNR-Comfort Care-Arrest 08/23/18 09:02 DNR [Resuscitation Status: Active] [RES] Routine Comment: Ok with Intubation. Resuscitation Status: DNR-Comfort Care-Arrest 08/26/18 14:19 DNR [Resuscitation Status: Active] [RES] Routine Comment: Resuscitation Status: DNR-Comfort Care - Labs CBC & Chem 7: 08/25/18 04:04 08/24/18 06:29 - ABG Interpretation ABG results: PT/INR, D-dimer PT 16.2 Seconds (9.4-12.1) H 08/20/18 07:49 Palliative Scale - Palliative Performance Scale How ambulatory is this patient?: Reduced What is patient's level of activity and evidence of disease?: Normal activity with effort, Some evidence of disease How much self-care assistance does patient require?: Occasional assistance necessary How much oral intake does the patient have?: Normal or reduced What is this patient's level of consciousness?: Full or confusion Palliative Performance Score: 80 % Consult Discharge Plan - Plan Referrals: Tono Mccoy MD [Primary Care Provider] - Prescriptions: HYDROcodone/Acet 5/325 mg [[place] 5-325 mg] 1 tab PO Q6H PRN 7 Days #30 tab PRN Reason: cancer associated pain LORazepam Oral Conc [Ativan Oral Conc] 0.5 mg PO Q4H PRN 7 Days #30 mls PRN Reason: Anxiety MORPHINE SUL Oral CONC [Roxanol Oral Conc] 5 mg PO Q4H PRN 7 Days #30 oral.syg PRN Reason: Dyspnea
--- NOTE | 2018-08-27 11:15 | Physician Discharge Referral ---
ExtendedCare Referral Info Transfer To: ECF with hospice Provider in Charge after Transfer: [employer] Associate - Diagnosis (1) Small cell lung cancer Status: Acute (2) Atrial fibrillation with RVR Status: Chronic (3) Pleural effusion, left Status: Acute (4) COPD (chronic obstructive pulmonary disease) Status: Chronic (5) DVT prophylaxis Status: Acute (6) Goals of care, counseling/discussion Status: Acute (7) Diarrhea Status: Resolved (8) Chronic anemia Status: Chronic (9) Chronic respiratory failure with hypoxia Status: Chronic - Transfer Medications Prescriptions: HYDROcodone/Acet 5/325 mg [[place] 5-325 mg] 1 tab PO Q6H PRN 7 Days #30 tab PRN Reason: cancer associated pain LORazepam Oral Conc [Ativan Oral Conc] 0.5 mg PO Q4H PRN 7 Days #30 mls PRN Reason: Anxiety MORPHINE SUL Oral CONC [Roxanol Oral Conc] 5 mg PO Q4H PRN 7 Days #30 oral.syg PRN Reason: Dyspnea Home Medications: Albuterol Sulfate [Proair Hfa] 2 puff IH Q6H PRN 02/26/18 [History] Aspirin [Lo-Dose Aspirin EC] 81 mg PO DAILY 02/26/18 [History] Cholecalciferol (D-3) [Vitamin D] 2,000 unit PO DAILY 02/26/18 [History] Docusate Sodium [Dok] 100 mg PO BID PRN 02/26/18 [History] Estradiol 1.5 mg PO DAILY 02/26/18 [History] Fluticasone/Salmeterol [Advair 250-50 Diskus] 1 puff IH BID 02/26/18 [History] Loratadine [Allergy Relief] 10 mg PO DAILY 02/26/18 [History] Montelukast [Singulair] 10 mg PO HS 02/26/18 [History] Nitroglycerin [Nitrostat] 0.4 mg SL Q5M PRN 02/26/18 [History] Sertraline [Zoloft] 200 mg PO DAILY 02/26/18 [History] Simvastatin [Zocor] 40 mg PO HS 02/26/18 [History] Metoprolol [Lopressor] 25 mg PO BID 30 Days #30 tablet 02/28/18 [Rx] Promethazine [Phenergan] 25 mg PO Q6HR PRN #30 tablet 06/01/18 [Rx] Ipratropium/Albuterol Neb [Duoneb] 3 ml IH Q6HR PRN #60 vial.neb 08/07/18 [Rx] Omeprazole [PriLOSEC] 20 mg PO DAILY@0730 08/10/18 [History] HYDROcodone/Acet 5/325 mg [[place] 5-325 mg] 1 tab PO Q6H PRN 7 Days #30 tab 08/15/18 [Rx] Buspirone HCl [Buspar] 7.5 mg PO BID 08/21/18 [History] Rivaroxaban [Xarelto] 20 mg PO HS 08/21/18 [History] hydrOXYzine pamoate [HydrOXYzine Pamoate] 50 mg PO Q8H PRN 08/21/18 [History] HYDROcodone/Acet 5/325 mg [[place] 5-325 mg] 1 tab PO Q6H PRN 7 Days #30 tab 08/26/18 [Rx] LORazepam Oral Conc [Ativan Oral Conc] 0.5 mg PO Q4H PRN 7 Days #30 mls 08/26/18 [Rx] MORPHINE SUL Oral CONC [Roxanol Oral Conc] 5 mg PO Q4H PRN 7 Days #30 oral.syg 08/26/18 [Rx] Allergies/Adverse Reactions: Allergy/AdvReac Type Severity Reaction Status Date / Time ciprofloxacin [From Cipro] Allergy Rash Verified 08/04/18 07:48 codeine Allergy Fatigued Verified 08/04/18 07:48 diphenhydramine Allergy Rash Verified 08/04/18 07:48 [From Benadryl] gabapentin Allergy Anxiety Verified 08/04/18 07:48 Iodinated Contrast- Oral and Allergy Rash Verified 08/04/18 07:48 IV Dye [Iodinated Contrast Media - IV Dye] Penicillins Allergy Rash Verified 08/04/18 07:48 propoxyphene Allergy Rash Verified 08/04/18 07:48 Sulfa (Sulfonamide Allergy Rash Verified 08/04/18 07:48 Antibiotics) guaifenesin [From Mucinex] AdvReac Unknown See Verified 08/23/18 11:29 Comments - Respiratory Orders Oxygen / L per min (2) Smoking Cessation: Smoking cessation has been advised. For more information, call the [employer] Tobacco Quit Line at 0-385-HVTN-NOW. - Advance Directives Code Status: DNR-Comfort Care - Rehabiliation Orders Rehab Orders: Evaluation for Physical Therapy, Evaluation for Occupational Therapy - Diet Orders Cardiac CERTIFICATION: I certify that the transfer of the above named patient to an Extended Care Facility is necessary for the continuing treatment of the diagnosis listed. The above information is true and accurate reflection of patient's current condition. Confidential - Redisclosure prohibited without a patient's written consent.
[2018-08-27] MEDS: Scopolamine Patch 1.5 MG PATCH.TD72 TD SCH (16:31)
[2018-08-27] MEDS: *HR* Rivaroxaban 10 MG TABLET PO SCH (16:50)
== END 2018-08-27 18:07 | disposition hospice, inpatient (51) | DRG 181 ==
LOC: 2NENU 06:08 → EMEROOARM 06:08 → 2NENU 10:38 → SUATTDRO 08-21 10:50
PROVIDERS: ADMIT Internal Medicine; ATTEND Internal Medicine